=== PATIENT | female | born 1935 | race Caucasian/White ===

== ENCOUNTER → 2016-06-15 | Outpatient (CLI) | payer MEDICARE ==
[~2016-06-15] MED LIST: ACHD5005 PO; ALBU17AE3 IH; ASP81CT PO; ASPI-875 PO; CARV12.53 PO; CLCX100C PO; CLCX200C PO; CPR500T PO; DICL100G20 TOP; DOCU-161 PO; DOCU100T7 PO; FLUO20CA25 PO; FNT100TD TD; FNT25TD TD; FRSM40T PO; HYDR-2890 PO; HYDR-623 PO; HYOS0.1217 PO; IRBE75TA31 PO; LVT.025T PO; MULT-893 PO; MULT-963 PO; NF-DURA12P TD; NFAMINITAB PO; OMEG-12 PO; OMEP-10 PO; OMEP20CA6 PO; OMG1KC PO; ONDAN4ODT PO; OXYC-12 PO; Oxycodone Hcl/Acetaminophen PO; PNT40TEC PO; POTA10CA43 PO; SENN1TAB76 PO; TRM50T PO
--- OUTSIDE RECORDS SUMMARY | 2016-06-15 11:47 | XMS REPORT | Continuity of Care Document ---
Author Author [facility] Organization [facility] Address Unknown Phone Unavailable Care Team Providers Care Chocolate Coater Name Role Phone TROY FERRER MD PCP Insurance Providers Payer Name Policy Number Subscriber Name Relationship Wps Medicare [id number] lEvin Arnett 18 Self / Same As Patient Blue Cross [facility] Supp [id number] Elvin Arnett 18 Self / Same As Patient Advance Directives Directive Response Recorded Date/Time Advance Directives Yes 06/13/14 10:01am Health Care Power of Leach Runner Y DAUGHTER- ABIEL 06/13/14 10:01am Organ Donor Yes 06/13/14 10:01am Resuscitation Status Full Code 06/13/14 10:01am Problems Medical Problems Problem Onset Date Status Abdominal pain Unknown Active Nausea and vomiting Unknown Active POSSIBLE ADVERSE MEDICATION REACTION Unknown Active Medications Medication Dose Route Sig Days/Qty Instructions Order Date Discontinued Date Status Hydrocodone Bit/Acetaminophen 1 Each PO EVERY 6 HOURS 09/03/1110/12 Discontinued Carvedilol (Coreg) 1 Each PO BEDTIME 09/03/11 10/06/11 Discontinued Tramadol HCl 50 Mg PO TWICE A DAY 7 Days 09/09/11 10/13/11 Discontinued Acetaminophen/Hydrocodone Bitart 1 Each PO EVERY 6 HOURS PRN 10/23/11 Discontinued Ciprofloxacin 500 Mg PO TWICE A DAY 10 Qty 10/24/11 02/03/12 Discontinued Fentanyl 1 Ea TD Q72H 100 MCG 02/03/12 02/03/12 Discontinued Carvedilol (Coreg) 6.25 Mg PO DAILY 02/18/12 Active Carvedilol (Coreg) 12.5 Mg PO BEDTIME 02/18/12 Active Diclofenac Sod 100 Gm TOP FOUR TIMES DAILY TO RT AND LEFT SHOULDER 4X DAILY AND NEEDED TO KNEES. 02/18/12 01/13/13 Discontinued Aspirin 81 Mg PO BEDTIME 02/18/12 Active Docusate Sodium 100 Mg PO DAILY 02/18/12 06/08/14 Discontinued Fentanyl 1 Patch TD Q72H 02/18/12 Active Fluoxetine HCl (Prozac) 20 Mg PO DAILY 02/18/12 Active Irbesartan 150 Mg PO DAILY 02/18/12 Active Fish Oil 1,000 Mg PO TWICE A DAY 02/18/12 Active Senna 1 Ea PO TWICE A DAY 02/18/12 01/13/13 Discontinued Multivitamin 1 Tab PO BEDTIME 02/18/12 Active Omeprazole 20 Mg PO DAILY PRN 02/18/12 01/13/13 Discontinued Celecoxib 200 Mg PO TWICE A DAY 01/13/13 Active Albuterol 1 Puff IH EVERY 4HRS PRN 01/13/13 06/08/14 Discontinued Hydrocodone Bit/Acetaminophen 1 Tab PO EVERY 6 HOURS PRN PRN PAIN 01/13 Active Vitamin C/Vitamin E 1 Tab PO DAILY 01/13/13 Active Levothyroxine Sodium (Levothroid) 50 Mcg PO DAILY 01/13/13 Active Furosemide 20 Mg PO DAILY 01/13/13 Active Potassium Chloride (Micro K) 10 Meq PO DAILY 01/13/13 Active Oxycodone Hcl/Acetaminophen 1 Each PO EVERY 4HRS 40 Qty 1-2 EVERY 4-6 HRS. NEEDED FOR PAIN 01/21/13 04/21/13 Discontinued Hyoscyamine Sulfate (Levsin) 1-2 Each PO Q4HR PRN 10 Qty 04/21/1310/15 Discontinued Pantoprazole Sodium 1 Tab PO DAILY 10 Qty 04/21/13 06/08/14 Discontinued Ondansetron HCl 4 Mg PO EVERY 4HRS 10 Qty FOR NAUSEA AND VOMITING 06/08/14 Discontinued Social History Social History Problem Response Recorded Date/Time Alcohol Use Denies Use 06/13/2014 10:03am Recreational Drug Use No 06/13/2014 10:03am Recent Foreign Travel No 04/21/2013 4:09am Recent Infectious Disease Exposure No 04/21/2013 4:09am Hospitalization with Isolation Denies 04/21/2013 4:09am Sexually Transmitted Disease No 06/13/2014 10:03am HIV/AIDS No 06/13/2014 10:03am Smoking Status Never a Smoker 06/13/2014 10:01am Query Response Start Date Stop Date Smoking Status Never a Smoker Hospital Discharge Instructions No hospital discharge instructions. Plan of Care Discharge Date 06/15/14 1:25pm Disposition 30 STILL A PATIENT Instructions/Education Provided Total Knee Replacement (DC) Forms Provided PDI Surgical Prescriptions See Medications Section Functional Status Query Response Date Recorded Patient Orientation Person Place Time Situation June 15, 2014 1:38pm Comprehension Ability Understands Concepts June 13, 2014 2:22pm Allergies, Adverse Reactions, Alerts Allergen Type Severity Reaction Status Last Updated Penicillins ([id number]) Allergy Unknown HIVES Active 05/21/14 adhesive tape Allergy Unknown RASH BLISTERS Active 05/21/14 Immunizations Name Given Type Date of Pneumonia Vaccine 01/04/13 Historical Date of Influenza Vaccine 03/03/14 Historical Tetanus Booster (TDap) More than 5yrs Historical Vital Signs Acute Vital Signs Vital Response Date/Time Temperature (Fahrenheit) 99.2 degrees F (97.6 - 99.5) Temperature (Calculated Celsius) 37.58585 degrees C (36.4 - 37.5) Temperature Source Temporal Pulse Rate (adult) 75 bpm (60 - 90) Respiratory Rate 18 bpm (12 - 24) O2 Sat by Pulse Oximetry 96 % (88 - 100) Blood Pressure 157/75 mm Hg Pain Pain Intensity 5 Height (Feet) 5 feet Height (Inches) 7.00 inches Height (Calculated Centimeters) 170.229516 cm Weight (Pounds) 189 pounds Weight (Calculated Grams) 79717.959 gm Weight (Calculated Kilograms) 85.680414 kilograms Calculated BMI 29.60 Results Laboratory Results Test Name Result Units Flags Reference Collection Date/Time Result Date/ Time Comments White Blood Count 9.2 10^3/uL 4.3-11.0 06/08/2014 12:05pm 06/08/2014 12 :41pm Red Blood Count 4.43 10^6/uL 4.35-5.85 06/08/2014 12:05pm 06/08/2014 12 :41pm Hemoglobin 13.1 G/DL 11.5-16.0 06/08/2014 12:05pm 06/08/2014 12:41pm Hematocrit 39 % 35-52 06/08/2014 12:05pm 06/08/2014 12:41pm Mean Corpuscular Volume 88 FL 80-99 06/08/2014 12:05pm 06/08/2014 12: 41pm Mean Corpuscular Hemoglobin 30 PG 25-34 06/08/2014 12:05pm 06/08/2014 12:41pm Mean Corpuscular Hemoglobin Concent 34 G/DL 32-36 06/08/2014 12:05pm 12:41pm Red Cell Distribution Width 13.3 % 10.0-14.5 06/08/2014 12:05pm 2014 12:41pm Platelet Count 270 10^3/uL 130-400 06/08/2014 12:05pm 06/08/2014 12: 41pm Mean Platelet Volume 9.8 FL 7.4-10.4 06/08/2014 12:05pm 06/08/2014 12: 41pm Neutrophils (%) (Auto) 67 % 42-75 06/08/2014 12:05pm 06/08/2014 12: 41pm Lymphocytes (%) (Auto) 22 % 12-44 06/08/2014 12:05pm 06/08/2014 12: 41pm Monocytes (%) (Auto) 9 % 0-12 06/08/2014 12:05pm 06/08/2014 12:41pm Eosinophils (%) (Auto) 2 % 0-10 06/08/2014 12:05pm 06/08/2014 12:41pm Basophils (%) (Auto) 1 % 0-10 06/08/2014 12:05pm 06/08/2014 12:41pm Neutrophils # (Auto) 6.2 X 10^3 1.8-7.8 06/08/2014 12:05pm 06/08/2014 12:41pm Lymphocytes # (Auto) 2.0 X 10^3 1.0-4.0 06/08/2014 12:05pm 06/08/2014 12:41pm Monocytes # (Auto) 0.8 X 10^3 0.0-1.0 06/08/2014 12:05pm 06/08/2014 12: 41pm Eosinophils # (Auto) 0.2 10^3/uL 0.0-0.3 06/08/2014 12:05pm 06/08/2014 12:41pm Basophils # (Auto) 0.1 10^3/uL 0.0-0.1 06/08/2014 12:05pm 06/08/2014 12 :41pm Erythrocyte Sedimentation Rate 24 MM/HR 0-30 06/08/2014 12:05pm 2014 1:01pm Prothrombin Time 11.9 SEC L 12.2-14.7 06/08/2014 12:05pm 06/08/2014 12: 46pm INR Comment 0.9 0.8-1.4 06/08/2014 12:05pm 06/08/2014 12:46pm INTERPRETIVE DATA SUGGESTED THERAPEUTIC RANGE FOR INR'S: VENOUS THROMBOSIS, PULMONARY EMBOLISM, OR PREVENTION OF SYSTEMIC EMBOLISM (EG. IN ATRIAL FIBRILLATION): 2.0 - 3.0 MECHANICAL PROSTHETIC HEART VALVES: 2.5 - 3.5* *NOTE: INR'S UP TO 4.5 MAY BE NECESSARY IN SELECTED GROUPS OF HIGH RISK PATIENTS. [place] [place] CONSENSUS CONFERENCE ON ANTITHROMBOTIC THERAPY (2000). Urine Color YELLOW 06/08/2014 12:05pm 06/08/2014 12:53pm Urine Clarity CLEAR 06/08/2014 12:05pm 06/08/2014 12:53pm Urine pH 8 5-9 06/08/2014 12:05pm 06/08/2014 12:53pm Urine Specific [place] 1.015 * 1.016-1.022 06/08/2014 12:05pm 2014 12:53pm Urine Protein NEGATIVE NEGATIVE 06/08/2014 12:05pm 06/08/2014 12: 53pm Urine Glucose (UA) NEGATIVE NEGATIVE 06/08/2014 12:05pm 06/08/2014 12 :53pm Urine RBC (Auto) NEGATIVE NEGATIVE 06/08/2014 12:05pm 06/08/2014 12: 53pm Urine Ketones NEGATIVE NEGATIVE 06/08/2014 12:05pm 06/08/2014 12: 53pm Urine Nitrite NEGATIVE NEGATIVE 06/08/2014 12:05pm 06/08/2014 12: 53pm Urine Bilirubin NEGATIVE NEGATIVE 06/08/2014 12:05pm 06/08/2014 12: 53pm Urine Urobilinogen NORMAL MG/DL NORMAL 06/08/2014 12:05pm 06/08/2014 12 :53pm Urine Leukocyte Esterase NEGATIVE NEGATIVE 06/08/2014 12:05pm 2014 12:53pm Urine RBC NONE /HPF 06/08/2014 12:05pm 06/08/2014 12:53pm Urine WBC NONE /HPF 06/08/2014 12:05pm 06/08/2014 12:53pm Urine Bacteria NEGATIVE /HPF 06/08/2014 12:05pm 06/08/2014 12:53pm Urine Squamous Epithelial Cells RARE /HPF 06/08/2014 12:05pm 2014 12:53pm Urine Crystals NONE /LPF 06/08/2014 12:05pm 06/08/2014 12:53pm Urine Casts NONE /LPF 06/08/2014 12:05pm 06/08/2014 12:53pm Urine Mucus NEGATIVE /LPF 06/08/2014 12:05pm 06/08/2014 12:53pm Urine Culture Indicated NO 06/08/2014 12:05pm 06/08/2014 12:53pm Sodium Level 139 MMOL/L 135-145 06/08/2014 12:05pm 06/08/2014 12:55pm Potassium Level 4.3 MMOL/L 3.6-5.0 06/08/2014 12:05pm 06/08/2014 12: 55pm Chloride Level 102 MMOL/L 98-107 06/08/2014 12:05pm 06/08/2014 12:55pm Carbon Dioxide Level 28 MMOL/L 21-32 06/08/2014 12:05pm 06/08/2014 12: 55pm Blood Urea Nitrogen 21 MG/DL H 7-18 06/08/2014 12:05pm 06/08/2014 12: 55pm Creatinine 0.79 MG/DL 0.60-1.30 06/08/2014 12:05pm 06/08/2014 12:55pm BUN/Creatinine Ratio 27 06/08/2014 12:05pm 06/08/2014 12:55pm Estimat Glomerular Filtration Rate > 60 06/08/2014 12:05pm 2014 12:55pm GFR INTERPRETIVE DATA UNITS FOR ESTIMATED GFR (eGFR): mL/min/1.73 M2 REFERENCE RANGE FOR ESTIMATED GFR (eGFR) eGFR NORMAL eGFR >60 MODERATELY DECREASED eGFR 30-59 SEVERLY DECREASED eGFR 15-29 KIDNEY FAILURE <15 (OR DIALYSIS) Glucose Level 98 MG/DL 70-105 06/08/2014 12:05pm 06/08/2014 12:55pm Calcium Level 9.8 MG/DL 8.5-10.1 06/08/2014 12:05pm 06/08/2014 12:55pm Total Bilirubin 0.5 MG/DL 0.1-1.0 06/08/2014 12:05pm 06/08/2014 12: 55pm Alkaline Phosphatase 88 U/L 40-136 06/08/2014 12:05pm 06/08/2014 12: 55pm Aspartate Amino Transf (AST/SGOT) 23 U/L 5-34 06/08/2014 12:05pm 2014 12:55pm Alanine Aminotransferase (ALT/SGPT) 24 U/L 0-55 06/08/2014 12:05pm 10/2014 12:55pm Total Protein 7.1 G/DL 6.4-8.2 06/08/2014 12:05pm 06/08/2014 12:55pm Albumin 3.9 G/DL 3.2-4.5 06/08/2014 12:05pm 06/08/2014 12:55pm White Blood Count 8.9 10^3/uL 4.3-11.0 06/15/2014 5:51am 06/15/2014 6: 22am Red Blood Count 3.33 10^6/uL L 4.35-5.85 06/15/2014 5:51am 06/15/2014 6: 22am Hemoglobin 9.7 G/DL L 11.5-16.0 06/15/2014 5:51am 06/15/2014 6:22am Hematocrit 30 % L 35-52 06/15/2014 5:51am 06/15/2014 6:22am Mean Corpuscular Volume 90 FL 80-99 06/15/2014 5:51am 06/15/2014 6: 22am Mean Corpuscular Hemoglobin 29 PG 25-34 06/15/2014 5:51am 06/15/2014 6: 22am Mean Corpuscular Hemoglobin Concent 32 G/DL 32-36 06/15/2014 5:51am 6:22am Red Cell Distribution Width 13.6 % 10.0-14.5 06/15/2014 5:512014 6:22am Platelet Count 190 10^3/uL 130-400 06/15/2014 5:06/15/2014 6:22am Mean Platelet Volume 9.7 FL 7.4-10.4 06/15/2014 5:5106/15/2014 6: 22am Neutrophils (%) (Auto) 67 % 42-75 06/15/2014 5:06/15/2014 6:22am Lymphocytes (%) (Auto) 17 % 12-44 06/15/2014 5:5106/15/2014 6:22am Monocytes (%) (Auto) 16 % H 0-12 06/15/2014 5:06/15/2014 6:22am Eosinophils (%) (Auto) 0 % 0-10 06/15/2014 5:06/15/2014 6:22am Basophils (%) (Auto) 0 % 0-10 06/15/2014 5:06/15/2014 6:22am Neutrophils # (Auto) 5.9 X 10^3 1.8-7.8 06/15/2014 5:51am 06/15/2014 6: 22am Lymphocytes # (Auto) 1.5 X 10^3 1.0-4.0 06/15/2014 5:06/15/2014 6: 22am Monocytes # (Auto) 1.4 X 10^3 H 0.0-1.0 06/15/2014 5:06/15/2014 6: 22am Eosinophils # (Auto) 0.0 10^3/uL 0.0-0.3 06/15/2014 5:06/15/2014 6 :22am Basophils # (Auto) 0.0 10^3/uL 0.0-0.1 06/15/2014 5:06/15/2014 6: 22am Urine Color YELLOW 06/14/2014 8:15pm 06/14/2014 8:35pm Urine Clarity CLEAR 06/14/2014 8:15pm 06/14/2014 8:35pm Urine pH 5 5-9 06/14/2014 8:15pm 06/14/2014 8:35pm Urine Specific [place] 1.010 * 1.016-1.022 06/14/2014 8:15pm 2014 8:35pm Urine Protein NEGATIVE NEGATIVE 06/14/2014 8:15pm 06/14/2014 8:35pm Urine Glucose (UA) NEGATIVE NEGATIVE 06/14/2014 8:15pm 06/14/2014 8: 35pm Urine RBC (Auto) NEGATIVE NEGATIVE 06/14/2014 8:15pm 06/14/2014 8: 35pm Urine Ketones NEGATIVE NEGATIVE 06/14/2014 8:15pm 06/14/2014 8:35pm Urine Nitrite NEGATIVE NEGATIVE 06/14/2014 8:15pm 06/14/2014 8:35pm Urine Bilirubin NEGATIVE NEGATIVE 06/14/2014 8:15pm 06/14/2014 8: 35pm Urine Urobilinogen NORMAL MG/DL NORMAL 06/14/2014 8:15pm 06/14/2014 8: 35pm Urine Leukocyte Esterase NEGATIVE NEGATIVE 06/14/2014 8:15pm 2014 8:35pm Urine RBC NONE /HPF 06/14/2014 8:15pm 06/14/2014 8:35pm Urine WBC RARE /HPF 06/14/2014 8:15pm 06/14/2014 8:35pm Urine Bacteria TRACE /HPF 06/14/2014 8:15pm 06/14/2014 8:35pm Urine Squamous Epithelial Cells 2-5 /HPF 06/14/2014 8:15pm 2014 8:35pm Urine Crystals NONE /LPF 06/14/2014 8:15pm 06/14/2014 8:35pm Urine Casts NONE /LPF 06/14/2014 8:15pm 06/14/2014 8:35pm Urine Mucus NEGATIVE /LPF 06/14/2014 8:15pm 06/14/2014 8:35pm Urine Culture Indicated NO 06/14/2014 8:15pm 06/14/2014 8:35pm Sodium Level 138 MMOL/L 135-145 06/15/2014 5:51am 06/15/2014 6:48am Potassium Level 4.1 MMOL/L 3.6-5.0 06/15/2014 5:51am 06/15/2014 6:48am Chloride Level 105 MMOL/L 98-107 06/15/2014 5:51am 06/15/2014 6:48am Carbon Dioxide Level 25 MMOL/L 21-32 06/15/2014 5:5106/15/2014 6: 48am Blood Urea Nitrogen 16 MG/DL 7-18 06/15/2014 5:51am 06/15/2014 6:48am Creatinine 0.77 MG/DL 0.60-1.30 06/15/2014 5:51am 06/15/2014 6:48am BUN/Creatinine Ratio 21 06/15/2014 5:51am 06/15/2014 6:48am Estimat Glomerular Filtration Rate > 60 06/15/2014 5:512014 6:48am GFR INTERPRETIVE DATA UNITS FOR ESTIMATED GFR (eGFR): mL/min/1.73 M2 REFERENCE RANGE FOR ESTIMATED GFR (eGFR) eGFR NORMAL eGFR >60 MODERATELY DECREASED eGFR 30-59 SEVERLY DECREASED eGFR 15-29 KIDNEY FAILURE <15 (OR DIALYSIS) Glucose Level 147 MG/DL H 70-105 06/15/2014 5:51am 06/15/2014 6:48am Calcium Level 8.0 MG/DL L 8.5-10.1 06/15/2014 5:5106/15/2014 6:48am Magnesium Level 2.0 MG/DL 1.8-2.4 06/15/2014 5:51am 06/15/2014 6:48am Total Bilirubin 0.5 MG/DL 0.1-1.0 06/15/2014 5:5106/15/2014 6:48am Alkaline Phosphatase 66 U/L 40-136 06/15/2014 5:51am 06/15/2014 6:48am Aspartate Amino Transf (AST/SGOT) 15 U/L 5-34 06/15/2014 5:512014 6:48am Alanine Aminotransferase (ALT/SGPT) 15 U/L 0-55 06/15/2014 5:51am 06/15 6:48am Total Protein 5.4 G/DL L 6.4-8.2 06/15/2014 5:5106/15/2014 6:48am Albumin 3.0 G/DL L 3.2-4.5 06/15/2014 5:51am 06/15/2014 6:48am Procedures Procedure Status Date Provider(s) Total replacement of knee joint completed 06/13/14 VAN VEE MD Tracing only of electrocardiogram completed 06/08/14 VAN VEE MD Encounters Encounter Location Date/Time Discharged Inpatient Via [facility] 06/13/14 8:23am Registered Clinic Via [facility] 06/08/14 11:28am Registered Clinic [facility] 05/21/14 11:38am
--- NOTE | 2016-06-17 10:18 | ECHOCARDIOGRAPHY REPORT ---
PROCEDURE PHYSICIAN: CARIDAD MARTINEZ DATE OF PROCEDURE: 06/15/2016 TWO DIMENSIONAL ECHOCARDIOGRAM REPORT PRIMARY PHYSICIAN: Dr. Sanchez OTHER PHYSICIAN: Dr. Martinez REFERRING PHYSICIAN: ORDERING PHYSICIAN: Rohini Smallwood APRN INDICATION FOR THE PROCEDURE: 1. Shortness of breath. 2. Coronary artery disease. 3. Hypertension. 4. Dilated cardiomyopathy. MEASUREMENTS DERIVED VALUES LV DIAMETER (LAX) NORMALS NORMALS Diastolic 4.2 (3.6-5.2) Eject. Fract. (60%+/-6%) Systolic (2.3-3.9) Diastolic Vol. % Shortening (0.22-0.42) Systolic Vol. Aortic Root 2.1 IVS THICKNESS Diastolic 1.1 (0.6-1.1) LVPW THICKNESS Diastolic 1.1 (0.6-1.1) LA DIAMETER Systolic 3.8 (2.1-3.7) DESCRIPTION: This is a technically difficult study. The study is not suitable for wall motion analysis. Global left ventricular systolic function appears fairly well preserved. Left ventricular ejection fraction is estimated to be approximately 50%. There is mild to moderate mitral annular calcification. There appears to be mild aortic valve sclerosis. There did not appear to be significant pericardial effusion. Echodense structures in the right heart are consistent with pacemaker lead/leads. Doppler imaging shows trivial tricuspid regurgitation. Pulmonary artery systolic pressure is estimated to be 30 mmHg. Mitral inflow suggestive of grade I diastolic dysfunction of the left ventricle. There does not appear to be evidence of any significant intracardiac shunt. Inferior vena cava appears to be of normal size and does exhibit inspiratory collapse. CONCLUSIONS: 1. Technically difficult study. 2. Global left ventricular systolic function appears to be at the lower limit of normal with an ejection fraction of approximately 50%. 3. Trivial tricuspid regurgitation. 4. Pulmonary artery systolic pressure is estimated to be approximately 30 mmHg. 5. Mild to moderate mitral annular calcification, mild aortic valve sclerosis without evidence of significant valvular stenosis. 6. Mild diastolic dysfunction of the left ventricle is suggested on this study. Job ID: [id number] Dictated Date: 06/17/2016 09:03:32 Industrial Relations Counselor Date: 06/17/2016 10:13:03 / cha
== END ==
LOC: CARD 11:44
PROVIDERS: ATTEND Nurse Practitioner Family
DX: R06.09 Other forms of dyspnea (principal); I25.10 Atherosclerotic heart disease of native coronary artery without angina pectoris; I10 Essential (primary) hypertension; I42.0 Dilated cardiomyopathy
CPT/HCPCS: 93306

== ENCOUNTER → 2016-08-18 | Outpatient (CLI) | payer MEDICARE ==
--- NOTE | 2016-08-19 18:07 | Diagnostic Imaging Report ---
Bilateral screening mammogram. The current study was also evaluated with a Computer Aided Detection (CAD) system. INDICATION: Screening. No current complaints stated on the questionnaire. COMPARISON: 04/10/15. FINDINGS: The breasts are composed of scattered fibroglandular densities. There are benign-appearing calcifications. Stable focal asymmetry and scarring in the upper outer aspect of the left breast from prior studies is seen. Allowing for technique and positional differences, no suspicious change is seen. IMPRESSION: No significant change. ACR BI-RADS Category 2: Benign findings. Result letter will be mailed to the patient. Note: At least 10% of breast cancer is not imaged by mammography. Dictated by: Dictated on workstation # [id number]
== END ==
LOC: RAD 13:30
PROVIDERS: ATTEND Family Medicine
DX: Z12.31 Encounter for screening mammogram for malignant neoplasm of breast (principal)
CPT/HCPCS: 77067

== ENCOUNTER → 2017-01-26 | Outpatient (CLI) | payer MEDICARE | LOC: RAD 14:25 | PROVIDERS: ATTEND Internal Medicine Cardiovascular Disease | DX: I73.9 Peripheral vascular disease, unspecified (principal); I10 Essential (primary) hypertension; E78.4 Other hyperlipidemia; I42.0 Dilated cardiomyopathy; I25.5 Ischemic cardiomyopathy | CPT/HCPCS: 93923 ==

== ENCOUNTER → 2017-03-22 | Outpatient (CLI) | payer MEDICARE ==
--- NOTE | 2017-03-22 17:58 | Diagnostic Imaging Report ---
EXAMINATION: Three views of the right knee. INDICATION: Right knee pain. FINDINGS: There is total right knee replacement seen in good alignment. No suprapatellar effusion is identified. No acute fracture is seen. Patellar resurfacing is noted. IMPRESSION: Total right knee arthroplasty in good alignment. Dictated by: Dictated on workstation # [id number]
== END ==
LOC: RAD 14:08
PROVIDERS: ATTEND Nurse Practitioner Family
DX: M25.561 Pain in right knee (principal); Z96.651 Presence of right artificial knee joint
CPT/HCPCS: 73562

== ENCOUNTER → 2017-05-11 | Outpatient (CLI) | payer MEDICARE ==
[~2017-05-11] VITALS: Ht 170.2 cm; Wt 83.5 kg
[~2017-05-11] MED LIST changes: +CATHETER FLUSH 10 ML SYR IV PRN; +REGADENOSON 0.4 MG/5 ML SYR (LEXISCAN) IV ONE
[2017-05-11 09:04] VITALS: BP 185/89
[2017-05-11 09:09] VITALS: BP 142/73
--- NOTE | 2017-05-12 07:09 | STRESS TEST ---
DATE OF SERVICE: 05/11/2017 RESTING AND POST REGADENOSON TECHNETIUM-99M TETROFOSMIN SPECT CT IMAGING ORDERING PHYSICIAN: Shukri Martinez MD, AISA, FACP, FACC PRIMARY PHYSICIAN: Dr. Sanchez. CLINICAL DIAGNOSIS: Cardiomyopathy. Baseline images were carried out after injection of 10.31 mCi technetium-99m tetrofosmin. This was followed by 0.4 mg regadenoson and 29.1 mCi of technetium-99m tetrofosmin for stress imaging. The electrocardiogram showed sinus rhythm at baseline. There is right bundle branch block. There is nonspecific ST and T-wave abnormality. The electrocardiogram did not change significantly with the regadenoson infusion. Review of images at rest and following stress does not indicate any distinct perfusion defects consistent with significant myocardial ischemia or infarction. Gated images show mild global hypokinesis. Left ventricular ejection fraction is calculated to be 45%. Left ventricular end diastolic volume is 67 mL. TID is absent (1.17). CONCLUSIONS: 1. No evidence of significant myocardial ischemia or infarction on this study. 2. Mild impairment of global left ventricular systolic function with mild global hypokinesis and left ventricular ejection fraction of 45%. Job ID: [id number] DocumentID: [id number] Dictated Date: 05/11/2017 14:15:49 Lowerator Operator Date: 05/11/2017 20:47:38 Dictated By: SHUKRI MARTINEZ MD, ASIA, FACP, FACC,
== END ==
LOC: CARD 07:19
PROVIDERS: ATTEND Internal Medicine Cardiovascular Disease
DX: I42.0 Dilated cardiomyopathy (principal); I10 Essential (primary) hypertension; E78.4 Other hyperlipidemia; I65.23 Occlusion and stenosis of bilateral carotid arteries
CPT/HCPCS: 78452; 93017

== ENCOUNTER 2018-09-06 09:37 | Outpatient (RCR) | payer MEDICARE ==
[~2018-09-06 09:37] MED LIST changes: -CATHETER FLUSH 10 ML SYR IV PRN; -REGADENOSON 0.4 MG/5 ML SYR (LEXISCAN) IV ONE
== END 2018-10-03 | disposition home or self-care (01) ==
PROVIDERS: ATTEND Physician Assistant
DX: M48.061 Spinal stenosis, lumbar region without neurogenic claudication (principal)

== ENCOUNTER → 2018-09-12 | Outpatient (CLI) | payer MEDICARE | LOC: CARD 13:49 | PROVIDERS: ATTEND Internal Medicine Cardiovascular Disease | DX: I42.0 Dilated cardiomyopathy (principal); I10 Essential (primary) hypertension; E78.5 Hyperlipidemia, unspecified; I65.23 Occlusion and stenosis of bilateral carotid arteries; I08.1 Rheumatic disorders of both mitral and tricuspid valves | CPT/HCPCS: 93306 ==

== ENCOUNTER → 2018-10-10 | Outpatient (CLI) | payer MEDICARE ==
--- NOTE | 2018-10-10 13:18 | Diagnostic Imaging Report ---
PROCEDURE: US Thyroid. TECHNIQUE: Multiple real-time grayscale images were obtained of the thyroid in various projections. INDICATION: Thyroid nodule. FINDINGS: There are no prior exams available for comparison. The right lobe of the thyroid is enlarged measuring 5.5 x 2.6 x 3.2 cm (normal gland size 4-5 x 2 x 2 cm or less). Within the superior pole of the right lobe, there is a 3.2 x 2.1 x 1.9 cm solid mass. The left lobe of the thyroid is not enlarged measuring 3.5 x 1.1 x 1.4 cm. There do appear to be at least two solid nodules within the left lobe. The largest of these measures 1.0 x 0.8 x 0.8 cm. There are perhaps a few subcentimeter nodules in the inferior pole of the left lobe as well. IMPRESSION: 1. The right lobe of the thyroid is enlarged and there is a 3.2 x 2.1 x 1.9 cm solid mass in the superior pole. This finding is of uncertain etiology but given the size of this nodule, it is worrisome for malignancy. An ultrasound-guided biopsy would be recommended unless there are previous studies available to demonstrate that this finding is stable. 2. There are a few smaller nodules in the left lobe of the thyroid. These are of uncertain etiology but unlikely to be related to a malignant lesion. If further evaluation of the largest nodule on the left is desired, then an ultrasound-guided biopsy could also be performed. Otherwise, a short-term (three-month) follow-up thyroid ultrasound exam should be obtained. 3. These results were discussed with Dr. Griselda Sanchez. Dictated by: Dictated on workstation # [id number]
== END ==
LOC: RAD 10:46
PROVIDERS: ATTEND Family Medicine
DX: E04.2 Nontoxic multinodular goiter (principal)
CPT/HCPCS: 76536

== ENCOUNTER → 2019-11-22 | Outpatient (CLI) | payer MEDICARE ==
--- NOTE | 2019-11-22 09:55 | Diagnostic Imaging Report ---
PROCEDURE: CT head without contrast. TECHNIQUE: Multiple contiguous axial images were obtained through the brain without the use of intravenous contrast. Auto Exposure Controls were utilized during the CT exam to meet ALARA standards for radiation dose reduction. INDICATION: Fall. FINDINGS: There is diffuse cortical atrophy. Ventricles are not dilated. Periventricular white matter changes are noted bilaterally. No evidence of intracranial hemorrhage. No extraaxial fluid collection. Basal cisterns are clear. Pituitary is not enlarged. The mastoid air cells are well-aerated. There are no calvarial fractures. There is scalp laceration over the left frontal region. IMPRESSION: 1. No acute intracranial abnormalities. 2. Scalp laceration over the left frontal region. Dictated by: Dictated on workstation # [id number]
== END ==
LOC: RAD 09:01
PROVIDERS: ATTEND Nurse Practitioner Family
DX: S01.01XA Laceration without foreign body of scalp, initial encounter (principal); W19.XXXA Unspecified fall, initial encounter
CPT/HCPCS: 70450

== ENCOUNTER → 2020-08-29 | Outpatient (CLI) | payer MEDICARE | LOC: CARD 13:55 | PROVIDERS: ATTEND Nurse Practitioner Family | DX: I42.0 Dilated cardiomyopathy (principal); I08.0 Rheumatic disorders of both mitral and aortic valves | CPT/HCPCS: 93306 ==

== ENCOUNTER 2020-10-11 08:00 | Day surgery (SDC) | payer MEDICARE ==
[2020-10-11] VITALS (9 sets, daily range): BP systolic 105–173; BP diastolic 48–90
[~2020-10-11] VITALS: Ht 144 cm; Wt 84.0 kg
[2020-10-11 07:33] LABS: HEMATOCRIT 42 % (35-52); HEMOGLOBIN 13.6 g/dL (11.5-16.0); MEAN CORPUSCULAR HEMOGLOBIN 29 pg (25-34); MEAN CORPUSCULAR HGB CONC 33 g/dL (32-36); MEAN CORPUSCULAR VOLUME 87 fL (80-99); MEAN PLATELET VOLUME 9.8 fL (9.0-12.2); PLATELET COUNT 237 10^3/uL (130-400); WHITE BLOOD COUNT 7.3 10^3/uL (4.3-11.0)
[2020-10-11 07:44] LABS: INR 0.9 (0.8-1.4); PROTHROMBIN TIME PATIENT 12.7 SEC (12.2-14.7)
[2020-10-11 07:51] LABS: BILIRUBIN,TOTAL 0.5 MG/DL (0.1-1.0); CALCIUM 9.5 MG/DL (8.5-10.1); CREATININE SERUM 0.99 MG/DL (0.60-1.30); POTASSIUM 4.4 MMOL/L (3.6-5.0); TOTAL PROTEIN 7.5 GM/DL (6.4-8.2)
[~2020-10-11 08:00] MED LIST changes: +BACITRACIN INJECTION 50,000 UNIT, SODIUM CHLORIDE 0.9% IRRIGATIO 500 ML IR ONE; +FEN12TD TD; +FENT1PAT57 TD; +IBUP-2185 PO; +LOSA100T57 PO; +NS IV 1000 ML 1,000 ML IV SCH; +PANT40GR PO; +VIT1CAPS44 PO
--- NOTE | 2020-10-11 09:11 | Cardiac Procedure Note-CS/ASA ---
Pre-Procedure Note Pre-Op Procedure Note H&P Reviewed The H&P was reviewed, patient examined and no changes noted. Date H&P Reviewed: Oct 11, 2020 Time H&P Reviewed: 08:30 Conscious Sedation Pre-Proced Time 08:30 ASA Score 3 For ASA 3 and 4: Consider anesthesia and medical clearance. Also, for patients with a history of failed moderate sedation consider anesthesia. Airway Lungs Heart ASA score ASA 1: a normal healthy patient ASA 2: a patient with a mild systemic disease (mid diabetes, controlled hypertension, obesity ASA 3: a patient with a severe systemic disease that limits activity (angina, COPD, prior Myocardial infarction) ASA 4: a patient with an incapacitating disease that is a constant threat to life (CHF, renal failure) ASA 5: a moribund patient not expected to survive 24 hrs. (ruptured aneurysm) ASA 6: a declared brain- patient whose organs are being harvested. For emergent operations, add the letter E after the classification Mallampati Classification Grade 2 Sedation Plan Analgesia, Amnesia, Plan communicated to team members, Discussed options with patient/fam, Discussed risks with patient/fam The patient is an appropriate candidate to undergo the planned procedure, sedation, and anesthesia. The patient immediately re-assessed prior to indication. CARIDAD WYNNE MD FACP FAC CCDS Oct 11, 2020 09:11
[2020-10-11] MEDS ORDERED: SULF1TAB35 PO (09:15)
[2020-10-11] MEDS ORDERED: PATIENT MAY USE OWN MEDS, ALL PO SCH (09:15)
[2020-10-11] MEDS ORDERED: NS IV 1000 ML 1,000 ML IV SCH (09:15)
--- NOTE | 2020-10-11 09:17 | Discharge Inst-Cardiology ---
Discharge Inst-Cardiac Discharge Medications New Medications: Sulfamethoxazole/Trimethoprim (Bactrim Ds Tablet) 1 Each Tablet 1 EACH PO BID for 5 Days, #10 TAB 0 Refills Continued Medications: Aspirin ([place] Aspirin) 81 Mg Tablet.dr 81 MG PO HS Carvedilol (Carvedilol) 12.5 Mg Tablet 12.5 MG PO HS Celecoxib (CeleBREX CAPSULE) 100 Mg Cap 100 MG PO BID, #60 CAP Fentanyl (Duragesic Patch 25MCG) 1 Each Patch.td72 25 MCG TD Q72H, #3 PATCH Fentanyl (Fentanyl Patch 12 MCG) 1 Each Patch.td72 12 MCG TD Q72H, #1 PATCH Fluoxetine Hcl (Fluoxetine Hcl) 20 Mg Capsule 20 MG PO DAILY Levothyroxine Sodium (Levothyroxine 25 Mcg Tab) 25 Mcg Tablet 50 MCG PO DAILY Losartan Potassium (Losartan Potassium) 100 Mg Tablet 100 MG PO DAILY, TAB Pantoprazole Sodium (Pantoprazole Sodium) 40 Mg Granpkt.dr 40 MG PO DAILY Vit C/E/Zn/Coppr/Lutein/Zeaxan (Preservision Areds 2 Softgel) 1 Each Capsule 2 EACH PO DAILY, CAP Discontinued Medications: Ibuprofen (Ibuprofen) 200 Mg Capsule 200 MG PO PRN, CAP CARIDAD WYNNE MD FACP [facility] CCDS Oct 11, 2020 09:17
--- NOTE | 2020-10-11 09:17 | Discharge Inst-Post CATH ---
Discharge Inst-CATH/EP Post Cardiac Cath/EP D/C Inst Follow Up/Plan F/u at Dr Martinez'micah for wound check on 10/14/20 F/u at Dr Martinez'micah for doctor visit and pacemaker check in 6 weeks ACTIVITY * Go Home directly and rest. * Limit activity of the leg (or wrist if it was used) for 7 days including aerobics, swimming, jogging, bicycling, etc. * Restrict stair-climbing for 7 days if possible, if not, climb up with your non-cath leg, then bring together on the same step. * Avoid lifting, pushing, pulling or excessive movement of the affected extremity for 7 days. * Customary sexual activity may be resumed after 2 days-use caution not to use a position that strains or causes pain to the affected extremity. * No driving for 24 hours. * NO SMOKING. * Avoid straining for bowel movements for 7 days. * Gentle walking on level ground is allowed. * Returning to work will depend on the type of procedure and the results. Your doctor will discuss this with you. CALL YOUR DOCTOR FOR ANY OF THE FOLLOWING: *If bleeding from the puncture site occurs- Apply gentle pressure to site with clean cloth and call your doctor or EMS. * If a knot or lump forms under the skin, increases in size, or causes pain. * If bruising appears to be worsening or moving further down your leg instead of disappearing. * Temperature above 101 F. CARE OF YOUR GROIN INCISION; * Bruising or purple discoloration of the skin near the puncture site is common. * You may shower only, no bathtub bathing for 5 days. Be careful to avoid slipping as your leg may feel stiff. * If a closure device was used on your femoral artery, please see the attached guide regarding care of the device and your leg. * Leave dressing on FOR 24 hours. CARE OF YOUR WRIST INCISION; * Bruising or purple discoloration of the skin near the puncture site is common. * You may shower. * DO NOT submerge wrist. * Leave dressing on FOR 24 hours. CARIDAD MARTINEZ MD [facility] Oct 11, 2020 09:17
--- NOTE | 2020-10-11 11:05 | Diagnostic Imaging Report ---
EXAMINATION: Portable erect AP chest at 1012 AM INDICATION: Status post ICD pulse generator change The cardiomegaly noted on the prior exam of 06/15/14 is again evident and essentially no different. Reportedly, the left-sided defibrillator device seen previously has been exchanged. The new device seems to be intact and the leads appear to be in good position. There is no sign of a pneumothorax on the left. The lungs are generally clear. There is no evidence for failure, pneumonia or for pleural effusion. The mediastinum is not widened. The osseous structures are intact. Bilateral shoulder prostheses are again evident. IMPRESSION: 1. There has been interval exchange of defibrillator devices on the left without apparent complication. 2. There is cardiomegaly but no acute cardiopulmonary abnormality is noted. Dictated by: Dictated on workstation # [id number]
--- NOTE | 2020-10-11 16:29 | OPERATIVE REPORT ---
DATE OF SERVICE: 10/11/2020 PREOPERATIVE DIAGNOSIS: Single chamber ICD pulse generator at end of life. POSTOPERATIVE DIAGNOSIS: Single chamber ICD pulse generator at end of life. PROCEDURE: Single chamber ICD pulse generator change. INDICATIONS: The patient is an 84-year-old lady who has nonischemic cardiomyopathy and has an ICD in place that has reached end of life. Informed consent was obtained and the generator change was carried out today. DESCRIPTION OF PROCEDURE: She was brought to the cardiac catheterization laboratory in a fasting state. The left prepectoral area, the site of previous device implant, was prepared and draped in the usual sterile fashion. Lidocaine 1% was used for local anesthesia. Sharp and blunt dissection was used to open the device pocket and the device was removed and detached from the lead. The pocket was thoroughly irrigated with an antibiotic solution. Good hemostasis was assured. The previous lead was attached to a new device. The new device is [employer] model [id number] with serial #[id number]. The device removed is [employer] model [id number] with serial #[id number]. The device was placed in the pocket and the pocket was closed in 2 layers using 3.0 Vicryl. She tolerated the procedure well. The lead impedance is 600 ohms. Ventricular capture threshold is 0.625 volts at 0.5 milliseconds. R waves are measured at 6.7 millivolts. Job ID: [id number] DocumentID: [id number] Dictated Date: 10/11/2020 09:23:08 [employer] Date: 10/11/2020 16:28:53 Dictated By: CARIDAD WYNNE MD, MA, FACP, FACC,
== END 2020-10-11 12:31 | disposition home or self-care (01) ==
LOC: CATH 08:00 → SDC 09:40 → CATH 12:31
PROVIDERS: ATTEND Internal Medicine Cardiovascular Disease
DX: Z45.02 Encounter for adjustment and management of automatic implantable cardiac defibrillator (principal); I42.0 Dilated cardiomyopathy; I25.10 Atherosclerotic heart disease of native coronary artery without angina pectoris; I10 Essential (primary) hypertension; I65.23 Occlusion and stenosis of bilateral carotid arteries; F32.9 Major depressive disorder, single episode, unspecified; M17.0 Bilateral primary osteoarthritis of knee; E04.1 Nontoxic single thyroid nodule; E78.2 Mixed hyperlipidemia; M19.011 Primary osteoarthritis, right shoulder; M19.012 Primary osteoarthritis, left shoulder; Z91.048 Other nonmedicinal substance allergy status; Z79.82 Long term (current) use of aspirin; Z79.899 Other long term (current) drug therapy; Z79.890 Hormone replacement therapy; Z98.890 Other specified postprocedural states; Z96.653 Presence of artificial knee joint, bilateral
CPT/HCPCS: 33262; 71045; 80053; 80061; 85027; 85610; 85730; 87081; C1721; 36415

== ENCOUNTER → 2020-11-08 | Outpatient (CLI) | payer MEDICARE ==
[~2020-11-08] MED LIST changes: -BACITRACIN INJECTION 50,000 UNIT, SODIUM CHLORIDE 0.9% IRRIGATIO 500 ML IR ONE; -NS IV 1000 ML 1,000 ML IV SCH; +SULF1TAB35 PO
--- NOTE | 2020-11-08 13:39 | Diagnostic Imaging Report ---
INDICATION: Back pain. 3 views were obtained FINDINGS: The alignment of the lumbar spine is normal. The vertebral body heights are well maintained. No spondylolysis or spondylolisthesis. No fractures are identified. There is multilevel degenerative disease and lower lumbar hypertrophic degenerative facet disease. IMPRESSION: Moderately severe diffuse lumbar spondylosis and degenerative disc disease as described. Dictated by: Dictated on workstation # [id number]
--- NOTE | 2020-11-08 14:49 | Diagnostic Imaging Report ---
Indication: Fall, right hip pain. Comparison: None Findings: 2 views of the right hip demonstrate well-seated arthroplasty without evidence of fracture or dislocation or loosening. Impression: Stable-appearing right hip arthroplasty. Dictated by: Dictated on workstation # [id number]
== END ==
LOC: RAD 10:50
PROVIDERS: ATTEND Family Medicine
DX: M47.816 Spondylosis without myelopathy or radiculopathy, lumbar region (principal); M51.36 Other intervertebral disc degeneration, lumbar region; W19.XXXA Unspecified fall, initial encounter
CPT/HCPCS: 72100; 73502

== ENCOUNTER → 2021-09-05 | Outpatient (CLI) | payer MEDICARE ==
[~2021-09-05] MED LIST changes: -SULF1TAB35 PO; +SULF1TAB38 PO
--- NOTE | 2021-09-05 16:44 | Diagnostic Imaging Report ---
INDICATION: Left leg pain. FINDINGS: 5 views. AP pelvis and bilateral hips. The arthroplasty of the right hip is in good alignment with no evidence of hardware complication. Left hip shows good alignment with moderate arthritic changes. There is some narrowing of the joint space with mild hypertrophic changes of the acetabulum. Femoral head is smooth. There are no fractures. SI joints show mild sclerotic change. IMPRESSION: Moderate arthritic changes of left hip. Right hip shows normal arthroplasty. Dictated by: Dictated on workstation # [id number]
== END ==
LOC: RAD 15:25
PROVIDERS: ATTEND Nurse Practitioner Family
DX: M16.12 Unilateral primary osteoarthritis, left hip (principal); Z98.1 Arthrodesis status
CPT/HCPCS: 73523

== ENCOUNTER → 2021-12-11 | Outpatient (CLI) | payer MEDICARE ==
--- NOTE | 2021-12-11 16:51 | Diagnostic Imaging Report ---
EXAMINATION: Right hip unilateral 2 or 3 views (w/pelvis when done) HISTORY: Right hip pain COMPARISON: 09/05/2021 FINDINGS: There is a right total hip arthroplasty. No acute fracture. No dislocation. There is unchanged mild left hip osteoarthritis. IMPRESSION: 1. Right total hip arthroplasty without acute fracture. Dictated by: Dictated on workstation # [id number]
== END ==
LOC: RAD 16:04
PROVIDERS: ATTEND Family Medicine
DX: M25.551 Pain in right hip (principal); Z96.641 Presence of right artificial hip joint

== ENCOUNTER → 2022-09-11 | Outpatient (CLI) | payer MEDICARE | LOC: CARD 13:49 | PROVIDERS: ATTEND Nurse Practitioner Family | DX: I42.0 Dilated cardiomyopathy (principal) | CPT/HCPCS: 93306 ==

== ENCOUNTER → 2022-11-06 | Outpatient (CLI) | payer MEDICARE ==
[~2022-11-06] MED LIST changes: +CATHETER FLUSH 10 ML SYR IVP PRN; -LOSA100T57 PO; +LOSA100T58 PO; +REGADENOSON 0.4 MG/5 ML SYR (LEXISCAN) IV ONE
[2022-11-06 08:48] VITALS: BP 177/85
== END ==
LOC: CARD 06:56
PROVIDERS: ATTEND Nurse Practitioner Family
DX: I25.10 Atherosclerotic heart disease of native coronary artery without angina pectoris (principal)
CPT/HCPCS: 78452; 93017; A9502

== ENCOUNTER 2022-11-23 14:01 | Inpatient (IN) | payer MEDICARE ==
[~2022-11-23] VITALS: Ht 157.5 cm; Wt 82.0 kg
[~2022-11-23 14:01] MED LIST changes: -CATHETER FLUSH 10 ML SYR IVP PRN; +CEFT1FRO2 IV; +CELE200C PO; +FENT1PAT9 TD; +FLUO20CA48 PO; +LEVO50TA6 PO; -REGADENOSON 0.4 MG/5 ML SYR (LEXISCAN) IV ONE
[2022-11-23] MEDS ORDERED: ASPI-1238 PO (14:44)
[2022-11-23] MEDS ORDERED: IBUP-2473 PO (14:45)
[2022-11-23] MEDS ORDERED: FERR142T14 PO (14:46)
--- NOTE | 2022-11-23 15:46 | Physical Therapy Evaluation ---
PT Evaluation-General Medical Diagnosis Admission Date Nov 23, 2022 at 14:59 Medical Diagnosis: Encephalopathy d/t UTI Onset Date: Nov 21, 2022 Therapy Diagnosis Therapy Diagnosis: Proximal weakness; Decreased functional mobility; Falls Height/Weight Height (Feet): 5 Height (Inches): 7.00 Weight (Pounds): 184 Weight (Ounces): 0.0 Precautions Precautions/Isolations: Fall Prevention, Standard Precautions, Pressure Ulcer Weight Bear Status Right Lower Extremity: Right Full Weight Bearing Left Lower Extremity: Left Full Weight Bearing Referral Physician: Raúl Reason for Referral: Evaluation/Treatment Medical History Pertinent Medical History: Arthritis, GERD, HTN Additional Medical History Cataracts sx, pacemaker placement, defibrillator , HTN, PNA, R TKA, cancer, incontinence, HLD, depression, anxiety, CAD, DJD, hypothyroidism, GERD, arthritis, chronic LBP Current History Pt is a 87 y/o female who was brought to ED by EMS for evaluation after a fall on 11/22/22. Patient fell on 11/21/22 and 11/22/22. Admitted to ARU on 11/23/22 with encephalopathy d/t UTI Reviewed History: Yes Social History Home: Single Level Current Living Status: Children Entry Into Home: Stairs With Railing PT Steps Into Home: 4 Pt lives with her daughter, who travels a lot, in a single story home with 4 steps to enter/exit with B HR. Walk-in shower, but pt was taking sponge baths. Prior Prior Level of Function SCALE: Activities may be completed with or without assistive devices. 5-Icuhhvzlwk-edzgmol completes the activity by him/herself with no assistance f rom a helper. 5-Set-up or Clean-up Assistance-helper sets up or cleans up; patient completes activity. [place] assists only prior to or following the activity. 4-Supervision or Touching Assistance-helper provides verbal cues and/or touching/steadying and/or contact guard assistance as patient completes activity. Assistance may be provided throughout the activity or intermittently. 3-Partial/Moderate Assistance-helper does LESS THAN HALF the effort. [place] lifts, holds or supports trunk or limbs, but provides less than half the effort. 2-Substantial/Maximal Assistance-helper does MORE THAN HALF the effort. [place] lifts or holds trunk or limbs and provides more than half the effort. 5-Aekwytrtk-rmtkbu does ALL the effort. Patient does none of the effort to complete the activity. Or, the assistance of 2 or more helpers is required for the patient to complete the activity. If activity was not attempted, code reason: 7-Patient Refused. 9-Not Applicable-not attempted and the patient did not perform the activity before the current illness, exacerbation or injury. 10-Not Attempted due to Environmental Limitations-(lack of equipment, weather restraints, etc.). 88-Not Attempted due to Medical Conditions or Safety Concerns. Bed Mobility: 6 Transfers (B,C,W/C): 6 Gait: 6 Stairs: 4 Wheelchair Mobility: 9 Indoor Mobility (Ambulation): Independent Stairs: Needed Some Help Prior Devices Use: Walker Pt reports that at [facility], she was Mod I with the FWW, but needed some assistance with stairs getting into/out of the house. PT Evaluation-Current Subjective Pt is agreeable to PT. Pain Numeric Pain Scale: 8 Location: Lower Location Body Site: Back Section J - Health Conditions 1. Rarely or not at all 2. Occasionally 3. Frequently 4. Almost constantly 8. Unable to answer Pain Effect on Sleep: 2 Pain Interference with Therapy: 3 Pain Interference w/Day-to-Day: 2 Pt/Family Goals Per pts daughter, she would like extended care for the pt, upon d/c. Objective Patient Orientation: Person, Place, Time, Situation ROM/Strength ROM Upper Extremities See OT note ROM Lower Extremities WFL Strength Upper Extremities See OT note Strength Lower Extremities B hip MMT = 3+/5 B knee and ankle MMT = 4-/5 Core strength = fair Integumentary/Posture Integumentary See nurses note Bowel Incontinence: No Bladder Incontinence: Yes Posture kyphotic Sensory Vision: Functional Hearing: Impaired (pt reports she has hearing aides, but does not use them ) Hand Dominance: Right Sensation Right Upper Extremit: Intact Sensation Left Upper Extremity: Intact Sensation Right Lower Extremit: Intact Sensation Left Lower Extremity: Intact Transfers Roll Left & Right (QC): 3 (Min A ) Sit to Lying (QC): 3 (Min A ) Lying to Sitting/Side of Bed(Q: 3 (Min A ) Sit to Stand (QC): 3 (Min A ) Chair/Qvb-zi-Uwwpg Xfer(QC): 3 (Min A ) Toilet Transfer (QC): 3 (Min A ) Car Transfer (QC): 88 Gait Does the Patient Walk?: Yes Mode of Locomotion: Both Anticipated Mode of Locomotion: Both Walk 10 feet (QC): 3 (Min A ) Walk 50 ft with 2 Turns(QC): 88 Walk 150 ft (QC): 88 Walking 10ft/uneven surface-QC: 88 Distance: 30ft Gait Assistive Device: FWW Wheelchair Training Does the Pt Use a Wheelchair?: Yes Wheel 50 ft with 2 turns (QC): 88 Wheel 150 ft (QC): 88 Type of Wheelchair: Manual Stairs 1 Step (curb) (QC): 88 4 Steps (QC): 88 12 Steps (QC): 9 (Pt has 4 steps to enter/exit home ) Walking Assistive Device: Walker Balance Sitting Static: Good Sitting Dynamic: Fair Standing Static: Fair Standing Dynamic: Fair Picking up an Object (QC): 3 (Min A ) Special Test Comments KU standing balance goal = 2/5 (goal = 4/5) Treatment PT eval completed Assessment/Needs Pt tolerated PT well with good effort Rehab Potential: Good Post Rehab Potential-Barriers: Proximal weakness, pain, safety Equipment Needs TBD PT Retirement Goals Answerer Goals PT Answerer Goals Time Frame: Dec 04, 2022 Roll Left to Right (QC): 4 (Pt will be SBA for all aspects of functional mobility, in order to safely d/c. ) Sit to Lying (QC): 4 (Pt will be SBA for all aspects of functional mobility, in order to safely d/c. ) Lying-Sitting on Side/Bed(QC): 4 (Pt will be SBA for all aspects of functional mobility, in order to safely d/c. ) Sit to Stand (QC): 4 (Pt will be SBA for all aspects of functional mobility, in order to safely d/c. ) Chair/Dcy-yk-Anmfx Xfer(QC): 4 (Pt will be SBA for all aspects of functional mobility, in order to safely d/c. ) Toilet/Commode Transfer (QC): 4 (Pt will be SBA for all aspects of functional mobility, in order to safely d/c. ) Car Transfer (QC): 4 (Pt will be SBA for all aspects of functional mobility, in order to safely d/c. ) Does the Patient Walk: Yes Walk 10 feet (QC): 4 (Pt will be SBA for all aspects of functional mobility, in order to safely d/c. ) Walk 10ft-Uneven Surface(QC): 4 (Pt will be SBA for all aspects of functional mobility, in order to safely d/c. ) Walk 50ft with 2 Turns (QC): 4 (Pt will be SBA for all aspects of functional mobility, in order to safely d/c. ) Walk 150 ft (QC): 4 (Pt will be SBA for all aspects of functional mobility, in order to safely d/c. ) Does the Pt use WC or Scooter?: Yes Wheel 50 feet with 2 turns (QC: 4 (Pt will be SBA for all aspects of functional mobility, in order to safely d/c. ) Type: Manual Wheel 150 feet: 4 (Pt will be SBA for all aspects of functional mobility, in order to safely d/c. ) Type: Manual 1 Step (curb) (QC): 4 (Pt will be SBA for all aspects of functional mobility, in order to safely d/c. ) 4 Steps (QC): 4 (Pt will be SBA for all aspects of functional mobility, in order to safely d/c. ) 12 Steps (QC): 9 (Pt has 4 steps to enter/exit home ) Picking up an Object (QC): 4 (Pt will be SBA for all aspects of functional mobility, in order to safely d/c. ) KU standing balance goal = 4/5 PT Plan Problem List Problem List: Activity Tolerance, Functional Strength, Safety, Balance, Gait, Transfer, Bed Mobility, ROM Treatment/Plan Treatment Plan: Continue Plan of Care Treatment Plan: Bed Mobility, Concurrent Therapy, Education, Functional Activity Rubén, Functional Strength, Group Therapy, Gait, Safety, Therapeutic Exercise, Transfers Treatment Duration: Dec 04, 2022 Frequency: At least 5 of 7 days/Wk (IRF) Estimated Hrs Per Day: 1.5 hours per day Patient and/or Family Agrees t: Yes Safety Risks/Education Patient Education: Gait Training, Transfer Techniques, Safety Issues Teaching Recipient: Patient Teaching Methods: Demonstration, Discussion Response to Teaching: Verbalize Understanding, Return Demonstration, Reinforcement Needed Discharge Recommendations Plan Pt would benefit from skilled PT to improve strength, safety, walking, balance, endurance, and overall independence. Therapy Discharge Recommendati: Scheduled Assistance Equpiment Recommendations-D/C: Other, Please Explain (TBD) Discharge Status/Home Program Cont per POC Barriers to Progress Proximal weakness, pain, overall debility Target Placement Home with daughter vs facility, with increased assistance Time Time In: 1519 Time Out: 1529 DATE: Nov 23, 2022 Total Billed Treatment Time: 10 Total Billed Treatment 10 min 1 BAYRON ARTEAGA PT Nov 23, 2022 15:46
[2022-11-23 15:47] VITALS: BP 143/88
--- NOTE | 2022-11-23 15:56 | Occupational Therapy Eval ---
OT Evaluation-General/PLF Medical Diagnosis Admission Date Nov 23, 2022 at 14:59 Medical Diagnosis: Encephalopathy d/t UTI Onset Date: Nov 21, 2022 Therapy Diagnosis Therapy Diagnosis: proximal weakness, falls Height/Weight Height (Feet): 5 Height (Inches): 7.00 Weight (Pounds): 184 Weight (Ounces): 0.0 Precautions Precautions/Isolations: Fall Prevention, Standard Precautions, Pressure Ulcer Comments Patient had chair alarm at hospital Referral Physician: Raúl Referral Reason: Self Care, Evaluation/Treatment Medical History Pertinent Medical History: Arthritis, GERD, HTN Reviewed History: Yes Social History Home: Single Level Current Living Status: Children Entry Into Home: Stairs With Railing Steps Into Home: 2 2 steps to enter home, 2 step in home where patient primarily occupies space ADL-Prior Level of Function SCALE: Activities may be completed with or without assistive devices. 6-Gshwsnxnyx-aalcyzp completes the activity by him/herself with no assistance from a helper. 5-Set-up or Clean-up Assistance-helper sets up or cleans up; patient completes activity. [place] assists only prior to or following the activity. 4-Supervision or Touching Assistance-helper provides verbal cues and/or touching/steadying and/or contact guard assistance as patient completes activity. Assistance may be provided throughout the activity or intermittently. 3-Partial/Moderate Assistance-helper does LESS THAN HALF the effort. [place] lifts, holds or supports trunk or limbs, but provides less than half the effort. 2-Substantial/Maximal Assistance-helper does MORE THAN HALF the effort. [place] lifts or holds trunk or limbs and provides more than half the effort. 8-Hcktbudmn-nfewwt does ALL the effort. Patient does none of the effort to complete the activity. Or, the assistance of 2 or more helpers is required for the patient to complete the activity. If activity was not attempted, code reason: 7-Patient Refused. 9-Not Applicable-not attempted and the patient did not perform the activity before the current illness, exacerbation or injury. 10-Not Attempted due to Environmental Limitations-(lack of equipment, weather restraints, etc.). 88-Not Attempted due to Medical Conditions or Safety Concerns. Self Care: Needed Some Help (patient requires assist w/ full bathing, primarily does sponge bathe.) Functional Cognition: Needed Some Help (is forgetful to wear life alert at home, decreased safety awareness) DME/Equipment Comments FWW, stool for bathing Drive Self: No OT Current Status Subjective agreeable to OT, daughter intermittently present Pain Numeric Pain Scale: 4 Location Body Site: Shoulder Comment: daughter reports patient has chronic pain if meds are not given routinely Mental Status/Objective Patient Orientation: Person, Place, Time, Situation Attachments: Telemetry (has not been disconnected) Current Hearing Aids: No (hard of hearing) Hand Dominance: Right Upper Extremity ROM chronic limited BUE ROM 90 degree flexion/abd w/ pain Upper Extremity Coordination FAIR + Upper Extremity Strength proximal -3/5, elbows +3/5, billet heater -4/5 ADL-Treatment Eating (QC): 6 Oral Hygiene (QC): 5 (siting w/ set up) Shower/Bathe Self (QC): 3 (shower) Upper Body Dressing (QC): 3 Lower Body Dressing (QC): 3 On/Off Footwear (QC): 2 Toileting Hygiene (QC): 3 Education OT Patient Education: Correct positioning, Modified ADL techniques, Progress toward Goal/Update tx plan, Purpose of tx/functional activities, Reviewed precautions, Rehab process, Safety issues, Transfer techniques, Use of adapted equipment Teaching Recipient: Patient Teaching Methods: Demonstration, Discussion Response to Teaching: Reinforcement Needed BIMS CAM BIMS Expression of Ideas and Wants: Without Difficulty Understanding Verbal Content: Understands Brief Interview/Mental Status: Yes IRF AGUSTIN BIMS: IRF AGUSTIN BIMS Response (Comments) Value Repitition of Three Words Three 3 Recalls Socks Yes, After Cueing (Wear) 1 Recalls Blue Yes, After Cueing (Color) 1 Recalls Bed Yes, After Cueing 1 Year Correct 3 Month Accurate Within 5 Days 2 Day Correct 1 Total 12 Patient Normally Able to Recal: Current Session, That he/she in a hsp Should Staff Asses. Mental St.: No CAM Mental Status Change/Baseline: 0 Inattention: 0 Disorganized thinkin Altered level of consciousness: 0 OT Short Term Goals Short Term Goals Time Frame: Nov 27, 2022 Eatin Oral hygiene: 6 Upper body dressin OT [place] [employer] Goals Group Home Goals Time Frame: Dec 04, 2022 Eating (QC): 6 Oral Hygiene (QC): 6 Toileting Hygiene (QC): 5 Shower/Bathe Self (QC): 5 Upper Body Dressing (QC): 5 Lower Body Dressing (QC): 5 On/Off Footwear (QC): 5 1=Demonstrate adherence to instructed precautions during ADL tasks. 2=Patient will verbalize/demonstrate understanding of assistive devices/modifications for ADL. 3=Patient will improve strength/tolerance for activity to enable patient to perform ADL's. OT Education/Plan Problem List/Assessment Assessment: Decreased Activ Tolerance, Decreased Safety Aware, Decreased UE Strength, Impaired Funct Balance, Impaired Self-Care Skills Discharge Recommendations Plan/Recommendations: Continue POC Patient/Family Goals Patient daughter request extended care at discharge Treatment Plan/Plan of Care Treatment,Training & Education: Yes Patient would benefit from OT for education, treatment and training to promote independence in ADL's, mobility, safety and/or upper extremity function for ADL's. Plan of Care: ADL Retraining, Concurrent Therapy, Functional Mobility, Group Exercise/Act as Ind, UE Funct Exercise/Act Treatment Duration: Dec 04, 2022 Frequency: At least 5 of 7 days/Wk (IRF) Estimated Hrs Per Day: 1.5 hours per day Agreement: Yes Rehab Potential: Guarded Time Start Time: 15:10 Stop Time: 15:20 DATE: Nov 23, 2022 Total Time Billed (hr/min): 10 Billed Treatment Time EVM 10 min [facility] DOSS OT Nov 23, 2022 15:56
--- NOTE | 2022-11-23 16:44 | Physical Therapy Daily Note ---
PT Daily Note-Current Subjective PT in room upon entering and good for therapy. pt stated 5-6/10 pain for a headache before during and after. nursing was notified. pt was left in recliner with call light and daughter present. PT/OT co treat from 5518-4140 for 80 mins skill of 2 clinicians required to decrease fall risk, increased safe mobility and ability to complete functional tasks. OT focusing on B [place] strength, assisting with safe ambulation/transfers while PT focusing on transfers, ambulation. Pain Section J - Health Conditions 1. Rarely or not at all 2. Occasionally 3. Frequently 4. Almost constantly 8. Unable to answer Pain Effect on Sleep: 2 Pain Interference with Therapy: 3 Pain Interference w/Day-to-Day: 2 Mental Status Patient Orientation: Person, Place, Situation Transfers SCALE: Activities may be completed with or without assistive devices. 3-Fyoowphzwn-kghzgoi completes the activity by him/herself with no assistance from a helper. 5-Set-up or Clean-up Assistance-helper sets up or cleans up; patient completes activity. [place] assists only prior to or following the activity. 4-Supervision or Touching Assistance-helper provides verbal cues and/or touching/steadying and/or contact guard assistance as patient completes activity. Assistance may be provided throughout the activity or intermittently. 3-Partial/Moderate Assistance-helper does LESS THAN HALF the effort. [place] lifts, holds or supports trunk or limbs, but provides less than half the effort. 2-Substantial/Maximal Assistance-helper does MORE THAN HALF the effort. [place] lifts or holds trunk or limbs and provides more than half the effort. 0-Hofwewmgw-xkoekx does ALL the effort. Patient does none of the effort to complete the activity. Or, the assistance of 2 or more helpers is required for the patient to complete the activity. If activity was not attempted, code reason: 7-Patient Refused. 9-Not Applicable-not attempted and the patient did not perform the activity befo re the current illness, exacerbation or injury. 10-Not Attempted due to Environmental Limitations-(lack of equipment, weather re straints, etc.). 88-Not Attempted due to Medical Conditions or Safety Concerns. Weight Bearing Right Lower Extremity: Right Full Weight Bearing Left Lower Extremity: Left Full Weight Bearing Treatments PT co-treat with OT for functional task of showering to aid with the safety, balance transfers and dynamic standing. pt requires CGA and VC of 60% for safety and sequencing. pt does requires multiple rest breaks secondary to fatigue. pt does have SOB but O2 was WFL at all times checked every 2 mins. Assessment Current Status: Good Progress PT Firefighter Goals Penitentiary Goals PT Firefighter Goals Time Frame: Dec 04, 2022 Roll Left & Right (QC): 4 (Pt will be SBA for all aspects of functional mobility, in order to safely d/c. ) Sit to Lying (QC): 4 (Pt will be SBA for all aspects of functional mobility, in order to safely d/c. ) Lying-Sitting on Side/Bed(QC): 4 (Pt will be SBA for all aspects of functional mobility, in order to safely d/c. ) Sit to Stand (QC): 4 (Pt will be SBA for all aspects of functional mobility, in order to safely d/c. ) Chair/Qge-rr-Xglhx Xfer(QC): 4 (Pt will be SBA for all aspects of functional mobility, in order to safely d/c. ) Toilet Transfer (QC): 4 (Pt will be SBA for all aspects of functional mobility, in order to safely d/c. ) Car Transfer (QC): 4 (Pt will be SBA for all aspects of functional mobility, in order to safely d/c. ) Does the Patient Walk: Yes Walk 10 feet (QC): 4 (Pt will be SBA for all aspects of functional mobility, in order to safely d/c. ) Walk 50ft with 2 Turns (QC): 4 (Pt will be SBA for all aspects of functional mobility, in order to safely d/c. ) Walk 150 ft (QC): 4 (Pt will be SBA for all aspects of functional mobility, in order to safely d/c. ) Walking 10ft on Uneven Surface: 4 (Pt will be SBA for all aspects of functional mobility, in order to safely d/c. ) 1 Step (curb) (QC): 4 (Pt will be SBA for all aspects of functional mobility, in order to safely d/c. ) 4 Steps (QC): 4 (Pt will be SBA for all aspects of functional mobility, in order to safely d/c. ) 12 Steps (QC): 9 (Pt has 4 steps to enter/exit home ) Picking up an Object (QC): 4 (Pt will be SBA for all aspects of functional mobility, in order to safely d/c. ) Does the Pt use WC or Scooter?: Yes Wheel 50 feet with 2 turns (QC: 4 (Pt will be SBA for all aspects of functional mobility, in order to safely d/c. ) Type: Manual Wheel 150 feet: 4 (Pt will be SBA for all aspects of functional mobility, in order to safely d/c. ) Type: Manual PT Plan Treatment/Plan Treatment Plan: Continue Plan of Care Treatment Plan: Bed Mobility, Concurrent Therapy, Education, Functional Activity Rubén, Functional Strength, Group Therapy, Gait, Safety, Therapeutic Exercise, Transfers Treatment Duration: Dec 04, 2022 Frequency: At least 5 of 7 days/Wk (IRF) Estimated Hrs Per Day: 1.5 hours per day Patient and/or Family Agrees t: Yes Time Time In: 1530 Time Out: 1650 DATE: Nov 23, 2022 Total Billed Treatment Time: 80 Total Billed Treatment 1 FA x 5 Co treat from 330-450 for [address] MENDER Nov 23, 2022 16:44
--- NOTE | 2022-11-23 16:50 | Occupational Ther Daily Note ---
OT Current Status-Daily Note Subjective Pt with PT for eval, CRAWFORD and OVER THE HORIZON TARGETING SUPERVISOR took over care. PT/OT cotreat ([id number]) Pt pain 5/6 out of 10 at end of session, lower hip pain and back pain during ambulation. ADL-Treatment Therapist propelled pt bathroom and transferred with FWW, to shower bench, for a shower, CGA. Pt then required assistance, to open soap bottle and to assistance required to wash hair. Pt then dried off and transferred out of shower to chair in bathroom. Pt completed upper body dressing with Min A, pt completed lower body dressing with Sandra. Pt able to claudia R sock, unable to claudia L. Pt completed grooming sitting at sink, due to fatigue from shower. Pt then requested to use restroom, pt ambulated to rest room incontinent, pt stated "urge just comes quickly". Pt then ambulated CGA, FWW back to sink and completed oral hygiene while standing with CGA. Pt required recovery break to catch breath. Pt ambulated back to chair in room, CGA using FWW. Pt was educated on ARU expectations and the rehab process, verbalized understanding. Therapy Code Descriptions/Definitions Functional [place] Measure: 0=Not Assessed/NA 4=Minimal Assistance 1=Total Assistance 5=Supervision or Setup 2=Maximal Assistance 6=Modified [place] 3=Moderate Assistance 7=Complete IndependenceSCALE: Activities may be completed with or without assistive devices. 6-Odevlnvzrh-bfusuki completes the activity by him/herself with no assistance from a helper. 5-Set-up or Clean-up Assistance-helper sets up or cleans up; patient completes activity. [place] assists only prior to or following the activity. 4-Supervision or Touching Assistance-helper provides verbal cues and/or touching/steadying and/or contact guard assistance as patient completes activity. Assistance may be provided throughout the activity or intermittently. 3-Partial/Moderate Assistance-helper does LESS THAN HALF the effort. [place] lifts, holds or supports trunk or limbs, but provides less than half the effort. 2-Substantial/Maximal Assistance-helper does MORE THAN HALF the effort. [place] lifts or holds trunk or limbs and provides more than half the effort. 5-Inuntrujd-xcugnh does ALL the effort. Patient does none of the effort to complete the activity. Or, the assistance of 2 or more helpers is required for the patient to complete the activity. If activity was not attempted, code reason: 7-Patient Refused. 9-Not Applicable-not attempted and the patient did not perform the activity before the current illness, exacerbation or injury. 10-Not Attempted due to Environmental Limitations-(lack of equipment, weather restraints, etc.). 88-Not Attempted due to Medical Conditions or Safety Concerns. Education OT Patient Education: Energy conservation, Modified ADL techniques, Progress toward Goal/Update tx plan, Purpose of tx/functional activities, Rehab process, Safety issues, Transfer techniques Teaching Recipient: Patient, Family Teaching Methods: Discussion Response to Teaching: Verbalize Understanding OT Short Term Goals Short Term Goals Time Frame: Nov 27, 2022 Eatin Oral hygiene: 6 Upper body dressin OT Client Care Specialist Goals Client Care Specialist Goals Time Frame: Dec 04, 2022 Acute change in mental status: 0 Inattention: 0 Disorganized thinkin Altered level of consciousness: 0 Eating (QC): 6 Oral Hygiene (QC): 6 Toileting Hygiene (QC): 5 Shower/Bathe Self (QC): 5 Upper Body Dressing (QC): 5 Lower Body Dressing (QC): 5 On/Off Footwear (QC): 5 1=Demonstrate adherence to instructed precautions during ADL tasks. 2=Patient will verbalize/demonstrate understanding of assistive devices/modifications for ADL. 3=Patient will improve strength/tolerance for activity to enable patient to perf orm ADL's. OT Education/Plan Problem List/Assessment Assessment: Decreased Activ Tolerance, Decreased Safety Aware, Decreased UE Strength, Impaired Coordination, Impaired Funct Balance Discharge Recommendations Plan/Recommendations: Continue POC Treatment Plan/Plan of Care Patient would benefit from OT for education, treatment and training to promote independence in ADL's, mobility, safety and/or upper extremity function for ADL's. Plan of Care: ADL Retraining, Concurrent Therapy, Functional Mobility, Group Exercise/Act as Ind, UE Funct Exercise/Act Treatment Duration: Dec 04, 2022 Frequency: At least 5 of 7 days/Wk (IRF) Estimated Hrs Per Day: 1.5 hours per day Agreement: Yes Rehab Potential: Good Time Start Time: 15:30 Stop Time: 16:50 DATE: Nov 23, 2022 Total Time Billed (hr/min): 80 Billed Treatment Time 1 visit ADL 4 (60) FA 1 (20) PT/OT cotreat ([id number]) (80 total) Jo Ann Wilcox COTA Nov 23, 2022 16:50
[2022-11-23] MEDS ORDERED: diphenhydrAMINE INJ 50 MG/ML VIAL IVP PRN (19:15)
[2022-11-23] MEDS ORDERED: FERROUS SULFATE 142 MG PO SCH (19:15)
[2022-11-23] MEDS ORDERED: guaiFENesin/CODEINE 10ML UDC PO PRN (19:15)
[2022-11-23] MEDS ORDERED: ALPRAZolam 0.25 MG TABLET PO PRN (19:15)
[2022-11-23] MEDS ORDERED: ANTACID SUSP 30 ML UDC (MYLANTA) PO PRN (19:15)
[2022-11-23] MEDS ORDERED: LORazepam INJ 2 MG/ML (ATIVAN) VIAL IVP PRN (19:15)
[2022-11-23] MEDS ORDERED: ENOXAPARIN 40 MG/0.4 ML SYRINGE SC SCH (19:15)
[2022-11-23] MEDS ORDERED: LOPERAMIDE 2 MG (IMODIUM) TABLET PO PRN (19:15)
[2022-11-23] MEDS ORDERED: CALCIUM CARBONATE 500 MG CHEW TABLET PO PRN ×2 (19:15)
[2022-11-23] MEDS ORDERED: LORazepam 0.5 MG (ATIVAN) TABLET PO PRN (19:15)
[2022-11-23] MEDS ORDERED: ACETAMINOPHEN 325 MG TABLET PO PRN (19:15)
[2022-11-23] MEDS ORDERED: HYDROmorphone INJECTION 2 MG/ML VIAL IV PRN (19:15)
[2022-11-23] MEDS ORDERED: ONDANSETRON 4 MG/2 ML (SDV) Z0FRAN IV PRN (19:15)
[2022-11-23] MEDS ORDERED: polyethylene glycoL POWDER 17 GM (MIRALAX) PACK PO PRN (19:15)
[2022-11-23] MEDS ORDERED: DOCUSATE SODIUM 100 MG CAPSULE PO PRN (19:15)
[2022-11-23] MEDS ORDERED: diphenhydrAMINE 25 MG TABLET PO PRN ×2 (19:15)
[2022-11-23] MEDS ORDERED: BISACODYL 10 MG SUPPOSITORY PR PRN ×2 (19:15)
[2022-11-23] MEDS ORDERED: MILK OF MAGNESIA 400 MG/5 ML 30 ML UDC PO PRN (19:15)
[2022-11-23] MEDS ORDERED: HALOPERIDOL INJECTION 5 MG/ML VIAL IM PRN (19:15)
[2022-11-23] MEDS ORDERED: LACTULOSE SYRUP 10GM/15ML (ENULOSE) 30ML UDC PO PRN ×2 (19:15)
[2022-11-23] MEDS ORDERED: ONDANSETRON 4 MG (ZOFRAN) ORAL DISSOLVE TAB PO PRN ×2 (19:15)
[2022-11-23] MEDS ORDERED: Sodium Phosphate/Sodium Biphosphate ADULT enema PR PRN (19:15)
[2022-11-23] MEDS ORDERED: MELATONIN 3 MG TABLET PO PRN (19:15)
--- NOTE | 2022-11-23 19:17 | PM&R Post Admission Assessment ---
PM&R HP Date of Visit: Nov 27, 2022 Time of Visit: 19:00 History of Present Illness CC: Encephalopathy HPI: This is an 87yoWF clinic patient of Dr Sanchez who has a h/o dementia and a left hand tremor for the past 6 months with no formal diagnosis of Parkinson's who presented to the ER with confusion and found to have encephalopathy from UTI. Our patient is an 87 yo F with a history of multiple falls that was admitted to the hospital for encephalopathy secondary to a UTI. She was brought to the ED for falls that occurred yesterday as well as the day before. In both cases she struck the left side of her head but notes no loss of consciousness in either case. As of this morning, she denies being in any pain but is a little nauseous. She denies constipation and diarrhea but notes chills. Upon arrival to the ED, a head CT was conducted that was negative for any acute abnormalities. Cervical CT was positive for severe degenerative changes in the spine. In addition, she was noted by the ER physician to be confused and it was confirmed with her son that she has been more confused for the past few days. An initial urine was positive for nitrites and leukocyte esterase, as well as a large quantity of bacteria. The urine was sent for culture and the decision for admission was made. Past Fdbdlbe-Sakeii-Icuyjm Hx Past Med/Social Hx: Reviewed Nursing Past Med/Soc Hx, Reviewed and Corrections made Patient Social History Marrital Status: single Employed/Student: retired Alcohol Use: Denies Use Smoking Status: Unknown if Ever Smoked 2nd Hand Smoke Exposure: No Recent Hopitalizations: Yes Immunizations Up To Date Tetanus Booster (TDap): More than 5yrs Date of Pneumonia Vaccine: Jan 04, 2013 Date of Influenza Vaccine: Jan 10, 2020 Seasonal Allergies Seasonal Allergies: Yes Past Medical History Surgeries: Orthopedic Cardiac: High Cholesterol, Hypertension Neurological: Dementia Reproductive: No Sexually Transmitted Disease: No HIV/AIDS: No Female Reproductive Disorders: Denies Gastrointestinal: Gastroesophageal Reflux Musculoskeletal: Arthritis, Chronic Back Pain Endocrine: Hypothyroidsim HEENT: Macular Degeneration Hearing Impairment: Hard of Hearing, Hearing Aide Right, Hearing Aide Left Cancer: Melanoma Psychosocial: Anxiety History of Blood Disorders: No Adverse Reaction to Blood Nagel: No Family History Alzheimer's disease G8 SISTER Cardiovascular disease 19 FATHER G8 BROTHER Colon cancer G8 BROTHER Coronary thrombosis 19 FATHER FH: breast cancer G8 SISTER FH: stomach cancer 19 MOTHER Heart Disease, Cancer, Hypertension Prior Level of Function Bed Mobility: 6 Transfers: 6 Gait: 6 Stairs: 4 Wheelchair Mobility: 9 Indoor Mobility (Ambulation): Independent Stairs: Needed Some Help Prior Devices Use: Walker Self Care: Needed Some Help (patient requires assist w/ full bathing, primarily does sponge bathe.) Functional Cognition: Needed Some Help (is forgetful to wear life alert at home, decreased safety awareness) Drive Self: No Current Level of Fuctioning Roll Left to Right: 3 (Min A ) Sit to Lyin (Min A ) Lying to Sitting/Side of Bed: 3 (Min A ) Sit to Stand: 3 (Min A ) Chair/Qxr-qs-Qmrbw Xfer: 3 (Min A ) Car Transfer: 88 Does the Patient Walk: Yes Mode of Locomotion: Both Anticipated Mode of Locomotion: Both Walk 10 feet: 3 (Min A ) Walk 50 ft with 2 Turns: 88 Walk 150 ft: 88 Walking 10ft on uneven surface: 88 Gait Assistive Device: FWW Does the Pt Use a Wheelchair: Yes Wheel 50 ft with 2 turns: 88 Wheel 150 ft: 88 Type of Wheelchair: Manual 1 Step (curb): 88 4 Steps: 88 Walking Assistive Device: Walker 12 Steps: 9 (Pt has 4 steps to enter/exit home ) Picking up an Object: 3 (Min A ) Eatin Oral Hygiene: 5 (siting w/ set up) Shower/Bathe Self: 3 (shower) Upper Body Dressin Lower Body Dressin On/Off Footwear: 2 Toileting Hygiene: 3 PM&R Allergy/Meds/Data Review Allergies Coded Allergies: Penicillins (Unverified Allergy, Unknown, HIVES, 05/21/14) adhesive tape (Unverified Allergy, Unknown, RASH BLISTERS, 05/21/14) Home Medications Scheduled Aspirin (Aspirin EC), 81 MG PO DAILY, (Reported) Carvedilol (Carvedilol), 12.5 MG PO BID, (Reported) Ceftriaxone Na/Dextrose,Iso (Ceftriaxone 1 gm Piggyback), 1 GM IV DAILY Celecoxib (Celebrex), 200 MG PO BID, (Reported) Fentanyl (Fentanyl Patch 50 MCG), 50 MCG TD Q72H, (Reported) Ferrous Sulfate (Slow Fe), 142 MG PO SUN,[place],TH, (Reported) Fluoxetine HCl (Fluoxetine HCl), 20 MG PO DAILY, (Reported) Levothyroxine Sodium (Levothyroxine Sodium), 50 MCG PO DAILY, (Reported) Losartan Potassium (Losartan Potassium), 100 MG PO DAILY, (Reported) Pantoprazole Sodium (Pantoprazole Sodium), 40 MG PO DAILY, (Reported) Vit C/E/Zn/Coppr/Lutein/Zeaxan (Preservision Areds 2 Softgel), 1 EACH PO BID, (Reported) Scheduled PRN Ibuprofen (Ibuprofen), 400 MG PO Q8H PRN for PAIN-MILD (1-4), (Reported) Current Medications Current Medications Reviewed Review of Systems Constitutional: see HPI, malaise, weakness EENTM: no symptoms reported Respiratory: no symptoms reported Cardiovascular: no symptoms reported Gastrointestinal: no symptoms reported Genitourinary: no symptoms reported Musculoskeletal: back pain, joint pain Skin: no symptoms reported Psychiatric/Neurological: Anxiety, Depressed, Tremors, Other (confusion) All Other Systems Reviewed Negative Unless Noted: Yes Physical Exam Physical Exam Vital Signs Vital Signs - First Documented 11/23/22 11/23/22 15:37 15:47 Temp 37.2 Pulse 75 Resp 16 B/P (MAP) 143/88 (106) Pulse Ox 94 O2 Delivery Room Air Capillary Refill : Height, Weight, BMI Height: 5'7.00" Weight: 184lbs. 0.0oz. [id number]; 31.52 BMI Method:Stated General Appearance: No Apparent Distress, WD/WN, Chronically ill Eyes: Bilateral Eye Normal Inspection, Bilateral Eye PERRL HEENT: PERRL/EOMI, Normal ENT Inspection, Pharynx Normal Neck: Full Range of Motion, Normal Inspection, Non Tender, Supple, Carotid Bruit Respiratory: Chest Non Tender, Lungs Clear, Normal Breath Sounds, No Accessory Muscle Use, No Respiratory Distress Cardiovascular: Regular Rate, Rhythm, No Edema, No Gallop, No JVD, No Murmur, Normal Peripheral Pulses Gastrointestinal: Normal Bowel Sounds, No Organomegaly, No Pulsatile Mass, Non Tender, Soft Back: Normal Inspection, No CVA Tenderness, No Vertebral Tenderness Extremity: Normal Capillary Refill, Normal Inspection, Normal Range of Motion, Non Tender, No Calf Tenderness, No Pedal Edema Neurologic/Psychiatric: Alert, No Motor/Sensory Deficits, forest ranger II-XII Norm as Tested, Abnormal Gait, Depressed Affect, Disoriented, Motor Weakness (generalized), Other (tremor left hand and arm) Skin: Normal Color, Warm/Dry Lymphatic: No Adenopathy PM&R Medical Assessment & Plan REHAB/MEDICAL ASSESSMENT AND PLAN: REHAB IMPAIRMENT GROUP: Encephalopathy ETIOLOGIC DIAGNOSIS: Encephalopathy The comorbidities that impact the patients function and/or functional outcome by: dementia, encephalopathy, weakness, falls, Parkinson's REHAB PLAN: The patient is being admitted to our comprehensive inpatient rehabilitation fac [facility] and can tolerate the intensity of service consisting of at least: 180 minutes of therapy a day, 5 out of 7 days a week Rehab treatment will consist of: PT OT will focus on regaining function with the use of AD in order to decrease falls and increasing stamina and decreasing hospitality specialist burden The patient/family has a good understanding of our discharge process and will benefit from an interdisciplinary inpatient rehabilitation program. The patient has potential to make improvement and is in need of at least two of the following multidisciplinary therapies including but not limited to physical, occupational, speech, and prosthetics and orthotics. Additionally the patient will need services from respiratory, nutritional services, wound care, psychology, etc. (Customize this to each patient). Given the patients complex condition and risk of further medical complications, rehabilitation services cannot be safely or effectively provided at a lower level of care such as a nursing home facility. BARRIERS TO DISCHARGE: Dementia and Pars[place]on's and falls ESTIMATED LOS: 10 days DISPOSITION: Home with daughter RELEVANT CHANGES SINCE PREADMISSION SCREENING: I have compared the patients medical and functional status at the time of the preadmission screening and there are: no changes PROGNOSIS: Good REHABILITATION GOALS: 1. PT OT will focus on regaining function with the use of AD in order to decrease falls and increasing stamina and decreasing hospitality specialist burden All the above goals were reviewed with the patient and he/she is in agreement. By signing this document, I acknowledge that I have personally performed a full physical examination on this patient within 24 hours of admission to this inpatient rehabilitation facility and have determined the patient to be able to tolerate the above course of treatment at an intensive level for a reasonable period of time. I will be completing a detailed individualized Plan of Care for this patient by day #4 of the patients stay based upon the Preadmission Screen, the Post-Admission Evaluation, and the therapy evaluations. Admission Dx/Comorbidities: (1) Encephalopathy ICD Codes: G93.40 - Encephalopathy, unspecified (2) UTI (urinary tract infection) Status: Acute ICD Codes: N39.0 - Urinary tract infection, site not specified (3) Frequent falls Status: Acute ICD Codes: R29.6 - Repeated falls (4) Parkinsons disease ICD Codes: G20 - Parkinson's disease (5) Dementia ICD Codes: F03.90 - Unspecified dementia, unspecified severity, without behavioral disturbance, psychotic disturbance, mood disturbance, and anxiety Assessment/Plan Assessment and Plan Assess & Plan/Chief Complaint Assessment: Acute encephalopathy UTI Dementia Parkinson's disease new diagnosis Falls Plan: Monitor closely Abx Fall risk SILVA CORTEZ DO Nov 23, 2022 19:17
[2022-11-23 19:49] VITALS: BP 143/88
[2022-11-23 20:00] VITALS: BP 189/76
[2022-11-23] MEDS ORDERED: RT-ALBUTEROL SULF 2.5 MG/3 ML PRE-MIX VIAL INH PRN (20:00)
[2022-11-23] MEDS: oxyCODONE IMMEDIATE RELEASE 5 MG TABLET PO PRN (20:15)
[2022-11-23 20:35] VITALS: BP 145/74
[2022-11-23] MEDS ORDERED: DOCUSATE SODIUM 100 MG CAPSULE PO SCH (21:00)
[2022-11-23] MEDS ORDERED: SENNOSIDES 8.6 MG (SENOKOT) TAB PO SCH (21:00)
[2022-11-23] MEDS ORDERED: NON-FORMULARY MEDICATION 1 EA EA (Celecoxib (Celebrex) 200 MG) PO SCH (21:00)
[2022-11-23] MEDS: SENNA W/DOCUSATE (SENOKOT S) TABLET PO SCH (21:02)
[2022-11-23] MEDS: polyethylene glycoL POWDER 17 GM (MIRALAX) PACK PO SCH (21:02)
[2022-11-23] MEDS: carvediloL 12.5 MG TABLET PO SCH (21:02)
[2022-11-23] MEDS: CELECOXIB 100 MG CAPSULE PO SCH (21:02)
[2022-11-23] MEDS: DOCUSATE SODIUM 100 MG CAPSULE PO SCH (21:02)
[2022-11-23] MEDS: cefTRIAXone IV/IM 1,000 MG in NS (IVPB) 50 ML 50 ML IV SCH (21:09)
--- NOTE | 2022-11-24 05:40 | PM&R Progress Note ---
Subjective HPI/CC On Admission Date Seen by Provider: Nov 24, 2022 Time Seen by Provider: 10:00 Subjective/Events-last exam 11/24/2022: Much improve overall Less confusion Continues on Rocephin No falls Review of Systems General: Fatigue, Malaise Neurological: Confusion Objective Exam Vital Signs Vital Signs Date Time Temp Pulse Resp B/P (MAP) Pulse Ox O2 Delivery O2 Flow Rate FiO2 11/24/22 21:00 96 Room Air 11/24/22 20:00 36.4 64 16 131/56 (81) 11/23/22 19:49 21 Capillary Refill : General Appearance: No Apparent Distress, WD/WN, Chronically ill HEENT: PERRL/EOMI, Normal ENT Inspection, Pharynx Normal Neck: Full Range of Motion, Normal Inspection, Non Tender, Supple, Carotid Bruit Respiratory: Chest Non Tender, Lungs Clear, Normal Breath Sounds, No Accessory Muscle Use, No Respiratory Distress Cardiovascular: Regular Rate, Rhythm, No Edema, No Gallop, No JVD, No Murmur, Normal Peripheral Pulses Gastrointestinal: Normal Bowel Sounds, No Organomegaly, No Pulsatile Mass, Non Tender, Soft Back: Normal Inspection, No CVA Tenderness, No Vertebral Tenderness Extremity: Normal Capillary Refill, Normal Inspection, Normal Range of Motion, Non Tender, No Calf Tenderness, No Pedal Edema Neurologic/Psychiatric: Alert, No Motor/Sensory Deficits, rn maternity II-XII Norm as Tested, Abnormal Gait, Depressed Affect, Disoriented, Motor Weakness (generalized), Other (tremor left hand and arm) Skin: Normal Color, Warm/Dry Lymphatic: No Adenopathy Results/Procedures Lab Laboratory Tests 11/24/22 06:10 Patient resulted labs reviewed. FIM Transfers Therapy Code Descriptions/Definitions Functional [place] Measure: 0=Not Assessed/NA 4=Minimal Assistance 1=Total Assistance 5=Supervision or Setup 2=Maximal Assistance 6=Modified [place] 3=Moderate Assistance 7=Complete IndependenceSCALE: Activities may be completed with or without assistive devices. 5-Swbmvkxlpx-ipiklfu completes the activity by him/herself with no assistance from a helper. 5-Set-up or Clean-up Assistance-helper sets up or cleans up; patient completes activity. [place] assists only prior to or following the activity. 4-Supervision or Touching Assistance-helper provides verbal cues and/or touching/steadying and/or contact guard assistance as patient completes activity. Assistance may be provided throughout the activity or intermittently. 3-Partial/Moderate Assistance-helper does LESS THAN HALF the effort. [place] lifts, holds or supports trunk or limbs, but provides less than half the effort. 2-Substantial/Maximal Assistance-helper does MORE THAN HALF the effort. [place] lifts or holds trunk or limbs and provides more than half the effort. 4-Teslxrfks-pceoly does ALL the effort. Patient does none of the effort to complete the activity. Or, the assistance of 2 or more helpers is required for the patient to complete the activity. If activity was not attempted, code reason: 7-Patient Refused. 9-Not Applicable-not attempted and the patient did not perform the activity before the current illness, exacerbation or injury. 10-Not Attempted due to Environmental Limitations-(lack of equipment, weather restraints, etc.). 88-Not Attempted due to Medical Conditions or Safety Concerns. Roll Left to Right (QC): 3 (Min A ) Sit to Lying (QC): 3 (Min A ) Sit to Stand (QC): 3 (Min A ) Chair/Zqc-py-Fvbht Xfer(QC): 3 (Min A ) Car Transfer (QC): 88 Gait Training Does the Patient Walk?: Yes Walk 10 feet (QC): 3 (Min A ) Walk 50 ft with 2 Turns(QC): 88 Walk 150 ft (QC): 88 Walking 10ft/uneven surface-QC: 88 Gait Assistive Device: FWW Wheelchair Training Does the Pt Use a Wheelchair?: Yes Wheel 50 ft with 2 turns (QC): 88 Wheel 150 ft (QC): 88 Type of Wheelchair: Manual Stair Training 1 Step (curb) (QC): 88 4 Steps (QC): 88 12 Steps (QC): 9 (Pt has 4 steps to enter/exit home ) Balance Picking up an Object (QC): 3 (Min A ) ADL-Treatment Eating (QC): 6 Oral Hygiene (QC): 5 (siting w/ set up) Shower/Bathe Self (QC): 3 (shower) Upper Body Dressing (QC): 3 Lower Body Dressing (QC): 3 On/Off Footwear (QC): 2 Toileting Hygiene (QC): 3 Assessment/Plan Assessment and Plan Assess & Plan/Chief Complaint Assessment: Acute encephalopathy UTI Dementia Parkinson's disease new diagnosis Falls Hypokalemia Plan: Monitor closely Abx Fall risk 11/24/2022: Monitor closely Supplement potassium (1) Encephalopathy (2) UTI (urinary tract infection) Status: Acute (3) Frequent falls Status: Acute (4) Parkinsons disease (5) Dementia SILVA CORTEZ DO Nov 24, 2022 05:40
--- NOTE | 2022-11-24 05:40 | Individualized Plan of Care ---
Individualized Plan of Care Rehab Nursing IPOC Order Admission Date Nov 23, 2022 at 14:59 Current Orders Orders Admission Arrival Bed Request (11/23/22 14:59) General/Regular (11/23/22 Lunch) Code/Resuscitation (11/23/22 14:59) Aspirin Enteric Coated Tablet (Ecotrin T (11/24/22 09:00) Carvedilol Tablet (Coreg Tablet) (11/23/22 21:00) Fluoxetine Capsule (Prozac Capsule) (11/24/22 09:00) Ibuprofen Tablet (Motrin Tablet) (11/23/22 19:15) Levothyroxine Tablet (Synthroid Tablet) (11/24/22 06:30) Losartan Tablet (Cozaar Tablet) (11/24/22 09:00) (Nf) Celecoxib (Celebrex) (11/23/22 21:00) (Nf) Ferrous Sulfate (Slow Fe) (11/23/22 19:15) (Nf) Pantoprazole Sodium (11/24/22 09:00) Code/Resuscitation (11/23/22 19:13) Diphenhydramine Injection (Benadryl Inje (11/23/22 19:15) Diphenhydramine Tablet (Benadryl Tablet) (11/23/22 19:15) Docusate Sodium Capsule (Colace Capsule) (11/23/22 21:00) Bisacodyl Suppository (Dulcolax Supposit (11/23/22 19:15) Lactulose Oral Solution (Enulose Oral So (11/23/22 19:15) Hydromorphone Injection (Dilaudid Inject (11/23/22 19:15) Haloperidol Injection (Haldol Injectio (11/23/22 19:15) Lorazepam Injection (Ativan Injection) (11/23/22 19:15) Lorazepam Tablet (Ativan Tablet) (11/23/22 19:15) Enoxaparin Injection (Lovenox Injection) (11/24/22 09:00) Melatonin Tablet (Melatonin Tablet) (11/23/22 19:15) Magnesium Hydroxide Oral Susp (Mom Oral (11/23/22 19:15) Polyethylene Glycol Powder Pkt (Miralax (11/23/22 19:15) Antacid Suspension (Mylanta Suspension (11/23/22 19:15) Ceftriaxone Iv/Im (Rocephin Iv/Im) (11/23/22 21:00) Sennosides Tablet (Senokot Tablet) (11/23/22 21:00) Calcium Carbonate Chew Tablet (Antacid C (11/23/22 19:15) Acetaminophen Tablet/Caplet (Tylenol T (11/23/22 19:15) Ondansetron Injection (Zofran Injectio (11/23/22 19:15) Ondansetron Oral Dissolve Tab (Zofran (11/23/22 19:15) Clonidine Tablet (Catapres Tablet) (11/23/22 19:15) Oxycodone Immediate Rel Tablet (Oxyir Ta (11/23/22 19:15) Admission Order(Inpt,Obs,Sdc) (11/23/22 19:13) Vital Signs: Per Unit Policy ( 08,16,00 (11/23/22 19:13) Noel Mcgill (11/23/22 19:13) Sequential Compression Device [id number] (11/23/22 19:13) Patients Transporter-Inpt Rehab Con (11/23/22 19:13) Rehab Nursing Orders-Ipoc (11/23/22 19:13) Physical Therapy Rehab Orders (11/23/22 19:13) Occupational Therapy Rehab Ord (11/23/22 19:13) Speech Therapy Rehab Orders (11/23/22 19:13) Cbc With Automated Diff (11/24/22 06:00) Comprehensive Metabolic Panel (11/24/22 06:00) Precautions (Aru) (11/23/22 19:13) Weekly Weight WEEK (11/23/22 19:13) Rehab-Intensity Of Therapy (11/23/22 19:13) Initiate Admission Nursing Pro .admission (11/23/22 19:13) Alprazolam Tablet (Xanax Tablet) (11/23/22 19:15) Calcium Carbonate Chew Tablet (Antacid C (11/23/22 19:15) Diphenhydramine Tablet (Benadryl Tablet) (11/23/22 19:15) Docusate Sodium Capsule (Colace Capsule) (11/23/22 21:00) Docusate Sodium Capsule (Colace Capsule) (11/23/22 19:15) Bisacodyl Suppository (Dulcolax Supposit (11/23/22 19:15) Lactulose Oral Solution (Enulose Oral So (11/23/22 19:15) Na Phos/Na Biphos Enema (Fleet Enema Fidencio (11/23/22 19:15) Guaifenesin/Codeine Syrup (Robitussin Ac (11/23/22 19:15) Loperamide Tablet (Imodium Tablet) (11/23/22 19:15) Enoxaparin Injection (Lovenox Injection) (11/23/22 19:15) Melatonin Tablet (Melatonin Tablet) (11/23/22 19:15) Polyethylene Glycol Powder Pkt (Miralax (11/23/22 21:00) Ondansetron Oral Dissolve Tab (Zofran (11/23/22 19:15) Senna S Tablet (Senokot S Tablet) (11/23/22 21:00) Acetaminophen Tablet/Caplet (Tylenol T (11/23/22 19:15) Initiate Admission Nursing Pro .admission (11/23/22 19:13) Pantoprazole Tablet (Protonix Tablet) (11/24/22 09:00) Celecoxib Capsule (Celebrex Capsule) (11/23/22 21:00) Mat Initiate Protocol (11/23/22 19:56) Albuterol Pre-Mix Nebs (Rt) (Proventil (11/23/22 20:00) Svn Small Volume Nebulizer (11/23/22 19:56) Therapeutic Multivitamin Tab (Vitamins, (11/25/22 07:00) Fentanyl Patch (Duragesic Patch) (11/24/22 09:00) Patch Removal (Patch Removal) (11/24/22 08:59) Patient Visit (11/23/22 ) Pt Eval Moderate Complexity (11/23/22 ) Patient Visit (11/23/22 ) Functional Activities, Ea 15 (11/23/22 ) Carbidopa/Levodopa 25/100 (Sinemet 25/10 (11/24/22 09:00) Pastoral Consult (11/24/22 11:27) Patient Visit (11/24/22 ) Gait Training, Ea 15 Min (11/24/22 ) Functional Activities, Ea 15 (11/24/22 ) Exercise Therap, Ea 15 Min (11/24/22 ) Patient Visit (11/24/22 ) Speech Sound Lang Comp (11/24/22 ) Patient Visit (11/24/22 ) Gait Training, Ea 15 Min (11/24/22 ) Potassium Chloride (Tablet) (Klor Con Ta (11/25/22 07:00) Cefdinir Capsule (Omnicef Capsule) (11/25/22 09:00) Rehab Nursing Orders: Ongoing Assess. of Cognitive Status, Ongoing Assess. of Function Status, Bladder Management, Bladder Scan, Bladder Training, Bowel Management, Bowel Training, Disease Management & Educaiton, DVT Prophylaxis, Fall Prevention, Fluid/Electrolyte/Nutrition Mgmt, Infection Prevention, Medication Management & Education, Management of Risks & Complications, Management of Skin Intergrity, Nutrition Management, Pain Management, Patient/Family Support, Safety Management, Swallow Precautions Intensity of Therapy to be met Patient to be seen: Min.3h per day/5 of 7d PT IPOC Problem List: Activity Tolerance, Functional Strength, Safety, Balance, Gait, Transfer, Bed Mobility, ROM Treatment Plan: Continue Plan of Care Bed Mobility, Concurrent Therapy, Education, Functional Activity Rubén, Funct ional Strength, Group Therapy, Gait, Safety, Therapeutic Exercise, Transfers Treatment Duration: Dec 04, 2022 Frequency: At least 5 of 7 days/Wk (IRF) Estimated Hrs Per Day: 1.5 hours per day OT IPOC Problems: Decreased Activ Tolerance, Decreased Safety Aware, Decreased UE Strength, Impaired Coordination, Impaired Funct Balance OT Treatment, Training and Edu: Yes Plan of Care: ADL Retraining, Concurrent Therapy, Functional Mobility, Group Exercise/Act as Ind, UE Funct Exercise/Act Treatment Duration: Dec 04, 2022 Frequency: At least 5 of 7 days/Wk (IRF) Estimated Hrs Per Day: 1.[address] IPOC Speech Therapy Treatment Plan: Continue Plan of Care Treatment Duration: Nov 24, 2022 Frequency: Modified Program (IRF) Estimated Hrs Per Day: Other Patients Transporter/Case Mgmt Patients Transporter/Case Managemen: Discharge Planning Dietitian/Medical Insurance Coder Dietitian/Medical Insurance Coder to monitor nutritional status and make changes and/or recommendations as needed and work with speech pathology on dietary upgrades as the occur. Physician IPOC Medical Issues being managed closely and that require the 24 hour availability of a physician: Recent falls and UTI and increased confusion with new onset Parkinson's requiring additional meds will need close monitoring to prevent decompensation Medical Issues: Bowel/Bladder Function, DVT Prophylaxis, Falls Precautions, Fluid/Electrolyte/Nutrition Balance, Infection Protection, Pain Management Brief Synthesis of Preadmission Screen, Post-Admission Evaluation, and Therapy Evaluations: PT OT will focus on regaining function with use of walker and try to prevent falls and increase ambulation abilities Medical Prognosis: Good Anticipated Length of Stay: 7 days SILVA CORTEZ DO Nov 24, 2022 05:40
[2022-11-24] MEDS: LEVOTHYROXINE 50 MCG (LEVOTHROID) TAB PO SCH (06:19)
[2022-11-24 06:35] LABS: BASOPHILS % (AUTO) 0 % (0-10); EOSINOPHILS # (AUTO) 0.2 10^3/uL (0.0-0.3); EOSINOPHILS % (AUTO) 3 % (0-10); HEMATOCRIT 31 % (35-52); HEMOGLOBIN 10.3 g/dL (11.5-16.0); LYMPHOCYTES # (AUTO) 1.5 10^3/uL (1.0-4.0); LYMPHOCYTES % (AUTO) 16 % (12-44); MEAN CORPUSCULAR HEMOGLOBIN 30 pg (25-34); MEAN CORPUSCULAR HGB CONC 34 g/dL (32-36); MEAN CORPUSCULAR VOLUME 88 fL (80-99); MEAN PLATELET VOLUME 10.3 fL (9.0-12.2); MONOCYTES % (AUTO) 12 % (0-12); NEUTROPHILS # (AUTO) 6.2 10^3/uL (1.8-7.8); NEUTROPHILS % (AUTO) 69 % (42-75); PLATELET COUNT 178 10^3/uL (130-400)
[2022-11-24 07:06] LABS: BILIRUBIN,TOTAL 0.4 MG/DL (0.1-1.0); CALCIUM 8.4 MG/DL (8.5-10.1); CREATININE SERUM 0.8 MG/DL (0.60-1.30); POTASSIUM 3.3 MMOL/L (3.6-5.0); TOTAL PROTEIN 5.7 GM/DL (6.4-8.2)
[2022-11-24 07:36] VITALS: BP 145/74
[2022-11-24 07:47] VITALS: BP 152/72
[2022-11-24] MEDS: SENNA W/DOCUSATE (SENOKOT S) TABLET PO SCH ×2 (08:10→21:00)
[2022-11-24] MEDS: ENOXAPARIN 40 MG/0.4 ML SYRINGE SC SCH (08:10)
[2022-11-24] MEDS: LOSARTAN 100 MG (COZAAR) TABLET PO SCH (08:10)
[2022-11-24] MEDS: CELECOXIB 100 MG CAPSULE PO SCH ×3 (08:10→21:00)
[2022-11-24] MEDS: PANTOPRAZOLE 40 MG (PROTONIX) TAB PO SCH (08:11)
[2022-11-24] MEDS: FLUoxetine 20 MG CAPSULE PO SCH (08:11)
[2022-11-24] MEDS: carvediloL 12.5 MG TABLET PO SCH ×2 (08:11→20:52)
[2022-11-24] MEDS: DOCUSATE SODIUM 100 MG CAPSULE PO SCH ×2 (08:11→21:00)
[2022-11-24] MEDS: ASPIRIN enteric coated 81MG TABLET PO SCH (08:11)
[2022-11-24] MEDS: polyethylene glycoL POWDER 17 GM (MIRALAX) PACK PO SCH ×2 (08:32→21:00)
[2022-11-24] MEDS: FENTANYL 50 MCG TD SCH (08:47)
[2022-11-24] MEDS: oxyCODONE IMMEDIATE RELEASE 5 MG TABLET PO PRN ×2 (08:48→20:53)
[2022-11-24] MEDS: FENTANYL PATCH REMOVAL TP SCH (08:56)
[2022-11-24] MEDS ORDERED: PANTOPRAZOLE SODIUM 40 MG PO SCH (09:00)
--- NOTE | 2022-11-24 09:22 | Occupational Ther Daily Note ---
OT Current Status-Daily Note Subjective Pt lying in bed alert and cooperative, agreed to therapy. Pt complained of pain across back and buttocks, nursing notified., pt able to rate pain 6/10. ADL-Treatment Pt sat EOB using bed rail to sit up, SBA. Pt ambulated to toilet in bathroom to complete toileting. Pt min A to stand from bed. Pt sat on toilet and completed upper body dressing, with SBA assist. Pt completed toilet hygiene and toilet transfer with Sandra. Pt ambulate to sink in bathroom with FWW, CGA. Pt became fatigued, so pt sat in chair in room for a recovery break. Pt completed oral hygiene while standing with close SBA. Pt completed grooming while seated due to fatigue. Pt ambulated back to chair in room and completed footwear with set up assist. Pt requested to use the restroom again, ambulated to bathroom with CGA, FWW, Pt became unsteady to the left, [place] assisted with balance, continued to ambulate to toilet and completed toilet hygiene and toilet transfer with Sandra. Pt then ambulated to sink and washed hands with CGA, required a recovery break during that time, pt was educated on importance of recovery breaks for energy conservation. Pt became more fatigued as session went on on this date. During todays session pt required max verbal cues to reach back for arm rests during transfers and to keep walker close. Pt was left sitting in chair, call light in hand, all needs met at this time, chair alarm in place. Therapy Code Descriptions/Definitions Functional [place] Measure: 0=Not Assessed/NA 4=Minimal Assistance 1=Total Assistance 5=Supervision or Setup 2=Maximal Assistance 6=Modified [place] 3=Moderate Assistance 7=Complete IndependenceSCALE: Activities may be completed with or without assistive devices. 3-Quguwdwlbc-jxulbgb completes the activity by him/herself with no assistance from a helper. 5-Set-up or Clean-up Assistance-helper sets up or cleans up; patient completes activity. [place] assists only prior to or following the activity. 4-Supervision or Touching Assistance-helper provides verbal cues and/or touching/steadying and/or contact guard assistance as patient completes activi ty. Assistance may be provided throughout the activity or intermittently. 3-Partial/Moderate Assistance-helper does LESS THAN HALF the effort. [place] lifts, holds or supports trunk or limbs, but provides less than half the effort. 2-Substantial/Maximal Assistance-helper does MORE THAN HALF the effort. [place] lifts or holds trunk or limbs and provides more than half the effort. 8-Ukvndimvr-vcephv does ALL the effort. Patient does none of the effort to complete the activity. Or, the assistance of 2 or more helpers is required for the patient to complete the activity. If activity was not attempted, code reason: 7-Patient Refused. 9-Not Applicable-not attempted and the patient did not perform the activity before the current illness, exacerbation or injury. 10-Not Attempted due to Environmental Limitations-(lack of equipment, weather restraints, etc.). 88-Not Attempted due to Medical Conditions or Safety Concerns. Toileting Hygiene (QC): 3 Education OT Patient Education: Energy conservation, Progress toward Goal/Update tx plan, Purpose of tx/functional activities, Safety issues, Transfer techniques Teaching Recipient: Patient Teaching Methods: Discussion Response to Teaching: Verbalize Understanding OT Short Term Goals Short Term Goals Time Frame: Nov 27, 2022 Eatin Oral hygiene: 6 Upper body dressin OT Critical Care Clinical Nurse Specialist Goals Fpc Goals Time Frame: Dec 04, 2022 Acute change in mental status: 0 Inattention: 0 Disorganized thinkin Altered level of consciousness: 0 Eating (QC): 6 Oral Hygiene (QC): 6 Toileting Hygiene (QC): 5 Shower/Bathe Self (QC): 5 Upper Body Dressing (QC): 5 Lower Body Dressing (QC): 5 On/Off Footwear (QC): 5 1=Demonstrate adherence to instructed precautions during ADL tasks. 2=Patient will verbalize/demonstrate understanding of assistive devices/modifications for ADL. 3=Patient will improve strength/tolerance for activity to enable patient to perform ADL's. OT Education/Plan Problem List/Assessment Assessment: Decreased Activ Tolerance, Decreased Safety Aware, Decreased UE Strength Discharge Recommendations Plan/Recommendations: Continue POC Treatment Plan/Plan of Care Patient would benefit from OT for education, treatment and training to promote independence in ADL's, mobility, safety and/or upper extremity function for ADL's. Plan of Care: ADL Retraining, Concurrent Therapy, Functional Mobility, Group Exercise/Act as Ind, UE Funct Exercise/Act Treatment Duration: Dec 04, 2022 Frequency: At least 5 of 7 days/Wk (IRF) Estimated Hrs Per Day: 1.5 hours per day Agreement: Yes Rehab Potential: Good Time Start Time: 08:00 Stop Time: 09:15 DATE: Nov 24, 2022 Total Time Billed (hr/min): 75 Billed Treatment Time 1 visit ADL 5 (75) Jo Ann Wilcox COTA Nov 24, 2022 09:22
[2022-11-24] MEDS: SINEMET 25/100 (CARBIDOPA/LEVODOPA) TAB PO SCH ×3 (09:33→17:51)
--- NOTE | 2022-11-24 11:43 | Physical Therapy Daily Note ---
PT Daily Note-Current Subjective Pt reclined in recliner asleep upon arrival. Pt agrees to PT. Pt reports pain w/movement in low back and mid glut muscles. Pain Numeric Pain Scale: 5-Moderate Pain Pain Description: Ache Comment: Reports LBP & mid glut pain Section J - Health Conditions 1. Rarely or not at all 2. Occasionally 3. Frequently 4. Almost constantly 8. Unable to answer Pain Effect on Sleep: 2 Pain Interference with Therapy: 3 Pain Interference w/Day-to-Day: 3 Mental Status Patient Orientation: Person, Place, Situation Transfers SCALE: Activities may be completed with or without assistive devices. 7-Znwnabxpsc-psbxajn completes the activity by him/herself with no assistance from a helper. 5-Set-up or Clean-up Assistance-helper sets up or cleans up; patient completes activity. [place] assists only prior to or following the activity. 4-Supervision or Touching Assistance-helper provides verbal cues and/or touching/steadying and/or contact guard assistance as patient completes activity. Assistance may be provided throughout the activity or intermittently. 3-Partial/Moderate Assistance-helper does LESS THAN HALF the effort. [place] lifts, holds or supports trunk or limbs, but provides less than half the effort. 2-Substantial/Maximal Assistance-helper does MORE THAN HALF the effort. [place] lifts or holds trunk or limbs and provides more than half the effort. 7-Jmltrburl-eotwjb does ALL the effort. Patient does none of the effort to complete the activity. Or, the assistance of 2 or more helpers is required for the patient to complete the activity. If activity was not attempted, code reason: 7-Patient Refused. 9-Not Applicable-not attempted and the patient did not perform the activity before the current illness, exacerbation or injury. 10-Not Attempted due to Environmental Limitations-(lack of equipment, weather restraints, etc.). 88-Not Attempted due to Medical Conditions or Safety Concerns. Sit to Stand (QC): 3 Weight Bearing Right Lower Extremity: Right Full Weight Bearing Left Lower Extremity: Left Full Weight Bearing Gait Training Does the Patient Walk?: Yes Distance: 50' x2 Walk 10 feet (QC): 3 Walk 50 ft with 2 Turns(QC): 3 Gait Persons Needed: 1 Gait Assistive Device: FWW Wheelchair Training Does the Pt Use a Wheelchair?: Yes Type of Wheelchair: Manual Exercises Seated Therapy Exercises: Ankle pumps, Long arc quads, Hip flexion, Hip abd/add, Glut set Seated Reps: 15 Treatments Pt discussed progress and pain while ACTIVITY LEADER gave suggestions of pain management strategies as well as what normal day was like for pt previous to hospital stay. TF to standing and amb in hallway. After RB, pt completes Seated Ex then TF to standing and amb back to room. Pt rests in recliner w/all needs met, call light in hand & CC on since pt is [place]. Assessment Current Status: Fair Progress Pain and weakness limits tx. Pt reports pain most when WBing. Pt fatigues easily. PT Halfway Goals Ironing Machine Operator Goals PT Ironing Machine Operator Goals Time Frame: Dec 04, 2022 Roll Left & Right (QC): 4 (Pt will be SBA for all aspects of functional mobility, in order to safely d/c. ) Sit to Lying (QC): 4 (Pt will be SBA for all aspects of functional mobility, in order to safely d/c. ) Lying-Sitting on Side/Bed(QC): 4 (Pt will be SBA for all aspects of functional mobility, in order to safely d/c. ) Sit to Stand (QC): 4 (Pt will be SBA for all aspects of functional mobility, in order to safely d/c. ) Chair/Bel-fg-Bvwxl Xfer(QC): 4 (Pt will be SBA for all aspects of functional mobility, in order to safely d/c. ) Toilet Transfer (QC): 4 (Pt will be SBA for all aspects of functional mobility, in order to safely d/c. ) Car Transfer (QC): 4 (Pt will be SBA for all aspects of functional mobility, in order to safely d/c. ) Does the Patient Walk: Yes Walk 10 feet (QC): 4 (Pt will be SBA for all aspects of functional mobility, in order to safely d/c. ) Walk 50ft with 2 Turns (QC): 4 (Pt will be SBA for all aspects of functional mobility, in order to safely d/c. ) Walk 150 ft (QC): 4 (Pt will be SBA for all aspects of functional mobility, in order to safely d/c. ) Walking 10ft on Uneven Surface: 4 (Pt will be SBA for all aspects of functional mobility, in order to safely d/c. ) 1 Step (curb) (QC): 4 (Pt will be SBA for all aspects of functional mobility, in order to safely d/c. ) 4 Steps (QC): 4 (Pt will be SBA for all aspects of functional mobility, in order to safely d/c. ) 12 Steps (QC): 9 (Pt has 4 steps to enter/exit home ) Picking up an Object (QC): 4 (Pt will be SBA for all aspects of functional mobility, in order to safely d/c. ) Does the Pt use WC or Scooter?: Yes Wheel 50 feet with 2 turns (QC: 4 (Pt will be SBA for all aspects of functional mobility, in order to safely d/c. ) Type: Manual Wheel 150 feet: 4 (Pt will be SBA for all aspects of functional mobility, in order to safely d/c. ) Type: Manual PT Plan Problem List Problem List: Activity Tolerance, Functional Strength, Safety, Balance, Gait Treatment/Plan Treatment Plan: Continue Plan of Care Treatment Plan: Bed Mobility, Concurrent Therapy, Education, Functional Activity Rubén, Functional Strength, Group Therapy, Gait, Safety, Therapeutic Exercise, Transfers Treatment Duration: Dec 04, 2022 Frequency: At least 5 of 7 days/Wk (IRF) Estimated Hrs Per Day: 1.5 hours per day Patient and/or Family Agrees t: Yes Safety Risks/Education Patient Education: Gait Training, Transfer Techniques, Correct Positioning, Safety Issues Teaching Recipient: Patient Teaching Methods: Discussion Response to Teaching: Verbalize Understanding Time Time In: 930 Time Out: 1030 DATE: Nov 24, 2022 Total Billed Treatment Time: 60 Total Billed Treatment 1, GT (20m), FA (15m) & EX x2 (25m) ASA RODGERS ACTIVITY LEADER Nov 24, 2022 11:43
--- NOTE | 2022-11-24 13:05 | Physical Therapy Progress Note ---
Therapy Progress Note Patient has mobility limitation that significantly impairs her ability to participate in one or more mobility-related activities of daily living (MRADL) in the home. The patient is able to safely use the front wheeled walker and functional mobility deficit can be sufficiently resolved with use of a front wheeled walker but would be unsafe to attempt with a 4 wheeled walker or cane of any kind at this time. ASA RODGERS RECORDING STUDIO SETUP WORKER Nov 24, 2022 13:05
--- NOTE | 2022-11-24 13:39 | Occupational Ther Daily Note ---
OT Current Status-Daily Note Subjective Pt sitting in recliner upon arrival, alert and cooperative, agreed to PT/OT cotx ([id number]) ADL-Treatment PT/OT co treat, skills of 2 clinicians required to decrease fall risk, increase mobility, increase overall strength to complete functional tasks safely and independently. PT focusing in transfers and B LE strengthening while OT focusing on ADLs, B UE placement during transfers and functional mobility. Pt ambulated to doorway of room with FWW, CGA. Pt was then propelled to therapy gym, Pt ambulated in parallel bars working on addressing pts gait, see PTs note for details. Pt then ambulated in [facility] area, addressing functional balance, and endurance required for daily functional tasks. Pt required Max A for hand placement and keeping feet further apart when ambulating. Pt ambulated small distance back to room with FWW, CGA, wheelchair follow for safety precautions, due to balance. Pt sat back in recliner with max verbal cues for hand placement pt then "plopped' into chair. Pt unable to retain information about reaching back for chair arms before sitting. Pt was left in chair, call light with in reach, all needs met at this time. Therapy Code Descriptions/Definitions Functional [place] Measure: 0=Not Assessed/NA 4=Minimal Assistance 1=Total Assistance 5=Supervision or Setup 2=Maximal Assistance 6=Modified [place] 3=Moderate Assistance 7=Complete IndependenceSCALE: Activities may be completed with or without assistive devices. 8-Kckbcblbyp-ynvnqrk completes the activity by him/herself with no assistance from a helper. 5-Set-up or Clean-up Assistance-helper sets up or cleans up; patient completes activity. [place] assists only prior to or following the activity. 4-Supervision or Touching Assistance-helper provides verbal cues and/or touching/steadying and/or contact guard assistance as patient completes activity. Assistance may be provided throughout the activity or intermittently. 3-Partial/Moderate Assistance-helper does LESS THAN HALF the effort. [place] lifts, holds or supports trunk or limbs, but provides less than half the effort. 2-Substantial/Maximal Assistance-helper does MORE THAN HALF the effort. [place] lifts or holds trunk or limbs and provides more than half the effort. 2-Axsysnxwn-pgxbob does ALL the effort. Patient does none of the effort to complete the activity. Or, the assistance of 2 or more helpers is required for the patient to complete the activity. If activity was not attempted, code reason: 7-Patient Refused. 9-Not Applicable-not attempted and the patient did not perform the activity before the current illness, exacerbation or injury. 10-Not Attempted due to Environmental Limitations-(lack of equipment, weather restraints, etc.). 88-Not Attempted due to Medical Conditions or Safety Concerns. Education OT Patient Education: Energy conservation, Progress toward Goal/Update tx plan, Purpose of tx/functional activities, Safety issues, Transfer techniques Teaching Recipient: Patient Teaching Methods: Discussion Response to Teaching: Verbalize Understanding, Reinforcement Needed OT Short Term Goals Short Term Goals Time Frame: Nov 27, 2022 Eatin Oral hygiene: 6 Upper body dressin OT Search And Rescue Officer Goals Usp Goals Time Frame: Dec 04, 2022 Acute change in mental status: 0 Inattention: 0 Disorganized thinkin Altered level of consciousness: 0 Eating (QC): 6 Oral Hygiene (QC): 6 Toileting Hygiene (QC): 5 Shower/Bathe Self (QC): 5 Upper Body Dressing (QC): 5 Lower Body Dressing (QC): 5 On/Off Footwear (QC): 5 1=Demonstrate adherence to instructed precautions during ADL tasks. 2=Patient will verbalize/demonstrate understanding of assistive devices/modifications for ADL. 3=Patient will improve strength/tolerance for activity to enable patient to perform ADL's. OT Education/Plan Problem List/Assessment Assessment: Decreased Activ Tolerance, Decreased Safety Aware, Decreased UE Strength, Impaired Cognition, Impaired Coordination, Impaired Funct Balance Discharge Recommendations Plan/Recommendations: Continue POC Treatment Plan/Plan of Care Patient would benefit from OT for education, treatment and training to promote independence in ADL's, mobility, safety and/or upper extremity function for ADL's. Plan of Care: ADL Retraining, Concurrent Therapy, Functional Mobility, Group Exercise/Act as Ind, UE Funct Exercise/Act Treatment Duration: Dec 04, 2022 Frequency: At least 5 of 7 days/Wk (IRF) Estimated Hrs Per Day: 1.5 hours per day Agreement: Yes Rehab Potential: Good Time Start Time: 13:00 Stop Time: 13:30 DATE: Nov 24, 2022 Total Time Billed (hr/min): 30 Billed Treatment Time 1 visit FA 2 (30) Jo Ann Wilcox COTA Nov 24, 2022 13:39
--- NOTE | 2022-11-24 14:13 | Physical Therapy Daily Note ---
PT Daily Note-Current Subjective Pt is resting in recliner upon arrival. Pt agrees to PT/OT co-treat. Pain Section J - Health Conditions 1. Rarely or not at all 2. Occasionally 3. Frequently 4. Almost constantly 8. Unable to answer Pain Effect on Sleep: 2 Pain Interference with Therapy: 3 Pain Interference w/Day-to-Day: 3 Transfers SCALE: Activities may be completed with or without assistive devices. 1-Cpzcafqgrt-dtyacfo completes the activity by him/herself with no assistance fr om a helper. 5-Set-up or Clean-up Assistance-helper sets up or cleans up; patient completes activity. [place] assists only prior to or following the activity. 4-Supervision or Touching Assistance-helper provides verbal cues and/or touching/steadying and/or contact guard assistance as patient completes activity. Assistance may be provided throughout the activity or intermittently. 3-Partial/Moderate Assistance-helper does LESS THAN HALF the effort. [place] lifts, holds or supports trunk or limbs, but provides less than half the effort. 2-Substantial/Maximal Assistance-helper does MORE THAN HALF the effort. [place] lifts or holds trunk or limbs and provides more than half the effort. 8-Kqgidkuks-tbjsyw does ALL the effort. Patient does none of the effort to complete the activity. Or, the assistance of 2 or more helpers is required for the patient to complete the activity. If activity was not attempted, code reason: 7-Patient Refused. 9-Not Applicable-not attempted and the patient did not perform the activity before the current illness, exacerbation or injury. 10-Not Attempted due to Environmental Limitations-(lack of equipment, weather restraints, etc.). 88-Not Attempted due to Medical Conditions or Safety Concerns. Sit to Stand (QC): 4 Weight Bearing Right Lower Extremity: Right Full Weight Bearing Left Lower Extremity: Left Full Weight Bearing Gait Training Does the Patient Walk?: Yes Distance: 8' x4, 110' Walk 10 feet (QC): 3 Walk 50 ft with 2 Turns(QC): 3 Gait Assistive Device: FWW Wheelchair Training Does the Pt Use a Wheelchair?: Yes Type of Wheelchair: Manual Treatments PT/OT co-treat, skills of 2 clinicians required to decrease fall risk, increase mobility, increase overall strength to complete functional tasks safely and independently. PT focusing in transfers and B LE strengthening while OT focusing on ADLs, B UE placement during transfers and functional mobility. Pt ambulated to doorway of room with FWW, CGA. Pt was then propelled to therapy gym, Pt ambulated in parallel bars working on addressing pts gait, see PTs note for details. Pt then ambulated in [facility] area, addressing functional balance, and endurance required for daily functional tasks. Pt required Max A for hand placement and keeping feet further apart when ambulating. Pt ambulated small distance back to room with FWW, CGA, wheelchair follow for safety precautions, due to balance. Pt resting in recliner at end of tx w/all needs met, call light in hand. Assessment Current Status: Fair Progress Pt fatigues easily and requires increased VC as pt fatigues for safety of TF. HAY FARMER gives TC at R hip while amb. to help prevent pain from Trendelenberg gait pattern. PT Postal Service Clerk Goals Postal Service Clerk Goals PT Postal Service Clerk Goals Time Frame: Dec 04, 2022 Roll Left & Right (QC): 4 (Pt will be SBA for all aspects of functional mobility, in order to safely d/c. ) Sit to Lying (QC): 4 (Pt will be SBA for all aspects of functional mobility, in order to safely d/c. ) Lying-Sitting on Side/Bed(QC): 4 (Pt will be SBA for all aspects of functional mobility, in order to safely d/c. ) Sit to Stand (QC): 4 (Pt will be SBA for all aspects of functional mobility, in order to safely d/c. ) Chair/Lye-pc-Kggqs Xfer(QC): 4 (Pt will be SBA for all aspects of functional mobility, in order to safely d/c. ) Toilet Transfer (QC): 4 (Pt will be SBA for all aspects of functional mobility, in order to safely d/c. ) Car Transfer (QC): 4 (Pt will be SBA for all aspects of functional mobility, in order to safely d/c. ) Does the Patient Walk: Yes Walk 10 feet (QC): 4 (Pt will be SBA for all aspects of functional mobility, in order to safely d/c. ) Walk 50ft with 2 Turns (QC): 4 (Pt will be SBA for all aspects of functional mobility, in order to safely d/c. ) Walk 150 ft (QC): 4 (Pt will be SBA for all aspects of functional mobility, in order to safely d/c. ) Walking 10ft on Uneven Surface: 4 (Pt will be SBA for all aspects of functional mobility, in order to safely d/c. ) 1 Step (curb) (QC): 4 (Pt will be SBA for all aspects of functional mobility, in order to safely d/c. ) 4 Steps (QC): 4 (Pt will be SBA for all aspects of functional mobility, in order to safely d/c. ) 12 Steps (QC): 9 (Pt has 4 steps to enter/exit home ) Picking up an Object (QC): 4 (Pt will be SBA for all aspects of functional mobility, in order to safely d/c. ) Does the Pt use WC or Scooter?: Yes Wheel 50 feet with 2 turns (QC: 4 (Pt will be SBA for all aspects of functional mobility, in order to safely d/c. ) Type: Manual Wheel 150 feet: 4 (Pt will be SBA for all aspects of functional mobility, in order to safely d/c. ) Type: Manual PT Plan Problem List Problem List: Activity Tolerance, Functional Strength, Safety, Balance, Gait Treatment/Plan Treatment Plan: Continue Plan of Care Treatment Plan: Bed Mobility, Concurrent Therapy, Education, Functional Activity Rubén, Functional Strength, Group Therapy, Gait, Safety, Therapeutic Exercise, Transfers Treatment Duration: Dec 04, 2022 Frequency: At least 5 of 7 days/Wk (IRF) Estimated Hrs Per Day: 1.5 hours per day Patient and/or Family Agrees t: Yes Safety Risks/Education Patient Education: Gait Training, Transfer Techniques, Correct Positioning, Safety Issues Teaching Recipient: Patient Teaching Methods: Discussion Response to Teaching: Verbalize Understanding, Reinforcement Needed Time Time In: 1300 Time Out: 1330 DATE: Nov 24, 2022 Total Billed Treatment Time: 30 Total Billed Treatment 1, GT x2 (30m) Co-treat w/OT for 30m ASA RODGERS HAY FARMER Nov 24, 2022 14:13
--- NOTE | 2022-11-24 14:17 | ST Cognitive Linguistic Eval ---
Speech Evaluation-General Medical Diagnosis Encephalopathy d/t UTI Onset Date: Nov 21, 2022 Therapy Diagnosis Therapy Diagnosis: Severe Cognitive Deficit Precautions Precautions: Fall Precautions/Isolations: Fall Prevention, Standard Precautions Referral Referring Physician: Dr. Olsen Reason for Referral: Evaluation/Treatment Medical History Pertinent Medical History: Arthritis, GERD, HTN Cataracts sx, pacemaker placement, defibrillator , HTN, PNA, R TKA, cancer, incontinence, HLD, depression, anxiety, CAD, DJD, hypothyroidism, GERD, arthritis, chronic LBP Current History Pt is a 87 y/o female who was brought to ED by EMS for evaluation after a fall on 11/22/22. Patient fell on 11/21/22 and 11/22/22. Admitted to ARU on 11/23/22 with encephalopathy d/t UTI Reviewed History: Yes Social History Current Living Status: Children Speech PLF-Current Status Prior Level of Function Pt living at home with her daughter. Pt's daughter set up her medications for her and managed all the finances. Pt reports she sat in the living room most of the day while her daughter was at work due to her poor vision. Pt and daughter state pt has demonstrated a decline with her memory over the past couple of months. Subjective Pt sitting up in chair when SCUBA DIVE TRAINING INSTRUCTOR enters the room. Pt is very hard of hearing and has poor vision. Pt is pleasant and cooperative throughout the evaluation. Pain Numeric Pain Scale: 0-No Pain Language Eval: Auditory Comprehends Simple Yes/No Ques: Functional Follows 1-Step Commands: Functional Language Eval: Verbal Language Completes Spontaneous Greeting: Functional Word Finding: Mild Requests Basic Needs: Functional Objective Cognitive Domain Attention: WNL Memory: Severe Problem Solving: Moderate Executive Functions: Moderate Visuospatial Skills: Mild Composite Severity Rating: Severe Clock Drawing Severity Rating: Moderate Score: 16 Objective Formal/Standardized Tests SLUMS Results Oral Motor/Speech Production Appears WNL Impression Pt presents with SEVERE COGNITIVE DEFICITS at this time. Pt is able to answer basic orientation questions of day of the week, year, and state. Pt is able to immediately recall 2/5 words when given the words twice. Following a short delay, pt was able to recall 1/5 words. Pt was able to answer 1/4 questions following a short story. Pt frequently repeated information throughout the ses katty. Pt able to complete mental manipulation of numbers in reverse order when given a series of 2 and 3 numbers, pt unable to mentally manipulate a 4 number sequence. Pt follows basic one step directions. Pt completes the clock the drawing with accuracy, the spacing of the numbers is slightly off, however this is likely due to her vision. Pt to benefit from speech therapy to address auditory memory tasks. Speech Short Term Goals Short Term Goals Short Term Goals 1. Pt to be educated on different memory strategies. Speech Assisted Goals Care Transport Nurse Goals 1. Pt to complete auditory memory tasks with 80% accuracy with min verbal prompts and use of strategies as appropriate. Speech-Plan Patient/Family Goals Patient/Family Goals: Pt's goal is to return home with her daughter. Daughter states she wants to look at all options. Treatment Plan Speech Therapy Treatment Plan: Continue Plan of Care Frequency: 5 times per week Estimated Hrs Per Day: .25 hour per day Rehab Potential: Good Pt/Family Agrees to Plan: Yes Safety Risks/Education Teaching Recipient: Patient, Family Teaching Methods: Discussion Response to Teaching: Verbalize Understanding, Reinforcement Needed Education Topics Provided: Pt and daughter educated on role of the SCUBA DIVE TRAINING INSTRUCTOR, purpose of the evaluation, results, and recommendations. Pt and daughter receptive and verbalize understanding. Pt will likely require reinforcement. Time Speech Therapy Time In: 10:35 Speech Therapy Time Out: 11:05 DATE: Nov 24, 2022 Total Billed Time: 30 Billed Treatment Time S/L Sole Jarrell Speech Therapy Nov 24, 2022 14:17
[2022-11-24 20:00] VITALS: BP 131/56
[2022-11-24] MEDS: cefTRIAXone IV/IM 1,000 MG in NS (IVPB) 50 ML 50 ML IV SCH (20:52)
[2022-11-24] MEDS: MELATONIN 3 MG TABLET PO PRN (20:53)
[2022-11-25] MEDS: KCL 10 MEQ TAB (MICRO K) PO SCH (06:33)
[2022-11-25] MEDS: LEVOTHYROXINE 50 MCG (LEVOTHROID) TAB PO SCH (06:33)
[2022-11-25] MEDS: MULTIVIT W/MINERALS TAB (THERAGRAN M) PO SCH (06:33)
--- NOTE | 2022-11-25 07:12 | Occupational Ther Daily Note ---
OT Current Status-Daily Note Subjective Pt alert, reclined in room chair. Pt agrees to therapy. No c/o pain. Stated when she finally got to sleep, she slept well. Mental Status/Objective Patient Orientation: Person, Place, Time Attachments: IV ADL-Treatment Independent with eating. Pt washed hands and face prior to eating breakfast. Pt is demonstrating progress with B UE function for daily tasks and increase in activity tolerance. After session, pt sitting in recliner with call light/phone in reach. All needs met in room. Therapy Code Descriptions/Definitions Functional [place] Measure: 0=Not Assessed/NA 4=Minimal Assistance 1=Total Assistance 5=Supervision or Setup 2=Maximal Assistance 6=Modified [place] 3=Moderate Assistance 7=Complete IndependenceSCALE: Activities may be completed with or without assistive devices. 8-Qetqqlqtbx-gjgrhlg completes the activity by him/herself with no assistance from a helper. 5-Set-up or Clean-up Assistance-helper sets up or cleans up; patient completes activity. [place] assists only prior to or following the activity. 4-Supervision or Touching Assistance-helper provides verbal cues and/or touching/steadying and/or contact guard assistance as patient completes activity. Assistance may be provided throughout the activity or intermittently. 3-Partial/Moderate Assistance-helper does LESS THAN HALF the effort. [place] lifts, holds or supports trunk or limbs, but provides less than half the effort. 2-Substantial/Maximal Assistance-helper does MORE THAN HALF the effort. [place] lifts or holds trunk or limbs and provides more than half the effort. 3-Bpudxqlsg-tfxemz does ALL the effort. Patient does none of the effort to complete the activity. Or, the assistance of 2 or more helpers is required for the patient to complete the activity. If activity was not attempted, code reason: 7-Patient Refused. 9-Not Applicable-not attempted and the patient did not perform the activity before the current illness, exacerbation or injury. 10-Not Attempted due to Environmental Limitations-(lack of equipment, weather restraints, etc.). 88-Not Attempted due to Medical Conditions or Safety Concerns. Eating (QC): 6 OT Short Term Goals Short Term Goals Time Frame: Nov 27, 2022 Eatin Oral hygiene: 6 Upper body dressin OT Cleaner Assistant Goals Cleaner Assistant Goals Time Frame: Dec 04, 2022 Acute change in mental status: 0 Inattention: 0 Disorganized thinkin Altered level of consciousness: 0 Eating (QC): 6 Oral Hygiene (QC): 6 Toileting Hygiene (QC): 5 Shower/Bathe Self (QC): 5 Upper Body Dressing (QC): 5 Lower Body Dressing (QC): 5 On/Off Footwear (QC): 5 1=Demonstrate adherence to instructed precautions during ADL tasks. 2=Patient will verbalize/demonstrate understanding of assistive devices/modifications for ADL. 3=Patient will improve strength/tolerance for activity to enable patient to perform ADL's. OT Education/Plan Problem List/Assessment Assessment: Decreased Activ Tolerance, Decreased UE Strength, Impaired Funct Balance, Impaired Self-Care Skills Discharge Recommendations Plan/Recommendations: Continue POC Treatment Plan/Plan of Care Patient would benefit from OT for education, treatment and training to promote independence in ADL's, mobility, safety and/or upper extremity function for ADL's. Plan of Care: ADL Retraining, Concurrent Therapy, Functional Mobility, Group Exercise/Act as Ind, UE Funct Exercise/Act Treatment Duration: Dec 04, 2022 Frequency: At least 5 of 7 days/Wk (IRF) Estimated Hrs Per Day: 1.5 hours per day Agreement: Yes Rehab Potential: Good Time Start Time: 07:00 Stop Time: 07:30 DATE: Nov 25, 2022 Total Time Billed (hr/min): 30 Billed Treatment Time 1 visit-ADL 2 (30 min) IMMANUEL BUSCH Nov 25, 2022 07:12
[2022-11-25] MEDS: CEFDINIR 300 MG CAPSULE PO SCH ×2 (08:14→20:32)
[2022-11-25] MEDS: ASPIRIN enteric coated 81MG TABLET PO SCH (08:14)
[2022-11-25] MEDS: SENNA W/DOCUSATE (SENOKOT S) TABLET PO SCH ×2 (08:15→20:45)
[2022-11-25] MEDS: PANTOPRAZOLE 40 MG (PROTONIX) TAB PO SCH (08:15)
[2022-11-25] MEDS: ENOXAPARIN 40 MG/0.4 ML SYRINGE SC SCH (08:15)
[2022-11-25] MEDS: DOCUSATE SODIUM 100 MG CAPSULE PO SCH ×2 (08:16→20:45)
[2022-11-25] MEDS: FLUoxetine 20 MG CAPSULE PO SCH (08:16)
[2022-11-25] MEDS: SINEMET 25/100 (CARBIDOPA/LEVODOPA) TAB PO SCH ×3 (08:16→17:56)
[2022-11-25] MEDS: carvediloL 12.5 MG TABLET PO SCH ×2 (08:17→20:44)
[2022-11-25] MEDS: polyethylene glycoL POWDER 17 GM (MIRALAX) PACK PO SCH ×2 (08:17→20:45)
[2022-11-25] MEDS: LOSARTAN 100 MG (COZAAR) TABLET PO SCH (08:17)
[2022-11-25] MEDS: CELECOXIB 100 MG CAPSULE PO SCH ×2 (08:20→20:32)
[2022-11-25 08:31] VITALS: BP 120/55
--- NOTE | 2022-11-25 09:46 | Speech Therapy Daily Note ---
Speech Daily Progress Note Subjective Date Seen by Provider: Nov 25, 2022 Time Seen by Provider: 09:00 Pt sitting up in the recliner in her room. Pt with no new report this date. Pt pleasant and cooperative throughout session. Pain Numeric Pain Scale: 4 Location Body Site: Head Objective Pt completes generative naming given a category and a letter with 90% accuracy independently. Pt completes recall using the association strategy with 60% accuracy with min- mod verbal cues. Assessment Assessment Current Status: Good Progress Treatment Plan Continue Plan of Care Speech Short Term Goals Short Term Goals Short Term Goals 1. Pt to be educated on different memory strategies. Speech Town Marshal Goals Town Marshal Goals 1. Pt to complete auditory memory tasks with 80% accuracy with min verbal prompts and use of strategies as appropriate. Speech-Plan Patient/Family Goals Patient/Family Goals: Pt's goal is to return home with her daughter. Treatment Plan Speech Therapy Treatment Plan: Continue Plan of Care Treatment Duration: Nov 24, 2022 Frequency: Modified Program (IRF) Estimated Hrs Per Day: Other Rehab Potential: Good Safety Risks/Education Teaching Recipient: Patient Teaching Methods: Discussion Response to Teaching: Verbalize Understanding, Reinforcement Needed Education Topics Provided: Pt educated on purpose of therapy tasks. Pt receptive and verbalized understanding but will likely require reinforcement. Time Speech Therapy Time In: 09:00 Speech Therapy Time Out: 09:30 DATE: Nov 25, 2022 Total Billed Time: 30 Billed Treatment Time S/L Sole Zapata Speech Therapy Nov 25, 2022 09:46
[2022-11-25] MEDS ORDERED: CATHETER FLUSH 10 ML SYR IVP PRN (11:15)
--- NOTE | 2022-11-25 11:49 | Physical Therapy Daily Note ---
PT Daily Note-Current Subjective Pt in room in recliner upon arrival and good for therapy. Pt reports stiff and achy in BLE. Pt stated she was "worked out good today" and says she liked to move. pt was left in recliner with call light and all needs met after therapy session this day. Pain Section J - Health Conditions 1. Rarely or not at all 2. Occasionally 3. Frequently 4. Almost constantly 8. Unable to answer Pain Effect on Sleep: 2 Pain Interference with Therapy: 3 Pain Interference w/Day-to-Day: 3 Mental Status Patient Orientation: Person, Place, Situation Transfers SCALE: Activities may be completed with or without assistive devices. 5-Mokflamnof-symenfg completes the activity by him/herself with no assistance from a helper. 5-Set-up or Clean-up Assistance-helper sets up or cleans up; patient completes activity. [place] assists only prior to or following the activity. 4-Supervision or Touching Assistance-helper provides verbal cues and/or touching/steadying and/or contact guard assistance as patient completes activity. Assistance may be provided throughout the activity or intermittently. 3-Partial/Moderate Assistance-helper does LESS THAN HALF the effort. [place] lifts, holds or supports trunk or limbs, but provides less than half the effort. 2-Substantial/Maximal Assistance-helper does MORE THAN HALF the effort. [place] lifts or holds trunk or limbs and provides more than half the effort. 0-Xxypyyddb-mooimj does ALL the effort. Patient does none of the effort to complete the activity. Or, the assistance of 2 or more helpers is required for the patient to complete the activity. If activity was not attempted, code reason: 7-Patient Refused. 9-Not Applicable-not attempted and the patient did not perform the activity before the current illness, exacerbation or injury. 10-Not Attempted due to Environmental Limitations-(lack of equipment, weather restraints, etc.). 88-Not Attempted due to Medical Conditions or Safety Concerns. Sit to Stand (QC): 4 Chair/Qdf-mm-Icyuw Xfer(QC): 4 Toilet Transfer (QC): 4 Weight Bearing Right Lower Extremity: Right Full Weight Bearing Left Lower Extremity: Left Full Weight Bearing Gait Training Walk 10 feet (QC): 4 Walk 50 ft with 2 Turns(QC): 4 Treatments PT was able to ambulate 96ft with RW and CGA pt was able to ambulate 48 ft the 2nd time with RW and CGA. pt was able to preform NU-step for 15 mins at level one. pt executed sitting ther-ex in all planes of motion with BLE for 2 sets of 15 each with red thera band for added resistance and increased strength train ing. pt is able to preform sit to stand x 6 with CGA and toilet transfers with CGA and VC for safety. . Assessment Current Status: Good Progress PT Sample Supervisor Goals Intermediate Goals PT Sample Supervisor Goals Time Frame: Dec 04, 2022 Roll Left & Right (QC): 4 (Pt will be SBA for all aspects of functional mobility, in order to safely d/c. ) Sit to Lying (QC): 4 (Pt will be SBA for all aspects of functional mobility, in order to safely d/c. ) Lying-Sitting on Side/Bed(QC): 4 (Pt will be SBA for all aspects of functional mobility, in order to safely d/c. ) Sit to Stand (QC): 4 (Pt will be SBA for all aspects of functional mobility, in order to safely d/c. ) Chair/Nek-oo-Efqwb Xfer(QC): 4 (Pt will be SBA for all aspects of functional mobility, in order to safely d/c. ) Toilet Transfer (QC): 4 (Pt will be SBA for all aspects of functional mobility, in order to safely d/c. ) Car Transfer (QC): 4 (Pt will be SBA for all aspects of functional mobility, in order to safely d/c. ) Does the Patient Walk: Yes Walk 10 feet (QC): 4 (Pt will be SBA for all aspects of functional mobility, in order to safely d/c. ) Walk 50ft with 2 Turns (QC): 4 (Pt will be SBA for all aspects of functional mobility, in order to safely d/c. ) Walk 150 ft (QC): 4 (Pt will be SBA for all aspects of functional mobility, in order to safely d/c. ) Walking 10ft on Uneven Surface: 4 (Pt will be SBA for all aspects of functional mobility, in order to safely d/c. ) 1 Step (curb) (QC): 4 (Pt will be SBA for all aspects of functional mobility, in order to safely d/c. ) 4 Steps (QC): 4 (Pt will be SBA for all aspects of functional mobility, in order to safely d/c. ) 12 Steps (QC): 9 (Pt has 4 steps to enter/exit home ) Picking up an Object (QC): 4 (Pt will be SBA for all aspects of functional mobility, in order to safely d/c. ) Does the Pt use WC or Scooter?: Yes Wheel 50 feet with 2 turns (QC: 4 (Pt will be SBA for all aspects of functional mobility, in order to safely d/c. ) Type: Manual Wheel 150 feet: 4 (Pt will be SBA for all aspects of functional mobility, in order to safely d/c. ) Type: Manual PT Plan Treatment/Plan Treatment Plan: Continue Plan of Care Treatment Plan: Bed Mobility, Concurrent Therapy, Education, Functional Activity Rubén, Functional Strength, Group Therapy, Gait, Safety, Therapeutic Exercise, Transfers Treatment Duration: Dec 04, 2022 Frequency: At least 5 of 7 days/Wk (IRF) Estimated Hrs Per Day: 1.5 hours per day Patient and/or Family Agrees t: Yes Time Time In: 929 Time Out: 1044 DATE: Nov 25, 2022 Total Billed Treatment Time: 75 Total Billed Treatment 1 GT x 2 EX x 2 fa Terra Baker FIRE MARSHAL Nov 25, 2022 11:48
--- NOTE | 2022-11-25 12:13 | Occupational Ther Daily Note ---
OT Current Status-Daily Note Subjective Pt. reports that she had several urination accidents last night. She states that she had to change clothing multiple times with nursing assist due to this. Pt. reports that she is trying to not drink as much water. Pt. educated that she does indeed need to drink water. Her daughter is in the room and verbalizes understanding of this as well. Appearance Pt. up in chair. She is alert and pleasant. Agrees to work with OT. Mental Status/Objective Patient Orientation: Person, Place Attachments: IV ADL-Treatment Therapy Code Descriptions/Definitions Functional [place] Measure: 0=Not Assessed/NA 4=Minimal Assistance 1=Total Assistance 5=Supervision or Setup 2=Maximal Assistance 6=Modified [place] 3=Moderate Assistance 7=Complete IndependenceSCALE: Activities may be completed with or without assistive devices. 5-Dzdfajzxkl-iekoujo completes the activity by him/herself with no assistance from a helper. 5-Set-up or Clean-up Assistance-helper sets up or cleans up; patient completes activity. [place] assists only prior to or following the activity. 4-Supervision or Touching Assistance-helper provides verbal cues and/or touching/steadying and/or contact guard assistance as patient completes activity. Assistance may be provided throughout the activity or intermittently. 3-Partial/Moderate Assistance-helper does LESS THAN HALF the effort. [place] lifts, holds or supports trunk or limbs, but provides less than half the effort. 2-Substantial/Maximal Assistance-helper does MORE THAN HALF the effort. [place] lifts or holds trunk or limbs and provides more than half the effort. 5-Xrligdypc-zokbqc does ALL the effort. Patient does none of the effort to complete the activity. Or, the assistance of 2 or more helpers is required for the patient to complete the activity. If activity was not attempted, code reason: 7-Patient Refused. 9-Not Applicable-not attempted and the patient did not perform the activity before the current illness, exacerbation or injury. 10-Not Attempted due to Environmental Limitations-(lack of equipment, weather restraints, etc.). 88-Not Attempted due to Medical Conditions or Safety Concerns. Eating (QC): 6 Oral Hygiene (QC): 5 (Set up per pt.) Shower/Bathe Self (QC): 3 (Mod assist to wash feet and between toes. Assist to wash back and rear cristina area thoroughly. Pt. able to wash all other parts.) Upper Body Dressing (QC): 3 (Mod assist overall. Pt. struggled to get shirt off over shoulders, but required only min assist to don by pulling down over back and belly.) Lower Body Dressing (QC): 3 (Pt. required assistance to thread depend over feet, and laborer pullet farm bottom thoroughly. she was able to thread feet into pants and pull up, but needed assist to laborer pullet farm belly. Mod assist overall.) On/Off Footwear: 4 (CGA while bending over to don socks.) Toileting Hygiene (QC): 3 (Min assist to pull down pants to toilet. Pt. able to cleanse cristina area after urination and don pants over hips.) Toilet Transfer (QC): 4 (CGA) Other Treatment Pt. agrees to shower. She requires CGA and cues for transfers and ambulation. After showering, pt. transferred to chair at sink and brushed hair/put on face cream. She had already brushed teeth earlier. Pt. agreed to ambulate with wa lker and required CGA for approximately 75 feet. Sat to rest, and ambulated back to room. OT issued yellow theraband for pt. to have in room and educated on how to use. Daughter in room with pt. All needs met. Education OT Patient Education: Correct positioning, Modified ADL techniques, Progress toward Goal/Update tx plan, Purpose of tx/functional activities, Reviewed precautions, Rehab process, Transfer techniques Teaching Recipient: Patient, Family Teaching Methods: Demonstration, Discussion Response to Teaching: Verbalize Understanding, Return Demonstration, Reinforcement Needed OT Short Term Goals Short Term Goals Time Frame: Nov 27, 2022 Eatin Oral hygiene: 6 Upper body dressin OT Vb Developer Goals Residential Goals Time Frame: Dec 04, 2022 Acute change in mental status: 0 Inattention: 0 Disorganized thinkin Altered level of consciousness: 0 Eating (QC): 6 Oral Hygiene (QC): 6 Toileting Hygiene (QC): 5 Shower/Bathe Self (QC): 5 Upper Body Dressing (QC): 5 Lower Body Dressing (QC): 5 On/Off Footwear (QC): 5 1=Demonstrate adherence to instructed precautions during ADL tasks. 2=Patient will verbalize/demonstrate understanding of assistive devices/modifications for ADL. 3=Patient will improve strength/tolerance for activity to enable patient to perform ADL's. OT Education/Plan Problem List/Assessment Assessment: Decreased Activ Tolerance, Impaired I ADL's, Impaired Self-Care Skills Discharge Recommendations Plan/Recommendations: Continue POC Therapy Discharge Recommendati: Post Acute OT Equpiment Recommendations-D/C: Hip Kit Treatment Plan/Plan of Care Treatment,Training & Education: Yes Patient would benefit from OT for education, treatment and training to promote independence in ADL's, mobility, safety and/or upper extremity function for ADL's. Plan of Care: ADL Retraining, Concurrent Therapy, Functional Mobility, Group Exercise/Act as Ind, UE Funct Exercise/Act Treatment Duration: Dec 04, 2022 Frequency: At least 5 of 7 days/Wk (IRF) Estimated Hrs Per Day: 1.5 hours per day Agreement: Yes Rehab Potential: Good Time Start Time: 11:00 Stop Time: 11:55 DATE: Nov 25, 2022 Total Time Billed (hr/min): 55 Billed Treatment Time 1, ADL x 4 SRINATH HI OT Nov 25, 2022 12:13
--- NOTE | 2022-11-25 12:33 | PM&R Progress Note ---
Subjective HPI/CC On Admission Date Seen by Provider: Nov 25, 2022 Time Seen by Provider: 14:00 Subjective/Events-last exam 11/25/2022: Patient doing a lot better More lucid Less confusion We will arrange for outpatient Parkinson's therapy group Switching IV antibiotics to p.o. 11/24/2022: Much improve overall Less confusion Continues on Rocephin No falls Review of Systems General: Fatigue, Malaise Objective Exam Vital Signs Vital Signs Date Time Temp Pulse Resp B/P (MAP) Pulse Ox O2 Delivery O2 Flow Rate FiO2 11/25/22 21:58 36.2 72 20 170/90 (116) 95 Room Air 11/23/22 19:49 21 Capillary Refill : General Appearance: No Apparent Distress, WD/WN, Chronically ill HEENT: PERRL/EOMI, Normal ENT Inspection, Pharynx Normal Neck: Full Range of Motion, Normal Inspection, Non Tender, Supple, Carotid Bruit Respiratory: Chest Non Tender, Lungs Clear, Normal Breath Sounds, No Accessory Muscle Use, No Respiratory Distress Cardiovascular: Regular Rate, Rhythm, No Edema, No Gallop, No JVD, No Murmur, Normal Peripheral Pulses Gastrointestinal: Normal Bowel Sounds, No Organomegaly, No Pulsatile Mass, Non Tender, Soft Back: Normal Inspection, No CVA Tenderness, No Vertebral Tenderness Extremity: Normal Capillary Refill, Normal Inspection, Normal Range of Motion, Non Tender, No Calf Tenderness, No Pedal Edema Neurologic/Psychiatric: Alert, No Motor/Sensory Deficits, 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 FIM Transfers Therapy Code Descriptions/Definitions Functional [place] Measure: 0=Not Assessed/NA 4=Minimal Assistance 1=Total Assistance 5=Supervision or Setup 2=Maximal Assistance 6=Modified [place] 3=Moderate Assistance 7=Complete IndependenceSCALE: Activities may be completed with or without assistive devices. 4-Cxwriqtydt-nzbsqnw completes the activity by him/herself with no assistance from a helper. 5-Set-up or Clean-up Assistance-helper sets up or cleans up; patient completes activity. [place] assists only prior to or following the activity. 4-Supervision or Touching Assistance-helper provides verbal cues and/or touching/steadying and/or contact guard assistance as patient completes activity. Assistance may be provided throughout the activity or intermittently. 3-Partial/Moderate Assistance-helper does LESS THAN HALF the effort. [place] lifts, holds or supports trunk or limbs, but provides less than half the effort. 2-Substantial/Maximal Assistance-helper does MORE THAN HALF the effort. [place] lifts or holds trunk or limbs and provides more than half the effort. 1-Ouwgbfztm-dxyfda does ALL the effort. Patient does none of the effort to complete the activity. Or, the assistance of 2 or more helpers is required for the patient to complete the activity. If activity was not attempted, code reason: 7-Patient Refused. 9-Not Applicable-not attempted and the patient did not perform the activity before the current illness, exacerbation or injury. 10-Not Attempted due to Environmental Limitations-(lack of equipment, weather restraints, etc.). 88-Not Attempted due to Medical Conditions or Safety Concerns. Roll Left to Right (QC): 3 (Min A ) Sit to Lying (QC): 3 (Min A ) Sit to Stand (QC): 4 Chair/Bbw-ih-Vwlmi Xfer(QC): 4 Car Transfer (QC): 88 Gait Training Does the Patient Walk?: Yes Distance: 8' x4, 110' Walk 10 feet (QC): 4 Walk 50 ft with 2 Turns(QC): 4 Walk 150 ft (QC): 88 Walking 10ft/uneven surface-QC: 88 Gait Persons Needed: 1 Gait Assistive Device: FWW Wheelchair Training Does the Pt Use a Wheelchair?: Yes Wheel 50 ft with 2 turns (QC): 88 Wheel 150 ft (QC): 88 Type of Wheelchair: Manual Stair Training 1 Step (curb) (QC): 88 4 Steps (QC): 88 12 Steps (QC): 9 (Pt has 4 steps to enter/exit home ) Balance Picking up an Object (QC): 3 (Min A ) ADL-Treatment Eating (QC): 6 Oral Hygiene (QC): 5 (Set up per pt.) Shower/Bathe Self (QC): 3 (Mod assist to wash feet and between toes. Assist to wash back and rear cristina area thoroughly. Pt. able to wash all other parts.) Upper Body Dressing (QC): 3 (Mod assist overall. Pt. struggled to get shirt off over shoulders, but required only min assist to don by pulling down over back and belly.) Lower Body Dressing (QC): 3 (Pt. required assistance to thread depend over feet, and frame pulley mortising machine operator bottom thoroughly. she was able to thread feet into pants and pull up, but needed assist to frame pulley mortising machine operator belly. Mod assist overall.) On/Off Footwear (QC): 4 (CGA while bending over to don socks.) Toileting Hygiene (QC): 3 (Min assist to pull down pants to toilet. Pt. able to cleanse cristina area after urination and don pants over hips.) Toilet Transfer (QC): 4 (CGA) Assessment/Plan Assessment and Plan Assess & Plan/Chief Complaint Assessment: Acute encephalopathy UTI Dementia Parkinson's disease new diagnosis Falls Hypokalemia Plan: Monitor closely Abx Fall risk 11/24/2022: Monitor closely Supplement potassium 11/25/2022: Change IV antibiotics to p.o. (1) Encephalopathy (2) UTI (urinary tract infection) Status: Acute (3) Frequent falls Status: Acute (4) Parkinsons disease (5) Dementia SILVA CORTEZ DO Nov 25, 2022 12:33
[2022-11-25] MEDS: CATHETER FLUSH 10 ML SYR IVP SCH ×2 (13:10→20:52)
[2022-11-25] MEDS: MICONAZOLE 2% POWDER (DESENEX AF) 90 GM TOP SCH ×2 (14:31→20:45)
[2022-11-25] MEDS: MELATONIN 3 MG TABLET PO PRN (20:32)
[2022-11-25] MEDS: cloNIDine 0.1 MG TABLET PO PRN (20:44)
[2022-11-25 20:45] VITALS: BP 210/90
[2022-11-25 21:58] VITALS: BP 170/90
[2022-11-26] MEDS: KCL 10 MEQ TAB (MICRO K) PO SCH (06:17)
[2022-11-26] MEDS: LEVOTHYROXINE 50 MCG (LEVOTHROID) TAB PO SCH (06:17)
[2022-11-26] MEDS: MULTIVIT W/MINERALS TAB (THERAGRAN M) PO SCH (06:17)
[2022-11-26] MEDS: CATHETER FLUSH 10 ML SYR IVP SCH (06:24)
[2022-11-26 08:13] VITALS: BP 151/73
[2022-11-26] MEDS: SENNA W/DOCUSATE (SENOKOT S) TABLET PO SCH ×2 (08:20→20:45)
[2022-11-26] MEDS: ASPIRIN enteric coated 81MG TABLET PO SCH (08:20)
[2022-11-26] MEDS: SINEMET 25/100 (CARBIDOPA/LEVODOPA) TAB PO SCH ×3 (08:20→17:49)
[2022-11-26] MEDS: carvediloL 12.5 MG TABLET PO SCH ×2 (08:20→20:41)
[2022-11-26] MEDS: CELECOXIB 100 MG CAPSULE PO SCH ×2 (08:20→20:41)
[2022-11-26] MEDS: CEFDINIR 300 MG CAPSULE PO SCH ×2 (08:21→20:41)
[2022-11-26] MEDS: LOSARTAN 100 MG (COZAAR) TABLET PO SCH (08:21)
[2022-11-26] MEDS: FLUoxetine 20 MG CAPSULE PO SCH (08:21)
[2022-11-26] MEDS: PANTOPRAZOLE 40 MG (PROTONIX) TAB PO SCH (08:21)
[2022-11-26] MEDS: ENOXAPARIN 40 MG/0.4 ML SYRINGE SC SCH (08:22)
[2022-11-26] MEDS: FERROUS SULFATE 325 MG (IRON) TABLET PO SCH (08:37)
[2022-11-26] MEDS: DOCUSATE SODIUM 100 MG CAPSULE PO SCH ×2 (08:38→20:41)
[2022-11-26] MEDS: ACETAMINOPHEN 325 MG TABLET PO PRN ×2 (08:38→20:41)
[2022-11-26] MEDS: polyethylene glycoL POWDER 17 GM (MIRALAX) PACK PO SCH ×2 (08:38→20:45)
[2022-11-26] MEDS: MICONAZOLE 2% POWDER (DESENEX AF) 90 GM TOP SCH ×2 (08:41→20:45)
--- NOTE | 2022-11-26 10:23 | Physical Therapy Daily Note ---
PT Daily Note-Current Subjective Pt sitting in recliner upon arrival. Pt agrees to PT after taking morning meds that Nurse is administering. Pt is AKIAK. Pain Numeric Pain Scale: 3 Location: Left Location Body Site: Hip Pain Description: Ache Section J - Health Conditions 1. Rarely or not at all 2. Occasionally 3. Frequently 4. Almost constantly 8. Unable to answer Pain Effect on Sleep: 2 Pain Interference with Therapy: 3 Pain Interference w/Day-to-Day: 3 Mental Status Patient Orientation: Person, Place Transfers SCALE: Activities may be completed with or without assistive devices. 3-Dbktttiywc-ptlenfa completes the activity by him/herself with no assistance from a helper. 5-Set-up or Clean-up Assistance-helper sets up or cleans up; patient completes activity. [place] assists only prior to or following the activity. 4-Supervision or Touching Assistance-helper provides verbal cues and/or touching/steadying and/or contact guard assistance as patient completes activity. Assistance may be provided throughout the activity or intermittently. 3-Partial/Moderate Assistance-helper does LESS THAN HALF the effort. [place] lifts, holds or supports trunk or limbs, but provides less than half the effort. 2-Substantial/Maximal Assistance-helper does MORE THAN HALF the effort. [place] lifts or holds trunk or limbs and provides more than half the effort. 5-Dosxltbic-ghgasu does ALL the effort. Patient does none of the effort to complete the activity. Or, the assistance of 2 or more helpers is required for the patient to complete the activity. If activity was not attempted, code reason: 7-Patient Refused. 9-Not Applicable-not attempted and the patient did not perform the activity before the current illness, exacerbation or injury. 10-Not Attempted due to Environmental Limitations-(lack of equipment, weather restraints, etc.). 88-Not Attempted due to Medical Conditions or Safety Concerns. Sit to Stand (QC): 4 Toilet Transfer (QC): 4 Weight Bearing Right Lower Extremity: Right Full Weight Bearing Left Lower Extremity: Left Full Weight Bearing Gait Training Does the Patient Walk?: Yes Distance: 50', 30' Walk 10 feet (QC): 3 Walk 50 ft with 2 Turns(QC): 3 Gait Persons Needed: 1 Gait Assistive Device: FWW VC for staying closer to FWW/standing taller as well as keeping WBOS, narrows quickly as pt fatigues. Wheelchair Training Does the Pt Use a Wheelchair?: Yes Wheel 50 ft with 2 turns (QC): 5 Type of Wheelchair: Manual Exercises Seated Therapy Exercises: Ankle pumps, Long arc quads, Hip flexion, Glut set Seated Reps: 15 Treatments Pt finishes taking morning meds. Pt completes Seated Ex then stands & amb to BR. After toileting, pt amb in hallway, taking RB as needed. Pt takes RB then propels w/c in hallway to room, TF to recliner at end of tx. All needs met, call light in hand. Assessment Current Status: Good Progress Pt is improving w/remembering safety cues for proper TF but still reporting pain in hip, walking w/Trendelberg like gait pattern. Pt is encouraged to WBOS and stay closer to FWW for improved safety & decreased pain. Pt fatigues easily and reverts to original positioning. PT Skilled Nursing Goals Skilled Nursing Goals PT Pharmacy Innovation Assistant Goals Time Frame: Dec 04, 2022 Roll Left & Right (QC): 4 (Pt will be SBA for all aspects of functional mobility, in order to safely d/c. ) Sit to Lying (QC): 4 (Pt will be SBA for all aspects of functional mobility, in order to safely d/c. ) Lying-Sitting on Side/Bed(QC): 4 (Pt will be SBA for all aspects of functional mobility, in order to safely d/c. ) Sit to Stand (QC): 4 (Pt will be SBA for all aspects of functional mobility, in order to safely d/c. ) Chair/Uzn-lx-Jbhad Xfer(QC): 4 (Pt will be SBA for all aspects of functional mobility, in order to safely d/c. ) Toilet Transfer (QC): 4 (Pt will be SBA for all aspects of functional mobility, in order to safely d/c. ) Car Transfer (QC): 4 (Pt will be SBA for all aspects of functional mobility, in order to safely d/c. ) Does the Patient Walk: Yes Walk 10 feet (QC): 4 (Pt will be SBA for all aspects of functional mobility, in order to safely d/c. ) Walk 50ft with 2 Turns (QC): 4 (Pt will be SBA for all aspects of functional mobility, in order to safely d/c. ) Walk 150 ft (QC): 4 (Pt will be SBA for all aspects of functional mobility, in order to safely d/c. ) Walking 10ft on Uneven Surface: 4 (Pt will be SBA for all aspects of functional mobility, in order to safely d/c. ) 1 Step (curb) (QC): 4 (Pt will be SBA for all aspects of functional mobility, in order to safely d/c. ) 4 Steps (QC): 4 (Pt will be SBA for all aspects of functional mobility, in order to safely d/c. ) 12 Steps (QC): 9 (Pt has 4 steps to enter/exit home ) Picking up an Object (QC): 4 (Pt will be SBA for all aspects of functional mobility, in order to safely d/c. ) Does the Pt use WC or Scooter?: Yes Wheel 50 feet with 2 turns (QC: 4 (Pt will be SBA for all aspects of functional mobility, in order to safely d/c. ) Type: Manual Wheel 150 feet: 4 (Pt will be SBA for all aspects of functional mobility, in order to safely d/c. ) Type: Manual PT Plan Problem List Problem List: Activity Tolerance, Functional Strength, Safety Treatment/Plan Treatment Plan: Continue Plan of Care Treatment Plan: Bed Mobility, Concurrent Therapy, Education, Functional Activity Rubén, Functional Strength, Group Therapy, Gait, Safety, Therapeutic Exercise, Transfers Treatment Duration: Dec 04, 2022 Frequency: At least 5 of 7 days/Wk (IRF) Estimated Hrs Per Day: 1.5 hours per day Patient and/or Family Agrees t: Yes Safety Risks/Education Patient Education: Gait Training, Correct Positioning, Safety Issues Teaching Recipient: Patient Teaching Methods: Discussion Response to Teaching: Verbalize Understanding Time Time In: 800 Time Out: 900 DATE: Nov 26, 2022 Total Billed Treatment Time: 60 Total Billed Treatment 1, FA x2 (25m) & GT x2 (35m) ASA RODGERS PTA Nov 26, 2022 10:23
--- NOTE | 2022-11-26 10:31 | PM&R Progress Note ---
Subjective HPI/CC On Admission Date Seen by Provider: Nov 26, 2022 Time Seen by Provider: 11:00 Subjective/Events-last exam 11/26/2022: Much improve More lucid Hearing loss makes communication difficult Sinimet seems to be helping the tremor without side effects 11/25/2022: Patient doing a lot better More lucid Less confusion We will arrange for outpatient Parkinson's therapy group Switching IV antibiotics to p.o. 11/24/2022: Much improve overall Less confusion Continues on Rocephin No falls Review of Systems General: Fatigue, Malaise Objective Exam Vital Signs Vital Signs Date Time Temp Pulse Resp B/P (MAP) Pulse Ox O2 Delivery O2 Flow Rate FiO2 11/26/22 21:47 95 Room Air 11/26/22 21:40 70 142/72 (95) 11/26/22 20:30 36.6 20 11/26/22 16:52 21 Capillary Refill : General Appearance: No Apparent Distress, WD/WN, Chronically ill HEENT: PERRL/EOMI, Normal ENT Inspection, Pharynx Normal Neck: Full Range of Motion, Normal Inspection, Non Tender, Supple, Carotid Bruit Respiratory: Chest Non Tender, Lungs Clear, Normal Breath Sounds, No Accessory Muscle Use, No Respiratory Distress Cardiovascular: Regular Rate, Rhythm, No Edema, No Gallop, No JVD, No Murmur, Normal Peripheral Pulses Gastrointestinal: Normal Bowel Sounds, No Organomegaly, No Pulsatile Mass, Non Tender, Soft Back: Normal Inspection, No CVA Tenderness, No Vertebral Tenderness Extremity: Normal Capillary Refill, Normal Inspection, Normal Range of Motion, Non Tender, No Calf Tenderness, No Pedal Edema Neurologic/Psychiatric: Alert, No Motor/Sensory Deficits, dosimetrist II-XII Norm as Tested, Abnormal Gait, Depressed Affect, Disoriented, Motor Weakness (generali zed), Other (tremor left hand and arm) Skin: Normal Color, Warm/Dry Lymphatic: No Adenopathy Results/Procedures Lab Patient resulted labs reviewed. FIM Transfers Therapy Code Descriptions/Definitions Functional [place] Measure: 0=Not Assessed/NA 4=Minimal Assistance 1=Total Assistance 5=Supervision or Setup 2=Maximal Assistance 6=Modified [place] 3=Moderate Assistance 7=Complete IndependenceSCALE: Activities may be completed with or without assistive devices. 8-Gogefqlozn-incfzfx completes the activity by him/herself with no assistance from a helper. 5-Set-up or Clean-up Assistance-helper sets up or cleans up; patient completes activity. [place] assists only prior to or following the activity. 4-Supervision or Touching Assistance-helper provides verbal cues and/or touching/steadying and/or contact guard assistance as patient completes activity. Assistance may be provided throughout the activity or intermittently. 3-Partial/Moderate Assistance-helper does LESS THAN HALF the effort. [place] lifts, holds or supports trunk or limbs, but provides less than half the effort. 2-Substantial/Maximal Assistance-helper does MORE THAN HALF the effort. [place] lifts or holds trunk or limbs and provides more than half the effort. 8-Imramrbdp-pdlrhe does ALL the effort. Patient does none of the effort to com plete the activity. Or, the assistance of 2 or more helpers is required for the patient to complete the activity. If activity was not attempted, code reason: 7-Patient Refused. 9-Not Applicable-not attempted and the patient did not perform the activity before the current illness, exacerbation or injury. 10-Not Attempted due to Environmental Limitations-(lack of equipment, weather restraints, etc.). 88-Not Attempted due to Medical Conditions or Safety Concerns. Roll Left to Right (QC): 3 (Min A ) Sit to Lying (QC): 3 (Min A ) Sit to Stand (QC): 4 Chair/Wsi-hk-Cwdzg Xfer(QC): 4 Car Transfer (QC): 88 Gait Training Does the Patient Walk?: Yes Distance: 50', 30' Walk 10 feet (QC): 3 Walk 50 ft with 2 Turns(QC): 3 Walk 150 ft (QC): 88 Walking 10ft/uneven surface-QC: 88 Gait Persons Needed: 1 Gait Assistive Device: FWW Wheelchair Training Does the Pt Use a Wheelchair?: Yes Wheel 50 ft with 2 turns (QC): 5 Wheel 150 ft (QC): 88 Type of Wheelchair: Manual Stair Training 1 Step (curb) (QC): 88 4 Steps (QC): 88 12 Steps (QC): 9 (Pt has 4 steps to enter/exit home ) Balance Picking up an Object (QC): 3 (Min A ) ADL-Treatment Eating (QC): 6 Oral Hygiene (QC): 5 (Set up per pt.) Shower/Bathe Self (QC): 3 (Mod assist to wash feet and between toes. Assist to wash back and rear cristina area thoroughly. Pt. able to wash all other parts.) Upper Body Dressing (QC): 3 (Mod assist overall. Pt. struggled to get shirt off over shoulders, but required only min assist to don by pulling down over back and belly.) Lower Body Dressing (QC): 3 (Pt. required assistance to thread depend over feet, and ear pull machine operator bottom thoroughly. she was able to thread feet into pants a nd pull up, but needed assist to ear pull machine operator belly. Mod assist overall.) On/Off Footwear (QC): 4 (CGA while bending over to don socks.) Toileting Hygiene (QC): 3 (Min assist to pull down pants to toilet. Pt. able to cleanse cristina area after urination and don pants over hips.) Toilet Transfer (QC): 4 (CGA) Assessment/Plan Assessment and Plan Assess & Plan/Chief Complaint Assessment: Acute encephalopathy UTI Dementia Parkinson's disease new diagnosis Falls Hypokalemia Plan: Monitor closely Abx Fall risk 11/24/2022: Monitor closely Supplement potassium 11/25/2022: Change IV antibiotics to p.o. 11/26/2022: Monitor for falls (1) Encephalopathy (2) UTI (urinary tract infection) Status: Acute (3) Frequent falls Status: Acute (4) Parkinsons disease (5) Dementia SILVA CORTEZ DO Nov 26, 2022 10:31
--- NOTE | 2022-11-26 10:59 | Occupational Ther Daily Note ---
OT Current Status-Daily Note Subjective Pt alert, sitting in recliner. Pt agrees to therapy. No c/o pain. Mental Status/Objective Patient Orientation: Person, Place, Time, Situation ADL-Treatment SBA for ambulation using FWW. SBA for toileting. SBA while pt stood at sink to complete oral care and grooming. Pt requested to sit down prior to leaving bathroom due to fatigue, w/c provided. After therapy, pt sitting in recliner with call light/phone in reach. All needs met in room. Therapy Code Descriptions/Definitions Functional [place] Measure: 0=Not Assessed/NA 4=Minimal Assistance 1=Total Assistance 5=Supervision or Setup 2=Maximal Assistance 6=Modified [place] 3=Moderate Assistance 7=Complete IndependenceSCALE: Activities may be completed with or without assistive devices. 4-Apckzfxyqd-vygvrra completes the activity by him/herself with no assistance from a helper. 5-Set-up or Clean-up Assistance-helper sets up or cleans up; patient completes activity. [place] assists only prior to or following the activity. 4-Supervision or Touching Assistance-helper provides verbal cues and/or touching/steadying and/or contact guard assistance as patient completes activity. Assistance may be provided throughout the activity or intermittently. 3-Partial/Moderate Assistance-helper does LESS THAN HALF the effort. [place] lifts, holds or supports trunk or limbs, but provides less than half the effort. 2-Substantial/Maximal Assistance-helper does MORE THAN HALF the effort. [place] lifts or holds trunk or limbs and provides more than half the effort. 2-Nrhvvdxhd-xqkbed does ALL the effort. Patient does none of the effort to complete the activity. Or, the assistance of 2 or more helpers is required for the patient to complete the activity. If activity was not attempted, code reason: 7-Patient Refused. 9-Not Applicable-not attempted and the patient did not perform the activity before the current illness, exacerbation or injury. 10-Not Attempted due to Environmental Limitations-(lack of equipment, weather restraints, etc.). 88-Not Attempted due to Medical Conditions or Safety Concerns. Oral Hygiene (QC): 4 Toileting Hygiene (QC): 4 Toilet Transfer (QC): 4 OT Short Term Goals Short Term Goals Time Frame: Nov 27, 2022 Eatin Oral hygiene: 6 Upper body dressin OT Rapid Transit Operator Goals Half-Way Goals Time Frame: Dec 04, 2022 Acute change in mental status: 0 Inattention: 0 Disorganized thinkin Altered level of consciousness: 0 Eating (QC): 6 Oral Hygiene (QC): 6 Toileting Hygiene (QC): 5 Shower/Bathe Self (QC): 5 Upper Body Dressing (QC): 5 Lower Body Dressing (QC): 5 On/Off Footwear (QC): 5 1=Demonstrate adherence to instructed precautions during ADL tasks. 2=Patient will verbalize/demonstrate understanding of assistive devices/modifications for ADL. 3=Patient will improve strength/tolerance for activity to enable patient to perform ADL's. OT Education/Plan Problem List/Assessment Assessment: Decreased Activ Tolerance, Impaired Funct Balance, Impaired Self- Care Skills Discharge Recommendations Plan/Recommendations: Continue POC Treatment Plan/Plan of Care Patient would benefit from OT for education, treatment and training to promote independence in ADL's, mobility, safety and/or upper extremity function for ADL's. Plan of Care: ADL Retraining, Concurrent Therapy, Functional Mobility, Group Exercise/Act as Ind, UE Funct Exercise/Act Treatment Duration: Dec 04, 2022 Frequency: At least 5 of 7 days/Wk (IRF) Estimated Hrs Per Day: 1.5 hours per day Agreement: Yes Rehab Potential: Good Time Start Time: 10:00 Stop Time: 10:30 DATE: Nov 26, 2022 Total Time Billed (hr/min): 30 Billed Treatment Time 1 visit-ADL 2 (30 min) IMMANUEL BUSCH Nov 26, 2022 10:59
--- NOTE | 2022-11-26 11:28 | Speech Therapy Daily Note ---
Speech Daily Progress Note Subjective Date Seen by Provider: Nov 26, 2022 Time Seen by Provider: 09:00 Pt had just finished with physical therapy and was sitting up in her recliner. Pt is rocking back and forth in her recliner and report back pain. Pt agrees to voltaren gel. DIRECTOR OF FINANCIAL AID notifies nursing staff. Pt also reports she wishes she had a clock as she likes to know what time it is. DIRECTOR OF FINANCIAL AID notifies nursing staff and a clock was brought to her room. Pt pleasant and cooperative throughout the session. Pain Numeric Pain Scale: 6 Location: Lower Location Body Site: Back Objective Pt is talkative and shares information about home and her family. Most of the information shared has been shared previously. Pt does remember therapist as the "memory lady". Pt completes a word deduction task, given 3 words and she has to state what is being described. Pt completes the task with 90% accuracy with min verbal prompts. Therapist notes, pt is often able to repeat the 3 word immediately after the DIRECTOR OF FINANCIAL AID provides them. Pt reportedly stated the words were getting harder, however, the difficulty of the task remains fairly consistent. DIRECTOR OF FINANCIAL AID then works with pt on reviewing the words targeted during previous session by recalling through association. Pt was able to recall the words targeted in the previous session with 80% accuracy with min verbal prompts. Two new words were introduced this date. Pt has increased difficulty recalling these two words. Pt appears to benefit from repetition of information and seems to recall information with increased accuracy after having multiple exposures. Pt also appears to do well with using attributes to help recall information. Assessment Assessment Current Status: Fair Progress Treatment Plan Continue Plan of Care Speech Short Term Goals Short Term Goals Short Term Goals 1. Pt to be educated on different memory strategies. Speech Manager Corporate Responsibility Goals Manager Corporate Responsibility Goals 1. Pt to complete auditory memory tasks with 80% accuracy with min verbal prompts and use of strategies as appropriate. Speech-Plan Patient/Family Goals Patient/Family Goals: Pt's goal is to return home with daughter. Treatment Plan Speech Therapy Treatment Plan: Continue Plan of Care Treatment Duration: Nov 24, 2022 Frequency: Modified Program (IRF) Estimated Hrs Per Day: Other Rehab Potential: Good Safety Risks/Education Teaching Recipient: Patient Teaching Methods: Discussion Response to Teaching: Verbalize Understanding, Reinforcement Needed Education Topics Provided: Pt educated on purpose of speech therapy tasks and progress. Pt receptive and verbalizes understanding, but will likely require reinforcement. Time Speech Therapy Time In: 09:00 Speech Therapy Time Out: 10:00 DATE: Nov 26, 2022 Total Billed Time: 60 Billed Treatment Time S/L Sole Zapata Speech Therapy Nov 26, 2022 11:28
--- NOTE | 2022-11-26 14:25 | Physical Therapy Progress Note ---
Therapy Progress Note PT arrives for 2nd session and pt is visiting w/daughter. FLEET DRIVER discusses progress and what has been limitation/safety concern during tx. Daughter advises pt has leg length deficit and pt has lift on black shoes but pt doesn't like to wear due to swelling at home. Pt and daughter asked if FLEET DRIVER would come back after lunch so pt could use NuStep for increasing strengthening, activity neelima. & decrease tightness/pain. Pt is about to have lunch. FLEET DRIVER will return in afternoon. 1, FA (15m) ASA RODGERS FLEET DRIVER Nov 26, 2022 14:25
--- NOTE | 2022-11-26 14:31 | Physical Therapy Daily Note ---
PT Daily Note-Current Subjective Pt sitting in recliner upon arrival. Daughter had already departed. Pt agrees to PT for use of NuStep. Pain Pain Description: Ache, Tightness Comment: LBP & Glut pain reported but not rated Section J - Health Conditions 1. Rarely or not at all 2. Occasionally 3. Frequently 4. Almost constantly 8. Unable to answer Pain Effect on Sleep: 2 Pain Interference with Therapy: 3 Pain Interference w/Day-to-Day: 3 Mental Status Patient Orientation: Person, Place Transfers SCALE: Activities may be completed with or without assistive devices. 8-Dbooyllgkn-trjmxnz completes the activity by him/herself with no assistance from a helper. 5-Set-up or Clean-up Assistance-helper sets up or cleans up; patient completes activity. [place] assists only prior to or following the activity. 4-Supervision or Touching Assistance-helper provides verbal cues and/or touching/steadying and/or contact guard assistance as patient completes activity. Assistance may be provided throughout the activity or intermittently. 3-Partial/Moderate Assistance-helper does LESS THAN HALF the effort. [place] lifts, holds or supports trunk or limbs, but provides less than half the effort. 2-Substantial/Maximal Assistance-helper does MORE THAN HALF the effort. [place] lifts or holds trunk or limbs and provides more than half the effort. 4-Hiqjqwbtn-dagpqh does ALL the effort. Patient does none of the effort to complete the activity. Or, the assistance of 2 or more helpers is required for the patient to complete the activity. If activity was not attempted, code reason: 7-Patient Refused. 9-Not Applicable-not attempted and the patient did not perform the activity before the current illness, exacerbation or injury. 10-Not Attempted due to Environmental Limitations-(lack of equipment, weather restraints, etc.). 88-Not Attempted due to Medical Conditions or Safety Concerns. Sit to Stand (QC): 4 Toilet Transfer (QC): 4 Weight Bearing Right Lower Extremity: Right Full Weight Bearing Left Lower Extremity: Left Full Weight Bearing Exercises NuStep Minutes: 15 NuStep Workload: 3 Treatments TF to standing and amb to BR. After toileting, pt completes pericare and washes hands then sits in w/c. For energy conservation, PLACEMENT SPECIALIST propels w/c to Therapy Gym. Pt TF to NuStep and after use TF back to w/c before returning to room to rest in recliner. All needs met, call light in hand. Assessment Current Status: Fair Progress Pt fatigues easily and takes extended time to complete tasks. PT Group Home Goals Maori Liaison Adviser Goals PT Group Home Goals Time Frame: Dec 04, 2022 Roll Left & Right (QC): 4 (Pt will be SBA for all aspects of functional mobility, in order to safely d/c. ) Sit to Lying (QC): 4 (Pt will be SBA for all aspects of functional mobility, in order to safely d/c. ) Lying-Sitting on Side/Bed(QC): 4 (Pt will be SBA for all aspects of functional mobility, in order to safely d/c. ) Sit to Stand (QC): 4 (Pt will be SBA for all aspects of functional mobility, in order to safely d/c. ) Chair/Rlh-ee-Spqjk Xfer(QC): 4 (Pt will be SBA for all aspects of functional mobility, in order to safely d/c. ) Toilet Transfer (QC): 4 (Pt will be SBA for all aspects of functional mobility, in order to safely d/c. ) Car Transfer (QC): 4 (Pt will be SBA for all aspects of functional mobility, in order to safely d/c. ) Does the Patient Walk: Yes Walk 10 feet (QC): 4 (Pt will be SBA for all aspects of functional mobility, in order to safely d/c. ) Walk 50ft with 2 Turns (QC): 4 (Pt will be SBA for all aspects of functional mobility, in order to safely d/c. ) Walk 150 ft (QC): 4 (Pt will be SBA for all aspects of functional mobility, in order to safely d/c. ) Walking 10ft on Uneven Surface: 4 (Pt will be SBA for all aspects of functional mobility, in order to safely d/c. ) 1 Step (curb) (QC): 4 (Pt will be SBA for all aspects of functional mobility, in order to safely d/c. ) 4 Steps (QC): 4 (Pt will be SBA for all aspects of functional mobility, in order to safely d/c. ) 12 Steps (QC): 9 (Pt has 4 steps to enter/exit home ) Picking up an Object (QC): 4 (Pt will be SBA for all aspects of functional mobility, in order to safely d/c. ) Does the Pt use WC or Scooter?: Yes Wheel 50 feet with 2 turns (QC: 4 (Pt will be SBA for all aspects of functional mobility, in order to safely d/c. ) Type: Manual Wheel 150 feet: 4 (Pt will be SBA for all aspects of functional mobility, in order to safely d/c. ) Type: Manual PT Plan Problem List Problem List: Activity Tolerance, Functional Strength Treatment/Plan Treatment Plan: Continue Plan of Care Treatment Plan: Bed Mobility, Concurrent Therapy, Education, Functional Activity Rubén, Functional Strength, Group Therapy, Gait, Safety, Therapeutic Exercise, Transfers Treatment Duration: Dec 04, 2022 Frequency: At least 5 of 7 days/Wk (IRF) Estimated Hrs Per Day: 1.5 hours per day Patient and/or Family Agrees t: Yes Safety Risks/Education Patient Education: Transfer Techniques, Correct Positioning, Safety Issues Teaching Recipient: Patient Teaching Methods: Discussion Response to Teaching: Verbalize Understanding Time Time In: 1340 Time Out: 1410 DATE: Nov 26, 2022 Total Billed Treatment Time: 30 Total Billed Treatment 1, EX (15m) & FA (15m) ASA RODGERS PTA Nov 26, 2022 14:31
[2022-11-26 16:52] VITALS: BP 151/73
[2022-11-26 20:30] VITALS: BP 184/82
[2022-11-26] MEDS: cloNIDine 0.1 MG TABLET PO PRN (20:41)
[2022-11-26] MEDS: MELATONIN 3 MG TABLET PO PRN (20:41)
[2022-11-26 21:40] VITALS: BP 142/72
--- NOTE | 2022-11-27 05:08 | PM&R Progress Note ---
Subjective HPI/CC On Admission Date Seen by Provider: Nov 27, 2022 Time Seen by Provider: 12:00 Subjective/Events-last exam 11/27/2022: No major issues Had some dyspnea during activity but O2 sat ok Lungs remain clear PO abx 11/26/2022: Much improve More lucid Hearing loss makes communication difficult Sinimet seems to be helping the tremor without side effects 11/25/2022: Patient doing a lot better More lucid Less confusion We will arrange for outpatient Parkinson's therapy group Switching IV antibiotics to p.o. 11/24/2022: Much improve overall Less confusion Continues on Rocephin No falls Review of Systems General: Fatigue, Malaise Objective Exam Vital Signs Vital Signs Date Time Temp Pulse Resp B/P (MAP) Pulse Ox O2 Delivery O2 Flow Rate FiO2 11/27/22 09:50 Room Air 11/27/22 09:10 0.00 11/27/22 07:56 36.6 69 20 133/69 (90) 96 11/26/22 16:52 21 Capillary Refill : General Appearance: No Apparent Distress, WD/WN, Chronically ill HEENT: PERRL/EOMI, Normal ENT Inspection, Pharynx Normal Neck: Full Range of Motion, Normal Inspection, Non Tender, Supple, Carotid Bruit Respiratory: Chest Non Tender, Lungs Clear, Normal Breath Sounds, No Accessory Muscle Use, No Respiratory Distress Cardiovascular: Regular Rate, Rhythm, No Edema, No Gallop, No JVD, No Murmur, Normal Peripheral Pulses Gastrointestinal: Normal Bowel Sounds, No Organomegaly, No Pulsatile Mass, Non Tender, Soft Back: Normal Inspection, No CVA Tenderness, No Vertebral Tenderness Extremity: Normal Capillary Refill, Normal Inspection, Normal Range of Motion, Non Tender, No Calf Tenderness, No Pedal Edema Neurologic/Psychiatric: Alert, No Motor/Sensory Deficits, wireless sales associate II-XII Norm as Tested, Abnormal Gait, Depressed Affect, Disoriented, Motor Weakness (generalized), Other (tremor left hand and arm) Skin: Normal Color, Warm/Dry Lymphatic: No Adenopathy Results/Procedures Lab Patient resulted labs reviewed. FIM Transfers Therapy Code Descriptions/Definitions Functional [place] Measure: 0=Not Assessed/NA 4=Minimal Assistance 1=Total Assistance 5=Supervision or Setup 2=Maximal Assistance 6=Modified [place] 3=Moderate Assistance 7=Complete IndependenceSCALE: Activities may be completed with or without assistive devices. 2-Kvgvbvxrxl-kthfxya completes the activity by him/herself with no assistance from a helper. 5-Set-up or Clean-up Assistance-helper sets up or cleans up; patient completes activity. [place] assists only prior to or following the activity. 4-Supervision or Touching Assistance-helper provides verbal cues and/or touching/steadying and/or contact guard assistance as patient completes activity. Assistance may be provided throughout the activity or intermittently. 3-Partial/Moderate Assistance-helper does LESS THAN HALF the effort. [place] lifts, holds or supports trunk or limbs, but provides less than half the effort. 2-Substantial/Maximal Assistance-helper does MORE THAN HALF the effort. [place] lifts or holds trunk or limbs and provides more than half the effort. 9-Brchbzmgd-sjtdks does ALL the effort. Patient does none of the effort to complete the activity. Or, the assistance of 2 or more helpers is required for the patient to complete the activity. If activity was not attempted, code reason: 7-Patient Refused. 9-Not Applicable-not attempted and the patient did not perform the activity before the current illness, exacerbation or injury. 10-Not Attempted due to Environmental Limitations-(lack of equipment, weather restraints, etc.). 88-Not Attempted due to Medical Conditions or Safety Concerns. Roll Left to Right (QC): 3 (Min A ) Sit to Lying (QC): 3 (Min A ) Sit to Stand (QC): 4 Chair/Ski-ky-Twnke Xfer(QC): 4 Car Transfer (QC): 88 Gait Training Does the Patient Walk?: Yes Distance: 50', 30' Walk 10 feet (QC): 3 Walk 50 ft with 2 Turns(QC): 3 Walk 150 ft (QC): 88 Walking 10ft/uneven surface-QC: 88 Gait Persons Needed: 1 Gait Assistive Device: FWW Wheelchair Training Does the Pt Use a Wheelchair?: Yes Wheel 50 ft with 2 turns (QC): 5 Wheel 150 ft (QC): 88 Type of Wheelchair: Manual Stair Training 1 Step (curb) (QC): 88 4 Steps (QC): 88 12 Steps (QC): 9 (Pt has 4 steps to enter/exit home ) Balance Picking up an Object (QC): 3 (Min A ) ADL-Treatment Eating (QC): 6 Oral Hygiene (QC): 4 Shower/Bathe Self (QC): 3 (Mod assist to wash feet and between toes. Assist to wash back and rear cristina area thoroughly. Pt. able to wash all other parts.) Upper Body Dressing (QC): 3 (Mod assist overall. Pt. struggled to get shirt off over shoulders, but required only min assist to don by pulling down over back and belly.) Lower Body Dressing (QC): 3 (Pt. required assistance to thread depend over feet, and warehouse puller bottom thoroughly. she was able to thread feet into pants and pull up, but needed assist to warehouse puller belly. Mod assist overall.) On/Off Footwear (QC): 4 (CGA while bending over to don socks.) Toileting Hygiene (QC): 4 Toilet Transfer (QC): 4 Assessment/Plan Assessment and Plan Assess & Plan/Chief Complaint Assessment: Acute encephalopathy UTI Dementia Parkinson's disease new diagnosis Falls Hypokalemia Plan: Monitor closely Abx Fall risk 11/24/2022: Monitor closely Supplement potassium 11/25/2022: Change IV antibiotics to p.o. 11/26/2022: Monitor for falls 11/27/2022: Monitor [id number] (1) Encephalopathy (2) UTI (urinary tract infection) Status: Acute (3) Frequent falls Status: Acute (4) Parkinsons disease (5) Dementia SILVA CORTEZ DO Nov 27, 2022 05:08
[2022-11-27] MEDS: KCL 10 MEQ TAB (MICRO K) PO SCH (06:19)
[2022-11-27] MEDS: MULTIVIT W/MINERALS TAB (THERAGRAN M) PO SCH (06:19)
[2022-11-27] MEDS: LEVOTHYROXINE 50 MCG (LEVOTHROID) TAB PO SCH (06:19)
[2022-11-27 07:56] VITALS: BP 133/69
[2022-11-27] MEDS: CEFDINIR 300 MG CAPSULE PO SCH ×2 (09:08→20:02)
[2022-11-27] MEDS: FLUoxetine 20 MG CAPSULE PO SCH (09:08)
[2022-11-27] MEDS: CELECOXIB 100 MG CAPSULE PO SCH ×2 (09:08→20:03)
[2022-11-27] MEDS: SINEMET 25/100 (CARBIDOPA/LEVODOPA) TAB PO SCH ×3 (09:08→17:35)
[2022-11-27] MEDS: DOCUSATE SODIUM 100 MG CAPSULE PO SCH ×2 (09:08→21:02)
[2022-11-27] MEDS: PANTOPRAZOLE 40 MG (PROTONIX) TAB PO SCH (09:08)
[2022-11-27] MEDS: SENNA W/DOCUSATE (SENOKOT S) TABLET PO SCH ×2 (09:08→21:03)
[2022-11-27] MEDS: carvediloL 12.5 MG TABLET PO SCH ×2 (09:09→20:02)
[2022-11-27] MEDS: ASPIRIN enteric coated 81MG TABLET PO SCH (09:09)
[2022-11-27] MEDS: LOSARTAN 100 MG (COZAAR) TABLET PO SCH (09:09)
[2022-11-27] MEDS: IBUPROFEN 200 MG TABLET PO PRN ×2 (09:09→18:04)
[2022-11-27] MEDS: ENOXAPARIN 40 MG/0.4 ML SYRINGE SC SCH (09:10)
[2022-11-27] MEDS: FENTANYL 50 MCG TD SCH (09:10)
[2022-11-27] MEDS: FENTANYL PATCH REMOVAL TP SCH (09:11)
[2022-11-27] MEDS: polyethylene glycoL POWDER 17 GM (MIRALAX) PACK PO SCH ×2 (09:13→21:02)
[2022-11-27] MEDS: MICONAZOLE 2% POWDER (DESENEX AF) 90 GM TOP SCH ×2 (09:15→21:12)
--- NOTE | 2022-11-27 10:14 | Physical Therapy Daily Note ---
PT Daily Note-Current Subjective Pt in room in recliner and willing for therapy. PT reports no pain in hip this day and stated it started to feel better in the middle of the night. PT reports SOB during therapy but O2 was always 93 or higher, pt was given multiple rest breaks to be able to obtain breathing with in instructions on pursed lip breathing. pt was left in recliner with feet up and call light in hand with all needs met after therapy. Pain Section J - Health Conditions 1. Rarely or not at all 2. Occasionally 3. Frequently 4. Almost constantly 8. Unable to answer Pain Effect on Sleep: 2 Pain Interference with Therapy: 3 Pain Interference w/Day-to-Day: 3 Mental Status Patient Orientation: Person, Place Transfers SCALE: Activities may be completed with or without assistive devices. 0-Dngemiptmx-yadyhdi completes the activity by him/herself with no assistance from a helper. 5-Set-up or Clean-up Assistance-helper sets up or cleans up; patient completes activity. [place] assists only prior to or following the activity. 4-Supervision or Touching Assistance-helper provides verbal cues and/or touching/steadying and/or contact guard assistance as patient completes activity. Assistance may be provided throughout the activity or intermittently. 3-Partial/Moderate Assistance-helper does LESS THAN HALF the effort. [place] lifts, holds or supports trunk or limbs, but provides less than half the effort. 2-Substantial/Maximal Assistance-helper does MORE THAN HALF the effort. [place] lifts or holds trunk or limbs and provides more than half the effort. 7-Ocrvsncyw-fmdxzh does ALL the effort. Patient does none of the effort to complete the activity. Or, the assistance of 2 or more helpers is required for the patient to complete the activity. If activity was not attempted, code reason: 7-Patient Refused. 9-Not Applicable-not attempted and the patient did not perform the activity before the current illness, exacerbation or injury. 10-Not Attempted due to Environmental Limitations-(lack of equipment, weather restraints, etc.). 88-Not Attempted due to Medical Conditions or Safety Concerns. Weight Bearing Right Lower Extremity: Right Full Weight Bearing Left Lower Extremity: Left Full Weight Bearing Gait Training pt is able to ambulate 101 ft x 1 with CGA and RW with VC for correct posture and gait pattern. pt is able to ambulate 101 ft with one rest break the second time sitting in WC with RW and CGA with resting for aprox 1-2 mins. Exercises NuStep Minutes: 15 NuStep Workload: 1 Treatments PT working on mobility ambulation endurance and stamina. pt does require multiple rest breaks to be able to resume activity and to catch her breath. pt making gains in further distance ambulated this day Assessment Current Status: Good Progress PT Longterm Goals Foam Cutting Supervisor Goals PT Longterm Goals Time Frame: Dec 04, 2022 Roll Left & Right (QC): 4 (Pt will be SBA for all aspects of functional mobility, in order to safely d/c. ) Sit to Lying (QC): 4 (Pt will be SBA for all aspects of functional mobility, in order to safely d/c. ) Lying-Sitting on Side/Bed(QC): 4 (Pt will be SBA for all aspects of functional mobility, in order to safely d/c. ) Sit to Stand (QC): 4 (Pt will be SBA for all aspects of functional mobility, in order to safely d/c. ) Chair/Hyx-mz-Uvbpq Xfer(QC): 4 (Pt will be SBA for all aspects of functional mobility, in order to safely d/c. ) Toilet Transfer (QC): 4 (Pt will be SBA for all aspects of functional mobility, in order to safely d/c. ) Car Transfer (QC): 4 (Pt will be SBA for all aspects of functional mobility, in order to safely d/c. ) Does the Patient Walk: Yes Walk 10 feet (QC): 4 (Pt will be SBA for all aspects of functional mobility, in order to safely d/c. ) Walk 50ft with 2 Turns (QC): 4 (Pt will be SBA for all aspects of functional mobility, in order to safely d/c. ) Walk 150 ft (QC): 4 (Pt will be SBA for all aspects of functional mobility, in order to safely d/c. ) Walking 10ft on Uneven Surface: 4 (Pt will be SBA for all aspects of functional mobility, in order to safely d/c. ) 1 Step (curb) (QC): 4 (Pt will be SBA for all aspects of functional mobility, i n order to safely d/c. ) 4 Steps (QC): 4 (Pt will be SBA for all aspects of functional mobility, in order to safely d/c. ) 12 Steps (QC): 9 (Pt has 4 steps to enter/exit home ) Picking up an Object (QC): 4 (Pt will be SBA for all aspects of functional mobility, in order to safely d/c. ) Does the Pt use WC or Scooter?: Yes Wheel 50 feet with 2 turns (QC: 4 (Pt will be SBA for all aspects of functional mobility, in order to safely d/c. ) Type: Manual Wheel 150 feet: 4 (Pt will be SBA for all aspects of functional mobility, in order to safely d/c. ) Type: Manual PT Plan Treatment/Plan Treatment Plan: Continue Plan of Care Treatment Plan: Bed Mobility, Concurrent Therapy, Education, Functional Activity Rubén, Functional Strength, Group Therapy, Gait, Safety, Therapeutic Exercise, Transfers Treatment Duration: Dec 04, 2022 Frequency: At least 5 of 7 days/Wk (IRF) Estimated Hrs Per Day: 1.5 hours per day Patient and/or Family Agrees t: Yes Time Time In: 0800 Time Out: 0900 DATE: Nov 27, 2022 Total Billed Treatment Time: 60 Total Billed Treatment 1 GT x 2 EX x 2 Terra Baker PTA Nov 27, 2022 10:14
--- NOTE | 2022-11-27 10:39 | Occupational Ther Daily Note ---
OT Current Status-Daily Note Subjective Pt sitting in chair upon arrival, alert and cooperative. Pt agreed to therapy, no pain mentioned at this time pt stated "pain in lower back stopped about middle of the night". ADL-Treatment Pt ambulated to bathroom CGA. Pt completed shower with close SBA. Pt stood 2 times to wash and rinse buttocks, when standing therapist CGA for safety. Pt then transferred to chair in bathroom to dry off all the way. Pt dried self off and completed upper body dressing with Sandra for pulling shirt down in back. Pt completed lower body dressing with SBA and CGA when pt stood to hike pants over buttocks. Pt became fatigued and pt presented shortness of breath, therapist checked o2 (95%), therapist contiued to monitor states throughout therapy session. Pt required multiple recovery breaks during therapy pm this day. Pt t donned socks with Sandra requring assistance to fix socks and pull all the way on, pt demonstrates ability to claudia socks most of the way self. Pt was very fatigued, so recovery break required before oral hygiene. pt ambulated to sink with chair behind pt for safety and rest break. Pt completed oral hygiene with close SBA. Pt required legthy recovery break before ambulating back to chair in room. Pt ambulated with CGA to recliner in room to rest. Pt o2 was 98% when seated in chair after shower and oral hygiene. Pt was left sitting in chair in room, call light in hand, chair alarm in place, all needs met at this time. Therapy Code Descriptions/Definitions Functional [place] Measure: 0=Not Assessed/NA 4=Minimal Assistance 1=Total Assistance 5=Supervision or Setup 2=Maximal Assistance 6=Modified [place] 3=Moderate Assistance 7=Complete IndependenceSCALE: Activities may be completed with or without assistive devices. 5-Iqicjrxvck-mhrbpgb completes the activity by him/herself with no assistance from a helper. 5-Set-up or Clean-up Assistance-helper sets up or cleans up; patient completes activity. [place] assists only prior to or following the activity. 4-Supervision or Touching Assistance-helper provides verbal cues and/or touching/steadying and/or contact guard assistance as patient completes activity. Assistance may be provided throughout the activity or intermittently. 3-Partial/Moderate Assistance-helper does LESS THAN HALF the effort. [place] lifts, holds or supports trunk or limbs, but provides less than half the effort. 2-Substantial/Maximal Assistance-helper does MORE THAN HALF the effort. [place] lifts or holds trunk or limbs and provides more than half the effort. 0-Qxfahajqt-wtwqnk does ALL the effort. Patient does none of the effort to complete the activity. Or, the assistance of 2 or more helpers is required for the patient to complete the activity. If activity was not attempted, code reason: 7-Patient Refused. 9-Not Applicable-not attempted and the patient did not perform the activity before the current illness, exacerbation or injury. 10-Not Attempted due to Environmental Limitations-(lack of equipment, weather restraints, etc.). 88-Not Attempted due to Medical Conditions or Safety Concerns. Shower/Bathe Self (QC): 4 Upper Body Dressing (QC): 3 Lower Body Dressing (QC): 4 On/Off Footwear: 3 Education OT Patient Education: Disease process, Modified ADL techniques, Progress toward Goal/Update tx plan, Purpose of tx/functional activities, Safety issues, Transfer techniques Teaching Recipient: Patient Teaching Methods: Discussion Response to Teaching: Verbalize Understanding OT Short Term Goals Short Term Goals Time Frame: Nov 27, 2022 Eatin Oral hygiene: 6 Upper body dressin OT Nursing Home Goals Nursing Home Goals Time Frame: Dec 04, 2022 Acute change in mental status: 0 Inattention: 0 Disorganized thinkin Altered level of consciousness: 0 Eating (QC): 6 Oral Hygiene (QC): 6 Toileting Hygiene (QC): 5 Shower/Bathe Self (QC): 5 Upper Body Dressing (QC): 5 Lower Body Dressing (QC): 5 On/Off Footwear (QC): 5 1=Demonstrate adherence to instructed precautions during ADL tasks. 2=Patient will verbalize/demonstrate understanding of assistive devices/modifications for ADL. 3=Patient will improve strength/tolerance for activity to enable patient to perform ADL's. OT Education/Plan Problem List/Assessment Assessment: Decreased Activ Tolerance, Decreased Safety Aware, Decreased UE Strength Discharge Recommendations Plan/Recommendations: Continue POC Treatment Plan/Plan of Care Patient would benefit from OT for education, treatment and training to promote independence in ADL's, mobility, safety and/or upper extremity function for ADL's. Plan of Care: ADL Retraining, Concurrent Therapy, Functional Mobility, Group Exercise/Act as Ind, UE Funct Exercise/Act Treatment Duration: Dec 04, 2022 Frequency: At least 5 of 7 days/Wk (IRF) Estimated Hrs Per Day: 1.5 hours per day Agreement: Yes Rehab Potential: Good Time Start Time: 09:30 Stop Time: 10:45 DATE: Nov 27, 2022 Total Time Billed (hr/min): 75 Billed Treatment Time 1 visit ADL 5 (75) Jo Ann Wilcox COTA Nov 27, 2022 10:39
--- NOTE | 2022-11-27 11:40 | Speech Therapy Daily Note ---
Speech Daily Progress Note Subjective Date Seen by Provider: Nov 27, 2022 Time Seen by Provider: 09:00 Pt sitting up in the recliner in her room. Pt had just finished with physical therapy. Pt states she is exhausted. Pt pleasant and cooperative throughout the session. Pain Numeric Pain Scale: 0-No Pain Objective Pt completes mental manipulation of 3 words, by providing them back in reverse order with 70% accuracy independently and with 100% accuracy with min verbal cues. Pt completes word deduction, pt given 3 words that describe an object and pt has to name the object, with 100% accuracy independently. Pt continues to dem onstrate daily gains in speech therapy. Assessment Assessment Current Status: Good Progress Treatment Plan Continue Plan of Care Speech Short Term Goals Short Term Goals Short Term Goals 1. Pt to be educated on different memory strategies. Speech Lime Hide Inspector Goals Lime Hide Inspector Goals 1. Pt to complete auditory memory tasks with 80% accuracy with min verbal prompts and use of strategies as appropriate. Speech-Plan Patient/Family Goals Patient/Family Goals: Pt's goal is to return home with her daughter. Treatment Plan Speech Therapy Treatment Plan: Continue Plan of Care Treatment Duration: Nov 24, 2022 Frequency: Modified Program (IRF) Estimated Hrs Per Day: Other Rehab Potential: Good Pt/Family Agrees to Plan: Yes Safety Risks/Education Teaching Recipient: Patient Teaching Methods: Discussion Response to Teaching: Verbalize Understanding, Reinforcement Needed Education Topics Provided: Pt educated on purpose of therapy tasks. Pt receptive and verbalized understanding. Time Speech Therapy Time In: 09:00 Speech Therapy Time Out: 09:30 DATE: Nov 27, 2022 Total Billed Time: 30 Billed Treatment Time S/L Sole Zapata Speech Therapy Nov 27, 2022 11:40
--- NOTE | 2022-11-27 15:36 | Physical Therapy Daily Note ---
PT Daily Note-Current Subjective Patient sitting in recliner with BLE on floor with daughter at side when PT enters room. Patient reports minimal pain, and that she is "getting much better." Patient agreeable to afternoon session. Pain Section J - Health Conditions 1. Rarely or not at all 2. Occasionally 3. Frequently 4. Almost constantly 8. Unable to answer Pain Effect on Sleep: 2 Pain Interference with Therapy: 3 Pain Interference w/Day-to-Day: 3 Transfers SCALE: Activities may be completed with or without assistive devices. 7-Yemljwuhiq-vnbfogd completes the activity by him/herself with no assistance fr om a helper. 5-Set-up or Clean-up Assistance-helper sets up or cleans up; patient completes activity. [place] assists only prior to or following the activity. 4-Supervision or Touching Assistance-helper provides verbal cues and/or touching/steadying and/or contact guard assistance as patient completes activity. Assistance may be provided throughout the activity or intermittently. 3-Partial/Moderate Assistance-helper does LESS THAN HALF the effort. [place] lifts, holds or supports trunk or limbs, but provides less than half the effort. 2-Substantial/Maximal Assistance-helper does MORE THAN HALF the effort. [place] lifts or holds trunk or limbs and provides more than half the effort. 9-Cndsthefy-xiwweg does ALL the effort. Patient does none of the effort to complete the activity. Or, the assistance of 2 or more helpers is required for the patient to complete the activity. If activity was not attempted, code reason: 7-Patient Refused. 9-Not Applicable-not attempted and the patient did not perform the activity before the current illness, exacerbation or injury. 10-Not Attempted due to Environmental Limitations-(lack of equipment, weather restraints, etc.). 88-Not Attempted due to Medical Conditions or Safety Concerns. Weight Bearing Right Lower Extremity: Right Full Weight Bearing Left Lower Extremity: Left Full Weight Bearing Gait Training Walk 10 feet (QC): 4 Walk 50 ft with 2 Turns(QC): 4 Patient participated in bouts of functional gait training with use of FWW, focusing on stepping mechanics, amb posture, gregorio control and management of AD. Patient educated on improving functional gait and potential benefit of functional practice in modified shoes. Patient achieve bouts of 50-70ft, CGA x4. Assessment Patient tolerated session well without adverse rxn. PT communicate with SLIP SEAT COVERER and nursing, identifying lift placed internally in patient pair of shoes due to leg discrepancy. Patient provided with TEOFILO padilla for fitting of shoes in future sessions and functional practice. PT Business Integration Analyst Goals Business Integration Analyst Goals PT Business Integration Analyst Goals Time Frame: Dec 04, 2022 Roll Left & Right (QC): 4 (Pt will be SBA for all aspects of functional mobility, in order to safely d/c. ) Sit to Lying (QC): 4 (Pt will be SBA for all aspects of functional mobility, in order to safely d/c. ) Lying-Sitting on Side/Bed(QC): 4 (Pt will be SBA for all aspects of functional mobility, in order to safely d/c. ) Sit to Stand (QC): 4 (Pt will be SBA for all aspects of functional mobility, in order to safely d/c. ) Chair/Hzi-zh-Juhbf Xfer(QC): 4 (Pt will be SBA for all aspects of functional mobility, in order to safely d/c. ) Toilet Transfer (QC): 4 (Pt will be SBA for all aspects of functional mobility, in order to safely d/c. ) Car Transfer (QC): 4 (Pt will be SBA for all aspects of functional mobility, in order to safely d/c. ) Does the Patient Walk: Yes Walk 10 feet (QC): 4 (Pt will be SBA for all aspects of functional mobility, in order to safely d/c. ) Walk 50ft with 2 Turns (QC): 4 (Pt will be SBA for all aspects of functional mobility, in order to safely d/c. ) Walk 150 ft (QC): 4 (Pt will be SBA for all aspects of functional mobility, in order to safely d/c. ) Walking 10ft on Uneven Surface: 4 (Pt will be SBA for all aspects of functional mobility, in order to safely d/c. ) 1 Step (curb) (QC): 4 (Pt will be SBA for all aspects of functional mobility, in order to safely d/c. ) 4 Steps (QC): 4 (Pt will be SBA for all aspects of functional mobility, in order to safely d/c. ) 12 Steps (QC): 9 (Pt has 4 steps to enter/exit home ) Picking up an Object (QC): 4 (Pt will be SBA for all aspects of functional mobility, in order to safely d/c. ) Does the Pt use WC or Scooter?: Yes Wheel 50 feet with 2 turns (QC: 4 (Pt will be SBA for all aspects of functional mobility, in order to safely d/c. ) Type: Manual Wheel 150 feet: 4 (Pt will be SBA for all aspects of functional mobility, in order to safely d/c. ) Type: Manual PT Plan Treatment/Plan Treatment Plan: Continue Plan of Care Treatment Plan: Bed Mobility, Concurrent Therapy, Education, Functional Activity Rubén, Functional Strength, Group Therapy, Gait, Safety, Therapeutic Exercise, Transfers Treatment Duration: Dec 04, 2022 Frequency: At least 5 of 7 days/Wk (IRF) Estimated Hrs Per Day: 1.5 hours per day Patient and/or Family Agrees t: Yes Time Time In: 1424 Time Out: 1419 DATE: Nov 27, 2022 Total Billed Treatment Time: 15 Total Billed Treatment 1 visit 1GT MARISELA MC PT Nov 27, 2022 15:36
[2022-11-27 19:50] VITALS: BP 173/79
[2022-11-27] MEDS: cloNIDine 0.1 MG TABLET PO PRN (20:03)
[2022-11-27 21:00] VITALS: BP 140/69
[2022-11-28] MEDS: IBUPROFEN 200 MG TABLET PO PRN (04:23)
[2022-11-28] MEDS: LEVOTHYROXINE 50 MCG (LEVOTHROID) TAB PO SCH (06:43)
[2022-11-28] MEDS: MULTIVIT W/MINERALS TAB (THERAGRAN M) PO SCH (06:43)
[2022-11-28] MEDS: KCL 10 MEQ TAB (MICRO K) PO SCH (06:44)
--- NOTE | 2022-11-28 06:50 | PM&R Progress Note ---
Subjective HPI/CC On Admission Date Seen by Provider: Nov 28, 2022 Time Seen by Provider: 12:30 Subjective/Events-last exam 11/28/2022: No major issues Family at bedside Hip pain resolved Talked about Parkinson's Patient very sedentary at home 11/27/2022: No major issues Had some dyspnea during activity but O2 sat ok Lungs remain clear PO abx 11/26/2022: Much improve More lucid Hearing loss makes communication difficult Sinimet seems to be helping the tremor without side effects 11/25/2022: Patient doing a lot better More lucid Less confusion We will arrange for outpatient Parkinson's therapy group Switching IV antibiotics to p.o. 11/24/2022: Much improve overall Less confusion Continues on Rocephin No falls Review of Systems General: Fatigue, Malaise Neurological: Weakness, Incoordination, Confusion Objective Exam Vital Signs Vital Signs Date Time Temp Pulse Resp B/P (MAP) Pulse Ox O2 Delivery O2 Flow Rate FiO2 11/28/22 10:28 72 185/85 (118) 11/28/22 09:56 36.3 20 97 Room Air 11/28/22 07:59 0.00 11/26/22 16:52 21 Capillary Refill : General Appearance: No Apparent Distress, WD/WN, Chronically ill HEENT: PERRL/EOMI, Normal ENT Inspection, Pharynx Normal Neck: Full Range of Motion, Normal Inspection, Non Tender, Supple, Carotid Bruit Respiratory: Chest Non Tender, Lungs Clear, Normal Breath Sounds, No Accessory Muscle Use, No Respiratory Distress Cardiovascular: Regular Rate, Rhythm, No Edema, No Gallop, No JVD, No Murmur, Normal Peripheral Pulses Gastrointestinal: Normal Bowel Sounds, No Organomegaly, No Pulsatile Mass, Non Tender, Soft Back: Normal Inspection, No CVA Tenderness, No Vertebral Tenderness Extremity: Normal Capillary Refill, Normal Inspection, Normal Range of Motion, Non Tender, No Calf Tenderness, No Pedal Edema Neurologic/Psychiatric: Alert, No Motor/Sensory Deficits, lacquer sizer II-XII Norm as Tested, Abnormal Gait, Depressed Affect, Disoriented, Motor Weakness (generalized), Other (tremor left hand and arm) Skin: Normal Color, Warm/Dry Lymphatic: No Adenopathy Results/Procedures Lab Patient resulted labs reviewed. FIM Transfers Therapy Code Descriptions/Definitions Functional [place] Measure: 0=Not Assessed/NA 4=Minimal Assistance 1=Total Assistance 5=Supervision or Setup 2=Maximal Assistance 6=Modified [place] 3=Moderate Assistance 7=Complete IndependenceSCALE: Activities may be completed with or without assistive devices. 9-Aipvzlvjyu-qqwgezz completes the activity by him/herself with no assistance from a helper. 5-Set-up or Clean-up Assistance-helper sets up or cleans up; patient completes activity. [place] assists only prior to or following the activity. 4-Supervision or Touching Assistance-helper provides verbal cues and/or touching/steadying and/or contact guard assistance as patient completes activity. Assistance may be provided throughout the activity or intermittently. 3-Partial/Moderate Assistance-helper does LESS THAN HALF the effort. [place] lifts, holds or supports trunk or limbs, but provides less than half the effort. 2-Substantial/Maximal Assistance-helper does MORE THAN HALF the effort. [place] lifts or holds trunk or limbs and provides more than half the effort. 9-Nabfwjkck-fcdojw does ALL the effort. Patient does none of the effort to complete the activity. Or, the assistance of 2 or more helpers is required for the patient to complete the activity. If activity was not attempted, code reason: 7-Patient Refused. 9-Not Applicable-not attempted and the patient did not perform the activity before the current illness, exacerbation or injury. 10-Not Attempted due to Environmental Limitations-(lack of equipment, weather restraints, etc.). 88-Not Attempted due to Medical Conditions or Safety Concerns. Roll Left to Right (QC): 3 (Min A ) Sit to Lying (QC): 3 (Min A ) Sit to Stand (QC): 4 Chair/Hqp-mx-Fgssc Xfer(QC): 4 Car Transfer (QC): 88 Gait Training Does the Patient Walk?: Yes Distance: 50', 30' Walk 10 feet (QC): 4 Walk 50 ft with 2 Turns(QC): 4 Walk 150 ft (QC): 88 Walking 10ft/uneven surface-QC: 88 Gait Persons Needed: 1 Gait Assistive Device: FWW Wheelchair Training Does the Pt Use a Wheelchair?: Yes Wheel 50 ft with 2 turns (QC): 5 Wheel 150 ft (QC): 88 Type of Wheelchair: Manual Stair Training 1 Step (curb) (QC): 88 4 Steps (QC): 88 12 Steps (QC): 9 (Pt has 4 steps to enter/exit home ) Balance Picking up an Object (QC): 3 (Min A ) ADL-Treatment Eating (QC): 6 Oral Hygiene (QC): 4 Shower/Bathe Self (QC): 4 Upper Body Dressing (QC): 3 Lower Body Dressing (QC): 4 On/Off Footwear (QC): 3 Toileting Hygiene (QC): 4 Toilet Transfer (QC): 4 Assessment/Plan Assessment and Plan Assess & Plan/Chief Complaint Assessment: Acute encephalopathy UTI Dementia Parkinson's disease new diagnosis Falls Hypokalemia Plan: Monitor closely Abx Fall risk 11/24/2022: Monitor closely Supplement potassium 11/25/2022: Change IV antibiotics to p.o. 11/26/2022: Monitor for falls 11/27/2022: Monitor [id number] 11/28/2022: Monitor closely Encephalopathy clearing (1) Encephalopathy (2) UTI (urinary tract infection) Status: Acute (3) Frequent falls Status: Acute (4) Parkinsons disease (5) Dementia SILVA CORTEZ DO Nov 28, 2022 06:50
[2022-11-28 09:56] VITALS: BP 162/78
[2022-11-28] MEDS: CELECOXIB 100 MG CAPSULE PO SCH ×2 (10:01→20:00)
[2022-11-28] MEDS: carvediloL 12.5 MG TABLET PO SCH ×2 (10:01→20:00)
[2022-11-28] MEDS: ASPIRIN enteric coated 81MG TABLET PO SCH (10:01)
[2022-11-28] MEDS: LOSARTAN 100 MG (COZAAR) TABLET PO SCH (10:01)
[2022-11-28] MEDS: FLUoxetine 20 MG CAPSULE PO SCH (10:01)
[2022-11-28] MEDS: CEFDINIR 300 MG CAPSULE PO SCH ×2 (10:01→20:00)
[2022-11-28] MEDS: SINEMET 25/100 (CARBIDOPA/LEVODOPA) TAB PO SCH ×3 (10:02→17:41)
[2022-11-28] MEDS: ENOXAPARIN 40 MG/0.4 ML SYRINGE SC SCH (10:02)
[2022-11-28] MEDS: polyethylene glycoL POWDER 17 GM (MIRALAX) PACK PO SCH ×2 (10:02→21:00)
[2022-11-28] MEDS: SENNA W/DOCUSATE (SENOKOT S) TABLET PO SCH ×2 (10:25→21:00)
[2022-11-28] MEDS: PANTOPRAZOLE 40 MG (PROTONIX) TAB PO SCH (10:25)
[2022-11-28] MEDS: DOCUSATE SODIUM 100 MG CAPSULE PO SCH ×2 (10:25→21:00)
[2022-11-28 10:28] VITALS: BP 185/85
[2022-11-28] MEDS: MICONAZOLE 2% POWDER (DESENEX AF) 90 GM TOP SCH ×2 (10:37→20:00)
[2022-11-28] MEDS: cloNIDine 0.1 MG TABLET PO PRN (10:40)
[2022-11-28 11:52] VITALS: BP 130/74
[2022-11-28] MEDS: ACETAMINOPHEN 325 MG TABLET PO PRN (14:24)
[2022-11-28] MEDS: MELATONIN 3 MG TABLET PO PRN (20:00)
[2022-11-28 20:35] VITALS: BP 155/73
[2022-11-29] MEDS: MULTIVIT W/MINERALS TAB (THERAGRAN M) PO SCH (06:11)
[2022-11-29] MEDS: KCL 10 MEQ TAB (MICRO K) PO SCH (06:11)
[2022-11-29] MEDS: LEVOTHYROXINE 50 MCG (LEVOTHROID) TAB PO SCH (06:11)
--- NOTE | 2022-11-29 06:55 | PM&R Progress Note ---
Subjective HPI/CC On Admission Date Seen by Provider: Nov 29, 2022 Time Seen by Provider: 12:00 Subjective/Events-last exam 11/29/2022: Patient doing well Supportive care is doing well Daughter at the bedside Left arm tremor much improved with Sinemet 11/28/2022: No major issues Family at bedside Hip pain resolved Talked about Parkinson's Patient very sedentary at home 11/27/2022: No major issues Had some dyspnea during activity but O2 sat ok Lungs remain clear PO abx 11/26/2022: Much improve More lucid Hearing loss makes communication difficult Sinimet seems to be helping the tremor without side effects 11/25/2022: Patient doing a lot better More lucid Less confusion We will arrange for outpatient Parkinson's therapy group Switching IV antibiotics to p.o. 11/24/2022: Much improve overall Less confusion Continues on Rocephin No falls Review of Systems General: Fatigue, Malaise Objective Exam Vital Signs Vital Signs Date Time Temp Pulse Resp B/P (MAP) Pulse Ox O2 Delivery O2 Flow Rate FiO2 11/29/22 09:12 36.7 66 20 159/69 (99) 97 Room Air 11/28/22 07:59 0.00 11/26/22 16:52 21 Capillary Refill : General Appearance: No Apparent Distress, WD/WN, Chronically ill HEENT: PERRL/EOMI, Normal ENT Inspection, Pharynx Normal Neck: Full Range of Motion, Normal Inspection, Non Tender, Supple, Carotid Bruit Respiratory: Chest Non Tender, Lungs Clear, Normal Breath Sounds, No Accessory Muscle Use, No Respiratory Distress Cardiovascular: Regular Rate, Rhythm, No Edema, No Gallop, No JVD, No Murmur, Normal Peripheral Pulses Gastrointestinal: Normal Bowel Sounds, No Organomegaly, No Pulsatile Mass, Non Tender, Soft Back: Normal Inspection, No CVA Tenderness, No Vertebral Tenderness Extremity: Normal Capillary Refill, Normal Inspection, Normal Range of Motion, Non Tender, No Calf Tenderness, No Pedal Edema Neurologic/Psychiatric: Alert, No Motor/Sensory Deficits, 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 FIM Transfers Therapy Code Descriptions/Definitions Functional [place] Measure: 0=Not Assessed/NA 4=Minimal Assistance 1=Total Assistance 5=Supervision or Setup 2=Maximal Assistance 6=Modified [place] 3=Moderate Assistance 7=Complete IndependenceSCALE: Activities may be completed with or without assistive devices. 3-Dndziirtlb-ubjgjzy completes the activity by him/herself with no assistance from a helper. 5-Set-up or Clean-up Assistance-helper sets up or cleans up; patient completes activity. [place] assists only prior to or following the activity. 4-Supervision or Touching Assistance-helper provides verbal cues and/or touching/steadying and/or contact guard assistance as patient completes activity. Assistance may be provided throughout the activity or intermittently. 3-Partial/Moderate Assistance-helper does LESS THAN HALF the effort. [place] lifts, holds or supports trunk or limbs, but provides less than half the effort. 2-Substantial/Maximal Assistance-helper does MORE THAN HALF the effort. [place] lifts or holds trunk or limbs and provides more than half the effort. 5-Jbouhuyzp-pytnij does ALL the effort. Patient does none of the effort to complete the activity. Or, the assistance of 2 or more helpers is required for the patient to complete the activity. If activity was not attempted, code reason: 7-Patient Refused. 9-Not Applicable-not attempted and the patient did not perform the activity before the current illness, exacerbation or injury. 10-Not Attempted due to Environmental Limitations-(lack of equipment, weather restraints, etc.). 88-Not Attempted due to Medical Conditions or Safety Concerns. Roll Left to Right (QC): 3 (Min A ) Sit to Lying (QC): 3 (Min A ) Sit to Stand (QC): 4 Chair/Zix-kb-Pneym Xfer(QC): 4 Car Transfer (QC): 88 Gait Training Does the Patient Walk?: Yes Distance: 50', 30' Walk 10 feet (QC): 4 Walk 50 ft with 2 Turns(QC): 4 Walk 150 ft (QC): 88 Walking 10ft/uneven surface-QC: 88 Gait Persons Needed: 1 Gait Assistive Device: FWW Wheelchair Training Does the Pt Use a Wheelchair?: Yes Wheel 50 ft with 2 turns (QC): 5 Wheel 150 ft (QC): 88 Type of Wheelchair: Manual Stair Training 1 Step (curb) (QC): 88 4 Steps (QC): 88 12 Steps (QC): 9 (Pt has 4 steps to enter/exit home ) Balance Picking up an Object (QC): 3 (Min A ) ADL-Treatment Eating (QC): 6 Oral Hygiene (QC): 4 Shower/Bathe Self (QC): 4 Upper Body Dressing (QC): 3 Lower Body Dressing (QC): 4 On/Off Footwear (QC): 3 Toileting Hygiene (QC): 4 Toilet Transfer (QC): 4 Assessment/Plan Assessment and Plan Assess & Plan/Chief Complaint Assessment: Acute encephalopathy UTI Dementia Parkinson's disease new diagnosis Falls Hypokalemia Plan: Monitor closely Abx Fall risk 11/24/2022: Monitor closely Supplement potassium 11/25/2022: Change IV antibiotics to p.o. 11/26/2022: Monitor for falls 11/27/2022: Monitor ZAZUETA 11/28/2022: Monitor closely Encephalopathy clearing 11/29/2022: Continue Sinemet (1) Encephalopathy (2) UTI (urinary tract infection) Status: Acute (3) Frequent falls Status: Acute (4) Parkinsons disease (5) Dementia SILVA CORTEZ DO Nov 29, 2022 06:55
[2022-11-29 09:12] VITALS: BP 159/69
[2022-11-29] MEDS: FLUoxetine 20 MG CAPSULE PO SCH (09:57)
[2022-11-29] MEDS: carvediloL 12.5 MG TABLET PO SCH ×2 (09:57→20:15)
[2022-11-29] MEDS: LOSARTAN 100 MG (COZAAR) TABLET PO SCH (09:57)
[2022-11-29] MEDS: CEFDINIR 300 MG CAPSULE PO SCH ×2 (09:57→20:15)
[2022-11-29] MEDS: CELECOXIB 100 MG CAPSULE PO SCH ×2 (09:57→20:16)
[2022-11-29] MEDS: ASPIRIN enteric coated 81MG TABLET PO SCH (09:57)
[2022-11-29] MEDS: PANTOPRAZOLE 40 MG (PROTONIX) TAB PO SCH (09:57)
[2022-11-29] MEDS: ENOXAPARIN 40 MG/0.4 ML SYRINGE SC SCH (09:58)
[2022-11-29] MEDS: SINEMET 25/100 (CARBIDOPA/LEVODOPA) TAB PO SCH ×3 (10:02→16:48)
[2022-11-29] MEDS: FERROUS SULFATE 325 MG (IRON) TABLET PO SCH (10:02)
[2022-11-29] MEDS: ACETAMINOPHEN 325 MG TABLET PO PRN (10:39)
[2022-11-29] MEDS: MICONAZOLE 2% POWDER (DESENEX AF) 90 GM TOP SCH ×2 (10:42→20:16)
[2022-11-29] MEDS: DOCUSATE SODIUM 100 MG CAPSULE PO SCH ×2 (18:25→21:00)
[2022-11-29] MEDS: SENNA W/DOCUSATE (SENOKOT S) TABLET PO SCH ×2 (18:26→21:00)
[2022-11-29] MEDS: polyethylene glycoL POWDER 17 GM (MIRALAX) PACK PO SCH ×2 (18:26→21:00)
[2022-11-29 19:26] VITALS: BP 150/65
[2022-11-29] MEDS: MELATONIN 3 MG TABLET PO PRN (20:15)
[2022-11-30 00:36] VITALS: BP 150/65
[2022-11-30 05:48] LABS: BASOPHILS # (AUTO) 0.1 10^3/uL (0.0-0.1); BASOPHILS % (AUTO) 1 % (0-10); EOSINOPHILS # (AUTO) 0.3 10^3/uL (0.0-0.3); EOSINOPHILS % (AUTO) 4 % (0-10); HEMATOCRIT 35 % (35-52); HEMOGLOBIN 11.4 g/dL (11.5-16.0); LYMPHOCYTES # (AUTO) 1.8 10^3/uL (1.0-4.0); LYMPHOCYTES % (AUTO) 22 % (12-44); MEAN CORPUSCULAR HEMOGLOBIN 30 pg (25-34); MEAN CORPUSCULAR HGB CONC 33 g/dL (32-36); MEAN CORPUSCULAR VOLUME 90 fL (80-99); MEAN PLATELET VOLUME 9.4 fL (9.0-12.2); MONOCYTES # (AUTO) 0.8 10^3/uL (0.0-1.0); MONOCYTES % (AUTO) 9 % (0-12); NEUTROPHILS # (AUTO) 5.1 10^3/uL (1.8-7.8); NEUTROPHILS % (AUTO) 61 % (42-75); PLATELET COUNT 263 10^3/uL (130-400); WHITE BLOOD COUNT 8.3 10^3/uL (4.3-11.0)
[2022-11-30 05:59] LABS: ALBUMIN 3.4 GM/DL (3.2-4.5); POTASSIUM 3.9 MMOL/L (3.6-5.0)
[2022-11-30 06:01] LABS: CALCIUM 8.7 MG/DL (8.5-10.1)
[2022-11-30 06:02] LABS: TOTAL PROTEIN 6.4 GM/DL (6.4-8.2)
[2022-11-30 06:04] LABS: BILIRUBIN,TOTAL 0.3 MG/DL (0.1-1.0)
--- NOTE | 2022-11-30 06:19 | PM&R Progress Note ---
Subjective HPI/CC On Admission Date Seen by Provider: Nov 30, 2022 Time Seen by Provider: 09:00 Subjective/Events-last exam 11/30/2022: Much improved overall No pain reported No falls Improved left hand tremor 11/29/2022: Patient doing well Supportive care is doing well Daughter at the bedside Left arm tremor much improved with Sinemet 11/28/2022: No major issues Family at bedside Hip pain resolved Talked about Parkinson's Patient very sedentary at home 11/27/2022: No major issues Had some dyspnea during activity but O2 sat ok Lungs remain clear PO abx 11/26/2022: Much improve More lucid Hearing loss makes communication difficult Sinimet seems to be helping the tremor without side effects 11/25/2022: Patient doing a lot better More lucid Less confusion We will arrange for outpatient Parkinson's therapy group Switching IV antibiotics to p.o. 11/24/2022: Much improve overall Less confusion Continues on Rocephin No falls Review of Systems General: Fatigue, Malaise Objective Exam Vital Signs Vital Signs Date Time Temp Pulse Resp B/P (MAP) Pulse Ox O2 Delivery O2 Flow Rate FiO2 11/30/22 19:51 36.3 67 20 156/78 (104) 96 Room Air 11/30/22 00:36 21 11/28/22 07:59 0.00 Capillary Refill : General Appearance: No Apparent Distress, WD/WN, Chronically ill HEENT: PERRL/EOMI, Normal ENT Inspection, Pharynx Normal Neck: Full Range of Motion, Normal Inspection, Non Tender, Supple, Carotid Bruit Respiratory: Chest Non Tender, Lungs Clear, Normal Breath Sounds, No Accessory Muscle Use, No Respiratory Distress Cardiovascular: Regular Rate, Rhythm, No Edema, No Gallop, No JVD, No Murmur, Normal Peripheral Pulses Gastrointestinal: Normal Bowel Sounds, No Organomegaly, No Pulsatile Mass, Non Tender, Soft Back: Normal Inspection, No CVA Tenderness, No Vertebral Tenderness Extremity: Normal Capillary Refill, Normal Inspection, Normal Range of Motion, Non Tender, No Calf Tenderness, No Pedal Edema Neurologic/Psychiatric: Alert, No Motor/Sensory Deficits, 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 FIM Transfers Therapy Code Descriptions/Definitions Functional [place] Measure: 0=Not Assessed/NA 4=Minimal Assistance 1=Total Assistance 5=Supervision or Setup 2=Maximal Assistance 6=Modified [place] 3=Moderate Assistance 7=Complete IndependenceSCALE: Activities may be completed with or without assistive devices. 9-Vxcurlporg-gnyihth completes the activity by him/herself with no assistance from a helper. 5-Set-up or Clean-up Assistance-helper sets up or cleans up; patient completes activity. [place] assists only prior to or following the activity. 4-Supervision or Touching Assistance-helper provides verbal cues and/or touching/steadying and/or contact guard assistance as patient completes activity. Assistance may be provided throughout the activity or intermittently. 3-Partial/Moderate Assistance-helper does LESS THAN HALF the effort. [place] lifts, holds or supports trunk or limbs, but provides less than half the effort. 2-Substantial/Maximal Assistance-helper does MORE THAN HALF the effort. [place] l ifts or holds trunk or limbs and provides more than half the effort. 4-Vbraraveu-rwflwg does ALL the effort. Patient does none of the effort to complete the activity. Or, the assistance of 2 or more helpers is required for the patient to complete the activity. If activity was not attempted, code reason: 7-Patient Refused. 9-Not Applicable-not attempted and the patient did not perform the activity before the current illness, exacerbation or injury. 10-Not Attempted due to Environmental Limitations-(lack of equipment, weather restraints, etc.). 88-Not Attempted due to Medical Conditions or Safety Concerns. Roll Left to Right (QC): 3 (Min A ) Sit to Lying (QC): 3 (Min A ) Sit to Stand (QC): 4 Chair/Kut-ek-Eoysz Xfer(QC): 4 Car Transfer (QC): 88 Gait Training Does the Patient Walk?: Yes Distance: 50', 30' Walk 10 feet (QC): 4 Walk 50 ft with 2 Turns(QC): 4 Walk 150 ft (QC): 88 Walking 10ft/uneven surface-QC: 88 Gait Persons Needed: 1 Gait Assistive Device: FWW Wheelchair Training Does the Pt Use a Wheelchair?: Yes Wheel 50 ft with 2 turns (QC): 5 Wheel 150 ft (QC): 88 Type of Wheelchair: Manual Stair Training 1 Step (curb) (QC): 88 4 Steps (QC): 88 12 Steps (QC): 9 (Pt has 4 steps to enter/exit home ) Balance Picking up an Object (QC): 3 (Min A ) ADL-Treatment Eating (QC): 6 Oral Hygiene (QC): 4 Shower/Bathe Self (QC): 4 Upper Body Dressing (QC): 3 Lower Body Dressing (QC): 4 On/Off Footwear (QC): 3 Toileting Hygiene (QC): 4 Toilet Transfer (QC): 4 Assessment/Plan Assessment and Plan Assess & Plan/Chief Complaint Assessment: Acute encephalopathy UTI Dementia Parkinson's disease new diagnosis Falls Hypokalemia Plan: Monitor closely Abx Fall risk 11/24/2022: Monitor closely Supplement potassium 11/25/2022: Change IV antibiotics to p.o. 11/26/2022: Monitor for falls 11/27/2022: Monitor ZAZUETA 11/28/2022: Monitor closely Encephalopathy clearing 11/29/2022: Continue Sinemet 11/30/2022: Monitor closely (1) Encephalopathy (2) UTI (urinary tract infection) Status: Acute (3) Frequent falls Status: Acute (4) Parkinsons disease (5) Dementia SILVA CORTEZ DO Nov 30, 2022 06:19
[2022-11-30] MEDS: MULTIVIT W/MINERALS TAB (THERAGRAN M) PO SCH (06:50)
[2022-11-30] MEDS: KCL 10 MEQ TAB (MICRO K) PO SCH (06:50)
[2022-11-30] MEDS: LEVOTHYROXINE 50 MCG (LEVOTHROID) TAB PO SCH (06:50)
[2022-11-30 08:00] VITALS: BP 163/80
[2022-11-30] MEDS: LOSARTAN 100 MG (COZAAR) TABLET PO SCH (08:16)
[2022-11-30] MEDS: FLUoxetine 20 MG CAPSULE PO SCH (08:16)
[2022-11-30] MEDS: ASPIRIN enteric coated 81MG TABLET PO SCH (08:17)
[2022-11-30] MEDS: PANTOPRAZOLE 40 MG (PROTONIX) TAB PO SCH (08:17)
[2022-11-30] MEDS: ENOXAPARIN 40 MG/0.4 ML SYRINGE SC SCH (08:18)
[2022-11-30] MEDS: SINEMET 25/100 (CARBIDOPA/LEVODOPA) TAB PO SCH ×3 (08:18→17:27)
[2022-11-30] MEDS: carvediloL 12.5 MG TABLET PO SCH ×2 (08:18→20:26)
[2022-11-30] MEDS: IBUPROFEN 200 MG TABLET PO PRN (08:19)
[2022-11-30] MEDS: CELECOXIB 100 MG CAPSULE PO SCH ×2 (08:19→20:26)
[2022-11-30] MEDS: DOCUSATE SODIUM 100 MG CAPSULE PO SCH ×2 (08:20→20:22)
[2022-11-30] MEDS: polyethylene glycoL POWDER 17 GM (MIRALAX) PACK PO SCH ×2 (08:20→20:22)
[2022-11-30] MEDS: SENNA W/DOCUSATE (SENOKOT S) TABLET PO SCH ×2 (08:20→20:22)
[2022-11-30] MEDS: FENTANYL 50 MCG TD SCH (08:20)
[2022-11-30] MEDS: MICONAZOLE 2% POWDER (DESENEX AF) 90 GM TOP SCH ×2 (08:21→20:31)
--- NOTE | 2022-11-30 09:31 | Physical Therapy Daily Note ---
PT Daily Note-Current Subjective Pt sitting in recliner upon arrival. Pt agrees to PT. Pt reports stomach ache to Nursing as pt receives morning meds. Pain Location: Medial Location Body Site: Abdomen Pain Description: Ache Section J - Health Conditions 1. Rarely or not at all 2. Occasionally 3. Frequently 4. Almost constantly 8. Unable to answer Pain Effect on Sleep: 2 Pain Interference with Therapy: 2 Pain Interference w/Day-to-Day: 2 Mental Status Patient Orientation: Person, Place, Situation Transfers SCALE: Activities may be completed with or without assistive devices. 4-Sejnxupjue-powhmel completes the activity by him/herself with no assistance from a helper. 5-Set-up or Clean-up Assistance-helper sets up or cleans up; patient completes activity. [place] assists only prior to or following the activity. 4-Supervision or Touching Assistance-helper provides verbal cues and/or touching/steadying and/or contact guard assistance as patient completes activity. Assistance may be provided throughout the activity or intermittently. 3-Partial/Moderate Assistance-helper does LESS THAN HALF the effort. [place] lifts, holds or supports trunk or limbs, but provides less than half the effort. 2-Substantial/Maximal Assistance-helper does MORE THAN HALF the effort. [place] lifts or holds trunk or limbs and provides more than half the effort. 2-Ucylqlfzv-maerlk does ALL the effort. Patient does none of the effort to complete the activity. Or, the assistance of 2 or more helpers is required for the patient to complete the activity. If activity was not attempted, code reason: 7-Patient Refused. 9-Not Applicable-not attempted and the patient did not perform the activity before the current illness, exacerbation or injury. 10-Not Attempted due to Environmental Limitations-(lack of equipment, weather restraints, etc.). 88-Not Attempted due to Medical Conditions or Safety Concerns. Sit to Stand (QC): 4 Toilet Transfer (QC): 4 Weight Bearing Right Lower Extremity: Right Full Weight Bearing Left Lower Extremity: Left Full Weight Bearing Gait Training Does the Patient Walk?: Yes Distance: 60', 50', 100' Walk 10 feet (QC): 4 Walk 50 ft with 2 Turns(QC): 4 Gait Persons Needed: 1 Gait Assistive Device: FWW Pt remains in flexed posture, BEAUTY OPERATOR APPRENTICE encouraged to stand closer to FWW to stand up taller. Pt's black shoes w/lift used to correct leg length discrepancy. Exercises NuStep Minutes: 15 NuStep Workload: 2 Treatments TF to standing and amb to BR. After standing for pericare, pt amb in hallway & RB taken as needed. Pt uses NuStep then RB before amb back to room to use BR then rest in recliner. All needs met, call light in hand. Assessment Current Status: Good Progress Pt is making progress w/TF as well as improved amb. using shoes w/lift for leg length discrepancy. Retention continues to be struggle as is activity tolerance. PT Fpc Goals Structural Draftsman Goals PT Fpc Goals Time Frame: Dec 04, 2022 Roll Left & Right (QC): 4 (Pt will be SBA for all aspects of functional mob ility, in order to safely d/c. ) Sit to Lying (QC): 4 (Pt will be SBA for all aspects of functional mobility, in order to safely d/c. ) Lying-Sitting on Side/Bed(QC): 4 (Pt will be SBA for all aspects of functional mobility, in order to safely d/c. ) Sit to Stand (QC): 4 (Pt will be SBA for all aspects of functional mobility, in order to safely d/c. ) Chair/Oaw-sg-Cmhir Xfer(QC): 4 (Pt will be SBA for all aspects of functional mobility, in order to safely d/c. ) Toilet Transfer (QC): 4 (Pt will be SBA for all aspects of functional mobility, in order to safely d/c. ) Car Transfer (QC): 4 (Pt will be SBA for all aspects of functional mobility, in order to safely d/c. ) Does the Patient Walk: Yes Walk 10 feet (QC): 4 (Pt will be SBA for all aspects of functional mobility, in order to safely d/c. ) Walk 50ft with 2 Turns (QC): 4 (Pt will be SBA for all aspects of functional mobility, in order to safely d/c. ) Walk 150 ft (QC): 4 (Pt will be SBA for all aspects of functional mobility, in order to safely d/c. ) Walking 10ft on Uneven Surface: 4 (Pt will be SBA for all aspects of functional mobility, in order to safely d/c. ) 1 Step (curb) (QC): 4 (Pt will be SBA for all aspects of functional mobility, in order to safely d/c. ) 4 Steps (QC): 4 (Pt will be SBA for all aspects of functional mobility, in order to safely d/c. ) 12 Steps (QC): 9 (Pt has 4 steps to enter/exit home ) Picking up an Object (QC): 4 (Pt will be SBA for all aspects of functional mobility, in order to safely d/c. ) Does the Pt use WC or Scooter?: Yes Wheel 50 feet with 2 turns (QC: 4 (Pt will be SBA for all aspects of functional mobility, in order to safely d/c. ) Type: Manual Wheel 150 feet: 4 (Pt will be SBA for all aspects of functional mobility, in order to safely d/c. ) Type: Manual PT Plan Problem List Problem List: Activity Tolerance, Safety, Gait, Transfer Treatment/Plan Treatment Plan: Continue Plan of Care Treatment Plan: Bed Mobility, Concurrent Therapy, Education, Functional Activity Rubén, Functional Strength, Group Therapy, Gait, Safety, Therapeutic Exercise, Transfers Treatment Duration: Dec 04, 2022 Frequency: At least 5 of 7 days/Wk (IRF) Estimated Hrs Per Day: 1.5 hours per day Patient and/or Family Agrees t: Yes Safety Risks/Education Patient Education: Gait Training, Transfer Techniques, Correct Positioning, Safety Issues Teaching Recipient: Patient Teaching Methods: Discussion Response to Teaching: Verbalize Understanding, Reinforcement Needed Time Time In: 815 Time Out: 915 DATE: Nov 30, 2022 Total Billed Treatment Time: 60 Total Billed Treatment 1, FA (20m), GT x2 (25m) & EX (15m) ASA RODGERS BEAUTY OPERATOR APPRENTICE Nov 30, 2022 09:31
--- NOTE | 2022-11-30 10:01 | Speech Therapy Daily Note ---
Speech Daily Progress Note Subjective Date Seen by Provider: Nov 30, 2022 Time Seen by Provider: 09:15 Pt cotreated with occupational therapy to address high level cognitive tasks that include a cognitive and physical components. Pt pleasant and cooperative throughout session. Pain Location: No Pain Reported Objective Pt completes sequencing tasks with 100% accuracy with mod verbal cues. Pt complete generative naming with 90% accuracy independently. Pt is able to recall following a short delay with 71% accuracy independently. Pt continues to demonstrate gains with her recall. Pt completes motor tasks while completing cognitive task with 90% accuracy independently. Pt does well with continuing both tasks simultaneously. When pt would get distracted she was able to pick back up where she left off. Assessment Assessment Current Status: Good Progress Treatment Plan Continue Plan of Care Speech Short Term Goals Short Term Goals Short Term Goals 1. Pt to be educated on different memory strategies. Speech Correction Goals Clinical Research Scientist Goals 1. Pt to complete auditory memory tasks with 80% accuracy with min verbal prompts and use of strategies as appropriate. Speech-Plan Patient/Family Goals Patient/Family Goals: Pt's goal is to return home with her daughter. Treatment Plan Speech Therapy Treatment Plan: Continue Plan of Care Treatment Duration: Nov 24, 2022 Frequency: Modified Program (IRF) Estimated Hrs Per Day: Other Rehab Potential: Good Pt/Family Agrees to Plan: Yes Safety Risks/Education Teaching Recipient: Patient Teaching Methods: Discussion Response to Teaching: Verbalize Understanding, Reinforcement Needed Education Topics Provided: Pt educated on purpose of therapy tasks. Pt receptive and verbalized understanding, but will likely require reinforcement. Time Speech Therapy Time In: 09:15 Speech Therapy Time Out: 09:45 DATE: Nov 30, 2022 Total Billed Time: 30 Billed Treatment Time S/L TX cotreat with OT Sole Monae Speech Therapy Nov 30, 2022 10:01
--- NOTE | 2022-11-30 10:02 | Occupational Ther Daily Note ---
OT Current Status-Daily Note Subjective Pt sitting in chair upon arrival, alert and cooperative. Pt agreed to OT/ST cotreat. ADL-Treatment OT/ST co treat ([id number]) Pt completed functional activity requiring pt to ambulated with FWW, CGA to kitchen on ARU to retrieve cones in specific pattern focusing on recall following short delay. Pt completed 3 sets of 3 or 4 pattern memory recall. Pt required 2 recovery breaks to practice energy conservation. Pt did well with remembering pattern and only required minimal verbal cues to choose correct cone. After pt retrieved cone pt handed cone to therapist is a specific direction focusing on ROM in shoulders. Pt ambulated back to chair in room, FWW, CGA. Pt also completed a fine motor activity using pegs activity challenging the pt even more therapist challenged cognitive aspect by asking pt to follow a certain pattern. Pt did well during todays cotreat with the higher level cognitive tasks we asked of her. Pt continued treatment with OT, pt completed BUE exercises using yellow theraband, pt fatigued quickly, therapist will continue to address BUE strengthening. Pt completed 1 set of 10-12 reps today and required minimal verbal cues for skilled instruction for correct technique. Therapy Code Descriptions/Definitions Functional [place] Measure: 0=Not Assessed/NA 4=Minimal Assistance 1=Total Assistance 5=Supervision or Setup 2=Maximal Assistance 6=Modified [place] 3=Moderate Assistance 7=Complete IndependenceSCALE: Activities may be completed with or without assistive devices. 9-Aiwgvwkuhw-vbedpre completes the activity by him/herself with no assistance from a helper. 5-Set-up or Clean-up Assistance-helper sets up or cleans up; patient completes activity. [place] assists only prior to or following the activity. 4-Supervision or Touching Assistance-helper provides verbal cues and/or touching/steadying and/or contact guard assistance as patient completes activity. Assistance may be provided throughout the activity or intermittently. 3-Partial/Moderate Assistance-helper does LESS THAN HALF the effort. [place] lifts, holds or supports trunk or limbs, but provides less than half the effort. 2-Substantial/Maximal Assistance-helper does MORE THAN HALF the effort. [place] lifts or holds trunk or limbs and provides more than half the effort. 8-Aoastsbqc-zxeeib does ALL the effort. Patient does none of the effort to complete the activity. Or, the assistance of 2 or more helpers is required for the patient to complete the activity. If activity was not attempted, code reason: 7-Patient Refused. 9-Not Applicable-not attempted and the patient did not perform the activity before the current illness, exacerbation or injury. 10-Not Attempted due to Environmental Limitations-(lack of equipment, weather restraints, etc.). 88-Not Attempted due to Medical Conditions or Safety Concerns. Education OT Patient Education: Correct positioning, Energy conservation, Exercise program, Progress toward Goal/Update tx plan, Purpose of tx/functional activities, Safety issues, Transfer techniques Teaching Recipient: Patient Teaching Methods: Discussion Response to Teaching: Verbalize Understanding, Return Demonstration, Reinforcement Needed OT Short Term Goals Short Term Goals Time Frame: Nov 27, 2022 Eatin Oral hygiene: 6 Upper body dressin OT University Archivist Goals [facility] Goals Time Frame: Dec 04, 2022 Acute change in mental status: 0 Inattention: 0 Disorganized thinkin Altered level of consciousness: 0 Eating (QC): 6 Oral Hygiene (QC): 6 Toileting Hygiene (QC): 5 Shower/Bathe Self (QC): 5 Upper Body Dressing (QC): 5 Lower Body Dressing (QC): 5 On/Off Footwear (QC): 5 1=Demonstrate adherence to instructed precautions during ADL tasks. 2=Patient will verbalize/demonstrate understanding of assistive devices/modifications for ADL. 3=Patient will improve strength/tolerance for activity to enable patient to perform ADL's. OT Education/Plan Problem List/Assessment Assessment: Decreased Activ Tolerance, Decreased Safety Aware, Decreased UE Strength Discharge Recommendations Plan/Recommendations: Continue POC Treatment Plan/Plan of Care Patient would benefit from OT for education, treatment and training to promote independence in ADL's, mobility, safety and/or upper extremity function for ADL's. Plan of Care: ADL Retraining, Concurrent Therapy, Functional Mobility, Group Exercise/Act as Ind, UE Funct Exercise/Act Treatment Duration: Dec 04, 2022 Frequency: At least 5 of 7 days/Wk (IRF) Estimated Hrs Per Day: 1.5 hours per day Agreement: Yes Rehab Potential: Good Time Start Time: 09:15 Stop Time: 10:15 DATE: Nov 30, 2022 Total Time Billed (hr/min): 60 Billed Treatment Time 1 visit FA, EX OT/ST ([id number]) Jo Ann Wilcox COTA Nov 30, 2022 10:01
[2022-11-30] MEDS: FENTANYL PATCH REMOVAL TP SCH (11:00)
--- NOTE | 2022-11-30 14:37 | Physical Therapy Daily Note ---
PT Daily Note-Current Subjective Pt sitting in recliner upon arrival. Family Training w/pt's daughterRadha, & sonLucho. Pain Location: No Pain Reported Section J - Health Conditions 1. Rarely or not at all 2. Occasionally 3. Frequently 4. Almost constantly 8. Unable to answer Pain Effect on Sleep: 2 Pain Interference with Therapy: 2 Pain Interference w/Day-to-Day: 2 Mental Status Patient Orientation: Person, Place, Situation Transfers SCALE: Activities may be completed with or without assistive devices. 6-Zgvyoppzge-zjcpqxk completes the activity by him/herself with no assistance from a helper. 5-Set-up or Clean-up Assistance-helper sets up or cleans up; patient completes activity. [place] assists only prior to or following the activity. 4-Supervision or Touching Assistance-helper provides verbal cues and/or touching/steadying and/or contact guard assistance as patient completes activity. Assistance may be provided throughout the activity or intermittently. 3-Partial/Moderate Assistance-helper does LESS THAN HALF the effort. [place] lifts, holds or supports trunk or limbs, but provides less than half the effort. 2-Substantial/Maximal Assistance-helper does MORE THAN HALF the effort. [place] lifts or holds trunk or limbs and provides more than half the effort. 6-Yxxwzuvst-qevlun does ALL the effort. Patient does none of the effort to complete the activity. Or, the assistance of 2 or more helpers is required for the patient to complete the activity. If activity was not attempted, code reason: 7-Patient Refused. 9-Not Applicable-not attempted and the patient did not perform the activity before the current illness, exacerbation or injury. 10-Not Attempted due to Environmental Limitations-(lack of equipment, weather restraints, etc.). 88-Not Attempted due to Medical Conditions or Safety Concerns. Weight Bearing Right Lower Extremity: Right Full Weight Bearing Left Lower Extremity: Left Full Weight Bearing Treatments ICU TECH, pt as well as pt's daughterRadha, & sonLucho discuss Family Training items including proper use of Adaptive Equipment (FWW vs 4WW) & black tennis shoes w/lift in them for leg length discrepancy, safety w/transfers to avoid "butt diving", continued need for HH for PT & OT & continuing EX instead of sedentary living and whether pt would have to ambulate stairs w/in house. After demonstration of transfers and discussion on safety. ICU TECH and CRAWFORD depart w/pt resting in recliner & family present. All needs met, call light in hand. Assessment Current Status: Fair Progress Retention of safety and transfers is not always demonstrated. Pt's daughter & son are receptive to information but both are away from pt much of the time so safety is a concern. PT Multi Operation Machine Operator Goals Snf Goals PT Snf Goals Time Frame: Dec 04, 2022 Roll Left & Right (QC): 4 (Pt will be SBA for all aspects of functional mobility, in order to safely d/c. ) Sit to Lying (QC): 4 (Pt will be SBA for all aspects of functional mobility, in order to safely d/c. ) Lying-Sitting on Side/Bed(QC): 4 (Pt will be SBA for all aspects of functional mobility, in order to safely d/c. ) Sit to Stand (QC): 4 (Pt will be SBA for all aspects of functional mobility, in order to safely d/c. ) Chair/Dyp-dk-Xfspt Xfer(QC): 4 (Pt will be SBA for all aspects of functional mobility, in order to safely d/c. ) Toilet Transfer (QC): 4 (Pt will be SBA for all aspects of functional mobility, in order to safely d/c. ) Car Transfer (QC): 4 (Pt will be SBA for all aspects of functional mobility, in order to safely d/c. ) Does the Patient Walk: Yes Walk 10 feet (QC): 4 (Pt will be SBA for all aspects of functional mobility, in order to safely d/c. ) Walk 50ft with 2 Turns (QC): 4 (Pt will be SBA for all aspects of functional mobility, in order to safely d/c. ) Walk 150 ft (QC): 4 (Pt will be SBA for all aspects of functional mobility, in order to safely d/c. ) Walking 10ft on Uneven Surface: 4 (Pt will be SBA for all aspects of functional mobility, in order to safely d/c. ) 1 Step (curb) (QC): 4 (Pt will be SBA for all aspects of functional mobility, in order to safely d/c. ) 4 Steps (QC): 4 (Pt will be SBA for all aspects of functional mobility, in order to safely d/c. ) 12 Steps (QC): 9 (Pt has 4 steps to enter/exit home ) Picking up an Object (QC): 4 (Pt will be SBA for all aspects of functional mobility, in order to safely d/c. ) Does the Pt use WC or Scooter?: Yes Wheel 50 feet with 2 turns (QC: 4 (Pt will be SBA for all aspects of functional mobility, in order to safely d/c. ) Type: Manual Wheel 150 feet: 4 (Pt will be SBA for all aspects of functional mobility, in order to safely d/c. ) Type: Manual PT Plan Problem List Problem List: Activity Tolerance, Safety, Transfer Treatment/Plan Treatment Plan: Continue Plan of Care Treatment Plan: Bed Mobility, Concurrent Therapy, Education, Functional Activity Rubén, Functional Strength, Group Therapy, Gait, Safety, Therapeutic Exercise, Transfers Treatment Duration: Dec 04, 2022 Frequency: At least 5 of 7 days/Wk (IRF) Estimated Hrs Per Day: 1.5 hours per day Patient and/or Family Agrees t: Yes Safety Risks/Education Patient Education: Gait Training, Transfer Techniques, Correct Positioning, Instructions to Caregiver, Safety Issues Teaching Recipient: Patient, Family Teaching Methods: Demonstration, Discussion Response to Teaching: Verbalize Understanding, Reinforcement Needed Time Time In: 1305 Time Out: 1340 DATE: Nov 30, 2022 Total Billed Treatment Time: 35 Total Billed Treatment Co-treat w/OT for 35m 1, FA x2 (35m) ASA RODGERS PTA Nov 30, 2022 14:37
--- NOTE | 2022-11-30 15:14 | Occupational Ther Daily Note ---
OT Current Status-Daily Note Subjective Pt sitting in chair upon arrival, alert and cooperative. Pt family present, son and daughter, cotreat PT/OT for family training. ADL-Treatment FURNACE OPERATOR AND TENDER, pt as well as pt's daughterRadha, & sonLucho discuss Family Training items including proper use of Adaptive Equipment (FWW vs 4WW) & black tennis shoes w/lift in them for leg length discrepancy, safety w/transfers to avoid "butt diving", continued need for Home health for PT & OT & continuing EX instead of sedentary living and whether pt would have to ambulate stairs w/in house. After demonstration of transfers and discussion on safety. FURNACE OPERATOR AND TENDER and CRAWFORD depart w/pt resting in recliner & family present. All needs met, call light in hand. Retention of safety and transfers is not always demonstrated by pt. Pt's daughter & son are receptive to information, but both are away from pt much of the time so safety is a concern for going home. Therapy Code Descriptions/Definitions Functional [place] Measure: 0=Not Assessed/NA 4=Minimal Assistance 1=Total Assistance 5=Supervision or Setup 2=Maximal Assistance 6=Modified [place] 3=Moderate Assistance 7=Complete IndependenceSCALE: Activities may be completed with or without assistive devices. 2-Thkufbfafu-ywamyzr completes the activity by him/herself with no assistance from a helper. 5-Set-up or Clean-up Assistance-helper sets up or cleans up; patient completes activity. [place] assists only prior to or following the activity. 4-Supervision or Touching Assistance-helper provides verbal cues and/or touching/steadying and/or contact guard assistance as patient completes act ivity. Assistance may be provided throughout the activity or intermittently. 3-Partial/Moderate Assistance-helper does LESS THAN HALF the effort. [place] lifts, holds or supports trunk or limbs, but provides less than half the effort. 2-Substantial/Maximal Assistance-helper does MORE THAN HALF the effort. [place] lifts or holds trunk or limbs and provides more than half the effort. 4-Vwzyiidsg-qejgjc does ALL the effort. Patient does none of the effort to complete the activity. Or, the assistance of 2 or more helpers is required for the patient to complete the activity. If activity was not attempted, code reason: 7-Patient Refused. 9-Not Applicable-not attempted and the patient did not perform the activity before the current illness, exacerbation or injury. 10-Not Attempted due to Environmental Limitations-(lack of equipment, weather restraints, etc.). 88-Not Attempted due to Medical Conditions or Safety Concerns. Education OT Patient Education: Correct positioning, Home exercise program, Instructions to caregiver, Modified ADL techniques, Progress toward Goal/Update tx plan, Purpose of tx/functional activities, Safety issues, Transfer techniques, Use of adapted equipment Teaching Recipient: Patient, Family Teaching Methods: Demonstration, Handout, Discussion Response to Teaching: Verbalize Understanding OT Short Term Goals Short Term Goals Time Frame: Nov 27, 2022 Eatin Oral hygiene: 6 Upper body dressin OT Senior Care Goals Machine Shorthand Teacher Goals Time Frame: Dec 04, 2022 Acute change in mental status: 0 Inattention: 0 Disorganized thinkin Altered level of consciousness: 0 Eating (QC): 6 Oral Hygiene (QC): 6 Toileting Hygiene (QC): 5 Shower/Bathe Self (QC): 5 Upper Body Dressing (QC): 5 Lower Body Dressing (QC): 5 On/Off Footwear (QC): 5 1=Demonstrate adherence to instructed precautions during ADL tasks. 2=Patient will verbalize/demonstrate understanding of assistive devices/modifications for ADL. 3=Patient will improve strength/tolerance for activity to enable patient to perform ADL's. OT Education/Plan Discharge Recommendations Plan/Recommendations: Continue POC Treatment Plan/Plan of Care Patient would benefit from OT for education, treatment and training to promote independence in ADL's, mobility, safety and/or upper extremity function for ADL's. Plan of Care: ADL Retraining, Concurrent Therapy, Functional Mobility, Group Exercise/Act as Ind, UE Funct Exercise/Act Treatment Duration: Dec 04, 2022 Frequency: At least 5 of 7 days/Wk (IRF) Estimated Hrs Per Day: 1.5 hours per day Agreement: Yes Rehab Potential: Good Time Start Time: 13:05 Stop Time: 13:40 DATE: Nov 30, 2022 Total Time Billed (hr/min): 35 Billed Treatment Time 1 visit FA 2 (35 min) COTX family training PT/OT ([id number]) Jo Ann Wilcox COTA Nov 30, 2022 15:14
--- NOTE | 2022-11-30 16:59 | Podiatry Progress Note ---
Standard Progress Note Progress Notes/Assess & Plan Date Seen by a Provider: Nov 30, 2022 Time Seen by a Provider: 16:58 Progress/Assessment & Plan Consultation was dictated. Foot care given. Wound care to the right 2nd digit daily. Final Diagnosis Onychomycosis, Peripheral Neupathy, Unmanageable Wound to the R2 toe SYLVIA RODRIGUEZ DPM Nov 30, 2022 16:59
--- NOTE | 2022-11-30 17:45 | CONSULTATION REPORT ---
DATE OF SERVICE: 11/30/2022 REASON FOR CONSULTATION: Painful right second toe as well as painful toenails. HISTORY OF PRESENT ILLNESS: This 87-year-old female was admitted secondary to confusion and encephalopathy due to a UTI. She was admitted through the ER and is going to rehabilitation at this point. She had a cervical CT, which was positive for severe degenerative changes to the spine. She has had several falls recently and has difficulty reaching for and caring for her feet. She has no formal diagnosis of Parkinson's disease, but reports that she has been told that she might have it. She also has a history of hypercholesterolemia, dementia, gastroesophageal reflux, arthritis, chronic back pain, hypothyroidism, macular degeneration, hard of hearing, history of a melanoma, anxiety. SOCIAL HISTORY: The patient is single. Denies tobacco or alcohol use. ALLERGIES: SHE HAS ALLERGY TO PENICILLIN, ADHESIVE TAPE. PHYSICAL EXAMINATION: LOWER EXTREMITY EXAMINATION: The patient has 2/4 dorsalis pedis pulse, 1/4 posterior tibial pulse on the right and 2/4 on the left. Cap refill time to the great toe was less than 3 seconds bilaterally. NEUROLOGIC: The patient has diminished protective sensation with 10-gram monofilament wire examination bilaterally. She also has diminished vibratory sensation to the forefoot bilaterally. INTEGUMENT: The patient has a stable eschar on dorsal aspect of the right second proximal interphalangeal joint area that measures approximately 8 x 7 mm. There is no erythema, edema, or gross signs of bacterial infection. There is no proximal streaking identified. The patient has thick yellow dystrophic toenails with subungual debris associated with the R1, 2, 3, 5 and L1, 2, 4, 5 digits. MUSCULOSKELETAL FINDINGS: The patient has contracted toes 2, 3, 4, and 5 digits bilaterally. ASSESSMENT: 1. Unstageable wound to the right second digit with stable eschar. 2. Idiopathic peripheral neuropathy. 3. Onychomycosis. 4. Hammer digit syndrome. PLAN: Various treatment options were discussed with the patient today due to her inability to reach and care for her feet properly. Her toenails were debrided manually and mechanically. Betadine was applied. She noted good reduction of symptoms with debridement. With her stable eschar to the right second toe, we will continue with protection of this area on a daily basis. I think this will go on to heal on its own; however, it is uncomfortable for the patient, so a Betadine prep as well as Betadine application and a light gauze dressing was applied. We are going to have her do this dressing on a daily basis until completely healed. We also talked about appropriate shoe gear and fit. I recommended extra depth shoes. We will see her back in the office upon discharge if necessary. Job ID: [id number] DocumentID: [id number] Dictated Date: 11/30/2022 17:06:01 Overlock Waistline Joiner Date: 11/30/2022 17:43:00 Dictated By: BRYANNA TAVARES
[2022-11-30 19:51] VITALS: BP 156/78
--- NOTE | 2022-12-01 05:43 | PM&R Progress Note ---
Subjective HPI/CC On Admission Date Seen by Provider: Dec 01, 2022 Time Seen by Provider: 09:00 Subjective/Events-last exam 12/01/2022: Patient doing really well No concerns Much improved status 11/30/2022: Much improved overall No pain reported No falls Improved left hand tremor 11/29/2022: Patient doing well Supportive care is doing well Daughter at the bedside Left arm tremor much improved with Sinemet 11/28/2022: No major issues Family at bedside Hip pain resolved Talked about Parkinson's Patient very sedentary at home 11/27/2022: No major issues Had some dyspnea during activity but O2 sat ok Lungs remain clear PO abx 11/26/2022: Much improve More lucid Hearing loss makes communication difficult Sinimet seems to be helping the tremor without side effects 11/25/2022: Patient doing a lot better More lucid Less confusion We will arrange for outpatient Parkinson's therapy group Switching IV antibiotics to p.o. 11/24/2022: Much improve overall Less confusion Continues on Rocephin No falls Review of Systems General: Fatigue, Malaise Objective Exam Vital Signs Vital Signs Date Time Temp Pulse Resp B/P (MAP) Pulse Ox O2 Delivery O2 Flow Rate FiO2 12/01/22 19:52 36.0 64 20 143/61 (88) 95 Room Air 11/30/22 00:36 21 11/28/22 07:59 0.00 Capillary Refill : General Appearance: No Apparent Distress, WD/WN, Chronically ill HEENT: PERRL/EOMI, Normal ENT Inspection, Pharynx Normal Neck: Full Range of Motion, Normal Inspection, Non Tender, Supple, Carotid Bruit Respiratory: Chest Non Tender, Lungs Clear, Normal Breath Sounds, No Accessory Muscle Use, No Respiratory Distress Cardiovascular: Regular Rate, Rhythm, No Edema, No Gallop, No JVD, No Murmur, Normal Peripheral Pulses Gastrointestinal: Normal Bowel Sounds, No Organomegaly, No Pulsatile Mass, Non Tender, Soft Back: Normal Inspection, No CVA Tenderness, No Vertebral Tenderness Extremity: Normal Capillary Refill, Normal Inspection, Normal Range of Motion, Non Tender, No Calf Tenderness, No Pedal Edema Neurologic/Psychiatric: Alert, No Motor/Sensory Deficits, scaffold setter II-XII Norm as Tested, Abnormal Gait, Depressed Affect, Disoriented, Motor Weakness (generalized), Other (tremor left hand and arm) Skin: Normal Color, Warm/Dry Lymphatic: No Adenopathy Results/Procedures Lab Patient resulted labs reviewed. FIM Transfers Therapy Code Descriptions/Definitions Functional [place] Measure: 0=Not Assessed/NA 4=Minimal Assistance 1=Total Assistance 5=Supervision or Setup 2=Maximal Assistance 6=Modified [place] 3=Moderate Assistance 7=Complete IndependenceSCALE: Activities may be completed with or without assistive devices. 9-Ibqulabxef-diqscbq completes the activity by him/herself with no assistance from a helper. 5-Set-up or Clean-up Assistance-helper sets up or cleans up; patient completes activity. [place] assists only prior to or following the activity. 4-Supervision or Touching Assistance-helper provides verbal cues and/or touching/steadying and/or contact guard assistance as patient completes activity. Assistance may be provided throughout the activity or intermittently. 3-Partial/Moderate Assistance-helper does LESS THAN HALF the effort. [place] lifts, holds or supports trunk or limbs, but provides less than half the effort. 2-Substantial/Maximal Assistance-helper does MORE THAN HALF the effort. [place] lifts or holds trunk or limbs and provides more than half the effort. 4-Kxdygeeag-zuyqhv does ALL the effort. Patient does none of the effort to complete the activity. Or, the assistance of 2 or more helpers is required for the patient to complete the activity. If activity was not attempted, code reason: 7-Patient Refused. 9-Not Applicable-not attempted and the patient did not perform the activity before the current illness, exacerbation or injury. 10-Not Attempted due to Environmental Limitations-(lack of equipment, weather restraints, etc.). 88-Not Attempted due to Medical Conditions or Safety Concerns. Roll Left to Right (QC): 3 (Min A ) Sit to Lying (QC): 3 (Min A ) Sit to Stand (QC): 4 Chair/Vav-dx-Uxyaq Xfer(QC): 4 Car Transfer (QC): 88 Gait Training Does the Patient Walk?: Yes Distance: 60', 50', 100' Walk 10 feet (QC): 4 Walk 50 ft with 2 Turns(QC): 4 Walk 150 ft (QC): 88 Walking 10ft/uneven surface-QC: 88 Gait Persons Needed: 1 Gait Assistive Device: FWW Wheelchair Training Does the Pt Use a Wheelchair?: Yes Wheel 50 ft with 2 turns (QC): 5 Wheel 150 ft (QC): 88 Type of Wheelchair: Manual Stair Training 1 Step (curb) (QC): 88 4 Steps (QC): 88 12 Steps (QC): 9 (Pt has 4 steps to enter/exit home ) Balance Picking up an Object (QC): 3 (Min A ) ADL-Treatment Eating (QC): 6 Oral Hygiene (QC): 4 Shower/Bathe Self (QC): 4 Upper Body Dressing (QC): 3 Lower Body Dressing (QC): 4 On/Off Footwear (QC): 3 Toileting Hygiene (QC): 4 Toilet Transfer (QC): 4 Assessment/Plan Assessment and Plan Assess & Plan/Chief Complaint Assessment: Acute encephalopathy UTI Dementia Parkinson's disease new diagnosis Falls Hypokalemia Plan: Monitor closely Abx Fall risk 11/24/2022: Monitor closely Supplement potassium 11/25/2022: Change IV antibiotics to p.o. 11/26/2022: Monitor for falls 11/27/2022: Monitor ZAZUETA 11/28/2022: Monitor closely Encephalopathy clearing 11/29/2022: Continue Sinemet 11/30/2022: Monitor closely 12/01/2022: Supportive care Monitor closely (1) Encephalopathy (2) UTI (urinary tract infection) Status: Acute (3) Frequent falls Status: Acute (4) Parkinsons disease (5) Dementia SILVA CORTEZ DO Dec 01, 2022 05:43
[2022-12-01] MEDS: LEVOTHYROXINE 50 MCG (LEVOTHROID) TAB PO SCH (06:53)
[2022-12-01] MEDS: KCL 10 MEQ TAB (MICRO K) PO SCH (06:53)
[2022-12-01] MEDS: MULTIVIT W/MINERALS TAB (THERAGRAN M) PO SCH (06:53)
[2022-12-01 08:00] VITALS: BP 200/91
[2022-12-01 08:45] VITALS: BP 146/67
[2022-12-01] MEDS: ASPIRIN enteric coated 81MG TABLET PO SCH (09:10)
[2022-12-01] MEDS: carvediloL 12.5 MG TABLET PO SCH ×2 (09:10→20:36)
[2022-12-01] MEDS: SINEMET 25/100 (CARBIDOPA/LEVODOPA) TAB PO SCH ×3 (09:10→17:47)
[2022-12-01] MEDS: CELECOXIB 100 MG CAPSULE PO SCH ×2 (09:10→20:36)
[2022-12-01] MEDS: FLUoxetine 20 MG CAPSULE PO SCH (09:11)
[2022-12-01] MEDS: SENNA W/DOCUSATE (SENOKOT S) TABLET PO SCH ×2 (09:11→20:40)
[2022-12-01] MEDS: LOSARTAN 100 MG (COZAAR) TABLET PO SCH (09:11)
[2022-12-01] MEDS: ENOXAPARIN 40 MG/0.4 ML SYRINGE SC SCH (09:11)
[2022-12-01] MEDS: DOCUSATE SODIUM 100 MG CAPSULE PO SCH ×2 (09:14→20:40)
[2022-12-01] MEDS: polyethylene glycoL POWDER 17 GM (MIRALAX) PACK PO SCH ×2 (09:14→20:40)
[2022-12-01] MEDS: FERROUS SULFATE 325 MG (IRON) TABLET PO SCH (09:16)
[2022-12-01] MEDS: PANTOPRAZOLE 40 MG (PROTONIX) TAB PO SCH (09:17)
--- NOTE | 2022-12-01 09:18 | Physical Therapy Daily Note ---
PT Daily Note-Current Subjective Pt sitting in recliner upon arrival. Pt agrees to PT but reports incon. last light and a little abdominal discomfort. Pain Location: Medial Location Body Site: Abdomen Pain Description: Ache Comment: Reported but not rated Section J - Health Conditions 1. Rarely or not at all 2. Occasionally 3. Frequently 4. Almost constantly 8. Unable to answer Pain Effect on Sleep: 2 Pain Interference with Therapy: 2 Pain Interference w/Day-to-Day: 2 Mental Status Patient Orientation: Person, Place, Situation Transfers SCALE: Activities may be completed with or without assistive devices. 1-Ijjlgnunap-weklviu completes the activity by him/herself with no assistance from a helper. 5-Set-up or Clean-up Assistance-helper sets up or cleans up; patient completes activity. [place] assists only prior to or following the activity. 4-Supervision or Touching Assistance-helper provides verbal cues and/or touching/steadying and/or contact guard assistance as patient completes activity. Assistance may be provided throughout the activity or intermittently. 3-Partial/Moderate Assistance-helper does LESS THAN HALF the effort. [place] lifts, holds or supports trunk or limbs, but provides less than half the effort. 2-Substantial/Maximal Assistance-helper does MORE THAN HALF the effort. [place] lifts or holds trunk or limbs and provides more than half the effort. 7-Vcjdewpky-ortczq does ALL the effort. Patient does none of the effort to complete the activity. Or, the assistance of 2 or more helpers is required for the patient to complete the activity. If activity was not attempted, code reason: 7-Patient Refused. 9-Not Applicable-not attempted and the patient did not perform the activity before the current illness, exacerbation or injury. 10-Not Attempted due to Environmental Limitations-(lack of equipment, weather restraints, etc.). 88-Not Attempted due to Medical Conditions or Safety Concerns. Sit to Stand (QC): 5 Toilet Transfer (QC): 5 Weight Bearing Right Lower Extremity: Right Full Weight Bearing Left Lower Extremity: Left Full Weight Bearing Gait Training Does the Patient Walk?: Yes Distance: 60', 50', 125' Walk 10 feet (QC): 4 Walk 50 ft with 2 Turns(QC): 4 Gait Persons Needed: 1 Gait Assistive Device: FWW Exercises NuStep Minutes: 15 NuStep Workload: 2 Treatments MOTORCYCLE TECHNICIAN adjusts pt's personal FWW to appropriate height per pt request. TF to standing and amb to BR. Pt donned knee highs & shoes w/lift. Pt completes pericare then amb in hallway. Pt uses NuStep followed by short RB. Pt amb back to room & uses BR again at end of tx. Assessment Current Status: Good Progress Pt remembers safety cues for proper TF and amb. better today. Pt still continues to fatigue easily. PT [facility] Goals [facility] Goals PT Addiction Specialist Goals Time Frame: Dec 04, 2022 Roll Left & Right (QC): 4 (Pt will be SBA for all aspects of functional mobility, in order to safely d/c. ) Sit to Lying (QC): 4 (Pt will be SBA for all aspects of functional mobility, in order to safely d/c. ) Lying-Sitting on Side/Bed(QC): 4 (Pt will be SBA for all aspects of functional mobility, in order to safely d/c. ) Sit to Stand (QC): 4 (Pt will be SBA for all aspects of functional mobility, in order to safely d/c. ) Chair/Dvo-bo-Wzbho Xfer(QC): 4 (Pt will be SBA for all aspects of functional mobility, in order to safely d/c. ) Toilet Transfer (QC): 4 (Pt will be SBA for all aspects of functional mobility, in order to safely d/c. ) Car Transfer (QC): 4 (Pt will be SBA for all aspects of functional mobility, in order to safely d/c. ) Does the Patient Walk: Yes Walk 10 feet (QC): 4 (Pt will be SBA for all aspects of functional mobility, in order to safely d/c. ) Walk 50ft with 2 Turns (QC): 4 (Pt will be SBA for all aspects of functional mobility, in order to safely d/c. ) Walk 150 ft (QC): 4 (Pt will be SBA for all aspects of functional mobility, in order to safely d/c. ) Walking 10ft on Uneven Surface: 4 (Pt will be SBA for all aspects of functional mobility, in order to safely d/c. ) 1 Step (curb) (QC): 4 (Pt will be SBA for all aspects of functional mobility, in order to safely d/c. ) 4 Steps (QC): 4 (Pt will be SBA for all aspects of functional mobility, in order to safely d/c. ) 12 Steps (QC): 9 (Pt has 4 steps to enter/exit home ) Picking up an Object (QC): 4 (Pt will be SBA for all aspects of functional mobility, in order to safely d/c. ) Does the Pt use WC or Scooter?: Yes Wheel 50 feet with 2 turns (QC: 4 (Pt will be SBA for all aspects of functional mobility, in order to safely d/c. ) Type: Manual Wheel 150 feet: 4 (Pt will be SBA for all aspects of functional mobility, in order to safely d/c. ) Type: Manual PT Plan Problem List Problem List: Activity Tolerance, Safety Treatment/Plan Treatment Plan: Continue Plan of Care Treatment Plan: Bed Mobility, Concurrent Therapy, Education, Functional Activity Rubén, Functional Strength, Group Therapy, Gait, Safety, Therapeutic Exercise, Transfers Treatment Duration: Dec 04, 2022 Frequency: At least 5 of 7 days/Wk (IRF) Estimated Hrs Per Day: 1.5 hours per day Patient and/or Family Agrees t: Yes Safety Risks/Education Patient Education: Gait Training, Correct Positioning, Safety Issues Teaching Recipient: Patient Teaching Methods: Discussion Response to Teaching: Verbalize Understanding Time Time In: 800 Time Out: 900 DATE: Dec 01, 2022 Total Billed Treatment Time: 60 Total Billed Treatment 1, GT x2 (25m), FA (20m) & EX (15m) ASA RODGERS MOTORCYCLE TECHNICIAN Dec 01, 2022 09:18
[2022-12-01] MEDS ORDERED: CYANOCOBALAMIN 1000 MCG/ML 1 ML VIAL IM NR (09:30)
[2022-12-01] MEDS: MICONAZOLE 2% POWDER (DESENEX AF) 90 GM TOP SCH ×2 (10:00→20:37)
--- NOTE | 2022-12-01 10:49 | Speech Therapy Daily Note ---
Speech Daily Progress Note Subjective Date Seen by Provider: Dec 01, 2022 Time Seen by Provider: 10:12 Pt sitting up in the recliner. Pt reports she was up and down all night. Pt pleasant and cooperative throughout the session. Pain Location: No Pain Reported Objective Pt recalls information from conversation following short delay with 0% accuracy. Pt demonstrates increased repetition this date when talking, telling the therapist multiple times during the session her daughter goes to [employer]. Pt's conversation does not flow this date, with her frequently switching topics with no transition. Pt's does not perform as well on therapy tasks this dates compared to previous therapy sessions. Assessment Assessment Current Status: Poor Progress Treatment Plan Continue Plan of Care Speech Short Term Goals Short Term Goals Short Term Goals 1. Pt to be educated on different memory strategies. Speech Correction Goals Financial Accounting Manager Goals 1. Pt to complete auditory memory tasks with 80% accuracy with min verbal prompts and use of strategies as appropriate. Speech-Plan Patient/Family Goals Patient/Family Goals: Pt's goal is to return home with her daughter. Treatment Plan Speech Therapy Treatment Plan: Continue Plan of Care Treatment Duration: Nov 24, 2022 Frequency: Modified Program (IRF) Estimated Hrs Per Day: Other Rehab Potential: Good Safety Risks/Education Teaching Recipient: Patient Teaching Methods: Discussion Response to Teaching: Reinforcement Needed Education Topics Provided: Pt edcuated on purpose of therapy tasks. Pt receptive and verbalized understanding, but will require reinforcement due to memory. Time Speech Therapy Time In: 10:12 Speech Therapy Time Out: 10:42 DATE: Dec 01, 2022 Total Billed Time: 30 Billed Treatment Time S/L Sole Zapata Speech Therapy Dec 01, 2022 10:49
--- NOTE | 2022-12-01 13:21 | Physical Therapy Daily Note ---
PT Daily Note-Current Subjective Pt sitting in recliner awaiting lunch upon arrival. Pt agrees to PT. Pain Location: No Pain Reported Section J - Health Conditions 1. Rarely or not at all 2. Occasionally 3. Frequently 4. Almost constantly 8. Unable to answer Pain Effect on Sleep: 2 Pain Interference with Therapy: 2 Pain Interference w/Day-to-Day: 2 Mental Status Patient Orientation: Person, Place, Situation Transfers SCALE: Activities may be completed with or without assistive devices. 7-Jgiorkqwsa-uhwkdsf completes the activity by him/herself with no assistance from a helper. 5-Set-up or Clean-up Assistance-helper sets up or cleans up; patient completes activity. [place] assists only prior to or following the activity. 4-Supervision or Touching Assistance-helper provides verbal cues and/or t ouching/steadying and/or contact guard assistance as patient completes activity. Assistance may be provided throughout the activity or intermittently. 3-Partial/Moderate Assistance-helper does LESS THAN HALF the effort. [place] lifts, holds or supports trunk or limbs, but provides less than half the effort. 2-Substantial/Maximal Assistance-helper does MORE THAN HALF the effort. [place] lifts or holds trunk or limbs and provides more than half the effort. 1-Xordmytrb-npbrkc does ALL the effort. Patient does none of the effort to complete the activity. Or, the assistance of 2 or more helpers is required for the patient to complete the activity. If activity was not attempted, code reason: 7-Patient Refused. 9-Not Applicable-not attempted and the patient did not perform the activity before the current illness, exacerbation or injury. 10-Not Attempted due to Environmental Limitations-(lack of equipment, weather restraints, etc.). 88-Not Attempted due to Medical Conditions or Safety Concerns. Weight Bearing Right Lower Extremity: Right Full Weight Bearing Left Lower Extremity: Left Full Weight Bearing Treatments CLINICAL PROFESSOR checks on pt & pt declines need for BR, no pain at this time and feels good after both PT & OT tx in morning sessions. CLINICAL PROFESSOR instructs again benefit of Therapy to keep body strong and activity neelima. better. All needs met, call light in hand. Assessment Current Status: Good Progress Pt neelima. tx well. PT Longterm Goals Aba Tutor Goals PT Aba Tutor Goals Time Frame: Dec 04, 2022 Roll Left & Right (QC): 4 (Pt will be SBA for all aspects of functional mobility, in order to safely d/c. ) Sit to Lying (QC): 4 (Pt will be SBA for all aspects of functional mobility, in order to safely d/c. ) Lying-Sitting on Side/Bed(QC): 4 (Pt will be SBA for all aspects of functional mobility, in order to safely d/c. ) Sit to Stand (QC): 4 (Pt will be SBA for all aspects of functional mobility, in order to safely d/c. ) Chair/Tht-ck-Dejib Xfer(QC): 4 (Pt will be SBA for all aspects of functional mobility, in order to safely d/c. ) Toilet Transfer (QC): 4 (Pt will be SBA for all aspects of functional mobility, in order to safely d/c. ) Car Transfer (QC): 4 (Pt will be SBA for all aspects of functional mobility, in order to safely d/c. ) Does the Patient Walk: Yes Walk 10 feet (QC): 4 (Pt will be SBA for all aspects of functional mobility, in order to safely d/c. ) Walk 50ft with 2 Turns (QC): 4 (Pt will be SBA for all aspects of functional mobility, in order to safely d/c. ) Walk 150 ft (QC): 4 (Pt will be SBA for all aspects of functional mobility, in order to safely d/c. ) Walking 10ft on Uneven Surface: 4 (Pt will be SBA for all aspects of functional mobility, in order to safely d/c. ) 1 Step (curb) (QC): 4 (Pt will be SBA for all aspects of functional mobility, in order to safely d/c. ) 4 Steps (QC): 4 (Pt will be SBA for all aspects of functional mobility, in order to safely d/c. ) 12 Steps (QC): 9 (Pt has 4 steps to enter/exit home ) Picking up an Object (QC): 4 (Pt will be SBA for all aspects of functional mobility, in order to safely d/c. ) Does the Pt use WC or Scooter?: Yes Wheel 50 feet with 2 turns (QC: 4 (Pt will be SBA for all aspects of functional mobility, in order to safely d/c. ) Type: Manual Wheel 150 feet: 4 (Pt will be SBA for all aspects of functional mobility, in order to safely d/c. ) Type: Manual PT Plan Problem List Problem List: Activity Tolerance, Safety Treatment/Plan Treatment Plan: Continue Plan of Care Treatment Plan: Bed Mobility, Concurrent Therapy, Education, Functional Activity Rubén, Functional Strength, Group Therapy, Gait, Safety, Therapeutic Exercise, Transfers Treatment Duration: Dec 04, 2022 Frequency: At least 5 of 7 days/Wk (IRF) Estimated Hrs Per Day: 1.5 hours per day Patient and/or Family Agrees t: Yes Safety Risks/Education Patient Education: Safety Issues Teaching Recipient: Patient Teaching Methods: Discussion Response to Teaching: Verbalize Understanding Time Time In: 1145 Time Out: 1200 DATE: Dec 01, 2022 Total Billed Treatment Time: 15 Total Billed Treatment 1, FA (15m) ASA RODGERS PTA Dec 01, 2022 13:21
--- NOTE | 2022-12-01 14:14 | Occupational Ther Daily Note ---
OT Current Status-Daily Note Subjective Pt sitting in chair upon arrival, alert and cooperative, agreed to shower for OT. No pain mentioned at this time. Appearance Pt ambulated to shower bench from recliner with CGA. Pt then doffed lower body clothing and sat on bench to complete shower with SBA, pt required assistance with soap bottle with verbal cues to wash and rinse body. Pt completed, shower and dried off, and transferred out of shower to chair in bathroom. Pt completed upper and lower body dressing with set up assist. Pt then donned footwear, with set up assist. Pt then ambulated to sink and completed grooming, oral hygiene and put face cream on. Pt sat in chair, and attempted to claudia compression socks on self, but pt was very faitgued so therapist donned compression stockings for pt, and placed shoes back on. Pt left in chair in room, all needs met, call light and phone within reach. ADL-Treatment Therapy Code Descriptions/Definitions Functional [place] Measure: 0=Not Assessed/NA 4=Minimal Assistance 1=Total Assistance 5=Supervision or Setup 2=Maximal Assistance 6=Modified [place] 3=Moderate Assistance 7=Complete IndependenceSCALE: Activities may be completed with or without assistive devices. 0-Qthyqmnjkq-yvkbjbr completes the activity by him/herself with no assistance from a helper. 5-Set-up or Clean-up Assistance-helper sets up or cleans up; patient completes activity. [place] assists only prior to or following the activity. 4-Supervision or Touching Assistance-helper provides verbal cues and/or touching/steadying and/or contact guard assistance as patient completes activi ty. Assistance may be provided throughout the activity or intermittently. 3-Partial/Moderate Assistance-helper does LESS THAN HALF the effort. [place] lifts, holds or supports trunk or limbs, but provides less than half the effort. 2-Substantial/Maximal Assistance-helper does MORE THAN HALF the effort. [place] lifts or holds trunk or limbs and provides more than half the effort. 7-Iamlhosnm-hkuwvu does ALL the effort. Patient does none of the effort to complete the activity. Or, the assistance of 2 or more helpers is required for the patient to complete the activity. If activity was not attempted, code reason: 7-Patient Refused. 9-Not Applicable-not attempted and the patient did not perform the activity before the current illness, exacerbation or injury. 10-Not Attempted due to Environmental Limitations-(lack of equipment, weather restraints, etc.). 88-Not Attempted due to Medical Conditions or Safety Concerns. Education OT Patient Education: Energy conservation, Modified ADL techniques, Progress toward Goal/Update tx plan, Purpose of tx/functional activities, Transfer techniques OT Short Term Goals Short Term Goals Time Frame: Nov 27, 2022 Eatin Oral hygiene: 6 Upper body dressin OT Fpc Goals Scalder Goals Time Frame: Dec 04, 2022 Acute change in mental status: 0 Inattention: 0 Disorganized thinkin Altered level of consciousness: 0 Eating (QC): 6 Oral Hygiene (QC): 6 Toileting Hygiene (QC): 5 Shower/Bathe Self (QC): 5 Upper Body Dressing (QC): 5 Lower Body Dressing (QC): 5 On/Off Footwear (QC): 5 1=Demonstrate adherence to instructed precautions during ADL tasks. 2=Patient will verbalize/demonstrate understanding of assistive devices/modifications for ADL. 3=Patient will improve strength/tolerance for activity to enable patient to perform ADL's. OT Education/Plan Problem List/Assessment Assessment: Decreased Safety Aware Discharge Recommendations Plan/Recommendations: Continue POC Treatment Plan/Plan of Care Patient would benefit from OT for education, treatment and training to promote independence in ADL's, mobility, safety and/or upper extremity function for ADL's. Plan of Care: ADL Retraining, Concurrent Therapy, Functional Mobility, Group Exercise/Act as Ind, UE Funct Exercise/Act Treatment Duration: Dec 04, 2022 Frequency: At least 5 of 7 days/Wk (IRF) Estimated Hrs Per Day: 1.5 hours per day Agreement: Yes Rehab Potential: Good Time Start Time: 09:00 Stop Time: 10:00 DATE: Dec 01, 2022 Total Time Billed (hr/min): 60 Billed Treatment Time 1 visit ADL 4 (60) Jo Ann Wilcox COTA Dec 01, 2022 14:14
--- NOTE | 2022-12-01 14:42 | Occupational Ther Daily Note ---
OT Current Status-Daily Note Subjective Pt alert and cooperative, agreed to therapy, no pain mentioned at this time. ADL-Treatment Pt sitting in chair, completed B UE HEP exercises with yellow thera bands. Pt completed 8-10 reps 2 times with multiple recovery breaks. Pt required skilled instruction for correct technique to best benefit pt. Pt repeated the same phrases 3 times over during session. Pt then requested to use restroom, ambulated to bathroom, using FWW, CGA. Pt completed toileting with CGA. Pt ambulated back to chair in room, was left in recliner in room, all needs met at this time, call light in hand. Therapy Code Descriptions/Definitions Functional [place] Measure: 0=Not Assessed/NA 4=Minimal Assistance 1=Total Assistance 5=Supervision or Setup 2=Maximal Assistance 6=Modified [place] 3=Moderate Assistance 7=Complete IndependenceSCALE: Activities may be completed with or without assistive devices. 3-Momemrjiqy-pqtlyzp completes the activity by him/herself with no assistance from a helper. 5-Set-up or Clean-up Assistance-helper sets up or cleans up; patient completes activity. [place] assists only prior to or following the activity. 4-Supervision or Touching Assistance-helper provides verbal cues and/or giselle gabriela/steadying and/or contact guard assistance as patient completes activity. Assistance may be provided throughout the activity or intermittently. 3-Partial/Moderate Assistance-helper does LESS THAN HALF the effort. [place] lifts, holds or supports trunk or limbs, but provides less than half the effort. 2-Substantial/Maximal Assistance-helper does MORE THAN HALF the effort. [place] lifts or holds trunk or limbs and provides more than half the effort. 6-Qbhxptmlu-srdbfx does ALL the effort. Patient does none of the effort to complete the activity. Or, the assistance of 2 or more helpers is required for the patient to complete the activity. If activity was not attempted, code reason: 7-Patient Refused. 9-Not Applicable-not attempted and the patient did not perform the activity before the current illness, exacerbation or injury. 10-Not Attempted due to Environmental Limitations-(lack of equipment, weather restraints, etc.). 88-Not Attempted due to Medical Conditions or Safety Concerns. Education OT Patient Education: Energy conservation, Progress toward Goal/Update tx plan, Purpose of tx/functional activities, Transfer techniques Teaching Methods: Demonstration, Discussion Response to Teaching: Verbalize Understanding, Reinforcement Needed OT Short Term Goals Short Term Goals Time Frame: Nov 27, 2022 Eatin Oral hygiene: 6 Upper body dressin OT Director Patient Accounting Goals Custodial Goals Time Frame: Dec 04, 2022 Acute change in mental status: 0 Inattention: 0 Disorganized thinkin Altered level of consciousness: 0 Eating (QC): 6 Oral Hygiene (QC): 6 Toileting Hygiene (QC): 5 Shower/Bathe Self (QC): 5 Upper Body Dressing (QC): 5 Lower Body Dressing (QC): 5 On/Off Footwear (QC): 5 1=Demonstrate adherence to instructed precautions during ADL tasks. 2=Patient will verbalize/demonstrate understanding of assistive devices/modifications for ADL. 3=Patient will improve strength/tolerance for activity to enable patient to perform ADL's. OT Education/Plan Problem List/Assessment Assessment: Decreased Activ Tolerance, Decreased Safety Aware, Decreased UE Strength, Impaired Cognition Discharge Recommendations Plan/Recommendations: Continue POC Treatment Plan/Plan of Care Patient would benefit from OT for education, treatment and training to promote independence in ADL's, mobility, safety and/or upper extremity function for ADL' s. Plan of Care: ADL Retraining, Concurrent Therapy, Functional Mobility, Group Exercise/Act as Ind, UE Funct Exercise/Act Treatment Duration: Dec 04, 2022 Frequency: At least 5 of 7 days/Wk (IRF) Estimated Hrs Per Day: 1.5 hours per day Agreement: Yes Rehab Potential: Good Time Start Time: 13:10 Stop Time: 13:25 DATE: Dec 01, 2022 Total Time Billed (hr/min): 15 Billed Treatment Time 1 visit Ex (15) Jo Ann Wilcox COTA Dec 01, 2022 14:42
[2022-12-01 19:52] VITALS: BP 143/61
[2022-12-01] MEDS: MELATONIN 3 MG TABLET PO PRN (20:36)
--- NOTE | 2022-12-02 05:55 | PM&R Progress Note ---
Subjective HPI/CC On Admission Date Seen by Provider: Dec 02, 2022 Time Seen by Provider: 09:00 Subjective/Events-last exam 12/02/2022: Doing well Discussed in team meeting HH will be arranged at [place] Wednesday12/01/2022: Patient doing really well No concerns Much improved status 11/30/2022: Much improved overall No pain reported No falls Improved left hand tremor 11/29/2022: Patient doing well Supportive care is doing well Daughter at the bedside Left arm tremor much improved with Sinemet 11/28/2022: No major issues Family at bedside Hip pain resolved Talked about Parkinson's Patient very sedentary at home 11/27/2022: No major issues Had some dyspnea during activity but O2 sat ok Lungs remain clear PO abx 11/26/2022: Much improve More lucid Hearing loss makes communication difficult Sinimet seems to be helping the tremor without side effects 11/25/2022: Patient doing a lot better More lucid Less confusion We will arrange for outpatient Parkinson's therapy group Switching IV antibiotics to p.o. 11/24/2022: Much improve overall Less confusion Continues on Rocephin No falls Review of Systems General: Fatigue, Malaise Objective Exam Vital Signs Vital Signs Date Time Temp Pulse Resp B/P (MAP) Pulse Ox O2 Delivery O2 Flow Rate FiO2 12/02/22 19:22 35.9 69 18 110/58 (75) 94 Room Air 11/30/22 00:36 21 11/28/22 07:59 0.00 Capillary Refill : General Appearance: No Apparent Distress, WD/WN, Chronically ill HEENT: PERRL/EOMI, Normal ENT Inspection, Pharynx Normal Neck: Full Range of Motion, Normal Inspection, Non Tender, Supple, Carotid Bruit Respiratory: Chest Non Tender, Lungs Clear, Normal Breath Sounds, No Accessory Muscle Use, No Respiratory Distress Cardiovascular: Regular Rate, Rhythm, No Edema, No Gallop, No JVD, No Murmur, Normal Peripheral Pulses Gastrointestinal: Normal Bowel Sounds, No Organomegaly, No Pulsatile Mass, Non Tender, Soft Back: Normal Inspection, No CVA Tenderness, No Vertebral Tenderness Extremity: Normal Capillary Refill, Normal Inspection, Normal Range of Motion, Non Tender, No Calf Tenderness, No Pedal Edema Neurologic/Psychiatric: Alert, No Motor/Sensory Deficits, juvenile officer II-XII Norm as Tested, Abnormal Gait, Depressed Affect, Disoriented, Motor Weakness (generalized), Other (tremor left hand and arm) Skin: Normal Color, Warm/Dry Lymphatic: No Adenopathy Results/Procedures Lab Patient resulted labs reviewed. FIM Transfers Therapy Code Descriptions/Definitions Functional [place] Measure: 0=Not Assessed/NA 4=Minimal Assistance 1=Total Assistance 5=Supervision or Setup 2=Maximal Assistance 6=Modified [place] 3=Moderate Assistance 7=Complete IndependenceSCALE: Activities may be completed with or without assistive devices. 1-Attbppahof-cjbgcld completes the activity by him/herself with no assistance from a helper. 5-Set-up or Clean-up Assistance-helper sets up or cleans up; patient completes activity. [place] assists only prior to or following the activity. 4-Supervision or Touching Assistance-helper provides verbal cues and/or touching/steadying and/or contact guard assistance as patient completes activity. Assistance may be provided throughout the activity or intermittently. 3-Partial/Moderate Assistance-helper does LESS THAN HALF the effort. [place] lifts, holds or supports trunk or limbs, but provides less than half the effort. 2-Substantial/Maximal Assistance-helper does MORE THAN HALF the effort. [place] lifts or holds trunk or limbs and provides more than half the effort. 8-Rheiollfj-uriotr does ALL the effort. Patient does none of the effort to complete the activity. Or, the assistance of 2 or more helpers is required for the patient to complete the activity. If activity was not attempted, code reason: 7-Patient Refused. 9-Not Applicable-not attempted and the patient did not perform the activity before the current illness, exacerbation or injury. 10-Not Attempted due to Environmental Limitations-(lack of equipment, weather restraints, etc.). 88-Not Attempted due to Medical Conditions or Safety Concerns. Roll Left to Right (QC): 3 (Min A ) Sit to Lying (QC): 3 (Min A ) Sit to Stand (QC): 5 Chair/Vkr-pn-Gfypm Xfer(QC): 4 Car Transfer (QC): 88 Gait Training Does the Patient Walk?: Yes Distance: 60', 50', 125' Walk 10 feet (QC): 4 Walk 50 ft with 2 Turns(QC): 4 Walk 150 ft (QC): 88 Walking 10ft/uneven surface-QC: 88 Gait Persons Needed: 1 Gait Assistive Device: FWW Wheelchair Training Does the Pt Use a Wheelchair?: Yes Wheel 50 ft with 2 turns (QC): 5 Wheel 150 ft (QC): 88 Type of Wheelchair: Manual Stair Training 1 Step (curb) (QC): 88 4 Steps (QC): 88 12 Steps (QC): 9 (Pt has 4 steps to enter/exit home ) Balance Picking up an Object (QC): 3 (Min A ) ADL-Treatment Eating (QC): 6 Oral Hygiene (QC): 4 Shower/Bathe Self (QC): 4 Upper Body Dressing (QC): 3 Lower Body Dressing (QC): 4 On/Off Footwear (QC): 3 Toileting Hygiene (QC): 4 Toilet Transfer (QC): 4 Assessment/Plan Assessment and Plan Assess & Plan/Chief Complaint Assessment: Acute encephalopathy UTI Dementia Parkinson's disease new diagnosis Falls Hypokalemia Plan: Monitor closely Abx Fall risk 11/24/2022: Monitor closely Supplement potassium 11/25/2022: Change IV antibiotics to p.o. 11/26/2022: Monitor for falls 11/27/2022: Monitor ZAZUETA 11/28/2022: Monitor closely Encephalopathy clearing 11/29/2022: Continue Sinemet 11/30/2022: Monitor closely 12/01/2022: Supportive care Monitor closely 12/02/2022: Supportive care DC Wednesday (1) Encephalopathy (2) UTI (urinary tract infection) Status: Acute (3) Frequent falls Status: Acute (4) Parkinsons disease (5) Dementia SILVA CORTEZ DO Dec 02, 2022 05:55
[2022-12-02] MEDS: MULTIVIT W/MINERALS TAB (THERAGRAN M) PO SCH (06:16)
[2022-12-02] MEDS: KCL 10 MEQ TAB (MICRO K) PO SCH (06:16)
[2022-12-02] MEDS: LEVOTHYROXINE 50 MCG (LEVOTHROID) TAB PO SCH (06:16)
[2022-12-02 07:39] VITALS: BP 156/77
[2022-12-02] MEDS: carvediloL 12.5 MG TABLET PO SCH ×2 (09:22→20:37)
[2022-12-02] MEDS: PANTOPRAZOLE 40 MG (PROTONIX) TAB PO SCH (09:22)
[2022-12-02] MEDS: CELECOXIB 100 MG CAPSULE PO SCH ×2 (09:23→20:37)
[2022-12-02] MEDS: FLUoxetine 20 MG CAPSULE PO SCH (09:23)
[2022-12-02] MEDS: ASPIRIN enteric coated 81MG TABLET PO SCH (09:23)
[2022-12-02] MEDS: SINEMET 25/100 (CARBIDOPA/LEVODOPA) TAB PO SCH ×3 (09:23→17:35)
[2022-12-02] MEDS: SENNA W/DOCUSATE (SENOKOT S) TABLET PO SCH ×2 (09:24→20:37)
[2022-12-02] MEDS: DOCUSATE SODIUM 100 MG CAPSULE PO SCH ×2 (09:24→20:37)
[2022-12-02] MEDS: ENOXAPARIN 40 MG/0.4 ML SYRINGE SC SCH (09:24)
[2022-12-02] MEDS: MICONAZOLE 2% POWDER (DESENEX AF) 90 GM TOP SCH ×2 (09:24→20:37)
[2022-12-02] MEDS: polyethylene glycoL POWDER 17 GM (MIRALAX) PACK PO SCH ×2 (09:24→20:37)
[2022-12-02] MEDS: LOSARTAN 100 MG (COZAAR) TABLET PO SCH (09:25)
--- NOTE | 2022-12-02 09:40 | Physical Therapy Daily Note ---
PT Daily Note-Current Subjective Pt sitting in recliner upon arrival. Pt reports not sleeping great last night due to getting up a lot for toileting. Pt agrees to PT. Pain Location: No Pain Reported Section J - Health Conditions 1. Rarely or not at all 2. Occasionally 3. Frequently 4. Almost constantly 8. Unable to answer Pain Effect on Sleep: 2 Pain Interference with Therapy: 2 Pain Interference w/Day-to-Day: 2 Mental Status Patient Orientation: Person, Place, Situation Transfers SCALE: Activities may be completed with or without assistive devices. 6-Msvaoqxveg-ebiguyg completes the activity by him/herself with no assistance from a helper. 5-Set-up or Clean-up Assistance-helper sets up or cleans up; patient completes activity. [place] assists only prior to or following the activity. 4-Supervision or Touching Assistance-helper provides verbal cues and/or touching/steadying and/or contact guard assistance as patient completes activity. Assistance may be provided throughout the activity or intermittently. 3-Partial/Moderate Assistance-helper does LESS THAN HALF the effort. [place] lifts, holds or supports trunk or limbs, but provides less than half the effort. 2-Substantial/Maximal Assistance-helper does MORE THAN HALF the effort. [place] lifts or holds trunk or limbs and provides more than half the effort. 6-Qcdfoufgi-xmpexb does ALL the effort. Patient does none of the effort to complete the activity. Or, the assistance of 2 or more helpers is required for the patient to complete the activity. If activity was not attempted, code reason: 7-Patient Refused. 9-Not Applicable-not attempted and the patient did not perform the activity before the current illness, exacerbation or injury. 10-Not Attempted due to Environmental Limitations-(lack of equipment, weather restraints, etc.). 88-Not Attempted due to Medical Conditions or Safety Concerns. Sit to Stand (QC): 5 Toilet Transfer (QC): 4 Weight Bearing Right Lower Extremity: Right Full Weight Bearing Left Lower Extremity: Left Full Weight Bearing Gait Training Does the Patient Walk?: Yes Distance: 210' (73', 70', 67) Walk 10 feet (QC): 5 Walk 50 ft with 2 Turns(QC): 4 Walk 150 ft (QC): 4 Gait Persons Needed: 1 Gait Assistive Device: FWW Exercises Seated Therapy Exercises: Ankle pumps, Long arc quads, Hip flexion, Hamstring Curls, Hip abd/add, Glut set Seated Reps: 15 NuStep Minutes: 15 NuStep Workload: 3 Treatments TF to standing and amb to BR. After completing pericare & washing hands, pt amb in hallway to Therapy Gym. Pt uses NuStep followed by RB. Pt sits at EOM for Seated Ex w/several RB as needed. Pt amb in hallway and returns to room to use BR again then rest in recliner w/all needs met, call light in hand. Nurse present at end of tx. Assessment Current Status: Good Progress Pt needs decreased VC for safety but fatigues quickly leia. during amb. PT Long-Term Goals Gun Perforator Loader Goals PT Long-Term Goals Time Frame: Dec 04, 2022 Roll Left & Right (QC): 4 (Pt will be SBA for all aspects of functional mobility, in order to safely d/c. ) Sit to Lying (QC): 4 (Pt will be SBA for all aspects of functional mobility, in order to safely d/c. ) Lying-Sitting on Side/Bed(QC): 4 (Pt will be SBA for all aspects of functional mobility, in order to safely d/c. ) Sit to Stand (QC): 4 (Pt will be SBA for all aspects of functional mobility, in order to safely d/c. ) Chair/Ueo-ru-Thpju Xfer(QC): 4 (Pt will be SBA for all aspects of functional mobility, in order to safely d/c. ) Toilet Transfer (QC): 4 (Pt will be SBA for all aspects of functional mobility, in order to safely d/c. ) Car Transfer (QC): 4 (Pt will be SBA for all aspects of functional mobility, in order to safely d/c. ) Does the Patient Walk: Yes Walk 10 feet (QC): 4 (Pt will be SBA for all aspects of functional mobility, in order to safely d/c. ) Walk 50ft with 2 Turns (QC): 4 (Pt will be SBA for all aspects of functional mobility, in order to safely d/c. ) Walk 150 ft (QC): 4 (Pt will be SBA for all aspects of functional mobility, in order to safely d/c. ) Walking 10ft on Uneven Surface: 4 (Pt will be SBA for all aspects of functional mobility, in order to safely d/c. ) 1 Step (curb) (QC): 4 (Pt will be SBA for all aspects of functional mobility, in order to safely d/c. ) 4 Steps (QC): 4 (Pt will be SBA for all aspects of functional mobility, in order to safely d/c. ) 12 Steps (QC): 9 (Pt has 4 steps to enter/exit home ) Picking up an Object (QC): 4 (Pt will be SBA for all aspects of functional mobility, in order to safely d/c. ) Does the Pt use WC or Scooter?: Yes Wheel 50 feet with 2 turns (QC: 4 (Pt will be SBA for all aspects of functional mobility, in order to safely d/c. ) Type: Manual Wheel 150 feet: 4 (Pt will be SBA for all aspects of functional mobility, in order to safely d/c. ) Type: Manual PT Plan Problem List Problem List: Activity Tolerance, Gait Treatment/Plan Treatment Plan: Continue Plan of Care Treatment Plan: Bed Mobility, Concurrent Therapy, Education, Functional Activity Rubén, Functional Strength, Group Therapy, Gait, Safety, Therapeutic Exercise, Transfers Treatment Duration: Dec 04, 2022 Frequency: At least 5 of 7 days/Wk (IRF) Estimated Hrs Per Day: 1.5 hours per day Patient and/or Family Agrees t: Yes Safety Risks/Education Patient Education: Gait Training, Correct Positioning, Safety Issues Teaching Recipient: Patient Teaching Methods: Discussion Response to Teaching: Verbalize Understanding Time Time In: 0800 Time Out: 30 DATE: Dec 02, 2022 Total Billed Treatment Time: 90 Total Billed Treatment 1, GT x2 (30m), EX x3 (40m) & FA (20m) ASA RODGERS CODING CLERK Dec 02, 2022 09:40
[2022-12-02] MEDS: ACETAMINOPHEN 325 MG TABLET PO PRN (11:26)
--- NOTE | 2022-12-02 14:23 | Occupational Ther Daily Note ---
OT Current Status-Daily Note Subjective Patient resting in recliner, agreeable to participate in OT Pain Numeric Pain Scale: 0-No Pain Mental Status/Objective Patient Orientation: Person, Place, Time, Situation ADL-Treatment Assistance required for position w/ FWW, turning and backing to ADL surfaces, OT provided hands on assist for unrolling elastic waist band following toileting tasks. Simulate doorway for passage through bathroom at home, must side step w/ FWW Therapy Code Descriptions/Definitions Functional [place] Measure: 0=Not Assessed/NA 4=Minimal Assistance 1=Total Assistance 5=Supervision or Setup 2=Maximal Assistance 6=Modified [place] 3=Moderate Assistance 7=Complete IndependenceSCALE: Activities may be completed with or without assistive devices. 4-Yvhgaskdul-tnczuaw completes the activity by him/herself with no assistance from a helper. 5-Set-up or Clean-up Assistance-helper sets up or cleans up; patient completes activity. [place] assists only prior to or following the activity. 4-Supervision or Touching Assistance-helper provides verbal cues and/or touching/steadying and/or contact guard assistance as patient completes act ivity. Assistance may be provided throughout the activity or intermittently. 3-Partial/Moderate Assistance-helper does LESS THAN HALF the effort. [place] lifts, holds or supports trunk or limbs, but provides less than half the effort. 2-Substantial/Maximal Assistance-helper does MORE THAN HALF the effort. [place] lifts or holds trunk or limbs and provides more than half the effort. 8-Hzptjawye-bnfkug does ALL the effort. Patient does none of the effort to complete the activity. Or, the assistance of 2 or more helpers is required for the patient to complete the activity. If activity was not attempted, code reason: 7-Patient Refused. 9-Not Applicable-not attempted and the patient did not perform the activity before the current illness, exacerbation or injury. 10-Not Attempted due to Environmental Limitations-(lack of equipment, weather restraints, etc.). 88-Not Attempted due to Medical Conditions or Safety Concerns. Eating (QC): 6 Oral Hygiene (QC): 5 Upper Body Dressing (QC): 5 Lower Body Dressing (QC): 4 On/Off Footwear: 5 Toileting Hygiene (QC): 4 Toilet Transfer (QC): 4 Other Treatment Obstacle navigation, safe route planning, mobility varied environment and sidestepping sequences Education OT Patient Education: Correct positioning, Energy conservation, Modified ADL techniques, Progress toward Goal/Update tx plan, Purpose of tx/functional activities, Reviewed precautions, Rehab process, Safety issues, Transfer techniq ues, Use of adapted equipment Teaching Recipient: Patient Teaching Methods: Demonstration, Discussion Response to Teaching: Verbalize Understanding, Reinforcement Needed OT Short Term Goals Short Term Goals Time Frame: Nov 27, 2022 Eatin Oral hygiene: 6 Upper body dressin OT Custodial Goals Wool Merchant Goals Time Frame: Dec 04, 2022 Acute change in mental status: 0 Inattention: 0 Disorganized thinkin Altered level of consciousness: 0 Eating (QC): 6 Oral Hygiene (QC): 6 Toileting Hygiene (QC): 5 Shower/Bathe Self (QC): 5 Upper Body Dressing (QC): 5 Lower Body Dressing (QC): 5 On/Off Footwear (QC): 5 1=Demonstrate adherence to instructed precautions during ADL tasks. 2=Patient will verbalize/demonstrate understanding of assistive devices/modifications for ADL. 3=Patient will improve strength/tolerance for activity to enable patient to perform ADL's. OT Education/Plan Problem List/Assessment Assessment: Impaired Cognition, Impaired Coordination, Impaired Funct Balance, Impaired Self-Care Skills Discharge Recommendations Plan/Recommendations: Continue POC Treatment Plan/Plan of Care Treatment,Training & Education: Yes Patient would benefit from OT for education, treatment and training to promote independence in ADL's, mobility, safety and/or upper extremity function for ADL's. Plan of Care: ADL Retraining, Concurrent Therapy, Functional Mobility, Group Exercise/Act as Ind, UE Funct Exercise/Act Treatment Duration: Dec 04, 2022 Frequency: At least 5 of 7 days/Wk (IRF) Estimated Hrs Per Day: 1.5 hours per day Agreement: Yes Rehab Potential: Good Time Start Time: 13:30 Stop Time: 14:00 DATE: Dec 02, 2022 Total Time Billed (hr/min): 60 Billed Treatment Time ADL 3, 40 , FA navigation 20 min AURORA DOSS OT Dec 02, 2022 14:23
--- NOTE | 2022-12-02 15:03 | Physical Therapy Progress Note ---
Therapy Progress Note TASSEL SNIPPER left print off of FWW tray picture w/explanation that this items is recommended by PT instead of use of 4WW for safety. This item will aid in carrying food and drink from one room to another w/o letting go of FWW. Therapy does not recommend use of 4WW as it does not provide adequate support for pt's gait. TASSEL SNIPPER left copy in room on tray table,copy in HEP folder in room as well as pt's chart folder. ASA RODGERS TASSEL SNIPPER Dec 02, 2022 15:02
[2022-12-02 19:22] VITALS: BP 110/58
[2022-12-03] MEDS: LEVOTHYROXINE 50 MCG (LEVOTHROID) TAB PO SCH (06:30)
[2022-12-03] MEDS: MULTIVIT W/MINERALS TAB (THERAGRAN M) PO SCH (06:30)
[2022-12-03] MEDS: KCL 10 MEQ TAB (MICRO K) PO SCH (06:31)
[2022-12-03 07:37] VITALS: BP 159/90
[2022-12-03] MEDS: ASPIRIN enteric coated 81MG TABLET PO SCH (08:05)
[2022-12-03] MEDS: carvediloL 12.5 MG TABLET PO SCH ×2 (08:05→20:49)
[2022-12-03] MEDS: SINEMET 25/100 (CARBIDOPA/LEVODOPA) TAB PO SCH ×3 (08:05→17:05)
[2022-12-03] MEDS: CELECOXIB 100 MG CAPSULE PO SCH ×2 (08:05→20:49)
[2022-12-03] MEDS: FLUoxetine 20 MG CAPSULE PO SCH (08:06)
[2022-12-03] MEDS: PANTOPRAZOLE 40 MG (PROTONIX) TAB PO SCH (08:06)
[2022-12-03] MEDS: ENOXAPARIN 40 MG/0.4 ML SYRINGE SC SCH (08:06)
[2022-12-03] MEDS: FENTANYL 50 MCG TD SCH (08:06)
[2022-12-03] MEDS: LOSARTAN 100 MG (COZAAR) TABLET PO SCH (08:06)
[2022-12-03] MEDS: FENTANYL PATCH REMOVAL TP SCH (08:07)
[2022-12-03] MEDS: FERROUS SULFATE 325 MG (IRON) TABLET PO SCH (08:08)
[2022-12-03 08:32] VITALS: BP 159/90
[2022-12-03] MEDS: SENNA W/DOCUSATE (SENOKOT S) TABLET PO SCH ×2 (09:18→20:49)
[2022-12-03] MEDS: polyethylene glycoL POWDER 17 GM (MIRALAX) PACK PO SCH ×2 (09:18→20:49)
[2022-12-03] MEDS: DOCUSATE SODIUM 100 MG CAPSULE PO SCH ×2 (09:18→20:49)
[2022-12-03] MEDS: MICONAZOLE 2% POWDER (DESENEX AF) 90 GM TOP SCH ×2 (09:18→20:49)
--- NOTE | 2022-12-03 11:19 | PM&R Progress Note ---
Subjective HPI/CC On Admission Date Seen by Provider: Dec 03, 2022 Time Seen by Provider: 11:45 Subjective/Events-last exam 12/03/2022: Patient doing well Ready for discharge tomorrow No falls Looking forward to discharge 12/02/2022: Doing well Discussed in team meeting HH will be arranged at [place] Wednesday12/01/2022: Patient doing really well No concerns Much improved status 11/30/2022: Much improved overall No pain reported No falls Improved left hand tremor 11/29/2022: Patient doing well Supportive care is doing well Daughter at the bedside Left arm tremor much improved with Sinemet 11/28/2022: No major issues Family at bedside Hip pain resolved Talked about Parkinson's Patient very sedentary at home 11/27/2022: No major issues Had some dyspnea during activity but O2 sat ok Lungs remain clear PO abx 11/26/2022: Much improve More lucid Hearing loss makes communication difficult Sinimet seems to be helping the tremor without side effects 11/25/2022: Patient doing a lot better More lucid Less confusion We will arrange for outpatient Parkinson's therapy group Switching IV antibiotics to p.o. 11/24/2022: Much improve overall Less confusion Continues on Rocephin No falls Review of Systems General: Fatigue, Malaise Objective Exam Vital Signs Vital Signs Date Time Temp Pulse Resp B/P (MAP) Pulse Ox O2 Delivery O2 Flow Rate FiO2 12/03/22 20:50 97 Room Air 12/03/22 19:55 36.1 65 20 106/70 (82) 12/03/22 08:32 21 12/03/22 08:24 0.00 Capillary Refill : General Appearance: No Apparent Distress, WD/WN, Chronically ill HEENT: PERRL/EOMI, Normal ENT Inspection, Pharynx Normal Neck: Full Range of Motion, Normal Inspection, Non Tender, Supple, Carotid Bruit Respiratory: Chest Non Tender, Lungs Clear, Normal Breath Sounds, No Accessory Muscle Use, No Respiratory Distress Cardiovascular: Regular Rate, Rhythm, No Edema, No Gallop, No JVD, No Murmur, Normal Peripheral Pulses Gastrointestinal: Normal Bowel Sounds, No Organomegaly, No Pulsatile Mass, Non Tender, Soft Back: Normal Inspection, No CVA Tenderness, No Vertebral Tenderness Extremity: Normal Capillary Refill, Normal Inspection, Normal Range of Motion, Non Tender, No Calf Tenderness, No Pedal Edema Neurologic/Psychiatric: Alert, No Motor/Sensory Deficits, topographical field assistant II-XII Norm as Tested, Abnormal Gait, Depressed Affect, Disoriented, Motor Weakness (generalized), Other (tremor left hand and arm) Skin: Normal Color, Warm/Dry Lymphatic: No Adenopathy Results/Procedures Lab Patient resulted labs reviewed. FIM Transfers Therapy Code Descriptions/Definitions Functional [place] Measure: 0=Not Assessed/NA 4=Minimal Assistance 1=Total Assistance 5=Supervision or Setup 2=Maximal Assistance 6=Modified [place] 3=Moderate Assistance 7=Complete IndependenceSCALE: Activities may be completed with or without assistive devices. 7-Mnvqrtnkcd-mwiqoza completes the activity by him/herself with no assistance from a helper. 5-Set-up or Clean-up Assistance-helper sets up or cleans up; patient completes activity. [place] assists only prior to or following the activity. 4-Supervision or Touching Assistance-helper provides verbal cues and/or touching/steadying and/or contact guard assistance as patient completes activity. Assistance may be provided throughout the activity or intermittently. 3-Partial/Moderate Assistance-helper does LESS THAN HALF the effort. [place] lif ts, holds or supports trunk or limbs, but provides less than half the effort. 2-Substantial/Maximal Assistance-helper does MORE THAN HALF the effort. [place] lifts or holds trunk or limbs and provides more than half the effort. 0-Soxauqiud-owklvh does ALL the effort. Patient does none of the effort to complete the activity. Or, the assistance of 2 or more helpers is required for the patient to complete the activity. If activity was not attempted, code reason: 7-Patient Refused. 9-Not Applicable-not attempted and the patient did not perform the activity before the current illness, exacerbation or injury. 10-Not Attempted due to Environmental Limitations-(lack of equipment, weather restraints, etc.). 88-Not Attempted due to Medical Conditions or Safety Concerns. Roll Left to Right (QC): 3 (Min A ) Sit to Lying (QC): 3 (Min A ) Sit to Stand (QC): 5 Chair/Thq-wt-Kasyn Xfer(QC): 4 Car Transfer (QC): 88 Gait Training Does the Patient Walk?: Yes Distance: 210' (73', 70', 67) Walk 10 feet (QC): 5 Walk 50 ft with 2 Turns(QC): 4 Walk 150 ft (QC): 4 Walking 10ft/uneven surface-QC: 88 Gait Persons Needed: 1 Gait Assistive Device: FWW Wheelchair Training Does the Pt Use a Wheelchair?: Yes Wheel 50 ft with 2 turns (QC): 5 Wheel 150 ft (QC): 88 Type of Wheelchair: Manual Stair Training 1 Step (curb) (QC): 88 4 Steps (QC): 88 12 Steps (QC): 9 (Pt has 4 steps to enter/exit home ) Balance Picking up an Object (QC): 3 (Min A ) ADL-Treatment Eating (QC): 6 Oral Hygiene (QC): 5 Shower/Bathe Self (QC): 4 Upper Body Dressing (QC): 5 Lower Body Dressing (QC): 4 On/Off Footwear (QC): 5 Toileting Hygiene (QC): 4 Toilet Transfer (QC): 4 Assessment/Plan Assessment and Plan Assess & Plan/Chief Complaint Assessment: Acute encephalopathy UTI Dementia Parkinson's disease new diagnosis Falls Hypokalemia Plan: Monitor closely Abx Fall risk 11/24/2022: Monitor closely Supplement potassium 11/25/2022: Change IV antibiotics to p.o. 11/26/2022: Monitor for falls 11/27/2022: Monitor ZAZUETA 11/28/2022: Monitor closely Encephalopathy clearing 11/29/2022: Continue Sinemet 11/30/2022: Monitor closely 12/01/2022: Supportive care Monitor closely 12/02/2022: Supportive care DC Wednesday12/03/2022: Continue supportive care Discharge tomorrow (1) Encephalopathy (2) UTI (urinary tract infection) Status: Acute (3) Frequent falls Status: Acute (4) Parkinsons disease (5) Dementia SILVA CORTEZ DO Dec 03, 2022 11:19
--- NOTE | 2022-12-03 11:46 | Physical Therapy Daily Note ---
PT Daily Note-Current Subjective Pt sitting in recliner upon arrival. Pt agrees to PT for QC scoring for anticipated d/c tomorrow. Pain Location: No Pain Reported Section J - Health Conditions 1. Rarely or not at all 2. Occasionally 3. Frequently 4. Almost constantly 8. Unable to answer Pain Effect on Sleep: 2 Pain Interference with Therapy: 2 Pain Interference w/Day-to-Day: 2 Mental Status Patient Orientation: Person, Place, Situation Transfers SCALE: Activities may be completed with or without assistive devices. 4-Rhlrujgrek-vgujrnm completes the activity by him/herself with no assistance from a helper. 5-Set-up or Clean-up Assistance-helper sets up or cleans up; patient completes activity. [place] assists only prior to or following the activity. 4-Supervision or Touching Assistance-helper provides verbal cues and/or touching/steadying and/or contact guard assistance as patient completes activity. Assistance may be provided throughout the activity or intermittently. 3-Partial/Moderate Assistance-helper does LESS THAN HALF the effort. [place] lifts, holds or supports trunk or limbs, but provides less than half the effort. 2-Substantial/Maximal Assistance-helper does MORE THAN HALF the effort. [place] lifts or holds trunk or limbs and provides more than half the effort. 4-Moylavyre-yykwtk does ALL the effort. Patient does none of the effort to complete the activity. Or, the assistance of 2 or more helpers is required for the patient to complete the activity. If activity was not attempted, code reason: 7-Patient Refused. 9-Not Applicable-not attempted and the patient did not perform the activity before the current illness, exacerbation or injury. 10-Not Attempted due to Environmental Limitations-(lack of equipment, weather restraints, etc.). 88-Not Attempted due to Medical Conditions or Safety Concerns. Roll Left & Right (QC): 6 Sit to Lying (QC): 6 Lying to Sitting/Side of Bed(Q: 6 Sit to Stand (QC): 5 Chair/Fva-nx-Udadd Xfer(QC): 5 Toilet Transfer (QC): 5 Pt uses FWW and Grab bars to steady after standing. Pt does not require cuing or assistance at this time. Weight Bearing Right Lower Extremity: Right Full Weight Bearing Left Lower Extremity: Left Full Weight Bearing Gait Training Does the Patient Walk?: Yes Distance: 75', 50', 75' Walk 10 feet (QC): 4 Walk 50 ft with 2 Turns(QC): 4 Walk 150 ft (QC): 4 Walking 10ft/uneven surface-QC: 4 Gait Persons Needed: 1 Gait Assistive Device: FWW Cuing for walking w/in walker & keeping WBOS Wheelchair Training Does the Pt Use a Wheelchair?: No Stair Training Stair Training: Handrails/: 1 handrail #of Steps: 4 1 Step (curb) (QC): 4 4 Steps (QC): 3 12 Steps (QC): 9 Stairs: Pattern: Step to Balance Picking up an Object (QC): 4 Special Test Comments VC on how to use Treatments TF to standing and uses BR. After completing pericare and washing hands, pt amb in hallway taking RB as needed. Pt uses NuStep followed by short RB. Pt completes QC scoring items listed above w/RB as needed for fatigue. Pt returns to room at end of tx to rest in recliner. All needs met, call light in hand. Assessment Current Status: Good Progress Pt has improved w/TF and mobility although still fatigues and needs RB as well as cuing at times for safety. PT Prison Goals Prison Goals PT Manager Talent Acquisition Goals Time Frame: Dec 04, 2022 Roll Left & Right (QC): 4 (Pt will be SBA for all aspects of functional mobility, in order to safely d/c. ) Sit to Lying (QC): 4 (Pt will be SBA for all aspects of functional mobility, in order to safely d/c. ) Lying-Sitting on Side/Bed(QC): 4 (Pt will be SBA for all aspects of functional mobility, in order to safely d/c. ) Sit to Stand (QC): 4 (Pt will be SBA for all aspects of functional mobility, in order to safely d/c. ) Chair/Knu-yx-Esbri Xfer(QC): 4 (Pt will be SBA for all aspects of functional mobility, in order to safely d/c. ) Toilet Transfer (QC): 4 (Pt will be SBA for all aspects of functional mobility, in order to safely d/c. ) Car Transfer (QC): 4 (Pt will be SBA for all aspects of functional mobility, in order to safely d/c. ) Does the Patient Walk: Yes Walk 10 feet (QC): 4 (Pt will be SBA for all aspects of functional mobility, in order to safely d/c. ) Walk 50ft with 2 Turns (QC): 4 (Pt will be SBA for all aspects of functional mobility, in order to safely d/c. ) Walk 150 ft (QC): 4 (Pt will be SBA for all aspects of functional mobility, in order to safely d/c. ) Walking 10ft on Uneven Surface: 4 (Pt will be SBA for all aspects of functional mobility, in order to safely d/c. ) 1 Step (curb) (QC): 4 (Pt will be SBA for all aspects of functional mobility, in order to safely d/c. ) 4 Steps (QC): 4 (Pt will be SBA for all aspects of functional mobility, in order to safely d/c. ) 12 Steps (QC): 9 (Pt has 4 steps to enter/exit home ) Picking up an Object (QC): 4 (Pt will be SBA for all aspects of functional mobility, in order to safely d/c. ) Does the Pt use WC or Scooter?: Yes Wheel 50 feet with 2 turns (QC: 4 (Pt will be SBA for all aspects of functional mobility, in order to safely d/c. ) Type: Manual Wheel 150 feet: 4 (Pt will be SBA for all aspects of functional mobility, in order to safely d/c. ) Type: Manual PT Plan Problem List Problem List: Activity Tolerance, Safety Treatment/Plan Treatment Plan: Continue Plan of Care Treatment Plan: Bed Mobility, Concurrent Therapy, Education, Functional Activity Rubén, Functional Strength, Group Therapy, Gait, Safety, Therapeutic Exercise, Transfers Treatment Duration: Dec 04, 2022 Frequency: At least 5 of 7 days/Wk (IRF) Estimated Hrs Per Day: 1.5 hours per day Patient and/or Family Agrees t: Yes Safety Risks/Education Patient Education: Gait Training, Transfer Techniques, Steps, Correct Positioning, Safety Issues Teaching Recipient: Patient Teaching Methods: Discussion Response to Teaching: Verbalize Understanding Time Time In: 815 Time Out: 945 DATE: Dec 03, 2022 Total Billed Treatment Time: 90 Total Billed Treatment 1, GT x2 (30m) & FA x4 (60m) ASA RODGERS REGIONAL BRANCH MANAGER Dec 03, 2022 11:46
--- NOTE | 2022-12-03 13:32 | Physical Therapy Daily Note ---
PT Daily Note-Current Subjective Pt sitting in recliner upon arrival. Pt agrees to PT/OT co-treat. Pain Location: No Pain Reported Section J - Health Conditions 1. Rarely or not at all 2. Occasionally 3. Frequently 4. Almost constantly 8. Unable to answer Pain Effect on Sleep: 2 Pain Interference with Therapy: 2 Pain Interference w/Day-to-Day: 2 Transfers SCALE: Activities may be completed with or without assistive devices. 2-Hnedxnhgtk-eqdhqlt completes the activity by him/herself with no assistance from a helper. 5-Set-up or Clean-up Assistance-helper sets up or cleans up; patient completes activity. [place] assists only prior to or following the activity. 4-Supervision or Touching Assistance-helper provides verbal cues and/or touching/steadying and/or contact guard assistance as patient completes activity. Assistance may be provided throughout the activity or intermittently. 3-Partial/Moderate Assistance-helper does LESS THAN HALF the effort. [place] lifts, holds or supports trunk or limbs, but provides less than half the effort. 2-Substantial/Maximal Assistance-helper does MORE THAN HALF the effort. [place] lifts or holds trunk or limbs and provides more than half the effort. 5-Ebcajktnq-tsysya does ALL the effort. Patient does none of the effort to complete the activity. Or, the assistance of 2 or more helpers is required for the patient to complete the activity. If activity was not attempted, code reason: 7-Patient Refused. 9-Not Applicable-not attempted and the patient did not perform the activity before the current illness, exacerbation or injury. 10-Not Attempted due to Environmental Limitations-(lack of equipment, weather restraints, etc.). 88-Not Attempted due to Medical Conditions or Safety Concerns. Sit to Stand (QC): 6 Toilet Transfer (QC): 6 Weight Bearing Right Lower Extremity: Right Full Weight Bearing Left Lower Extremity: Left Full Weight Bearing Gait Training Does the Patient Walk?: Yes Distance: 15' x2 Walk 10 feet (QC): 6 Gait Assistive Device: FWW Treatments OT/PT co-treat for higher level balance tasks requiring skilled instruction for independence and safety. OT focusing on ADLs while PT focusing on functional mobility. Pt TF from recliner to standing and amb to BR. After toileting, pt doffs clothing for shower. See OT note for shower & ADL details. ELECTRICIAN JOURNEYMAN WIREMAN departs after pt finishes shower and sits in chair to dress. OT continues tx w/pt. Assessment Current Status: Good Progress Pt is improving with TF and ambulation but still demonstrates safety concerns at times. PT Data Architect Manager Goals Correction Goals PT Data Architect Manager Goals Time Frame: Dec 04, 2022 Roll Left & Right (QC): 4 (Pt will be SBA for all aspects of functional mobility, in order to safely d/c. ) Sit to Lying (QC): 4 (Pt will be SBA for all aspects of functional mobility, in order to safely d/c. ) Lying-Sitting on Side/Bed(QC): 4 (Pt will be SBA for all aspects of functional mobility, in order to safely d/c. ) Sit to Stand (QC): 4 (Pt will be SBA for all aspects of functional mobility, in order to safely d/c. ) Chair/Jdu-mr-Whqef Xfer(QC): 4 (Pt will be SBA for all aspects of functional mobility, in order to safely d/c. ) Toilet Transfer (QC): 4 (Pt will be SBA for all aspects of functional mobility, in order to safely d/c. ) Car Transfer (QC): 4 (Pt will be SBA for all aspects of functional mobility, in order to safely d/c. ) Does the Patient Walk: Yes Walk 10 feet (QC): 4 (Pt will be SBA for all aspects of functional mobility, in order to safely d/c. ) Walk 50ft with 2 Turns (QC): 4 (Pt will be SBA for all aspects of functional mobility, in order to safely d/c. ) Walk 150 ft (QC): 4 (Pt will be SBA for all aspects of functional mobility, in order to safely d/c. ) Walking 10ft on Uneven Surface: 4 (Pt will be SBA for all aspects of functional mobility, in order to safely d/c. ) 1 Step (curb) (QC): 4 (Pt will be SBA for all aspects of functional mobility, in order to safely d/c. ) 4 Steps (QC): 4 (Pt will be SBA for all aspects of functional mobility, in order to safely d/c. ) 12 Steps (QC): 9 (Pt has 4 steps to enter/exit home ) Picking up an Object (QC): 4 (Pt will be SBA for all aspects of functional mobility, in order to safely d/c. ) Does the Pt use WC or Scooter?: Yes Wheel 50 feet with 2 turns (QC: 4 (Pt will be SBA for all aspects of functional mobility, in order to safely d/c. ) Type: Manual Wheel 150 feet: 4 (Pt will be SBA for all aspects of functional mobility, in o rder to safely d/c. ) Type: Manual PT Plan Problem List Problem List: Activity Tolerance, Safety Treatment/Plan Treatment Plan: Continue Plan of Care Treatment Plan: Bed Mobility, Concurrent Therapy, Education, Functional Activity Rubén, Functional Strength, Group Therapy, Gait, Safety, Therapeutic Exercise, Transfers Treatment Duration: Dec 04, 2022 Frequency: At least 5 of 7 days/Wk (IRF) Estimated Hrs Per Day: 1.5 hours per day Patient and/or Family Agrees t: Yes Safety Risks/Education Patient Education: Safety Issues Teaching Recipient: Patient Teaching Methods: Discussion Response to Teaching: Verbalize Understanding Time Time In: 1300 Time Out: 1330 DATE: Dec 03, 2022 Total Billed Treatment Time: 30 Total Billed Treatment 1, FA x2 (30m) ASA RODGERS ELECTRICIAN JOURNEYMAN WIREMAN Dec 03, 2022 13:32
--- NOTE | 2022-12-03 14:10 | Occupational Ther Daily Note ---
OT Current Status-Daily Note Subjective Pt alert, sitting in recliner. Pt agrees to therapy. No c/o pain. OT/PT co- treat for higher level balance tasks requiring skilled instruction for independence and safety. OT focusing on ADLs while PT focusing on functional mobility. Mental Status/Objective Patient Orientation: Person, Place, Time, Situation ADL-Treatment Pt agrees to shower. Pt able to gather clothing using FWW then transport to bathroom for shower and dressing. Set up for shower, pt sat 100% of the time to bath using grabbars and hand held shower. Independent with UBD. Set up for LBD. Independent for footwear. Independent for toileting and standing at sink for oral care. Therapy Code Descriptions/Definitions Functional [place] Measure: 0=Not Assessed/NA 4=Minimal Assistance 1=Total Assistance 5=Supervision or Setup 2=Maximal Assistance 6=Modified [place] 3=Moderate Assistance 7=Complete IndependenceSCALE: Activities may be completed with or without assistive devices. 0-Dtvgkkmkrn-hdjtdnk completes the activity by him/herself with no assistance from a helper. 5-Set-up or Clean-up Assistance-helper sets up or cleans up; patient completes activity. [place] assists only prior to or following the activity. 4-Supervision or Touching Assistance-helper provides verbal cues and/or touching/steadying and/or contact guard assistance as patient completes activity. Assistance may be provided throughout the activity or intermittently. 3-Partial/Moderate Assistance-helper does LESS THAN HALF the effort. [place] lifts, holds or supports trunk or limbs, but provides less than half the effort. 2-Substantial/Maximal Assistance-helper does MORE THAN HALF the effort. [place] lifts or holds trunk or limbs and provides more than half the effort. 6-Zyvnnwopr-aymspk does ALL the effort. Patient does none of the effort to complete the activity. Or, the assistance of 2 or more helpers is required for the patient to complete the activity. If activity was not attempted, code reason: 7-Patient Refused. 9-Not Applicable-not attempted and the patient did not perform the activity before the current illness, exacerbation or injury. 10-Not Attempted due to Environmental Limitations-(lack of equipment, weather restraints, etc.). 88-Not Attempted due to Medical Conditions or Safety Concerns. Eating (QC): 6 Oral Hygiene (QC): 6 Shower/Bathe Self (QC): 5 Upper Body Dressing (QC): 6 Lower Body Dressing (QC): 5 On/Off Footwear: 6 Toileting Hygiene (QC): 6 Toilet Transfer (QC): 6 Other Treatment Skilled instruction to complete B UE exercises against gravity for correct positioning and modifications due to limited shldr ROM. Pt tolerated 1 set 10 reps of 5 exercises. After session, pt sitting in recliner with call light/phone in reach. All needs met in room. BIMS CAM BIMS Expression of Ideas and Wants: Without Difficulty Understanding Verbal Content: Understands Brief Interview/Mental Status: Yes IRF AGUSTIN BIMS: IRF AGUSTIN BIMS Response (Comments) Value Repitition of Three Words Three 3 Recalls Socks Yes, No Cue Required 2 Recalls Blue Yes, No Cue Required 2 Recalls Bed Yes, No Cue Required 2 Year Correct 3 Month Accurate Within 5 Days 2 Day Incorrect or No Answer 0 Total 14 Patient Normally Able to Recal: Current Session, Location of own room, Staff Names and faces, That he/she in a [facility] Should Staff Asses. Mental St.: No CAM Mental Status Change/Baseline: 0 Inattention: 0 Disorganized thinkin Altered level of consciousness: 0 OT Short Term Goals Short Term Goals Time Frame: Nov 27, 2022 Eatin Oral hygiene: 6 Upper body dressin OT Usp Goals Alarm Security Or Surveillance Monitor Goals Time Frame: Dec 04, 2022 Acute change in mental status: 0 Inattention: 0 Disorganized thinkin Altered level of consciousness: 0 Eating (QC): 6 (met) Oral Hygiene (QC): 6 (met) Toileting Hygiene (QC): 5 (met) Shower/Bathe Self (QC): 5 (met) Upper Body Dressing (QC): 5 (met) Lower Body Dressing (QC): 5 (met) On/Off Footwear (QC): 5 (met) 1=Demonstrate adherence to instructed precautions during ADL tasks. 2=Patient will verbalize/demonstrate understanding of assistive devices/modifications for ADL. 3=Patient will improve strength/tolerance for activity to enable patient to perform ADL's. OT Education/Plan Problem List/Assessment Assessment: Decreased Activ Tolerance, Decreased UE Strength, Impaired Self- Care Skills Discharge Recommendations Plan/Recommendations: Continue POC Treatment Plan/Plan of Care Patient would benefit from OT for education, treatment and training to promote independence in ADL's, mobility, safety and/or upper extremity function for ADL's. Plan of Care: ADL Retraining, Concurrent Therapy, Functional Mobility, Group Exercise/Act as Ind, UE Funct Exercise/Act Treatment Duration: Dec 04, 2022 Frequency: At least 5 of 7 days/Wk (IRF) Estimated Hrs Per Day: 1.5 hours per day Agreement: Yes Rehab Potential: Good Time Start Time: 13:00 Stop Time: 14:00 DATE: Dec 03, 2022 Total Time Billed (hr/min): 60 Billed Treatment Time 1 visit-ADL 4 (50 min) EX 1 (10 min) co-treat with PT [id number], individual [id number] IMMANUEL BUSCH Dec 03, 2022 14:10
--- NOTE | 2022-12-03 16:04 | Progress Note ---
SUDEEP RODRIGUEZ 12/03/22 1604: Progress Note 87-year-old patient was brought to the ED for falls due to encephalopathy secondary to UTI. PMH includes high cholesterol, HTN, dementia, and hearing loss which makes communication difficult. CT was negative for acute abnormalities, but showed severe degenerative changes in the spine. UTI was treated w/ Rocephin which improved confusion. Patient was found to have hypokalemia and was treated with potassium chloride tablets (10 meq PO). Patient was diagnosed with Parkinson's and started Sinemet 25-100 1 tablet TIDWM which has help with hand tremor and no side effects. Was admitted to rehab for OT and PT with improved status, no falls, no pain, and was discharged on 12/04/2022. CARRIE CORTEZ DO 12/03/220: Supervisory-Addendum Brief Verification & Attestation Participated in pt care: history, MDM, physical Personally performed: exam, history, MDM, supervision of care Care discussed with: Medical Student Procedures: n/a Results interpretation: Verified all documentation Verification and Attestation of Medical Student E/M Service A medical student performed and documented this service in my presence. I reviewed and verified all information documented by the medical student and made modifications to such information, when appropriate. I personally performed the physical exam and medical decision making. Carrie Cortez, Dec 03, 2022,21:10 SUDEEP RODRIGUEZ Dec 03, 2022 16:04 CARRIE CORTEZ DO Dec 03, 2022 21:10
--- NOTE | 2022-12-03 19:24 | Speech Therapy Daily Note ---
Speech Daily Progress Note Subjective Date Seen by Provider: Dec 02, 2022 Time Seen by Provider: 10:50 Late entry. Pt sitting up in recliner when PAPERBOARD MACHINE OPERATOR enters the room. Pt pleasant and cooperative throughout session. Pain Numeric Pain Scale: 4 Location Body Site: Head Comment: headache - nurse notified Objective Pt appears to be doing better this date with memory. Pt does not repeat information in the session as she did in the most recent session. Pt completes a word deduction task where she was given 3 words describing an object and pt had state the item being described. Pt completes the task with 90% accuracy with min verbal cues. Pt completes mental manipulation of 3 words by saying them in reverse order with 100% accuracy with min verbal cues. Pt demonstrates progress this date with cognitive tasks. Assessment Assessment Current Status: Good Progress Treatment Plan Continue Plan of Care Speech Short Term Goals Short Term Goals Short Term Goals 1. Pt to be educated on different memory strategies. Speech Jail Goals Jail Goals 1. Pt to complete auditory memory tasks with 80% accuracy with min verbal prompts and use of strategies as appropriate. Speech-Plan Patient/Family Goals Patient/Family Goals: Pt's goal is to return home with her daughter. Treatment Plan Speech Therapy Treatment Plan: Continue Plan of Care Treatment Duration: Nov 24, 2022 Frequency: 3 times per week Estimated Hrs Per Day: Other Rehab Potential: Good Pt/Family Agrees to Plan: Yes Safety Risks/Education Teaching Recipient: Patient Teaching Methods: Discussion Response to Teaching: Reinforcement Needed Education Topics Provided: Pt educated on purpose of therapy tasks. Pt receptive and verbalized understanding but will likely require reinforcement due to memory deficits. Time Speech Therapy Time In: 10:50 Speech Therapy Time Out: 11:20 DATE: Dec 02, 2022 Total Billed Time: 30 Billed Treatment Time S/L Sole Zapata Speech Therapy Dec 03, 2022 19:24
[2022-12-03 19:55] VITALS: BP 106/70
[2022-12-04] MEDS ORDERED: CARB1TAB32 PO (06:28)
[2022-12-04] MEDS ORDERED: MICO90PO TOP (06:28)
[2022-12-04] MEDS ORDERED: CLN.1T PO (06:28)
--- NOTE | 2022-12-04 06:29 | D/C HH Face to Face Order ---
D/C Face to Face Orders Reconcile Patient Problems Problems Reviewed?: Yes Instructions for Patient [facility], Patient Instructions/FollowUp: PCP 1 week Physician to follow Patient: Laura Discharge Diet for Home: No Restrictions Patient Problems: Parkinson's Patient Data-Allergies,Ht & Wt Patient Allergies: Coded Allergies: Penicillins (Unverified Allergy, Unknown, HIVES, 05/21/14) adhesive tape (Unverified Allergy, Unknown, RASH BLISTERS, 05/21/14) Height (Feet): 5 Height (Inches): 7.00 Weight (Pounds): 184 Weight (Ounces): 0.0 Home Health Need/Face to Face Date of Face to Face: Dec 04, 2022 Clinical Findings: Generalized weakness and fatigue, Instability, Muscle weakness I have seen Pt vjia-gn-lkir: Yes Discharged To: Home Diagnosis/Conditions: Parkinson's Patient is Homebound due to: CognItive deficits, Martha fall risk due to instabilty, Muscle weakness Homebound Status Due to the above stated illness, injury or surgical procedure (medical condition or diagnosis) and associated clinical findings, the patient is homebound because of his/her inability to leave home except with aid of a supportive device and/or person AND leaving the home requires a considerable and taxing effort or is medically contraindicated. Pt req the following assistanc: [facility] Nursing Orders Home Health Services Order: Nursing Services, Chemistry Technologist-Evaluate & Treat, Physical Therapy-Evaluate & Treat Certify Stmt I certify that this patient is under my care and that I, a nurse practitioner or a physician; a housekeeper/laundry assistant working with me, had a face to face encounter that - meets the physician face to face encounter requirements with this patient as dated. SILVA CORTEZ DO Dec 04, 2022 06:29
--- NOTE | 2022-12-04 06:29 | Discharge Summary ---
Diagnosis/Chief Complaint Date of Admission Nov 23, 2022 at 14:59 Date of Discharge Discharge Date: Dec 04, 2022 Discharge Diagnosis Assessment: Acute encephalopathy UTI Dementia Parkinson's disease new diagnosis Falls Hypokalemia Plan: Monitor closely Abx Fall risk 11/24/2022: Monitor closely Supplement potassium 11/25/2022: Change IV antibiotics to p.o. 11/26/2022: Monitor for falls 11/27/2022: Monitor ZAZUETA 11/28/2022: Monitor closely Encephalopathy clearing 11/29/2022: Continue Sinemet 11/30/2022: Monitor closely 12/01/2022: Supportive care Monitor closely 12/02/2022: Supportive care DC Wednesday12/03/2022: Continue supportive care Discharge tomorrow (1) Encephalopathy (2) UTI (urinary tract infection) Status: Acute (3) Frequent falls Status: Acute (4) Parkinsons disease (5) Dementia Discharge Summary Discharge Physical Examination Allergies: Coded Allergies: Penicillins (Unverified Allergy, Unknown, HIVES, 05/21/14) adhesive tape (Unverified Allergy, Unknown, RASH BLISTERS, 05/21/14) Vitals & I&Os Vital Signs Date Time Temp Pulse Resp B/P (MAP) Pulse Ox O2 Delivery O2 Flow Rate FiO2 12/04/22 09:33 97 Room Air 12/04/22 08:49 108/52 (70) 12/04/22 07:31 0.00 12/04/22 07:27 36.7 70 16 12/03/22 08:32 21 General Appearance: Alert, Oriented X3, Cooperative Respiratory: Clear to Auscultation Cardiovascular: Regular Rate Psych/Mental Status: Mental Status NL Hospital Course Was the Problem List Reviewed?: Yes 87-year-old patient was brought to the ED for falls due to encephalopathy secondary to UTI. PMH includes high cholesterol, HTN, dementia, and hearing loss which makes communication difficult. CT was negative for acute abnormalities, but showed severe degenerative changes in the spine. UTI was treated w/ Rocephin which improved confusion. Patient was found to have hypokalemia and was treated with potassium chloride tablets (10 meq PO). Patient was diagnosed with Parkinson's and started Sinemet 25-100 1 tablet TIDWM which has help with hand tremor and no side effects. Was admitted to rehab for OT and PT with improved status, no falls, no pain, and was discharged on 12/04/2022. Labs (last 24 hrs) Laboratory Tests 11/24/22 06:10: White Blood Count 9.0, Red Blood Count 3.48L, Hemoglobin 10.3L, Hematocrit 31L, Mean Corpuscular Volume 88, Mean Corpuscular Hemoglobin 30, Mean Corpuscular Hemoglobin Concent 34, Red Cell Distribution Width 13.4, Platelet Count 178, Mean Platelet Volume 10.3, Immature Granulocyte % (Auto) 0, Neutrophils (%) (Auto) 69, Lymphocytes (%) (Auto) 16, Monocytes (%) (Auto) 12, Eosinophils (%) (Auto) 3, Basophils (%) (Auto) 0, Neutrophils # (Auto) 6.2, Lymphocytes # (Auto) 1.5, Monocytes # (Auto) 1.0, Eosinophils # (Auto) 0.2, Basophils # (Auto) 0.0, Immature Granulocyte # (Auto) 0.0, Sodium Level 141, Potassium Level 3.3L, Chloride Level 107, Carbon Dioxide Level 25, Anion Gap 9, Blood Urea Nitrogen 27H, Creatinine 0.80, Estimat Glomerular Filtration Rate 72, BUN/Creatinine Ratio 34, Glucose Level 96, Calcium Level 8.4L, Corrected Calcium 9.2, Total Bilirubin 0.4, Aspartate Amino Transf (AST/SGOT) 36H, Alanine Aminotransferase (ALT/SGPT) 15, Alkaline Phosphatase 64, Total Protein 5.7L, Albumin 3.0L 11/30/22 05:42: White Blood Count 8.3, Red Blood Count 3.87, Hemoglobin 11.4L, Hematocrit 35, Mean Corpuscular Volume 90, Mean Corpuscular Hemoglobin 30, Mean Corpuscular Hemoglobin Concent 33, Red Cell Distribution Width 13.9, Platelet Count 263, Mean Platelet Volume 9.4, Immature Granulocyte % (Auto) 3, Neutrophils (%) (Auto) 61, Lymphocytes (%) (Auto) 22, Monocytes (%) (Auto) 9, Eosinophils (%) ( Auto) 4, Basophils (%) (Auto) 1, Neutrophils # (Auto) 5.1, Lymphocytes # (Auto) 1.8, Monocytes # (Auto) 0.8, Eosinophils # (Auto) 0.3, Basophils # (Auto) 0.1, Immature Granulocyte # (Auto) 0.2H, Sodium Level 142, Potassium Level 3.9, Chloride Level 108H, Carbon Dioxide Level 26, Anion Gap 8, Blood Urea Nitrogen 32H, Creatinine 1.00, Estimat Glomerular Filtration Rate 55, BUN/Creatinine Ratio 32, Glucose Level 92, Calcium Level 8.7, Corrected Calcium 9.2, Total Bilirubin 0.3, Aspartate Amino Transf (AST/SGOT) 32, Alanine Aminotransferase (ALT/SGPT) 32, Alkaline Phosphatase 86, Total Protein 6.4, Albumin 3.4 Pending Labs Laboratory Tests 11/24/22 06:10: White Blood Count 9.0, Red Blood Count 3.48, Hemoglobin 10.3, Hematocrit 31, Mean Corpuscular Volume 88, Mean Corpuscular Hemoglobin 30, Mean Corpuscular Hemoglobin Concent 34, Red Cell Distribution Width 13.4, Platelet Count 178, Mean Platelet Volume 10.3, Immature Granulocyte % (Auto) 0, Neutrophils (%) (Auto) 69, Lymphocytes (%) (Auto) 16, Monocytes (%) (Auto) 12, Eosinophils (%) (Auto) 3, Basophils (%) (Auto) 0, Neutrophils # (Auto) 6.2, Lymphocytes # (Auto) 1.5, Monocytes # (Auto) 1.0, Eosinophils # (Auto) 0.2, Basophils # (Auto) 0.0, Immature Granulocyte # (Auto) 0.0, Sodium Level 141, Potassium Level 3.3, Chloride Level 107, Carbon Dioxide Level 25, Anion Gap 9, Blood Urea Nitrogen 27, Creatinine 0.80, Estimat Glomerular Filtration Rate 72, BUN/Creatinine Ratio 34, Glucose Level 96, Calcium Level 8.4, Corrected Calcium 9.2, Total Bilirubin 0.4, Aspartate Amino Transf (AST/SGOT) 36, Alanine Aminotransferase (ALT/SGPT) 15, Alkaline Phosphatase 64, Total Protein 5.7, Albumin 3.0 11/30/22 05:42: White Blood Count 8.3, Red Blood Count 3.87, Hemoglobin 11.4, Hematocrit 35, Mean Corpuscular Volume 90, Mean Corpuscular Hemoglobin 30, Mean Corpuscular Hemoglobin Concent 33, Red Cell Distribution Width 13.9, Platelet Count 263, Mean Platelet Volume 9.4, Immature Granulocyte % (Auto) 3, Neutrophils (%) (Auto) 61, Lymphocytes (%) (Auto) 22, Monocytes (%) (Auto) 9, Eosinophils (%) (Auto) 4, Basophils (%) (Auto) 1, Neutrophils # (Auto) 5.1, Lymphocytes # (Auto) 1.8, Monocytes # (Auto) 0.8, Eosinophils # (Auto) 0.3, Basophils # (Auto) 0.1, Immature Granulocyte # (Auto) 0.2, Sodium Level 142, Potassium Level 3.9, Chloride Level 108, Carbon Dioxide Level 26, Anion Gap 8, Blood Urea Nitrogen 32, Creatinine 1.00, Estimat Glomerular Filtration Rate 55, BUN/Creatinine Ratio 32, Glucose Level 92, Calcium Level 8.7, Corrected Calcium 9.2, Total Bilirubin 0.3, Aspartate Amino Transf (AST/SGOT) 32, Alanine Aminotransferase (ALT/SGPT) 32, Alkaline Phosphatase 86, Total Protein 6.4, Albumin 3.4 Discharge Home Medications: Active Scripts Active Lotrimin AF (Miconazole Nitrate) 2 % Powder 0 Gm TOP BID twice daily Carbidopa-Levodopa 25-100 Tab (Carbidopa/Levodopa) 25 Mg-100 Mg Tablet 1 Ea PO TIDWM Clonidine HCl 0.1 Mg Tablet 0.1 Mg PO Q4HR PRN Reported Slow Fe (Ferrous Sulfate) 142 Mg (45 Mg Iron) Tablet.er 142 Mg PO LESLEY GABRIEL THURS Aspirin EC (Aspirin) 81 Mg Tablet.dr 81 Mg PO DAILY Carvedilol 12.5 Mg Tablet 12.5 Mg PO BID Levothyroxine Sodium 50 Mcg Tablet 50 Mcg PO DAILY Fluoxetine HCl 20 Mg Capsule 20 Mg PO DAILY Fentanyl Patch 50 MCG (Fentanyl) 50 Mcg/Hour Patch.td72 50 Mcg TD Q72H Celebrex (Celecoxib) 200 Mg Capsule 200 Mg PO BID Preservision Areds 2 Softgel (Vit C/E/Zn/Coppr/Lutein/Zeaxan) 250MG-90MG Capsule 1 Each PO BID Losartan Potassium 100 Mg Tablet 100 Mg PO DAILY Pantoprazole Sodium 40 Mg Granpkt.dr 40 Mg PO DAILY Instructions to patient/family Please see electronic discharge instructions given to patient. Diagnosis/Problems Diagnosis/Problems (1) Encephalopathy (2) UTI (urinary tract infection) Status: Acute (3) Frequent falls Status: Acute (4) Parkinsons disease (5) Dementia SILVA CORTEZ DO Dec 04, 2022 06:29
[2022-12-04] MEDS: KCL 10 MEQ TAB (MICRO K) PO SCH (06:42)
[2022-12-04] MEDS: LEVOTHYROXINE 50 MCG (LEVOTHROID) TAB PO SCH (06:43)
[2022-12-04] MEDS: MULTIVIT W/MINERALS TAB (THERAGRAN M) PO SCH (06:43)
[2022-12-04 07:27] VITALS: BP 182/86
[2022-12-04] MEDS: cloNIDine 0.1 MG TABLET PO PRN (07:36)
[2022-12-04] MEDS: FLUoxetine 20 MG CAPSULE PO SCH (08:35)
[2022-12-04] MEDS: MICONAZOLE 2% POWDER (DESENEX AF) 90 GM TOP SCH (08:35)
[2022-12-04] MEDS: SINEMET 25/100 (CARBIDOPA/LEVODOPA) TAB PO SCH ×2 (08:35→12:09)
[2022-12-04] MEDS: CELECOXIB 100 MG CAPSULE PO SCH (08:35)
[2022-12-04] MEDS: PANTOPRAZOLE 40 MG (PROTONIX) TAB PO SCH (08:35)
[2022-12-04] MEDS: ENOXAPARIN 40 MG/0.4 ML SYRINGE SC SCH (08:35)
[2022-12-04] MEDS: carvediloL 12.5 MG TABLET PO SCH (08:35)
[2022-12-04] MEDS: ASPIRIN enteric coated 81MG TABLET PO SCH (08:35)
[2022-12-04] MEDS: LOSARTAN 100 MG (COZAAR) TABLET PO SCH (08:35)
[2022-12-04] MEDS: SENNA W/DOCUSATE (SENOKOT S) TABLET PO SCH (08:36)
[2022-12-04] MEDS: polyethylene glycoL POWDER 17 GM (MIRALAX) PACK PO SCH (08:36)
[2022-12-04] MEDS: DOCUSATE SODIUM 100 MG CAPSULE PO SCH (08:36)
[2022-12-04 08:49] VITALS: BP 108/52
--- NOTE | 2022-12-04 13:21 | Therapy Team Discharge Summary ---
Therapy Discharge Summary Discharge Recommendations Date of Discharge 12/04/2022 Therapy D/C Recommendations: Home w/ Family Support, Physical Therapy Home Care, Scheduled Assistance Physical Therapy Pt is a 87 y/o female who was brought to ED by EMS for evaluation after a fall on 11/22/22. Patient fell on 11/21/22 and 11/22/22. Admitted to ARU on 11/23/22 with encephalopathy d/t UTI. Pt reports that at PLOF, she was Mod I with the FWW, but needed some assistance with stairs getting into/out of the house. At PT eval, pt was Min A for functional mobility and only able to ambulate ~ 10ft with the FWW. PT focused on B LE strength, endurance, balance/safety, functional mobility, walking, stairs, and Ind. Pt progressed well with PT and met all set goals, besides 4 stairs, where she required Min A. Pt will have assistance to negotiate steps to enter/exit the home. Pt d/c from ARU on 12/04/22 to home with family and HHC, bath aide, and extended CG assistance when daughter is not home. D/C from PT at this time. Roll Left to Right (QC): 6 Sit to Lying (QC): 6 Lying to Sitting/Side of Bed(Q: 6 Sit to Stand (QC): 6 Chair/Oau-ku-Gxvsq Xfer(QC): 6 Toilet Transfer (QC): 6 Car Transfer (QC): 6 Does the Patient Walk: Yes Mode of Locomotion: Walk Anticipated Mode of Locomotion: Walk Walk 10 feet (QC): 6 Walk 50 ft with 2 Turns(QC): 4 Walk 150 ft (QC): 4 Walking 10ft on uneven surface: 4 Gait Assistive Device: FWW Does the Pt Use a Wheelchair: No Wheel 50 ft with 2 turns (QC): 9 Wheel 150 ft (QC): 9 Type of Wheelchair: Manual #of Steps: 4 1 Step (curb) (QC): 4 4 Steps (QC): 3 12 Steps (QC): 9 Walking Assistive Device: Walker Balance Sitting Static: Good Balance Sitting Dynamic: Fair Balance-Standing Static: Fair Picking up an Object (QC): 4 Occupational Therapy Decreased Activ Tolerance, Decreased UE Strength, Impaired Self-Care Skills Eating (QC): 6 Oral Hygiene (QC): 6 Shower/Bathe Self (QC): 5 Upper Body Dressing (QC): 6 Lower Body Dressing (QC): 5 On/Off Footwear (QC): 6 Toileting Hygiene (QC): 6 PT Pharmacy Stock Clerk Goals Senior Living Goals PT Senior Living Goals Time Frame: Dec 04, 2022 Roll Left to Right (QC): 4 (Pt will be SBA for all aspects of functional mobility, in order to safely d/c. ) Sit to Lying (QC): 4 (Pt will be SBA for all aspects of functional mobility, in order to safely d/c. ) Lying-Sitting on Side/Bed(QC): 4 (Pt will be SBA for all aspects of functional mobility, in order to safely d/c. ) Sit to Stand (QC): 4 (Pt will be SBA for all aspects of functional mobility, in order to safely d/c. ) Chair/Woo-la-Lwgud Xfer(QC): 4 (Pt will be SBA for all aspects of functional mobility, in order to safely d/c. ) Toilet/Commode Transfer (QC): 4 (Pt will be SBA for all aspects of functional mobility, in order to safely d/c. ) Car Transfer (QC): 4 (Pt will be SBA for all aspects of functional mobility, in order to safely d/c. ) Does the Patient Walk: Yes Walk 10 feet (QC): 4 (Pt will be SBA for all aspects of functional mobility, in order to safely d/c. ) Walk 10ft-Uneven Surface(QC): 4 (Pt will be SBA for all aspects of functional mobility, in order to safely d/c. ) Walk 50ft with 2 Turns (QC): 4 (Pt will be SBA for all aspects of functional mobility, in order to safely d/c. ) Walk 150 ft (QC): 4 (Pt will be SBA for all aspects of functional mobility, in order to safely d/c. ) Does the Pt use WC or Scooter?: Yes Wheel 50 feet with 2 turns (QC: 4 (Pt will be SBA for all aspects of functional mobility, in order to safely d/c. ) Type: Manual Wheel 150 feet: 4 (Pt will be SBA for all aspects of functional mobility, in order to safely d/c. ) Type: Manual 1 Step (curb) (QC): 4 (Pt will be SBA for all aspects of functional mobility, in order to safely d/c. ) 4 Steps (QC): 4 (Pt will be SBA for all aspects of functional mobility, in order to safely d/c. ) 12 Steps (QC): 9 (Pt has 4 steps to enter/exit home ) Picking up an Object (QC): 4 (Pt will be SBA for all aspects of functional mobility, in order to safely d/c. ) OT Pharmacy Stock Clerk Goals Pharmacy Stock Clerk Goals Time Frame: Dec 04, 2022 Acute change in mental status: 0 Inattention: 0 Disorganized thinkin Altered level of consciousness: 0 Eating (QC): 6 (met) Oral Hygiene (QC): 6 (met) Toileting Hygiene (QC): 5 (met) Shower/Bathe Self (QC): 5 (met) Upper Body Dressing (QC): 5 (met) Lower Body Dressing (QC): 5 (met) On/Off Footwear (QC): 5 (met) 1=Demonstrate adherence to instructed precautions during ADL tasks. 2=Patient will verbalize/demonstrate understanding of assistive devic es/modifications for ADL. 3=Patient will improve strength/tolerance for activity to enable patient to perform ADL's. Speech Pharmacy Stock Clerk Goals Pharmacy Stock Clerk Goals 1. Pt to complete auditory memory tasks with 80% accuracy with min verbal prompts and use of strategies as appropriate. BAYRON IVEY PT Dec 04, 2022 13:21
--- NOTE | 2022-12-07 13:06 | Therapy Team Discharge Summary ---
Therapy Discharge Summary Discharge Recommendations Date of Discharge Dec 04, 2022 at 12:35 Therapy D/C Recommendations: Home w/ Family Support, Physical Therapy Home Care, Scheduled Assistance Physical Therapy Roll Left to Right (QC): 6 Sit to Lying (QC): 6 Lying to Sitting/Side of Bed(Q: 6 Sit to Stand (QC): 6 Chair/Hdb-bi-Esmir Xfer(QC): 6 Toilet Transfer (QC): 6 Car Transfer (QC): 6 Does the Patient Walk: Yes Mode of Locomotion: Walk Anticipated Mode of Locomotion: Walk Walk 10 feet (QC): 6 Walk 50 ft with 2 Turns(QC): 4 Walk 150 ft (QC): 4 Walking 10ft on uneven surface: 4 Gait Assistive Device: FWW Does the Pt Use a Wheelchair: No Wheel 50 ft with 2 turns (QC): 9 Wheel 150 ft (QC): 9 Type of Wheelchair: Manual #of Steps: 4 1 Step (curb) (QC): 4 4 Steps (QC): 3 12 Steps (QC): 9 Walking Assistive Device: Walker Balance Sitting Static: Good Balance Sitting Dynamic: Fair Balance-Standing Static: Fair Picking up an Object (QC): 4 Occupational Therapy Pt is a 87 y/o female who was brought to ED by EMS for evaluation after a fall on 11/22/22. Patient fell on 11/21/22 and 11/22/22. Admitted to ARU on 11/23/22 with encephalopathy d/t UTI. Pt reports that at PLOF, she was Mod I with the FWW, but needed some assistance with stairs getting into/out of the house. At OT eval, pt was Min A for functional mobility and ADLs. OT focused on B UE strength, endurance, balance/safety, functional mobility, and Ind. w/ ADLs Pt progressed well with OT and met all set goals. Pt will have assistance to negotiate steps to enter/exit the home. Pt d/c from ARU on 12/04/22 to home with family and HHC, bath aide, and extended CG assistance when daughter is not home. D/C from OT at this time. Decreased Activ Tolerance, Decreased UE Strength, Impaired Self-Care Skills Eating (QC): 6 Oral Hygiene (QC): 6 Shower/Bathe Self (QC): 5 Upper Body Dressing (QC): 6 Lower Body Dressing (QC): 5 On/Off Footwear (QC): 6 Toileting Hygiene (QC): 6 PT Chcf Goals Chcf Goals PT [facility]cf Goals Time Frame: Dec 04, 2022 Roll Left to Right (QC): 4 (Pt will be SBA for all aspects of functional mobility, in order to safely d/c. ) Sit to Lying (QC): 4 (Pt will be SBA for all aspects of functional mobility, in order to safely d/c. ) Lying-Sitting on Side/Bed(QC): 4 (Pt will be SBA for all aspects of functional mobility, in order to safely d/c. ) Sit to Stand (QC): 4 (Pt will be SBA for all aspects of functional mobility, in order to safely d/c. ) Chair/Ymv-fk-Ipbnv Xfer(QC): 4 (Pt will be SBA for all aspects of functional mobility, in order to safely d/c. ) Toilet/Commode Transfer (QC): 4 (Pt will be SBA for all aspects of functional mobility, in order to safely d/c. ) Car Transfer (QC): 4 (Pt will be SBA for all aspects of functional mobility, in order to safely d/c. ) Does the Patient Walk: Yes Walk 10 feet (QC): 4 (Pt will be SBA for all aspects of functional mobility, in order to safely d/c. ) Walk 10ft-Uneven Surface(QC): 4 (Pt will be SBA for all aspects of functional mobility, in order to safely d/c. ) Walk 50ft with 2 Turns (QC): 4 (Pt will be SBA for all aspects of functional mobility, in order to safely d/c. ) Walk 150 ft (QC): 4 (Pt will be SBA for all aspects of functional mobility, in order to safely d/c. ) Does the Pt use WC or Scooter?: Yes Wheel 50 feet with 2 turns (QC: 4 (Pt will be SBA for all aspects of functional mobility, in order to safely d/c. ) Type: Manual Wheel 150 feet: 4 (Pt will be SBA for all aspects of functional mobility, in order to safely d/c. ) Type: Manual 1 Step (curb) (QC): 4 (Pt will be SBA for all aspects of functional mobility, in order to safely d/c. ) 4 Steps (QC): 4 (Pt will be SBA for all aspects of functional mobility, in order to safely d/c. ) 12 Steps (QC): 9 (Pt has 4 steps to enter/exit home ) Picking up an Object (QC): 4 (Pt will be SBA for all aspects of functional mobility, in order to safely d/c. ) OT Hearing Screener Goals Hearing Screener Goals Time Frame: Dec 04, 2022 Acute change in mental status: 0 Inattention: 0 Disorganized thinkin Altered level of consciousness: 0 Eating (QC): 6 (met) Oral Hygiene (QC): 6 (met) Toileting Hygiene (QC): 5 (met) Shower/Bathe Self (QC): 5 (met) Upper Body Dressing (QC): 5 (met) Lower Body Dressing (QC): 5 (met) On/Off Footwear (QC): 5 (met) 1=Demonstrate adherence to instructed precautions during ADL tasks. 2=Patient will verbalize/demonstrate understanding of assistive devices/modifications for ADL. 3=Patient will improve strength/tolerance for activity to enable patient to perform ADL's. Speech [facility] Goals Hearing Screener Goals 1. Pt to complete auditory memory tasks with 80% accuracy with min verbal prompts and use of strategies as appropriate. AURORA DOSS OT Dec 07, 2022 13:06
== END 2022-12-04 12:35 | disposition home health service (06) | DRG 71 ==
PROVIDERS: ADMIT Internal Medicine; ATTEND Internal Medicine
DX: G93.49 Other encephalopathy (principal); N39.0 Urinary tract infection, site not specified; G20 Parkinson's disease; F02.80 Dementia in other diseases classified elsewhere, unspecified severity, without behavioral disturbance, psychotic disturbance, mood disturbance, and anxiety; M47.812 Spondylosis without myelopathy or radiculopathy, cervical region; Z91.81 History of falling; E78.00 Pure hypercholesterolemia, unspecified; I10 Essential (primary) hypertension; Z66 Do not resuscitate; K21.9 Gastro-esophageal reflux disease without esophagitis; E03.9 Hypothyroidism, unspecified; H35.30 Unspecified macular degeneration; M19.90 Unspecified osteoarthritis, unspecified site; F41.9 Anxiety disorder, unspecified; H91.93 Unspecified hearing loss, bilateral; E87.6 Hypokalemia; B35.1 Tinea unguium; G60.9 Hereditary and idiopathic neuropathy, unspecified; M20.42 Other hammer toe(s) (acquired), left foot; M20.41 Other hammer toe(s) (acquired), right foot; Z85.820 Personal history of malignant melanoma of skin; Z97.4 Presence of external hearing-aid; Z79.82 Long term (current) use of aspirin; Z79.899 Other long term (current) drug therapy; Z88.0 Allergy status to penicillin
CPT/HCPCS: 36415; 80053; 85025; 94760

== ENCOUNTER 2022-12-19 22:43 | Emergency (ER) | payer MEDICARE ==
[~2022-12-19 22:43] MED LIST changes: +ASPI-1238 PO; +CARB1TAB32 PO; +CLN.1T PO; +FERR142T14 PO; +IBUP-2473 PO; +MICO90PO TOP
[2022-12-19] MEDS ORDERED: Tetanus/Diphtheria/Pertussis (Acell) ADULT Vaccine 0.5 ML IM ONE (23:00)
--- NOTE | 2022-12-19 23:46 | ED Fall/Injury ---
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 PT DENIES LOC AND DENIES PAIN. LAC NOTED TO OCCIPUT WITH BLEEDING CONTROLLED. Source: patient, EMS, [facility] records, old records Exam Limitations: no limitations History of Present Illness Date Seen by Provider: Dec 19, 2022 Allergies and Home Medications Allergies Coded Allergies: Penicillins (Unverified Allergy, Unknown, HIVES, 05/21/14) adhesive tape (Unverified Allergy, Unknown, RASH BLISTERS, 05/21/14) atorvastatin (Verified Allergy, Unknown, 12/19/22) cortisone (Verified Allergy, Unknown, 12/19/22) meperidine (Verified Allergy, Unknown, 12/19/22) niacin (Verified Allergy, Unknown, 12/19/22) sulfamethoxazole (Verified Allergy, Unknown, 12/19/22) trimethoprim (Verified Allergy, Unknown, 12/19/22) Patient Home Medication List Aspirin (Aspirin EC) 81 Mg Tablet.dr, 81 MG PO DAILY, (Reported) Entered as Reported by: MORIS MURRY on 11/23/22 1444 Carbidopa/Levodopa (Carbidopa-Levodopa 25-100 Tab) 25 Mg-100 Mg Tablet, 1 EA PO TIDWM Prescribed by: SILVA CORTEZ on 12/04/22627 Carvedilol (Carvedilol) 12.5 Mg Tablet, 12.5 MG PO BID, (Reported) Entered as Reported by: MORIS MURRY on 11/23/22 110 Celecoxib (Celebrex) 200 Mg Capsule, 200 MG PO BID, (Reported) Entered as Reported by: MORIS MURRY on 11/23/22 110 Clonidine HCl (Clonidine HCl) 0.1 Mg Tablet, 0.1 MG PO Q4HR PRN for sbp>160 Prescribed by: SILVA CORTEZ on 12/04/22627 Fentanyl (Fentanyl Patch 50 MCG) 50 Mcg/Hour Patch.td72, 50 MCG TD Q72H, (Reported) Entered as Reported by: MORIS MURRY on 11/23/22 1105 Ferrous Sulfate (Slow Fe) 142 Mg (45 Mg Iron) Tablet.er, 142 MG PO NERY,TUMIKEL FARRIS, (Reported) Entered as Reported by: MORIS MURRY on 11/23/22 1446 Fluoxetine HCl (Fluoxetine HCl) 20 Mg Capsule, 20 MG PO DAILY, (Reported) Entered as Reported by: MORIS MURRY on 11/23/22 1105 Levothyroxine Sodium (Levothyroxine Sodium) 50 Mcg Tablet, 50 MCG PO DAILY, (Reported) Entered as Reported by: MORIS MURRY on 11/23/22 1105 Losartan Potassium (Losartan Potassium) 100 Mg Tablet, 100 MG PO DAILY, (Report ed) Entered as Reported by: NHUNG HERNANDEZ on 10/11/20 0741 Miconazole Nitrate (Lotrimin AF) 2 % Powder, 0 GM TOP BID Prescribed by: SILVA CORTEZ on 12/04/22 0628 Pantoprazole Sodium (Pantoprazole Sodium) 40 Mg Granpkt.dr, 40 MG PO DAILY, (Reported) Entered as Reported by: NHUNG HERNANDEZ on 10/11/20 0741 Vit C/E/Zn/Coppr/Lutein/Zeaxan (Preservision Areds 2 Softgel) 250MG-90MG Capsule, 1 EACH PO BID, (Reported) Entered as Reported by: NHUNG HERNANDEZ on 10/11/20 0741 Past Tvkxxdh-Tfmtds-Trnskh Hx Patient Social History Tobacco Use?: No Substance use?: No Alcohol Use?: No Immunizations Up To Date Tetanus Booster (TDap): More than 5yrs COVID19 Vaccine Television Script Writer: 4 TOTAL DOSES Seasonal Allergies Seasonal Allergies: Yes Past Medical History Surgery/Hospitalization HX: hld, htn, depression, cad, djd,hypothryoidism, gerd bilateral knee sx, breast reduction Orthopedic Respiratory: No Cardiac: Yes (DEFIBRILLATOR-ST SAMM) High Cholesterol, Hypertension Neurological: No Dementia Reproductive Disorders: No Female Reproductive Disorders: Denies Sexually Transmitted Disease: No HIV/AIDS: No Gastrointestinal: Yes Gastroesophageal Reflux Arthritis, Chronic Back Pain Hypothyroidsim Macular Degeneration Hearing Impairment: Hard of Hearing, Hearing Aide Right, Hearing Aide Left Cancer: Yes Melanoma Anxiety Blood Disorders: No Adverse Reaction/Blood Tranf: No Family Medical History Alzheimer's disease G8 SISTER Cardiovascular disease 19 FATHER G8 BROTHER Colon cancer G8 BROTHER Coronary thrombosis 19 FATHER FH: breast cancer G8 SISTER FH: stomach cancer 19 MOTHER Heart Disease, Cancer, Hypertension Physical Exam Vital Signs Vital Signs - First Documented Capillary Refill : Less Than 3 Seconds Height, Weight, BMI Height: 5'7.00" Weight: 184lbs. 0.0oz. 83.171251cg; 31.52 BMI Method:Stated Progress/Results/Core Measures Results/Orders My Orders Orders - GILMA CRISOSTOMO MD Ct Head Wo (12/19/22 22:52) Dipht/Pertuss(Acell)/Tet Adult (Dipht/Pe (12/19/22 23:00) Medications Given in ED Current Medications Medications Dose Ordered Sig/Kaushik Route Start Time Stop Time Status Last Admin Dose Admin Diphtheria/ Tetanus/Acell Pertussis 0.5 ml ONCE ONCE IM 12/19/22 23:00 12/19/22 23:01 DC 12/19/22 23:07 0.5 ML Vital Signs/I&O 12/19/22 12/19/22 22:43 22:43 Temp 36.5 36.5 Pulse 76 76 Resp 16 16 B/P (MAP) 124/73 (90) 124/73 (90) Pulse Ox 97 97 O2 Delivery Room Air Room Air Blood Pressure Mean: 90 Departure Impression Primary Impression: Fall on same level Qualified Codes: W18.30XA - Fall on same level, unspecified, initial encounter Additional Impression: Scalp laceration Qualified Codes: S01.01XA - Laceration without foreign body of scalp, initial encounter Disposition: 01 HOME, SELF-CARE Condition: Improved Departure-Patient Inst. Decision time for Depature: 02:00 Referrals: TROY FERRER MD (PCP/Family) Primary Care Physician Patient Instructions: Laceration Repair With Jasmyne (DC) Add. Discharge Instructions: Monitor the wound for signs of infection such as increasing redness, increasing swelling, and puslike drainage. Return to care if these symptoms are noticed. Jasmyne may be removed in about 1 week. You may wash the hair but do not scrub directly over the jasmyne. Do not submerge until jasmyne are removed. Return to care if there is any worsening of symptoms. All discharge instructions reviewed with patient and/or family. Voiced understanding. GILMA CRISOSTOMO MD Dec 19, 2022 23:46
--- NOTE | 2022-12-20 00:50 | Diagnostic Imaging Report ---
PROCEDURE: CT head without contrast. TECHNIQUE: Multiple contiguous axial images were obtained through the brain without the use of intravenous contrast. Auto Exposure Controls were utilized during the CT exam to meet ALARA standards for radiation dose reduction. INDICATION: Headache, laceration of the head, trauma. COMPARISON: CT of the head 11/21/2022. FINDINGS: Mild generalized cerebral and cerebellar volume loss. Moderate nonspecific periventricular hypoattenuation, most commonly seen with chronic small vessel ischemic disease. Calcified atherosclerosis of the bilateral cavernous and paraclinoid internal carotid arteries and intracranial vertebral arteries. No intra- or extra-axial mass or fluid collection. No acute hemorrhage. The ventricles are normal in size, shape, and morphology. The che-white matter junction is normal. The subarachnoid cisterns are patent. The visualized paranasal sinuses are normal. The visualized portions of the orbits and globes are normal. The mastoid air cells are clear. The speech scientist topogram shows no lytic lesion or fracture. Impression: No acute intracranial process. Mild cerebral volume loss. Moderate chronic small vessel ischemic disease. Dictated by: Dictated on workstation # [id number]
[2022-12-20 02:09] VITALS: BP 122/70
== END 2022-12-20 02:09 | disposition home or self-care (01) ==
LOC: EDUNIT# 22:43 → ER 22:45
DX: S01.01XA Laceration without foreign body of scalp, initial encounter (principal); Z23 Encounter for immunization; W18.30XA Fall on same level, unspecified, initial encounter; W22.8XXA Striking against or struck by other objects, initial encounter
CPT/HCPCS: 70450; 90715

== ENCOUNTER 2023-01-07 02:59 | Emergency (ER) | payer MEDICARE ==
[~2023-01-07] VITALS: Ht 152.4 cm; Wt 76.6 kg
[2023-01-07] MEDS ORDERED: CEPH500T PO (05:01)
--- NOTE | 2023-01-07 05:01 | ED Fall/Injury ---
General Chief Complaint: Laceration Stated Complaint: FALL/HEAD LAC Source: patient (PT DOES HAVE SOME DEMENTIA), usp records, old records History of Present Illness Date Seen by Provider: Jan 07, 2023 Time Seen by Provider: 02:58 Initial Comments PT AR[facility] PT HAD AN UNWITNESSED FALL SOMETIME PRIOR TO ARRIVAL PT STATES SHE WAS WALKING TO THE BATHROOM, WHEN SHE FELL. SHE HAS A LARGE LACERATION TO RIGHT POSTERIOR/PARIETAL/OCCIPITAL AREA--SHE DOES NOT KNOW WHAT SHE HIT HER HEAD ON SHE DENIES LOSS OF CONSCIOUSNESS SHE DENIES HEADACHE DENIES NECK OR BACK PAIN DENIES VISION CHANGES DENIES NAUSEA/VOMITING DENIES PARESTHESIAS OR MOTOR DEFICITS DENIES ARM OR LEG PAIN PT IS ON 81 MG ASPIRIN. PT WITH FREQUENT FALLS--HAS A WALKER, BUT WAS NOT USING IT TONIGHT. PT HAS PARKINSON'S PT WAS BAREFOOT TONIGHT. PT FELL ON 12/19/22 AND SUSTAINED A SCALP LACERATION TO OCCIPUT, LOWER THAN CU RRENT LACERATION. PCP: DR. FERRER Allergies and Home Medications Allergies Coded Allergies: Penicillins (Unverified Allergy, Unknown, HIVES, 05/21/14) adhesive tape (Unverified Allergy, Unknown, RASH BLISTERS, 05/21/14) atorvastatin (Verified Allergy, Unknown, 12/19/22) cortisone (Verified Allergy, Unknown, 12/19/22) meperidine (Verified Allergy, Unknown, 12/19/22) niacin (Verified Allergy, Unknown, 12/19/22) sulfamethoxazole (Verified Allergy, Unknown, 12/19/22) trimethoprim (Verified Allergy, Unknown, 12/19/22) Patient Home Medication List Home Medication List Reviewed: Yes Aspirin (Aspirin EC) 81 Mg Tablet., 81 MG PO DAILY, (Reported) Entered as Reported by: MORIS MURRY on 11/23/22 1444 Carbidopa/Levodopa (Carbidopa-Levodopa 25-100 Tab) 25 Mg-100 Mg Tablet, 1 EA PO TIDWM Prescribed by: SILVA CORTEZ on 12/04/22 0628 Carvedilol (Carvedilol) 12.5 Mg Tablet, 12.5 MG PO BID, (Reported) Entered as Reported by: MORIS MURRY on 11/23/22 1105 Celecoxib (Celebrex) 200 Mg Capsule, 200 MG PO BID, (Reported) Entered as Reported by: MORIS MURRY on 11/23/22 110 Cephalexin (Cephalexin) 500 Mg Tablet, 500 MG PO QID Prescribed by: JUSTIN OCONNOR on 01/07/23 0501 Clonidine HCl (Clonidine HCl) 0.1 Mg Tablet, 0.1 MG PO Q4HR PRN for sbp>160 Prescribed by: SILVA CORTEZ on 12/04/22 0628 Fentanyl (Fentanyl Patch 50 MCG) 50 Mcg/Hour Patch.td72, 50 MCG TD Q72H, (Reported) Entered as Reported by: MORIS MURRY on 11/23/22 110 Ferrous Sulfate (Slow Fe) 142 Mg (45 Mg Iron) Tablet.er, 142 MG PO LESLEY GABRIEL T HURS, (Reported) Entered as Reported by: MORIS MURRY on 11/23/22 144 Fluoxetine HCl (Fluoxetine HCl) 20 Mg Capsule, 20 MG PO DAILY, (Reported) Entered as Reported by: MORIS MURRY on 11/23/22 110 Levothyroxine Sodium (Levothyroxine Sodium) 50 Mcg Tablet, 50 MCG PO DAILY, (Reported) Entered as Reported by: MORIS MURRY on 11/23/22 110 Losartan Potassium (Losartan Potassium) 100 Mg Tablet, 100 MG PO DAILY, (Reported) Entered as Reported by: NHUNG HERNANDEZ on 10/11/20740 Miconazole Nitrate (Lotrimin AF) 2 % Powder, 0 GM TOP BID Prescribed by: SILVA CORTEZ on 12/04/22627 Pantoprazole Sodium (Pantoprazole Sodium) 40 Mg Granpkt.dr, 40 MG PO DAILY, (Reported) Entered as Reported by: NHUNG HERNANDEZ on 10/11/20740 Vit C/E/Zn/Coppr/Lutein/Zeaxan (Preservision Areds 2 Softgel) 250MG-90MG Capsule, 1 EACH PO BID, (Reported) Entered as Reported by: NHUNG HERNANDEZ on 10/11/20740 Review of Systems Review of Systems Constitutional: no symptoms reported Eyes: No Symptoms Reported Ears, Nose, Mouth, Throat: no symptoms reported Respiratory: no symptoms reported Cardiovascular: no symptoms reported Gastrointestinal: no symptoms reported Genitourinary: no symptoms reported Musculoskeletal: no symptoms reported Skin: see HPI Psychiatric/Neurological: No Symptoms Reported, See HPI Past Poejspb-Yotmod-Dqvpwb Hx Immunizations Up To Date Tetanus Booster (TDap): More than 5yrs Seasonal Allergies Seasonal Allergies: Yes Past Medical History Surgery/Hospitalization HX: hld, htn, depression, cad, djd,hypothryoidism, gerd bilateral knee sx, breast reduction Surgeries: Yes Breast, Defibrillator, Orthopedic Respiratory: No Cardiac: Yes (DEFIBRILLATOR-ST SAMM) High Cholesterol, Hypertension, Irregular Heartbeat Neurological: Yes Dementia, Parkinson's Disease Reproductive Disorders: No Female Reproductive Disorders: Denies Sexually Transmitted Disease: No HIV/AIDS: No Gastrointestinal: Yes Gastroesophageal Reflux Arthritis, Chronic Back Pain Hypothyroidsim Macular Degeneration Hearing Impairment: Hard of Hearing, Hearing Aide Right, Hearing Aide Left Cancer: Yes Melanoma Anxiety Blood Disorders: No Adverse Reaction/Blood Tranf: No Family Medical History Alzheimer's disease G8 SISTER Cardiovascular disease 19 FATHER G8 BROTHER Colon cancer G8 BROTHER Coronary thrombosis 19 FATHER FH: breast cancer G8 SISTER FH: stomach cancer 19 MOTHER Heart Disease, Cancer, Hypertension Physical Exam Vital Signs Vital Signs - First Documented 01/07/23 03:00 Pulse 70 B/P (MAP) 149/91 (110) Pulse Ox 97 O2 Delivery Room Air Capillary Refill : Height, Weight, BMI Height: 5'7.00" Weight: 184lbs. 0.0oz. 83.414707tz; 31.52 BMI Method:Stated General Appearance: WD/WN, no apparent distress HEENT: PERRL/EOMI, TMs normal, pharynx normal, other (LARGE 9 CM FULL THICKNESS LACERATION TO RIGHT POSTERIOR PARIETAL/OCCIPITAL SCALP, WITH ACTIVE BLEEDING. PT IS IN CERVICAL COLLAR AND WOUND APPEARS TO BE PARTIALLY OBSCURED BY CERVICAL COLLAR. THERE IS A VERY LARGE HEMATOMA TO THE AREA ) Neck: other (IN CERVICAL COLLAR ON ARRIVAL) Cardiovascular: regular rate, rhythm Respiratory: chest non-tender, normal breath sounds Gastrointestinal: non tender, soft Back: normal inspection, no CVA tenderness, no vertebral tenderness Extremities: normal range of motion, non-tender, normal inspection, normal capillary refill Neurologic/Psychiatric: long goods drier II-XII nml as tested, no motor/sensory deficits, alert, normal mood/affect, oriented x 3 (BUT SOME LIMITED MEMORY), other (RESTING TREMOR) Skin: normal color, warm/dry, other (SCALP LACERATION) Procedures/Interventions Wound Location: Scalp Wound Length (cm): 9 Wound's Depth, Shape: sub Q (CURVED) Wound Explored: clean Irrigated w/ Saline (ccs): 500 Betadine Prep?: No (BETASEPT) Anesthesia: 1% Lidocaine Staple Repair: Stapler 35W (#18 JASMYNE) Progress LARGE AMOUNT OF DRIED AND CLOTTED BLOOD AROUND THE WOUND, WITH LARGE HEMATOMA, WITH ACTIVE BLEEDING FROM THE WOUND AFTER CLOSURE, BLEEDING IS CONTROLLED AND HEMATOMA IS STABLE Progress/Results/Core Measures Results/Orders My Orders Orders - JUSTIN OCONNOR DO Ct Head/Cervical Spine Wo (01/07/23 ) Lidocaine 1% Inj 10 Ml (Xylocaine 1% Inj (01/07/23 05:30) Medications Given in ED Current Medications Medications Dose Ordered Sig/Kaushik Route Start Time Stop Time Status Last Admin Dose Admin Lidocaine HCl 10 ml ONCE ONCE INJ 01/07/23 05:30 01/07/23 05:31 DC 01/07/23 04:25 10 ML Vital Signs/I&O 01/07/23 03:00 Pulse 70 B/P (MAP) 149/91 (110) Pulse Ox 97 O2 Delivery Room Air Progress Progress Note : Progress Note NO DETERIORATION IN PT'S CONDITION DURING ER STAY CERVICAL COLLAR REMOVED AFTER RECEIVING RADIOLOGIST REPORT OF CT SCAN PT DOES NOT HAVE POSTERIOR NECK TENDERNESS. NO DETERIORATION IN PT'S CONDITION DURING ER STAY REVIEWED HALFWAY RECORDS, PRIOR ER VISITS, ADMITS/H&P'S/CONSULTS/DISCHARGE SUMMARIES, TESTS/PROCEDURES COMPUTER SYSTEM DOWN DURING PT'S STAY. UNABLE TO VIEW RADIOLOGY STUDIES DURING PT'S STAY Diagnostic Imaging Comments CT HEAD-CERVICAL SPINE--PER [facility] VIA FAX AT 0924 -NO INTRACRANIAL HEMORRHAGE, NO MASS EFFECT OR EDEMA -NO EVIDENCE OF ACUTE CORTICAL STROKE -NO SKULL FRACTURE -POSTERIOR SCALP SOFT TISSUE SWELLING/HEMATOMA WITH ASSOCIATED RIGHT SIDED LACERATION -PERIVENTRICULAR SMALL VESSEL ISCHEMIC CHANGES -NO EVIDENCE OF ACUTE CERVICAL SPINE FRACTURE OR MAL-ALIGNMENT -CERVICAL SPONDYLOSIS IWTH VARYING DEGREES OF SPINAL CANAL OR NEUROFORAMINAL NARROWING. Reviewed: Reviewed by Me Departure Impression Primary Impression: Unwitnessed fall Additional Impressions: Scalp laceration Closed head injury without loss of consciousness IMPAIRED MOBILITY WITH FREQUENT FALLS Disposition: 03 XFER SNF Condition: Stable Departure-Patient Inst. Decision time for Depature: 04:55 Referrals: TROY FERRER MD (PCP/Family) Primary Care Physician Patient Instructions: Concussion, Adult ED, Laceration Repair With Jasmyne (DC), Preventing falls in adults Add. Discharge Instructions: ICE TO AREA AT 20 MINUTE INTERVALS TYLENOL 1 GRAM EVERY 6 HOURS NEEDED FOR PAIN CLEAN WOUND TWICE A DAY WITH ANTIBACTERIAL SOAP AND WATER JASMYNE OUT IN 10-14 DAYS RETURN TO ER IF SYMPTOMS WORSEN All discharge instructions reviewed with patient and/or family. Voiced unde rstanding. Scripts Cephalexin (Cephalexin) 500 Mg Tablet 500 MG PO QID, #20 TAB 0 Refills Prov: JUSTIN OCONNOR DO 01/07/23 Images Head/Face 1 - Laceration JUSTIN OCONNOR DO Jan 07, 2023 05:01
[2023-01-07] MEDS ORDERED: LIDOCAINE 1% INJ 10 ML VIAL INJ ONE (05:30)
[2023-01-07 07:20] VITALS: BP 170/92
--- NOTE | 2023-01-07 10:38 | Diagnostic Imaging Report ---
EXAMINATION: CT head and CT cervical spine without contrast. TECHNIQUE: Multiple contiguous axial images were obtained through the brain and cervical spine without the use of intravenous contrast. Sagittal and coronal reformations through the cervical spine were then performed. All CT scans use one or more of the following dose optimizing techniques: automated exposure control, MA and/or KvP adjustment based on patient size and exam type or iterative reconstruction. HISTORY: Head and neck pain after fall, head laceration. COMPARISON: 12/19/2022, 11/22/2022 FINDINGS: HEAD: Mild diffuse cerebral volume loss with proportional enlargement of the ventricles and sulci. Mild hypodensities throughout the supratentorial white matter of both cerebral hemispheres. No acute intracranial hemorrhage or abnormal extra-axial fluid collections are present. Calcification of the intracranial ICAs. No hyperdense vessel. The calvarium is intact. The mastoid air cells are clear. The visualized paranasal sinuses are clear. The orbits are normal. There is a right posterior scalp hematoma. C-SPINE: There is straightening of the normal cervical lordosis. Vertebral body heights are maintained. No acute fracture, dislocation, or destructive osseous process. Multilevel facet hypertrophy without perched facets. There is multilevel cervical spondylosis. The paraspinous soft tissues are normal. The visualized thyroid gland is normal. The visualized lung apices are normal. IMPRESSION: 1. No acute intracranial abnormality. Mild chronic microangiopathy and volume loss. 2. Degenerative changes of the cervical spine without acute osseous abnormality. 3. Agree with preliminary interpretation. Dictated by: Dictated on workstation # [id number]
== END 2023-01-07 07:20 ==
LOC: EDUNIT# 02:59 → ER 03:00
DX: S09.90XA Unspecified injury of head, initial encounter (principal); S01.01XA Laceration without foreign body of scalp, initial encounter; S10.93XA Contusion of unspecified part of neck, initial encounter; Z79.82 Long term (current) use of aspirin; Z74.09 Other reduced mobility; Z88.0 Allergy status to penicillin; Z88.2 Allergy status to sulfonamides; W18.30XA Fall on same level, unspecified, initial encounter; Y93.01 Activity, walking, marching and hiking; Y92.129 Unspecified place in nursing home as the place of occurrence of the external cause
CPT/HCPCS: 12034; 70450; 72125

== ENCOUNTER 2023-01-09 12:53 | Emergency (ER) | payer MEDICARE ==
[~2023-01-09] VITALS: Ht 152.4 cm; Wt 76.6 kg
[~2023-01-09 12:53] MED LIST changes: +CEPH500T PO
--- NOTE | 2023-01-09 13:50 | ED Head Injury ---
General Chief Complaint: Trauma-Non Activation Stated Complaint: FALL Nursing Triage Note: PT BROUGHT IN BY [facility] FROM [facility] WITH COMPLAINT OF FALL. PT STATES SHE WAS WALKING, TURNAROUND AND FELL DOWN. DENIES LOC. HAS LACERATION TO LEFT FOREHEAD. Source: patient, EMS Exam Limitations: no limitations History of Present Illness Date Seen by Provider: Jan 09, 2023 Time Seen by Provider: 13:37 Initial Comments 87-year-old female presents the ER via EMS from the [facility]. She states she was walking, turned around and fell. Patient hit her head, presents with wounds to left forehead. Denies loss of consciousness. Denies dizziness prior to the fall. Patient also has an abrasion to right knee, patient denies any pain in right knee, has full range of motion. Denies chest pain, shortness of air, abdominal pain. EMS reports that patient was here few days ago for a fall and received yuriy in her head. Patient takes aspirin. Allergies and Home Medications Allergies Coded Allergies: Penicillins (Unverified Allergy, Unknown, HIVES, 05/21/14) adhesive tape (Unverified Allergy, Unknown, RASH BLISTERS, 05/21/14) atorvastatin (Verified Allergy, Unknown, 12/19/22) cortisone (Verified Allergy, Unknown, 12/19/22) meperidine (Verified Allergy, Unknown, 12/19/22) niacin (Verified Allergy, Unknown, 12/19/22) sulfamethoxazole (Verified Allergy, Unknown, 12/19/22) trimethoprim (Verified Allergy, Unknown, 12/19/22) Patient Home Medication List Home Medication List Reviewed: Yes Aspirin (Aspirin EC) 81 Mg Tablet., 81 MG PO DAILY, (Reported) Entered as Reported by: MORIS MURRY on 11/23/22 1444 Carbidopa/Levodopa (Carbidopa-Levodopa 25-100 Tab) 25 Mg-100 Mg Tablet, 1 EA PO TIDWM Prescribed by: SILVA CORTEZ on 12/04/22 0628 Carvedilol (Carvedilol) 12.5 Mg Tablet, 12.5 MG PO BID, (Reported) Entered as Reported by: MORIS MURRY on 11/23/22 1105 Celecoxib (Celebrex) 200 Mg Capsule, 200 MG PO BID, (Reported) Entered as Reported by: MORIS MURRY on 11/23/22 1105 Cephalexin (Cephalexin) 500 Mg Tablet, 500 MG PO QID Prescribed by: JUSTIN OCONNOR on 01/07/23 0501 Clonidine HCl (Clonidine HCl) 0.1 Mg Tablet, 0.1 MG PO Q4HR PRN for sbp>160 Prescribed by: SILVA CORTEZ on 12/04/22 0628 Fentanyl (Fentanyl Patch 50 MCG) 50 Mcg/Hour Patch.td72, 50 MCG TD Q72H, (Reported) Entered as Reported by: MORIS MURRY on 11/23/22 1105 Ferrous Sulfate (Slow Fe) 142 Mg (45 Mg Iron) Tablet.er, 142 MG PO SUN,[place],THURS, (Reported) Entered as Reported by: MORIS MURRY on 11/23/22 1446 Fluoxetine HCl (Fluoxetine HCl) 20 Mg Capsule, 20 MG PO DAILY, (Reported) Entered as Reported by: MORIS MURRY on 11/23/22 110 Levothyroxine Sodium (Levothyroxine Sodium) 50 Mcg Tablet, 50 MCG PO DAILY, (Reported) Entered as Reported by: MORIS MURRY on 11/23/22 110 Losartan Potassium (Losartan Potassium) 100 Mg Tablet, 100 MG PO DAILY, (Reported) Entered as Reported by: NHUNG HERNANDEZ on 10/11/20 07 Miconazole Nitrate (Lotrimin AF) 2 % Powder, 0 GM TOP BID Prescribed by: SILVA CORTEZ on 12/04/22 06 Pantoprazole Sodium (Pantoprazole Sodium) 40 Mg Granpkt.dr, 40 MG PO DAILY, (Reported) Entered as Reported by: NHUNG HERNANDEZ on 10/11/20740 Vit C/E/Zn/Coppr/Lutein/Zeaxan (Preservision Areds 2 Softgel) 250MG-90MG Capsule, 1 EACH PO BID, (Reported) Entered as Reported by: NHUNG HERNANDEZ on 10/11/20740 Review of Systems Review of Systems Constitutional: see HPI Past Hsfdvsy-Jyzwzg-Lnajgk Hx Patient Social History Tobacco Use?: No Use of E-Cig and/or Vaping dev: No Substance use?: No Alcohol Use?: No Pt feels they are or have been: No Immunizations Up To Date Tetanus Booster (TDap): More than 5yrs Seasonal Allergies Seasonal Allergies: Yes Past Medical History Surgery/Hospitalization HX: hld, htn, depression, cad, djd,hypothryoidism, gerd bilateral knee sx, breast reduction Surgeries: Yes Breast, Defibrillator, Orthopedic Respiratory: No Cardiac: Yes (DEFIBRILLATOR-ST SAMM) High Cholesterol, Hypertension, Irregular Heartbeat Neurological: Yes Dementia, Parkinson's Disease Reproductive Disorders: No Female Reproductive Disorders: Denies Sexually Transmitted Disease: No HIV/AIDS: No Gastrointestinal: Yes Gastroesophageal Reflux Arthritis, Chronic Back Pain Hypothyroidsim Macular Degeneration Hearing Impairment: Hard of Hearing, Hearing Aide Right, Hearing Aide Left Cancer: Yes Melanoma Anxiety Blood Disorders: No Adverse Reaction/Blood Tranf: No Family Medical History Alzheimer's disease G8 SISTER Cardiovascular disease 19 FATHER G8 BROTHER Colon cancer G8 BROTHER Coronary thrombosis 19 FATHER FH: breast cancer G8 SISTER FH: stomach cancer 19 MOTHER Heart Disease, Cancer, Hypertension Physical Exam Vital Signs Vital Signs - First Documented 01/09/23 12:54 Pulse 8 Resp 20 B/P (MAP) 152/88 (109) Pulse Ox 94 O2 Delivery Room Air Capillary Refill : Less Than 3 Seconds Height, Weight, BMI Height: 5'7.00" Weight: 184lbs. 0.0oz. 83.865980gc; 32.00 BMI Method:Stated General Appearance: WD/WN, no apparent distress HEENT: PERRL/EOMI, normal ENT inspection, TMs normal Neck: non-tender, full range of motion, supple, normal inspection Cardiovascular: regular rate, rhythm Respiratory: normal breath sounds, no respiratory distress, no accessory muscle use Extremities: normal range of motion, non-tender, other (Abrasion to right knee) Psychiatric: alert, oriented x 3 Crainal Nerves: No normal hearing (Very hard of hearing); normal speech, PERRL Motor/Sensory: no motor deficit, no sensory deficit Progress/Results/Core Measures Results/Orders My Orders Orders - LILIA RIVAS APRN Ct Head/Cervical Spine Wo (01/09/23 13:42) Vital Signs/I&O 01/09/23 01/09/23 12:54 15:08 Pulse 8 75 Resp 20 16 B/P (MAP) 152/88 (109) 154/89 Pulse Ox 94 98 O2 Delivery Room Air Room Air Blood Pressure Mean: 109 Progress Progress Note : Progress Note Patient seen and evaluated, resting comfortably in bed, no acute distress. Based on exam and symptoms, CT head and neck ordered due to patient age and being on blood thinners. Wounds to face will likely not need to be repaired with sutures. 1436 CT reviewed. Negative for acute intracranial process. C-spine shows no acute fracture. Results discussed with patient. Will discharge at this time. long-term has been contacted for transport. Diagnostic Imaging Diagonstic Imaging: CT Plain Films/CT/US/NM/MRI: c-spine, head Comments [facility]. [place], [place] NAME: ELVIN ARNETT [facility] REC#: [id number] PT STATUS: REG ER : 1935 PHYSICIAN: LILIA RIVAS APRN ADMIT DATE: 01/09/23/ER Signed Date of Exam:01/09/23 CT HEAD/CERVICAL SPINE WO CLINICAL INDICATION: Patient with complaints of fall. Patient was walking and turned around and fell. Patient has laceration to the left forehead. EXAM: Head CT without IV contrast with sagittal and coronal reformations. Axial CT scan of the cervical spine with sagittal and coronal reformations. Auto Exposure Controls were utilized during the CT exam to meet ALARA standards for radiation dose reduction. COMPARISON: CT scan of the head and cervical spine without contrast 01/07/2023. FINDINGS: Head CT: There is no evidence of acute cerebral infarct, intracranial hemorrhage, or gross mass effect. There is diffuse brain parenchymal volume loss. Chronic small vessel ischemic disease is seen. There is normal che-white matter distinction. There is no significant midline shift or herniation. There is no evidence of hydrocephalus. The basal cisterns are unremarkable. There is a small area of extracranial soft tissue swelling and air involving the left forehead region. There is soft tissue swelling involving the right posterior aspect of the head. There is no skull fracture. Skull, extracranial soft tissue, and orbits are unremarkable. The paranasal sinuses are unremarkable. Temporal bones show no significant abnormality. 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 There is no acute cervical spine fracture. There is stable grade 1 anterolisthesis of C3 on C4, C4 on C5, and C7 on T1. Stable cervical spine degenerative spurs and facet arthropathy. The remainder of this exam shows no significant interval change compared to the prior study of comparison. IMPRESSION: 1: There is no evidence of acute intracranial process. There is no skull fracture. There is no intracranial hemorrhage. 2: Stable cervical spine degenerative disease with no acute fracture. Dictated by: Dictated on workstation # [id number] Dict: 01/09/23 1359 Trans: 01/09/23 1457 [id number] Interpreted by: NICA CHOI MD Electronically signed by: NICA CHOI MD 01/09/23 1457 Departure Impression Primary Impression: Fall Additional Impression: Head injury Disposition: 01 HOME, SELF-CARE Condition: Stable Departure-Patient Inst. Decision time for Depature: 14:36 Referrals: TROY FERRER MD (PCP/Family) Primary Care Physician Patient Instructions: Head Injury Observation (DC) Add. Discharge Instructions: You need to be asking for assistance when you are walking to prevent falls. Return for abnormal behavior, difficulty doing normal activities, severe headache, or any other new, concerning, or worsening symptoms. All discharge instructions reviewed with patient and/or family. Voiced understanding. Copy Copies To 1: TROY FERRER MD, BRITTANY R [employer]KER Jan 09, 2023 13:50
--- NOTE | 2023-01-09 14:07 | Diagnostic Imaging Report ---
CLINICAL INDICATION: Patient with complaints of fall. Patient was walking and turned around and fell. Patient has laceration to the left forehead. EXAM: Head CT without IV contrast with sagittal and coronal reformations. Axial CT scan of the cervical spine with sagittal and coronal reformations. Auto Exposure Controls were utilized during the CT exam to meet ALARA standards for radiation dose reduction. COMPARISON: CT scan of the head and cervical spine without contrast 01/07/2023. FINDINGS: Head CT: There is no evidence of acute cerebral infarct, intracranial hemorrhage, or gross mass effect. There is diffuse brain parenchymal volume loss. Chronic small vessel ischemic disease is seen. There is normal che-white matter distinction. There is no significant midline shift or herniation. There is no evidence of hydrocephalus. The basal cisterns are unremarkable. There is a small area of extracranial soft tissue swelling and air involving the left forehead region. There is soft tissue swelling involving the right posterior aspect of the head. There is no skull fracture. Skull, extracranial soft tissue, and orbits are unremarkable. The paranasal sinuses are unremarkable. Temporal bones show no significant abnormality. 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 There is no acute cervical spine fracture. There is stable grade 1 anterolisthesis of C3 on C4, C4 on C5, and C7 on T1. Stable cervical spine degenerative spurs and facet arthropathy. The remainder of this exam shows no significant interval change compared to the prior study of comparison. IMPRESSION: 1: There is no evidence of acute intracranial process. There is no skull fracture. There is no intracranial hemorrhage. 2: Stable cervical spine degenerative disease with no acute fracture. Dictated by: Dictated on workstation # [id number]
[2023-01-09 15:08] VITALS: BP 154/89
== END 2023-01-09 15:08 | disposition home or self-care (01) ==
LOC: EDUNIT# 12:53 → ER 12:55
DX: S09.90XA Unspecified injury of head, initial encounter (principal); S80.211A Abrasion, right knee, initial encounter; W18.30XA Fall on same level, unspecified, initial encounter; W22.8XXA Striking against or struck by other objects, initial encounter; Y93.01 Activity, walking, marching and hiking
CPT/HCPCS: 70450; 72125